=== PATIENT | female | born 1945 | race Caucasian/White ===

== ENCOUNTER 2016-02-23 09:24 | Observation (INO) | payer MEDICARE ==
--- NOTE | 2016-02-23 10:02 | ERPHSYRPT ---
- History of Present Illness Time Seen by Provider: 02/23/16 09:54 Source: patient, family Exam Limitations: no limitations Patient Subjective Stated Complaint: dizziness, headache, productive cough Triage Nursing Assessment: states went to the chiropractor for the first time yesterday due to rt side weakness for 2 years and was in the shower this moring and had sudden onset of fullness in head and dizziness. wet moist cough noted and staes has had white productive sputum. skin warm and dry. flat affect with eye contact. c/o frontal head pain. denies n/v. diarrhea last night. 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 States felt dizziness and unable to stand/walk along with uncoordination. Ptl also with "top of head" headache radiating down left side, along with right side weakness but no paresthesias. Denies any blurred vision or mental status changes. States previously with dizziness but not severe as this episode. Pt. with COPD with chronic cough/SOB. Denies any fever, chill, vomiting or diarrhea. Pt. saw chiropractor for some chronic R side weakness and dizziness for 1-2 years, that pt. have had multiple work ups for strokes with head CT/MRI's Timing/Duration: today (at 8AM) Severity: severe Modifying Factors: Improves With: movement (worsen), rest (improves but still with dizziness) Associated Symptoms: shortness of breath, cough (productive white sputum with cough), chest pain (substernal chest discomfort for about an hour, "heaviness", non-radiating), headaches, weakness (R side ), other (pre-syncope) Allergies/Adverse Reactions: Sulfa (Sulfonamide Antibiotics) Allergy (Intermediate, Verified 02/23/16 09:41) Rash Home Medications: Formoterol Fumarate [Perforomist] 20 mcg IH DAILY 09/30/15 [History] Levothyroxine Sodium [Synthroid] 50 mcg PO DAILY 09/30/15 [History] Montelukast Sodium [Singulair] 5 mg PO DAILY 09/30/15 [History] Potassium 99 mg PO DAILY 09/30/15 [History] Hx Tetanus, Diphtheria Vaccination/Date Given: Yes Hx Influenza Vaccination/Date Given: No Hx Pneumococcal Vaccination/Date Given: No Immunizations Up to Date: Yes - Review of Systems Constitutional: No Fever, No Chills Eyes: No Symptoms, No Vision Changes, No Double Vision Ears, Nose, & Throat: Nose Congestion Respiratory: Cough, Dyspnea, No Stridor, No Wheezing Cardiac: Chest Pain, No Edema, No Palpitations Abdominal/Gastrointestinal: No Abdominal Pain, No Nausea, No Vomiting, No Diarrhea Genitourinary Symptoms: No Dysuria Musculoskeletal: No Back Pain, No Neck Pain Skin: No Rash Neurological: Dizziness, Focal Weakness, No Lethargy, No Parasthesia, No Sensory Changes, No Speech Changes Psychological: No Symptoms Endocrine: No Symptoms All Other Systems: Reviewed and Negative - Past Medical History Neurological History: No Pertinent History ENT History: No Pertinent History Respiratory History: COPD Endocrine Medical History: Hypothyroidism GI Medical History: Diverticulitis - Past Surgical History Past Surgical History: Yes Gastrointestinal: Appendectomy Musculoskeletal: Other (R Hand surgery for trigger finger) Female Surgical History: Hysterectomy - Social History Smoking Status: Current every day smoker Exposure to second hand smoke: No Drug Use: none Patient Lives Alone: No - Nursing Vital Signs Nursing Vital Signs: Initial Vital Signs Temperature 97.6 F Temperature Source Oral Pulse Rate 84 Respiratory Rate 16 Blood Pressure 149/85 Pain Intensity 8 - Physical Exam General Appearance: no apparent distress, alert Eye Exam: PERRL/EOMI, eyes nml inspection Ears, Nose, Throat Exam: normal ENT inspection, TMs normal, pharynx normal, moist mucous membranes Neck Exam: normal inspection, non-tender, supple, full range of motion Respiratory Exam: rhonchi (intermittent rhonchis), No respiratory distress Cardiovascular Exam: regular rate/rhythm, normal heart sounds, normal peripheral pulses Gastrointestinal/Abdomen Exam: soft, normal bowel sounds, No tenderness, No mass Back Exam: normal inspection, normal range of motion, No CVA tenderness, No vertebral tenderness Extremity Exam: normal inspection, normal range of motion, pelvis stable Neurologic Exam: alert, oriented x 3, cooperative, waste removalist II-XII nml as tested, normal mood/affect, sensation nml, motor deficits (R UE/LE weakness 3/5 compared to Left side), abnormal gait (unable to ambulate), other (Increase subjective dizziness with positional and head changes, no nystagmus), No disoriented, No confusion, No facial droop, No slurred speech Skin Exam: normal color, warm, dry, No rash Lymphatic Exam: No adenopathy SpO2 Interpretation: normal SpO2: 98 Oxygen Delivery: Room Air - Course Nursing assessment & vital signs reviewed: Yes EKG Interpreted by Me: RATE, Sinus Rhythm (81), NORMAL AXIS, NORMAL INTERVALS, NORMAL QRS - Radiology Exams Chest X-ray Interpretation: Interpreted by me, No Pneumonia, No Infiltrates, Other ( COPD changes with hyperinflation) - CT Exams Head CT Interpretation: Negative, Tele-radiologist Report Ordered Tests: Active Orders 24 hr Category Date Time Status Wardrobe Stylist STAT Care 02/23/16 10:14 Active EKG-ER Only STAT Care 02/23/16 10:14 Active IV Insertion STAT Care 02/23/16 10:14 Active NPO (ED) STAT Care 02/23/16 10:14 Active Orthostatic Vital Signs STAT Care 02/23/16 10:28 Active Pulse Oximetry (ED) STAT Care 02/23/16 10:14 Active CHEST 1 VIEW (PORTABLE) Stat Exams 02/23/16 10:15 Taken HEAD WITHOUT CONTRAST [CT] Stat Exams 02/23/16 10:15 Taken BMP Stat Lab 02/23/16 10:15 Completed CBC W DIFF Stat Lab 02/23/16 10:15 Completed TROPONIN Stat Lab 02/23/16 10:15 Completed UA W/ MICROSCOPIC Stat Lab 02/23/16 10:15 Completed Medication Summary Discontinued Medications Generic Name Dose Route Start Last Admin Trade Name Freq PRN Reason Stop Dose Admin Aspirin 325 mg 02/23/16 11:30 Baby Aspirin 81 Mg Chew PO 02/23/16 11:31 STAT ONE Lab/Rad Data: Laboratory Result Diagrams 02/23/16 10:15 02/23/16 10:15 Laboratory Results 02/23/16 02/23/16 02/23/16 Range/Units 10:15 10:15 10:15 WBC (4.0-10.5) K/mm3 RBC (4.1-5.4) M/mm3 Hgb (12.0-16.0) gm/dl Hct (35-47) % MCV (78-100) fl MCH (26-32) pg MCHC (32-36) g/dl RDW (11.5-14.0) % Plt Count (150-450) K/mm3 MPV (6-9.5) fl Gran % (36.0-66.0) % Lymphocytes % (24.0-44.0) % Monocytes % (0.0-12.0) % Eosinophils % (0.00-5.0) % Basophils % (0.0-0.4) % Basophils # (0-0.4) Sodium 141 (136-145) mEq/L Potassium 3.1 L (3.5-5.1) mEq/L Chloride 101 (98-107) mEq/L Carbon Dioxide 29.5 (21-32) mEq/L Anion Gap 14.0 (5-15) MEQ/L BUN 17 (9-20) mg/dL Creatinine 0.57 (0.55-1.30) mg/dl Estimated GFR > 60 ML/MIN Glucose 95 (70-110) MG/DL Calcium 9.4 (8.5-10.1) mg/dL Troponin I < 0.017 (0.000-0.056) ng/ml Ur Collection Type VOID Urine Color YELLOW (YELLOW) Urine Appearance HAZY (CLEAR) Urine pH 7.5 (5-6) Ur Specific Volcano 1.015 (1.005-1.025) Urine Protein NEGATIVE (Negative) Urine Glucose (UA) NEGATIVE (NEGATIVE) mg/dL Urine Ketones NEGATIVE (NEGATIVE) Urine Nitrite NEGATIVE (NEGATIVE) Urine Bilirubin NEGATIVE (NEGATIVE) Urine Urobilinogen 0.2 (0-1) mg/dL Urine WBC (Auto) NEGATIVE (NEGATIVE) Urine RBC (Auto) SMALL (0-5) Dimitri/ul Urine Microscopic RBC 2-5 (0-2) /HPF Urine Microscopic WBC 0-2 (0-5) /HPF Ur Epithelial Cells FEW (FEW) /HPF Amorphous Crystals MODERATE (NEGATIVE) /HPF Urine Bacteria FEW (NEGATIVE) /HPF Specimen Received 02/23/16 1000 02/23/16 Range/Units 10:15 WBC 7.8 (4.0-10.5) K/mm3 RBC 4.91 (4.1-5.4) M/mm3 Hgb 14.7 (12.0-16.0) gm/dl Hct 44.9 (35-47) % MCV 91.4 (78-100) fl MCH 29.9 (26-32) pg MCHC 32.7 (32-36) g/dl RDW 12.4 (11.5-14.0) % Plt Count 306 (150-450) K/mm3 MPV 10.9 H (6-9.5) fl Gran % 65.2 (36.0-66.0) % Lymphocytes % 25.2 (24.0-44.0) % Monocytes % 7.7 (0.0-12.0) % Eosinophils % 1.3 (0.00-5.0) % Basophils % 0.6 (0.0-0.4) % Basophils # 0.05 (0-0.4) Sodium (136-145) mEq/L Potassium (3.5-5.1) mEq/L Chloride (98-107) mEq/L Carbon Dioxide (21-32) mEq/L Anion Gap (5-15) MEQ/L BUN (9-20) mg/dL Creatinine (0.55-1.30) mg/dl Estimated GFR ML/MIN Glucose (70-110) MG/DL Calcium (8.5-10.1) mg/dL Troponin I (0.000-0.056) ng/ml Ur Collection Type Urine Color (YELLOW) Urine Appearance (CLEAR) Urine pH (5-6) Ur Specific Volcano (1.005-1.025) Urine Protein (Negative) Urine Glucose (UA) (NEGATIVE) mg/dL Urine Ketones (NEGATIVE) Urine Nitrite (NEGATIVE) Urine Bilirubin (NEGATIVE) Urine Urobilinogen (0-1) mg/dL Urine WBC (Auto) (NEGATIVE) Urine RBC (Auto) (0-5) Dimitri/ul Urine Microscopic RBC (0-2) /HPF Urine Microscopic WBC (0-5) /HPF Ur Epithelial Cells (FEW) /HPF Amorphous Crystals (NEGATIVE) /HPF Urine Bacteria (NEGATIVE) /HPF Specimen Received - Progress Progress: improved Progress Note: 02/23/16 11:21 patient without any new changes in symptoms during her stay in the emergency department. Patient remained hemodynamically stable throughout. 02/23/16 11:27 patient was given aspirin 325 mg while in the emergency department Discussed with Dr.: Persaud (Dr. Schaeffer was notified and agrees to admission) Will see patient in: hospital (observation) Counseled pt/family regarding: lab results, diagnosis, rad results - Departure Time of Disposition: 11:23 Departure Disposition: Observation Clinical Impression: Right sided weakness, Dizziness Condition: Stable Critical Care Time: No Referrals: CYDNEY VELA [Primary Care Provider] -
[2016-02-23 10:23] LABS: BASOPHIL % 0.6 % (0.0-0.4); Eosinophil % 1.3 % (0.00-5.0); Granulocytes % 65.2 % (36.0-66.0); Lymphocytes % 25.2 % (24.0-44.0); Mean Cell Volume 91.4 fl (78-100); Mean Corpuscular Hemoglobin 29.9 pg (26-32); Mean Platelet Volume 10.9 fl (6-9.5); Monocytes % 7.7 % (0.0-12.0); Platelet Count 306 K/mm3 (150-450); Red Blood Count 4.91 M/mm3 (4.1-5.4); Red Cell Distribution Width 12.4 % (11.5-14.0); White Blood Count 7.8 K/mm3 (4.0-10.5)
[2016-02-23 10:24] LABS: COMPLETE URINE MICROSCOPIC? YES; Collection Type VOID; Ph 7.5 (5-6)
[2016-02-23 10:39] LABS: Bacteria FEW /HPF (NEGATIVE); Epithelial Cells FEW /HPF (FEW); WBC 0-2 /HPF (0-5)
[2016-02-23 10:54] LABS: BLOOD UREA NITROGEN 17 mg/dL (9-20); CHLORIDE 101 mEq/L (98-107); Carbon Dioxide 29.5 mEq/L (21-32); Glucose 95 MG/DL (70-110); Potassium 3.1 mEq/L (3.5-5.1); SODIUM 141 mEq/L (136-145)
[2016-02-23] MEDS ORDERED: BABY ASPIRIN 81 MG CHEW PO ONE (11:30)
[2016-02-23] MEDS ORDERED: BABY ASPIRIN 81 MG CHEW ONE (11:39)
[2016-02-23] MEDS ORDERED: Zofran 4 MG/2 ML VIAL IV ONE (11:47)
[2016-02-23] MEDS ORDERED: Zofran 4 MG/2 ML VIAL ONE (11:48)
[2016-02-23] MEDS ORDERED: Klor Con 10 MEQ PO ONE (13:24)
--- NOTE | 2016-02-23 14:09 | PCM.HP ---
History of Present Illness - Chief Complaint Chief Complaint: weakness. dizziness Date: 02/23/16 History of Present Illness: is a 70 year old female. with chronic right sided weakness for 2 years developed sudden onset dizziness today while in the restroom she felt as if she was "whirling" and the was going to fall down. Position changes make it worse. Laying still makes it better. She had a brief less severe spell in the past. She is nauseated with this with no vomiting. She did not take her potassium today. Her right side feels as though it is progressively weakening for several years she has seen Dr. Cloud neurology for this last fall and had MRI with no stroke and reportedly EEG that she was told was normal. The etiology was not discovered. She has not had any emg or LP for this. This is chronic however and feels a little worse today but she feels all over weaker today with the vertigo. She has developed a generalized headache after getting the zofran in the ED. She has no new focal symptoms with this. Medications & Allergies Home Medications: Home Medication List Formoterol Fumarate [Perforomist] 20 mcg IH BID 09/30/15 [History Confirmed ] Levothyroxine Sodium [Synthroid] 50 mcg PO DAILY 09/30/15 [History Confirmed ] Montelukast Sodium [Singulair] 5 mg PO DAILY 09/30/15 [History Confirmed ] Guaifenesin/Codeine Phosphate [Robitussin AC Syrup] 5 ml PO HS 02/23/16 [ History Confirmed 02/23/16] Potassium Chloride [K-Dur] 10 meq PO BID 02/23/16 [History Confirmed 02/23/16] Allergies/Adverse Reactions: Allergies Allergy/AdvReac Type Severity Reaction Status Date / Time Sulfa (Sulfonamide Allergy Intermediate Rash Verified 02/23/16 09:41 Antibiotics) - Past Medical History Past Medical History: No Neurological History: No Pertinent History ENT History: No Pertinent History Cardiac History: No Pertinent History Respiratory History: COPD Endocrine Medical History: Hypothyroidism Musculoskelatal History: No Pertinent History GI Medical History: Diverticulitis History: No Pertinent History Pyscho-Social History: No Pertinent History Reproductive Disorders: No Pertinent History - Female History Are you now?: No - Past Surgical History Past Surgical History: Yes Neuro Surgical History: No Pertinent History Cardiac History: No Pertinent History Respiratory Surgery: No Pertinent History GI Surgical History: Appendectomy Genitourinary Surgical Hx: No Pertinent History Musculskeletal Surgical Hx: No Pertinent History Female Surgical History: Hysterectomy - Social History Smoking Status: Never smoker Exposure to second hand smoke: No Alcohol: None Drug Use: none - Physical Exam Vital Signs: Vital Signs - 24 hr Temp Pulse Resp BP BP Pulse Ox 02/23/16 12:32 98.1 F 83 175/76 02/23/16 12:16 98.4 F 83 18 175/76 95 02/23/16 11:52 88 16 164/92 99 02/23/16 11:36 98 02/23/16 11:08 84 16 149/85 98 02/23/16 10:39 67 18 144/81 02/23/16 10:27 96 02/23/16 09:36 97.6 F 80 18 169/93 98 General Appearance: no apparent distress, alert, thin Neurologic Exam: oriented x 3, cooperative, other (depressed affect. PERRL, EOMI , no nystagmus, tongue midline, uvula midline, sensation intact to light touch bilateral, facial symmetry, roxana halpike appears positive, finger to nose intact bilateral. heal to holman intact, no dysarthria, reflexes 2+ biceps, brachioradialis, patellar bilateral no clonus, Toes downgoing bilateral. no ridgidity, strength 4/5 right upper extremity throughout although finger abduction appears about 5/5 left upper extremity 5/5 strength throughout right lower extremity 4/5 throughout left lower extremity 5/5 strength.) Eye Exam: No scleral icterus, No pale conjunctivae Ears, Nose, Throat Exam: dry mucous membranes, No pharyngeal erythema Neck Exam: non-tender, supple, No meningismus, No mass, No lymphadenopathy Respiratory Exam: normal breath sounds, lungs clear Cardiovascular Exam: regular rate/rhythm, normal heart sounds, normal peripheral pulses, No edema Gastrointestinal/Abdomen Exam: soft, normal bowel sounds, No tenderness Extremity Exam: normal inspection, No calf tenderness, No pedal edema Skin Exam: warm, dry Assessment/Plan (1) Right sided weakness Current Visit: Yes Status: Acute Assessment & Plan: this appears consistent with previous documentation in neurology consult note and visits with Dr. Adair for which MRI brain negative in 05/2015. She has had neurology evaluation outpatient and will likely need further follow up for this. It appears it is likely exacerbated by an episode of BPV. She has no other cerebellar symptoms currently with the vertigo to suggest stroke. The Vicente maneuver was preformed today with the assistance of her daughter and we will give a soft neck brace to wear for 48 hours as tolerated to try to avoid sudden movements. Given her age and her right sided weakness she was given aspirin will keep in obs on telemetry consider MRI if not improving or if any new focal weakness rule out stroke IV D5 /2 NS c 20 KCl at 100 mL/h give additional dose of KCl for the low potassium Antivert as needed phenergan as needed tylenol as needed for headache she developed this after the zofran monitor the bp she has had normal readings in office setting Code(s): M62.81 - MUSCLE WEAKNESS (GENERALIZED) (2) Vertigo Current Visit: Yes Status: Acute Code(s): R42 - DIZZINESS AND GIDDINESS (3) Hypokalemia Current Visit: Yes Status: Acute Code(s): E87.6 - HYPOKALEMIA (4) Hypothyroidism Current Visit: Yes Status: Chronic Code(s): E03.9 - HYPOTHYROIDISM, UNSPECIFIED
[2016-02-23] MEDS: D5W/0.45NS W/ 20mEq KCl 1000 ML 1,000 ML IV SCH ×2 (14:36→21:30)
[2016-02-23] MEDS: TYLENOL 325 MG PO PRN (14:41)
[2016-02-23] MEDS: ANTIVERT 25 MG PO PRN (14:41)
[2016-02-23] MEDS: Phenergan 25 MG INJ IV PRN (14:53)
[2016-02-23] MEDS: Singulair 10 MG PO SCH (16:05)
[2016-02-23] MEDS: ENOXAPARIN SODIUM SQ SCH (16:06)
--- NOTE | 2016-02-23 18:14 | XRAY ---
Indication: Cough. Comparison: September 30, 2015 AP chest again hyperinflated and clear today. Heart and mediastinal structures are stable and within normal limits. Bony thorax intact. Impression: Nonacute hyperinflated chest.
--- NOTE | 2016-02-23 18:16 | XRAY ---
Indication: Headache and dizziness. Multiple contiguous axial images obtained through the head without contrast. Comparison: None Normal appearing brain parenchyma, ventricles, and bony calvarium. There is opacification of the visualized left maxillary sinus with lesser mucosal thickening of the remaining visualized paranasal sinuses. Impression: No acute intracranial abnormalities. Incidental paranasal sinus disease. Comment: Preliminary interpretation was made by [facility]. No discrepancy. CTDI is 68.32
[2016-02-23] MEDS: PROVENTIL 2.5 MG/3 ML NEB IH SCH (20:00)
[2016-02-23] MEDS: Klor Con 10 MEQ PO SCH (21:21)
[2016-02-23] MEDS ORDERED: NON-FORMULARY ITEM (Potassium Chloride [K-Dur] 10 MEQ) PO SCH (22:00)
[2016-02-23] MEDS ORDERED: FORMOTEROL FUMARATE 20 MCG IH SCH (22:00)
[2016-02-24] MEDS: Phenergan 25 MG INJ IV PRN (01:42)
[2016-02-24] MEDS: ANTIVERT 25 MG PO PRN (01:44)
[2016-02-24] MEDS: TYLENOL 325 MG PO PRN (01:47)
[2016-02-24 05:48] LABS: ANION GAP 12.3 MEQ/L (5-15); BLOOD UREA NITROGEN 10 mg/dL (9-20); CHLORIDE 107 mEq/L (98-107); Carbon Dioxide 28.1 mEq/L (21-32); Glucose 117 MG/DL (70-110); MAGNESIUM 2.1 mg/dL (1.8-2.4); SODIUM 142 mEq/L (136-145)
[2016-02-24 06:59] VITALS: BP 130/65; O2SAT 98
[2016-02-24] MEDS: PROVENTIL 2.5 MG/3 ML NEB IH SCH (07:10)
[2016-02-24 07:13] VITALS: PULSE 87
--- NOTE | 2016-02-24 09:35 | PCM.DCORD ---
- Discharge Discharge Date: 02/24/16 Disposition: Home, Self-Care Condition: Stable Prescriptions: Meclizine HCl 25 mg [Antivert 25 mg] 25 mg PO Q4HPRN PRN #30 tablet PRN Reason: Dizziness Promethazine HCl 12.5 mg PO Q4H PRN PRN #30 tablet PRN Reason: Nausea Medications: Home Medications Formoterol Fumarate [Perforomist] 20 mcg IH BID 09/30/15 [Confirmed 02/23/16] Levothyroxine Sodium [Synthroid] 50 mcg PO DAILY 09/30/15 [Confirmed 02/23/16] Montelukast Sodium [Singulair] 5 mg PO DAILY 09/30/15 [Confirmed 02/23/16] Guaifenesin/Codeine Phosphate [Robitussin AC Syrup] 5 ml PO HS 02/23/16 [ Confirmed 02/23/16] Potassium Chloride [K-Dur] 10 meq PO BID 02/23/16 [Confirmed 02/23/16] Active Inpatient Medications Acetaminophen (Tylenol 325 Mg) 650 mg PO Q4H PRN PRN PRN Reason: PAIN AND/OR FEVER Stop: 03/24/16 13:56 Last Admin: 02/24/16 01:47 Dose: 650 mg Albuterol Sulfate (Proventil 2.5 Mg/3 Ml Neb) 2.5 mg IH BIDRT [facility] Stop: 03/24/16 18:59 Last Admin: 02/24/16 07:10 Dose: 2.5 mg Enoxaparin Sodium (Enoxaparin Sodium) 40 mg SQ DAILY [facility] Stop: 03/24/16 14:59 Last Admin: 02/23/16 16:06 Dose: 40 mg Potassium Chloride/Dextrose/Sod Cl (D5w/0.45ns W/ 20meq Kcl 1000 Ml) 1,000 mls @ 100 mls/hr IV .Q10H [facility] Stop: 03/24/16 14:29 Last Admin: 02/23/16 21:30 Dose: 100 mls/hr Levothyroxine Sodium (Synthroid 50 Mcg) 50 mcg PO DAILY [facility] Stop: 03/25/16 09:59 Meclizine HCl (Antivert 25 Mg) 25 mg PO Q6H PRN PRN PRN Reason: DIZZINESS Stop: 03/24/16 13:56 Last Admin: 02/24/16 01:44 Dose: 25 mg Montelukast Sodium (Singulair 10 Mg) 5 mg PO DAILY [facility] Stop: 03/24/16 14:59 Last Admin: 02/23/16 16:05 Dose: 5 mg Potassium Chloride (Klor Con 10 Meq) 10 meq PO BID [facility] Stop: 03/24/16 21:59 Last Admin: 02/23/16 21:21 Dose: 10 meq Promethazine HCl (Phenergan 25 Mg Inj) 12.5 mg IV Q4H PRN PRN PRN Reason: NAUSEA/VOMITING Stop: 03/24/16 13:56 Last Admin: 02/24/16 01:42 Dose: 12.5 mg Follow up with: CYDNEY VELA [Primary Care Provider] -
--- NOTE | 2016-02-24 09:38 | PCM.DS ---
Discharge Summary Date of Admission: 02/23/16 12:00 Date of Discharge: 02/24/16 Admitting Physician: YE MOMIN Primary Care Provider: CYDNEY VELA Allergies Allergies Sulfa (Sulfonamide Antibiotics) Allergy (Intermediate, Verified 02/23/16 09:41) [facility] Summary - Hospital Course Hospital Course: she suffers from chronic right sided weakness with previous evaluation negative by neurology. she developed sudden onset vertigo with exacerbation by position changes and head movement associated with nausea. She felt her right side was more weak. She was placed in observation to rule out stroke. She was placed on telemetry with no events, CT head ok, She had no hypokalemia that was corrected. She had + roxana halpike and no other cerebellar symptoms other then vertigo and mild chronic 4/5 weakness on the right with no other neurological discrepancies on repeated exam. She had Vicente maneuver done and her symptoms were improving with meclizine although still present with sudden position changes. BPV diagnosis and treatment were discussed as well as signs and symptoms of stroke and when to present to ER immediately if developing and she was discharged to home with meclizine and phenergan prn. - Vitals & Intake/Output Vital Signs: Vital Signs Temperature 98.1 F 02/24/16 06:58 Pulse Rate 87 02/24/16 07:12 Respiratory Rate 18 02/24/16 07:12 Blood Pressure 130/65 02/24/16 06:58 O2 Sat by Pulse Oximetry 98 02/24/16 07:12 Intake & Output: Intake & Output 02/21/16 02/22/16 02/23/16 02/24/16 11:59 11:59 11:59 11:59 Intake Total 1852 Output Total 1000 Balance 852 Weight 44.497 kg - Lab Result Diagrams: 02/23/16 10:15 02/24/16 05:15 Lab Results-Last 24 Hrs: Lab Results-Last 24 Hours 02/24/16 Range/Units 05:15 Sodium 142 (136-145) mEq/L Potassium 5.0 (3.5-5.1) mEq/L Chloride 107 (98-107) mEq/L Carbon Dioxide 28.1 (21-32) mEq/L Anion Gap 12.3 (5-15) MEQ/L BUN 10 (9-20) mg/dL Creatinine 0.67 (0.55-1.30) mg/dl Estimated GFR > 60 ML/MIN Glucose 117 H (70-110) MG/DL Calcium 8.5 (8.5-10.1) mg/dL Magnesium 2.1 (1.8-2.4) mg/dL - Procedures and Test Procedures and Tests throughout Hospitalization: Therapy Orders & Screens 02/23/16 15:06 Respiratory Nebulizer BID Comment: Diagnosis: weakness. dizziness Discharge Exam General Appearance: no apparent distress, alert, thin Neurologic Exam: oriented x 3, cooperative, technician automated equipment II-XII nml as tested, other ( depressed affect. PERRL, EOMI, no nystagmus, tongue midline, uvula midline, sensation intact to light touch bilateral, facial symmetry, finger to nose intact bilateral. heal to holman intact, no dysarthria, reflexes 2+ biceps, brachioradialis, patellar bilateral no clonus, Toes downgoing bilateral. no ridgidity, strength 4/5 right upper extremity throughout although finger abduction appears about 5/5 left upper extremity 5/5 strength throughout right lower extremity 4/5 throughout left lower extremity 5/5 strength) Skin Exam: warm, dry Eye Exam: PERRL, No scleral icterus Ears, Nose, Throat Exam: moist mucous membranes Neck Exam: normal inspection, non-tender, supple Respiratory Exam: normal breath sounds, lungs clear Cardiovascular Exam: regular rate/rhythm, normal heart sounds, normal peripheral pulses, No murmur Gastrointestinal/Abdomen Exam: soft, normal bowel sounds, No tenderness, No distention Extremity Exam: normal inspection Back Exam: normal inspection Final Diagnosis/Problem List - Final Discharge Diagnosis/Problem (1) Right sided weakness Status: Acute (2) Vertigo Status: Acute (3) Hypokalemia Status: Resolved (4) Hypothyroidism Status: Chronic - Discharge Discharge Date: 02/24/16 Disposition: Home, Self-Care Condition: Stable Prescriptions: Meclizine HCl 25 mg [Antivert 25 mg] 25 mg PO Q4HPRN PRN #30 tablet PRN Reason: Dizziness Promethazine HCl 12.5 mg PO Q4H PRN PRN #30 tablet PRN Reason: Nausea Medications: Home Medications Formoterol Fumarate [Perforomist] 20 mcg IH BID 09/30/15 [Confirmed 02/23/16] Levothyroxine Sodium [Synthroid] 50 mcg PO DAILY 09/30/15 [Confirmed 02/23/16] Montelukast Sodium [Singulair] 5 mg PO DAILY 09/30/15 [Confirmed 02/23/16] Guaifenesin/Codeine Phosphate [Robitussin AC Syrup] 5 ml PO HS 02/23/16 [ Confirmed 02/23/16] Potassium Chloride [K-Dur] 10 meq PO BID 02/23/16 [Confirmed 02/23/16] Meclizine HCl 25 mg [Antivert 25 mg] 25 mg PO Q4HPRN PRN #30 tablet Promethazine HCl 12.5 mg PO Q4H PRN PRN #30 tablet 02/24/16 Active Inpatient Medications Acetaminophen (Tylenol 325 Mg) 650 mg PO Q4H PRN PRN PRN Reason: PAIN AND/OR FEVER Stop: 03/24/16 13:56 Last Admin: 02/24/16 01:47 Dose: 650 mg Albuterol Sulfate (Proventil 2.5 Mg/3 Ml Neb) 2.5 mg IH BIDRT [facility] Stop: 03/24/16 18:59 Last Admin: 02/24/16 07:10 Dose: 2.5 mg Enoxaparin Sodium (Enoxaparin Sodium) 40 mg SQ DAILY [facility] Stop: 03/24/16 14:59 Last Admin: 02/23/16 16:06 Dose: 40 mg Potassium Chloride/Dextrose/Sod Cl (D5w/0.45ns W/ 20meq Kcl 1000 Ml) 1,000 mls @ 100 mls/hr IV .Q10H [facility] Stop: 03/24/16 14:29 Last Admin: 02/23/16 21:30 Dose: 100 mls/hr Levothyroxine Sodium (Synthroid 50 Mcg) 50 mcg PO DAILY [facility] Stop: 03/25/16 09:59 Meclizine HCl (Antivert 25 Mg) 25 mg PO Q6H PRN PRN PRN Reason: DIZZINESS Stop: 03/24/16 13:56 Last Admin: 02/24/16 01:44 Dose: 25 mg Montelukast Sodium (Singulair 10 Mg) 5 mg PO DAILY [facility] Stop: 03/24/16 14:59 Last Admin: 02/23/16 16:05 Dose: 5 mg Potassium Chloride (Klor Con 10 Meq) 10 meq PO BID [facility] Stop: 03/24/16 21:59 Last Admin: 02/23/16 21:21 Dose: 10 meq Promethazine HCl (Phenergan 25 Mg Inj) 12.5 mg IV Q4H PRN PRN PRN Reason: NAUSEA/VOMITING Stop: 03/24/16 13:56 Last Admin: 02/24/16 01:42 Dose: 12.5 mg Instructions: Benign Paroxysmal Positional Vertigo Follow up with: CYDNEY VELA [Primary Care Provider] - Call for Appointment Forms: Discharge Instructions, Patient Portal Information
[2016-02-24] MEDS: Klor Con 10 MEQ PO SCH (09:58)
[2016-02-24] MEDS: Singulair 10 MG PO SCH (09:59)
[2016-02-24] MEDS: ENOXAPARIN SODIUM SQ SCH (09:59)
[2016-02-24] MEDS ORDERED: MONTELUKAST SODIUM 5 MG PO SCH (10:00)
[2016-02-24] MEDS ORDERED: SYNTHROID 25 MCG PO SCH (10:00)
[2016-02-24] MEDS ORDERED: SYNTHROID 50 MCG PO SCH (10:00)
== END 2016-02-24 10:45 | disposition home or self-care (01) ==
LOC: ED 09:24 → MED SURG 12:00
PROVIDERS: ADMIT Family Medicine; ATTEND Family Medicine
DX: M62.81 Muscle weakness (generalized) (principal); R42 Dizziness and giddiness; E87.6 Hypokalemia; E03.9 Hypothyroidism, unspecified; Z79.899 Other long term (current) drug therapy; J44.9 Chronic obstructive pulmonary disease, unspecified
CPT/HCPCS: 36415; 70450; 71010; 80048; 81000; 83735; 84484; 85025; 93005; 93041; 93268; 94640; 94760; 96374; 99284; G0378; J1650; J2405; J2550

== ENCOUNTER 2017-01-30 15:57 | Inpatient (IN) | payer MEDICARE ==
[2017-01-30] MEDS ORDERED: DUONEB 0.5-3 MG/3 ml Neb IH ONE ×3 (16:38→20:08)
[2017-01-30] MEDS ORDERED: solu-MEDROL 125 MG IV ONE (16:38)
--- NOTE | 2017-01-30 16:44 | ERPHSYRPT ---
- History of Present Illness Time Seen by Provider: 01/30/17 16:30 Source: patient Exam Limitations: no limitations Patient Subjective Stated Complaint: c/o shortness of breath, productive cough with thick yellow sputum Triage Nursing Assessment: pt ambulated to triage area without diff, gait steady. short of breath with productive cough, thick yellow sputum, states has had a low grade fever. skin pale, warm and dry, decreased appetite. Physician History: 71 y/o female with history of COPD sent from Dr Adair's office for evaluation of shortness of breath and cough. For the past 3 days, patient has been having shortness of breath, productive cough, wheezing, subjective chills, weakness and muscle aches. Pt has been receiving rocephin IM injections daily for 3 days. Pt was giving 1 dose of steroids and has been using breathing treatments. Pt has not been able to drink enough fluids. Pt also reports having some mild chest tightness. Timing/Duration: day(s) Activities at Onset: none Severity of Dyspnea-Max: moderate Severity of Dyspnea-Current: moderate Modifying Factors: Improves With: nothing Associated Symptoms: chest pain/discomfort Allergies/Adverse Reactions: Sulfa (Sulfonamide Antibiotics) Allergy (Intermediate, Verified 01/30/17 18:43) Rash Home Medications: Potassium Chloride [K-Dur] 10 meq PO BID 02/23/16 [History] Albuterol 2.5 mg/3 ml Neb [Proventil 2.5 mg/3 ml Neb] 2.5 mg IH QID PRN [History] Ceftriaxone Sodium [Ceftriaxone] 1 gm IM DAILY 01/30/17 [History] Hydrocod Psx/Chlor-Jj [Tussionex Pennkinetic Susp] 5 ml PO HS 01/30/17 [ History] Levothyroxine Sodium 50 Mcg [Synthroid 50 Mcg] 50 mcg PO DAILY 01/30/17 [ History] Hx Tetanus, Diphtheria Vaccination/Date Given: No Hx Influenza Vaccination/Date Given: No Hx Pneumococcal Vaccination/Date Given: No Immunizations Up to Date: No - Review of Systems Constitutional: Weakness, No Fever, No Chills Eyes: No Symptoms Ears, Nose, & Throat: No Symptoms Respiratory: Cough, Dyspnea, Dyspnea on Exertion (CHAO), Wheezing Cardiac: Chest Pain, No Edema, No Syncope Abdominal/Gastrointestinal: No Abdominal Pain, No Nausea, No Vomiting, No Diarrhea Genitourinary Symptoms: No Dysuria Musculoskeletal: No Back Pain, No Neck Pain Skin: No Rash Neurological: No Dizziness, No Focal Weakness, No Sensory Changes Psychological: No Symptoms Endocrine: No Symptoms All Other Systems: Reviewed and Negative - Past Medical History Pertinent Past Medical History: No Neurological History: No Pertinent History ENT History: No Pertinent History Cardiac History: No Pertinent History Respiratory History: COPD Endocrine Medical History: Hypothyroidism Musculoskeletal History: No Pertinent History GI Medical History: Diverticulitis History: No Pertinent History Psycho-Social History: No Pertinent History Female Reproductive Disorders: No Pertinent History - Past Surgical History Past Surgical History: Yes Neuro Surgical History: No Pertinent History Cardiac: No Pertinent History Respiratory: No Pertinent History Gastrointestinal: Appendectomy Genitourinary: No Pertinent History Musculoskeletal: No Pertinent History Female Surgical History: Hysterectomy - Social History Smoking Status: Never smoker Exposure to second hand smoke: Yes Drug Use: none Patient Lives Alone: No - Female History Hx Now: No - Nursing Vital Signs Nursing Vital Signs: Initial Vital Signs Temperature 98.8 F 01/30/17 15:57 Pulse Rate 98 H 01/30/17 15:57 Respiratory Rate 20 01/30/17 15:57 Blood Pressure 156/86 01/30/17 15:57 O2 Sat by Pulse Oximetry 98 01/30/17 15:57 Pain Scale Pain Intensity 5 - Physical Exam General Appearance: mild distress, alert Eye Exam: PERRL/EOMI Neck Exam: normal inspection, supple Respiratory Exam: crackles/rales, rhonchi Cardiovascular/Chest Exam: normal heart sounds, regular rate/rhythm Abdominal/Gastrointestinal Exam: soft, No tenderness, No distention, No mass Extremity Exam: non-tender, normal range of motion, normal inspection, no calf tenderness, no pedal edema Neurologic Exam: alert, oriented x 3, cooperative, die filer II-XII nml as tested, sensation nml, No motor deficits Skin Exam: normal color, warm, No dry SpO2 Interpretation: normal SpO2: 98 Oxygen Delivery: Room Air - Course Nursing assessment & vital signs reviewed: Yes Ordered Tests: Active Orders 24 hr Category Date Time Status Bedrest ROUTINE Activity 01/30/17 18:20 Active Admission/Status Order ROUTINE Care 01/30/17 18:20 Active Heater Helper STAT Care 01/30/17 16:39 Completed Code Status Order ROUTINE Care 01/30/17 18:20 Active EKG-ER Only STAT Care 01/30/17 16:38 Completed IV Care Q6H Care 01/30/17 18:20 Active IV Insertion STAT Care 01/30/17 16:38 Active Candelario GiftytrippHiwot ROUTINE Care 01/30/17 18:20 Active Weight,Daily 0600 Care 01/30/17 18:20 Active Cardiac Diet Diet 01/30/17 Dinner Active CHEST 2 VIEWS (PA AND LAT) Stat Exams 01/30/17 16:39 Taken BLOOD CULTURE Stat Lab 01/30/17 17:00 Received BMP AM.LAB Lab 01/31/17 04:00 Ordered CBC AM.LAB Lab 01/31/17 04:00 Ordered CBC W DIFF Stat Lab 01/30/17 16:55 Completed CMP Stat Lab 01/30/17 16:55 Completed NT PRO BNP Stat Lab 01/30/17 16:55 Completed TROPONIN Q3H Lab 01/30/17 17:06 Completed TROPONIN Q3H Lab 01/31/17 01:45 Ordered TROPONIN Q3H Lab 01/31/17 04:45 Ordered Respiratory Nebulizer STAT RT 01/30/17 16:40 Completed Transfer Order Routine Transfer 01/30/17 Completed Medication Summary Generic Name Dose Route Start Last Admin Trade Name Freq PRN Reason Stop Dose Admin Albuterol/Ipratropium 3 ml 01/30/17 19:00 Duoneb 0.5-3 Mg/3 Ml Neb IH 03/01/17 18:59 Q4HRT GINGER Sodium Chloride 1,000 mls @ 100 mls/hr 01/30/17 16:45 01/30/17 17:03 Sodium Chloride 0.9% 1000 Ml IV 03/01/17 16:44 100 mls/hr .Q10H GINGER Administration Azithromycin / Sodium Chloride 250 mls @ 250 mls/hr 01/30/17 17:48 IV 01/30/17 18:47 STAT ONE Azithromycin 500 mg in 250 mls @ 250 mls/hr 01/31/17 10:00 Zithromax 500 Mg/ 250 Ml Nacl Premix IV 03/02/17 09:59 Q24H10 GINGER Ceftriaxone Sodium/Dextrose 1 g in 50 mls @ 100 mls/hr 01/31/17 10:00 Rocephin 1 Gm-D5w 50 Ml Bag IV 03/02/17 09:59 Q24H10 GINGER Methylprednisolone Sodium Succinate 80 mg 01/31/17 00:00 Solu-Medrol 125 Mg IV 03/02/17 00:00 Q6HT GINGER Discontinued Medications Generic Name Dose Route Start Last Admin Trade Name Freq PRN Reason Stop Dose Admin Albuterol/Ipratropium 3 ml 01/30/17 16:38 01/30/17 17:08 Duoneb 0.5-3 Mg/3 Ml Neb IH 01/30/17 16:39 3 ml STAT ONE Administration Albuterol/Ipratropium Confirm 01/30/17 17:03 Duoneb 0.5-3 Mg/3 Ml Neb Administered 01/30/17 17:04 Dose 3 ml IH .STK-MED ONE Ceftriaxone Sodium/Dextrose 1 g in 50 mls @ 100 mls/hr 01/30/17 17:47 18:17 Rocephin 1 Gm-D5w 50 Ml Bag IV 01/30/17 18:16 100 mls/hr STAT STA Administration Ceftriaxone Sodium/Dextrose Confirm 01/30/17 18:15 Rocephin 1 Gm-D5w 50 Ml Bag Administered 01/30/17 18:16 Dose 1 g in 50 mls @ ud IV .STK-MED ONE Sodium Chloride 1,000 mls @ 50 mls/hr 01/30/17 18:30 Sodium Chloride 0.9% 1000 Ml IV 03/01/17 18:29 .Q20H [facility] Methylprednisolone Sodium Succinate 125 mg 01/30/17 16:38 01/30/17 17:03 Solu-Medrol 125 Mg IV 01/30/17 16:39 125 mg STAT ONE Administration Methylprednisolone Sodium Succinate Confirm 01/30/17 16:59 Solu-Medrol 125 Mg Administered 01/30/17 17:00 Dose 125 mg .ROUTE .STK-MED ONE Potassium Chloride 40 meq 01/30/17 17:39 01/30/17 17:46 Klor Con 10 Meq PO 01/30/17 17:40 40 meq STAT ONE Administration Potassium Chloride Confirm 01/30/17 17:43 Klor Con 10 Meq Administered 01/30/17 17:44 Dose 40 meq PO .STK-MED ONE Lab/Rad Data: Laboratory Result Diagrams 01/30/17 16:55 01/30/17 16:55 Laboratory Results 01/30/17 01/30/17 01/30/17 Range/Units 17:06 17:00 16:55 WBC (4.0-10.5) K/mm3 RBC (4.1-5.4) M/mm3 Hgb (12.0-16.0) gm/dl Hct (35-47) % MCV (78-100) fl MCH (26-32) pg MCHC (32-36) g/dl RDW (11.5-14.0) % Plt Count (150-450) K/mm3 MPV (6-9.5) fl Gran % (36.0-66.0) % Lymphocytes % (24.0-44.0) % Monocytes % (0.0-12.0) % Eosinophils % (0.00-5.0) % Basophils % (0.0-0.4) % Basophils # (0-0.4) Sodium 140 (136-145) mEq/L Potassium 3.2 L (3.5-5.1) mEq/L Chloride 104 (98-107) mEq/L Carbon Dioxide 27.5 (21-32) mEq/L Anion Gap 11.5 (5-15) MEQ/L BUN 10 (9-20) mg/dL Creatinine 0.58 (0.55-1.30) mg/dl Estimated GFR > 60 ML/MIN Glucose 88 (70-110) MG/DL Calcium 9.5 (8.5-10.1) mg/dL Total Bilirubin 0.30 (0.2-1.0) mg/dL AST 25 (15-37) U/L ALT 27 (12-78) U/L Alkaline Phosphatase 70 (46-116) U/L Troponin I < 0.017 (0.000-0.056) ng/ml NT-Pro-B Natriuret Pep 276 H (0-125) pg/ml Serum Total Protein 7.6 (6.4-8.2) gm/dL Albumin 3.9 (3.4-5.0) g/dL Influenza Type A Ag NEGATIVE (NEGATIVE) Influenza Type B Ag NEGATIVE (NEGATIVE) RSV (PCR) NEGATIVE (Negative) 01/30/17 Range/Units 16:55 WBC 7.4 (4.0-10.5) K/mm3 RBC 4.32 (4.1-5.4) M/mm3 Hgb 13.0 (12.0-16.0) gm/dl Hct 40.0 (35-47) % MCV 92.6 (78-100) fl MCH 30.1 (26-32) pg MCHC 32.5 (32-36) g/dl RDW 12.6 (11.5-14.0) % Plt Count 276 (150-450) K/mm3 MPV 11.1 H (6-9.5) fl Gran % 65.5 (36.0-66.0) % Lymphocytes % 23.9 L (24.0-44.0) % Monocytes % 9.1 (0.0-12.0) % Eosinophils % 0.7 (0.00-5.0) % Basophils % 0.8 (0.0-0.4) % Basophils # 0.06 (0-0.4) Sodium (136-145) mEq/L Potassium (3.5-5.1) mEq/L Chloride (98-107) mEq/L Carbon Dioxide (21-32) mEq/L Anion Gap (5-15) MEQ/L BUN (9-20) mg/dL Creatinine (0.55-1.30) mg/dl Estimated GFR ML/MIN Glucose (70-110) MG/DL Calcium (8.5-10.1) mg/dL Total Bilirubin (0.2-1.0) mg/dL AST (15-37) U/L ALT (12-78) U/L Alkaline Phosphatase (46-116) U/L Troponin I (0.000-0.056) ng/ml NT-Pro-B Natriuret Pep (0-125) pg/ml Serum Total Protein (6.4-8.2) gm/dL Albumin (3.4-5.0) g/dL Influenza Type A Ag (NEGATIVE) Influenza Type B Ag (NEGATIVE) RSV (PCR) (Negative) - Progress Progress: improved Progress Note: 01/30/17 17:45 Pt feels better after receiving duoneb, solumedrol and NS fluids. Pt has no fever, white count and a negative chest x ray. Influenza is negative. The CXR does not show any acute process. Pt will be re-started on rocephin and azithromycin. Pt has been admitted to Dr Adair - Departure Time of Disposition: 17:47 Departure Disposition: In-patient Admission Clinical Impression: COPD (chronic obstructive pulmonary disease) Qualifiers: COPD type: unspecified COPD Qualified Code(s): J44.9 - Chronic obstructive pulmonary disease, unspecified Condition: Fair Critical Care Time: Yes Critical Care Time(excluding separately billable procedures): 30-74 minutes
[2017-01-30] MEDS ORDERED: solu-MEDROL 125 MG ONE (16:59)
[2017-01-30 17:03] LABS: BASOPHIL % 0.8 % (0.0-0.4); Basophil (Absolute #) 0.06 (0-0.4); Eosinophil % 0.7 % (0.00-5.0); Eosinophil (Absolute #) 0.05 (0-0.5); Granulocyte Absolute (ANC) 4.81 (1.4-6.9); Granulocytes % 65.5 % (36.0-66.0); Lymphocyte (Absolute #) 1.76 (1.0-4.6); Lymphocytes % 23.9 % (24.0-44.0); Mean Cell Volume 92.6 fl (78-100); Mean Corpuscular Hemoglobin 30.1 pg (26-32); Mean Corpuscular Hgb Concent. 32.5 g/dl (32-36); Mean Platelet Volume 11.1 fl (6-9.5); Monocyte (Absolute #) 0.67 (0.0-1.3); Monocytes % 9.1 % (0.0-12.0); Platelet Count 276 K/mm3 (150-450); Red Blood Count 4.32 M/mm3 (4.1-5.4); Red Cell Distribution Width 12.6 % (11.5-14.0); White Blood Count 7.4 K/mm3 (4.0-10.5)
[2017-01-30] MEDS: Sodium Chloride 0.9% 1000 ML 1,000 ML IV SCH (17:03)
[2017-01-30 17:31] LABS: ALBUMIN 3.9 g/dL (3.4-5.0); ALKALINE PHOSPHATASE 70 U/L (46-116); ANION GAP 11.5 MEQ/L (5-15); BLOOD UREA NITROGEN 10 mg/dL (9-20); CHLORIDE 104 mEq/L (98-107); Calcium 9.5 mg/dL (8.5-10.1); Carbon Dioxide 27.5 mEq/L (21-32); Creatinine 1 0.58 mg/dl (0.55-1.30); EST GLOMERULAR FILTRATION RATE > 60 ML/MIN; Glucose 88 MG/DL (70-110); NT PRO BNP 276 pg/ml (0-125); Potassium 3.2 mEq/L (3.5-5.1); SGOT/AST 25 U/L (15-37); SGPT/ALT 27 U/L (12-78); SODIUM 140 mEq/L (136-145); Total Protein 7.6 gm/dL (6.4-8.2)
[2017-01-30] MEDS ORDERED: Klor Con 10 MEQ PO ONE ×2 (17:39→17:43)
[2017-01-30] MEDS ORDERED: ROCEPHIN 1 Gm-D5w 50 ml Bag** 1 G/50 ML IVPB IV STA (17:47)
[2017-01-30] MEDS ORDERED: ZITHROMAX IV 500 MG*** 500 MG in Sodium Chloride 0.9% 250 ML 250 ML IV ONE (17:48)
[2017-01-30 18:07] LABS: INFLUENZA A NEGATIVE (NEGATIVE); INFLUENZA B NEGATIVE (NEGATIVE); RESPIRATORY SYNCTIAL VIRUS NEGATIVE (Negative)
[2017-01-30] MEDS ORDERED: ROCEPHIN 1 Gm-D5w 50 ml Bag** 1 G/50 ML IVPB IV ONE (18:15)
[2017-01-30] MEDS ORDERED: Sodium Chloride 0.9% 1000 ML 1,000 ML IV SCH (18:30)
[2017-01-30] MEDS ORDERED: DUONEB 0.5-3 MG/3 ml Neb IH SCH (19:00)
[2017-01-30] MEDS ORDERED: Tussionex Pennkinetic Susp PO ONE (21:02)
--- NOTE | 2017-01-30 21:04 | XRAY ---
Indication: Cough and short of breath. Comparison: January 27, 2017. PA/lateral chest unchanged again hyperinflated with minimal right middle lobe atelectasis/scarring. Remaining heart and lungs unremarkable. No new/acute findings.
[2017-01-30] MEDS ORDERED: ANTIVERT 25 MG PO PRN (21:08)
--- NOTE | 2017-01-30 21:37 | PCM.HP ---
History of Present Illness - Chief Complaint Chief Complaint: COPD History of Present Illness: is a 71 year old female pt of mine from [facility] with COPD, never smoker, who was admitted through [facility] for COPD exacerbation. She saw me in the office this week and was given IM rocephin and kenalog; CXR negative for pneumonia at that time. She has sensitivities to antibiotics, so she was given IM rocephin daily at home for the past 3-4 days. She says the first evening after the kenalog injection she had improvement in her breathing, but since then has felt worse every day. Subj low grade fevers, she believes all temps under 100. Tolerating po (although she has lost 6 lb in the past few months, weighing 92 lb at her office visit). Today she was having shortness of air; felt chest pressure and unable to produce any sputum with her cough, which is unusual for her. Her daughter contacted me and she was sent to ER then admitted for further treatment. Currently she is c/o ROJAS. She c/o heart pounding and tachycardia w her breathing treatments. She has seen Dr. Don, pulmonology, in [place]. She is supposed to have a bronchoscopy at some point but has been reluctant so far. She has declined in the past 1 year with weight loss and frequent COPD exacerbations. She has even gone to [facility] for some workup. 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 - Review of Systems Constitutional: Fever (subj, she believes temps under 100), Fatigue, Weakness Respiratory: Cough, Short Of Breath Cardiac: Palpitations, Other (chest tightness) Abdominal/Gastrointestinal: Appetite Changes Neurological: Headache All Other Systems: Reviewed and Negative Medications & Allergies Home Medications: Home Medication List Potassium Chloride [K-Dur] 10 meq PO BID 02/23/16 [History Confirmed 01/30/17] Meclizine HCl 25 mg [Antivert 25 mg] 25 mg PO Q4HPRN PRN #30 tablet [Rx Confirmed 01/30/17] Albuterol 2.5 mg/3 ml Neb [Proventil 2.5 mg/3 ml Neb] 2.5 mg IH QID PRN [History Confirmed 01/30/17] Ceftriaxone Sodium [Ceftriaxone] 1 gm IM DAILY 01/30/17 [History Confirmed 01/30] Hydrocod Psx/Chlor-Jj [Tussionex Pennkinetic Susp] 5 ml PO HS 01/30/17 [ History Confirmed 01/30/17] Levothyroxine Sodium 50 Mcg [Synthroid 50 Mcg] 50 mcg PO DAILY 01/30/17 [ History Confirmed 01/30/17] Allergies/Adverse Reactions: Allergies Allergy/AdvReac Type Severity Reaction Status Date / Time Sulfa (Sulfonamide Allergy Intermediate Rash Verified 01/30/17 18:43 Antibiotics) - Past Medical History Past Medical History: No Neurological History: No Pertinent History ENT History: No Pertinent History Cardiac History: No Pertinent History Respiratory History: COPD Endocrine Medical History: Hypothyroidism Musculoskelatal History: No Pertinent History GI Medical History: Diverticulitis History: No Pertinent History Pyscho-Social History: No Pertinent History Reproductive Disorders: No Pertinent History - Female History Are you now?: No - Past Surgical History Past Surgical History: Yes Neuro Surgical History: No Pertinent History Cardiac History: No Pertinent History Respiratory Surgery: No Pertinent History GI Surgical History: Appendectomy Genitourinary Surgical Hx: No Pertinent History Musculskeletal Surgical Hx: No Pertinent History Female Surgical History: Hysterectomy - Social History Smoking Status: Never smoker Exposure to second hand smoke: No Alcohol: None Drug Use: none - Physical Exam Vital Signs: Vital Signs - 24 hr Temp Pulse Resp BP Pulse Ox 01/30/17 20:14 98.1 F 99 H 17 140/63 96 01/30/17 20:11 100 H 24 94 L 01/30/17 19:21 98 01/30/17 17:08 95 H 24 98 01/30/17 16:50 98.2 F 91 H 20 140/76 98 01/30/17 16:47 98.2 F 91 H 20 140/76 98 01/30/17 15:57 98.8 F 98 H 20 156/86 98 General Appearance: no apparent distress, anxiety, thin Neurologic Exam: oriented x 3, cooperative Eye Exam: eyes nml inspection Ears, Nose, Throat Exam: moist mucous membranes Respiratory Exam: diminished breath sounds, prolonged expirations, rhonchi (RLL> RUL), wheezing (R sided), No crackles/rales Cardiovascular Exam: normal heart sounds, tachycardia, irregular, No murmur Gastrointestinal/Abdomen Exam: soft, normal bowel sounds, No tenderness, No distention, No mass, No guarding, No rebound Extremity Exam: swelling (trace pretibial edema bilat) Skin Exam: normal color, warm, dry, No rash Results - Other Procedures and Tests Respiratory Therapy 01/30/17 20:10 neb [Respiratory Nebulizer] Q4H 01/30/17 20:47 RT Screen per Nursing Assess ONCE 01/30/17 21:29 EKG ROUTINE Assessment/Plan (1) COPD exacerbation Current Visit: Yes Status: Acute Assessment & Plan: On IV rocephin and zithromax. Dosed zithromax at 250mg IV daily - her weight is low and she is sensitive to many antibiotics. She does usually tolerate the full 1g of rocephin. Add mucinex. OK tussionex. On steroids 80mg IV QID. unsure etiology of the COPD. Code(s): J44.1 - CHRONIC OBSTRUCTIVE PULMONARY DISEASE W (ACUTE) EXACERBATION (2) Arrhythmia Current Visit: Yes Status: Acute Qualifiers: Arrhythmia type: unspecified cardiac arrhythmia Qualified Code(s): I49.9 - Cardiac arrhythmia, unspecified Assessment & Plan: NSR on EKG done in the ER. EKG again now and telemetry. no hx afib. Code(s): I49.9 - CARDIAC ARRHYTHMIA, UNSPECIFIED (3) Head ache Current Visit: Yes Status: Acute Qualifiers: Headache type: unspecified Headache chronicity pattern: acute headache Intractability: not intractable Qualified Code(s): R51 - Headache Assessment & Plan: she just wants to try tylenol at this point. Offered something for sleep but she declined. Code(s): R51 - HEADACHE (4) Chest pressure Current Visit: Yes Status: Acute Assessment & Plan: troponin x 1. I think likely related to the COPD exacerbation. Code(s): R07.89 - OTHER CHEST PAIN
[2017-01-30] MEDS: Mucinex 600MG ER Tabs PO SCH (23:07)
[2017-01-30] MEDS: solu-MEDROL 125 MG IV SCH (23:07)
[2017-01-30] MEDS: Klor Con 10 MEQ PO SCH (23:07)
[2017-01-30] MEDS ORDERED: Sodium Chloride 3 ML UD NEBULES IH ONE (23:27)
[2017-01-31] MEDS: Xopenex 1.25 MG/0.5 ML UD NEBULE IH PRN ×7 (00:14→23:38)
[2017-01-31] MEDS: Sodium Chloride 0.9% 1000 ML 1,000 ML IV SCH (02:11)
[2017-01-31] MEDS ORDERED: Sodium Chloride 3 ML UD NEBULES IH ONE ×3 (03:17→23:11)
[2017-01-31 06:04] LABS: Granulocyte Absolute (ANC) 7.05 (1.4-6.9); Hematocrit 38.1 % (35-47); Hemoglobin 12.2 gm/dl (12.0-16.0); Mean Cell Volume 93.8 fl (78-100); Mean Platelet Volume 11.7 fl (6-9.5); Platelet Count 238 K/mm3 (150-450); Red Blood Count 4.06 M/mm3 (4.1-5.4); Red Cell Distribution Width 12.7 % (11.5-14.0); White Blood Count 7.5 K/mm3 (4.0-10.5)
[2017-01-31] MEDS: solu-MEDROL 125 MG IV SCH ×4 (06:15→23:01)
[2017-01-31 06:25] LABS: ANION GAP 13.9 MEQ/L (5-15); BLOOD UREA NITROGEN 10 mg/dL (9-20); CHLORIDE 107 mEq/L (98-107); Calcium 8.8 mg/dL (8.5-10.1); Carbon Dioxide 22.5 mEq/L (21-32); Creatinine 1 0.76 mg/dl (0.55-1.30); EST GLOMERULAR FILTRATION RATE > 60 ML/MIN; Glucose 207 MG/DL (70-110); Potassium 3.4 mEq/L (3.5-5.1); SODIUM 140 mEq/L (136-145)
[2017-01-31] MEDS ORDERED: DUONEB 0.5-3 MG/3 ml Neb IH ONE (07:00)
[2017-01-31 07:07] LABS: BAND 1 % (0.0-2.0); Lymphocytes 3 % (24-44); Neutrophils 96 % (36.0-66.0); Platelet Estimate NORMAL (NORMAL); Total Cells Counted 100
[2017-01-31] MEDS ORDERED: Xopenex 1.25 MG/0.5 ML UD NEBULE IH ONE (07:58)
[2017-01-31] MEDS ORDERED: Tussionex Pennkinetic Susp PO PRN ×2 (08:00→09:46)
[2017-01-31] MEDS ORDERED: ANTIVERT 25 MG PO PRN (08:03)
[2017-01-31] MEDS ORDERED: PROVENTIL 2.5 MG/3 ML NEB IH PRN (08:30)
[2017-01-31] MEDS: Klor Con 10 MEQ PO SCH ×2 (09:49→21:47)
[2017-01-31] MEDS: SYNTHROID 50 MCG PO SCH (09:49)
[2017-01-31] MEDS: Mucinex 600MG ER Tabs PO SCH ×2 (09:49→21:47)
[2017-01-31] MEDS ORDERED: Zithromax 500 MG/ 250 ML NaCl Premix 500 MG/250 ML IVPB IV SCH ×2 (10:00→22:00)
[2017-01-31] MEDS ORDERED: Klor Con 10 MEQ PO SCH (10:00)
[2017-01-31] MEDS ORDERED: NON-FORMULARY ITEM (Potassium Chloride [K-Dur] 10 MEQ) PO SCH (10:00)
--- NOTE | 2017-01-31 12:15 | PCM.NOTE ---
Date and Time: 01/31/17 1206 Subjective Assessment: She is feeling much better today! Her HR has continued to be at least somewhat tachycardic. Nurse noted an arrhythmia but EKG has shown NSR (mild tachycardia) . currently however her HR is 130s. - Review of Systems Constitutional: No Fever Respiratory: Cough Objective Exam General Appearance: no apparent distress, alert Neurologic Exam: oriented x 3, cooperative Skin Exam: normal color, warm, dry, No rash Respiratory Exam: lungs clear, diminished breath sounds, prolonged expirations, rhonchi (RLL> RUL, decreased from yesterday), wheezing (R sided, decreased from yesterday) Cardiovascular Exam: normal heart sounds, tachycardia, No murmur Extremity Exam: No pedal edema, No swelling Back Exam: other (square area over majority of the back with some dark variegated coloration) OBJECTIVE DATA Vital Signs: Vital Signs - 24 hr Temp Pulse Resp BP Pulse Ox 01/31/17 11:17 98 F 91 H 20 126/62 94 L 01/31/17 11:00 106 H 18 94 L 01/31/17 08:00 20 01/31/17 07:59 110 H 20 97 01/31/17 07:24 98.1 F 99 H 18 110/55 99 01/31/17 04:08 103 H 18 96 01/31/17 04:00 98.2 F 106 H 18 107/52 98 01/31/17 00:10 108 H 17 96 01/31/17 00:00 97.6 F 117 H 17 118/68 94 L 01/30/17 20:14 98.1 F 99 H 17 140/63 96 01/30/17 20:11 100 H 24 94 L 01/30/17 20:00 98.1 F 99 H 17 140/63 96 01/30/17 19:21 98 01/30/17 17:08 95 H 24 98 01/30/17 16:50 98.2 F 91 H 20 140/76 98 01/30/17 16:47 98.2 F 91 H 20 140/76 98 01/30/17 15:57 98.8 F 98 H 20 156/86 98 Oxygen-Last 24 hours O2 Percentage 2 Liters = 28% O2 Percentage 2 Liters = 28% O2 Percentage 2 Liters = 28% Pain Assessment - Last Documented Pain Intensity 7 Pain Scale Used 0-10 Pain Scale Intake and Output: Intake & Output 01/29/17 01/30/17 01/31/17 02/01/17 11:59 11:59 11:59 11:59 Intake Total 2074 Output Total 2250 Balance -176 Weight 41.73 kg Lab Results: Lab Results-Last 24 Hours 01/30/17 01/31/17 01/31/17 Range/Units 21:38 04:00 04:00 WBC 7.5 (4.0-10.5) K/mm3 RBC 4.06 L (4.1-5.4) M/mm3 Hgb 12.2 (12.0-16.0) gm/dl Hct 38.1 (35-47) % MCV 93.8 (78-100) fl MCH 30.0 (26-32) pg MCHC 32.0 (32-36) g/dl RDW 12.7 (11.5-14.0) % Plt Count 238 (150-450) K/mm3 MPV 11.7 H (6-9.5) fl Segmented Neutrophils 96 H (36.0-66.0) % Band Neutrophils 1 (0.0-2.0) % Lymphocytes (Manual) 3 L (24-44) % Differential Comment NORMAL Platelet Estimate NORMAL (NORMAL) Sodium 140 (136-145) mEq/L Potassium 3.4 L (3.5-5.1) mEq/L Chloride 107 (98-107) mEq/L Carbon Dioxide 22.5 (21-32) mEq/L Anion Gap 13.9 (5-15) MEQ/L BUN 10 (9-20) mg/dL Creatinine 0.76 (0.55-1.30) mg/dl Estimated GFR > 60 ML/MIN Glucose 207 H (70-110) MG/DL Calcium 8.8 (8.5-10.1) mg/dL Troponin I < 0.017 (0.000-0.056) ng/ml Assessment/Plan (1) COPD exacerbation Current Visit: Yes Status: Acute Assessment & Plan: She is much better today. Would anticipate she needs at least another day but possibly 2 or 3 before going home. Pt is resistant to staying beyond tomorrow due to [place]. Code(s): J44.1 - CHRONIC OBSTRUCTIVE PULMONARY DISEASE W (ACUTE) EXACERBATION (2) Arrhythmia Current Visit: Yes Status: Acute Qualifiers: Arrhythmia type: unspecified cardiac arrhythmia Qualified Code(s): I49.9 - Cardiac arrhythmia, unspecified Assessment & Plan: No arrhythmia on EKG. Code(s): I49.9 - CARDIAC ARRHYTHMIA, UNSPECIFIED (3) Head ache Current Visit: Yes Status: Acute Qualifiers: Headache type: unspecified Headache chronicity pattern: acute headache Intractability: not intractable Qualified Code(s): R51 - Headache Assessment & Plan: improved. likley due to meds. Code(s): R51 - HEADACHE (4) Chest pressure Current Visit: Yes Status: Resolved Code(s): R07.89 - OTHER CHEST PAIN (5) Tachycardia Current Visit: Yes Status: Acute Assessment & Plan: Will check EKG again, likely due to frequent nebs +/- steroid. Will start metoprolol if needed. 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 Code(s): R23.1 - PALLOR
[2017-01-31] MEDS: Sodium Chloride 0.9% W/ 20 mEq KCl/LITER 1,000 ML IV SCH ×2 (12:18→22:20)
[2017-01-31] MEDS: Toprol-Xl 25MG Tablets PO SCH (14:12)
[2017-01-31] MEDS ORDERED: ENOXAPARIN SODIUM SQ SCH (18:00)
[2017-01-31] MEDS: TYLENOL 325 MG PO PRN (20:04)
[2017-01-31] MEDS ORDERED: ROCEPHIN 1 Gm-D5w 50 ml Bag** 1 G/50 ML IVPB IV SCH (22:00)
[2017-01-31] MEDS ORDERED: Phenergan 25 MG INJ IV PRN (23:36)
[2017-02-01] MEDS: TYLENOL 325 MG PO PRN (03:06)
[2017-02-01] MEDS ORDERED: Sodium Chloride 3 ML UD NEBULES IH ONE (03:22)
[2017-02-01] MEDS: solu-MEDROL 125 MG IV SCH ×2 (05:01→12:55)
[2017-02-01] MEDS: Xopenex 1.25 MG/0.5 ML UD NEBULE IH PRN (07:49)
[2017-02-01] MEDS ORDERED: Sodium Chloride 3 ML UD NEBULES IH PRN (08:12)
[2017-02-01] MEDS: Toprol-Xl 25MG Tablets PO SCH (10:43)
[2017-02-01] MEDS: SYNTHROID 50 MCG PO SCH (10:43)
[2017-02-01] MEDS: Mucinex 600MG ER Tabs PO SCH (10:43)
[2017-02-01] MEDS: Klor Con 10 MEQ PO SCH (10:43)
[2017-02-01 12:46] VITALS: PULSE 98; O2SAT 97
--- NOTE | 2017-02-01 14:11 | PCM.DS ---
Discharge Summary Date of Admission: 01/30/17 18:27 Admitting Physician: CYDNEY VELA Primary Care Provider: CYDNEY VELA Allergies Allergies Sulfa (Sulfonamide Antibiotics) Allergy (Intermediate, Verified 01/30/17 18:43) Rash Hospital Summary - Hospital Course Hospital Course: She is feeling better, continues to have cough. Requiring o2 at night. John Paul po. ready to d/c home. - Vitals & Intake/Output Vital Signs: Vital Signs Temperature 97.8 F 02/01/17 12:45 Pulse Rate 98 H 02/01/17 12:45 Respiratory Rate 18 02/01/17 12:45 Blood Pressure 111/57 02/01/17 12:45 O2 Sat by Pulse Oximetry 97 02/01/17 12:45 Oxygen-Last Documented O2 Percentage 2 Liters = 28% Intake & Output: Intake & Output 01/30/17 01/31/17 02/01/17 02/02/17 11:59 11:59 11:59 11:59 Intake Total 2074 3565 240 Output Total 2250 2150 300 Balance -176 1415 -60 Weight 41.73 kg 42.093 kg - Lab Result Diagrams: 01/31/17 04:00 01/31/17 04:00 - Procedures and Test Procedures and Tests throughout Hospitalization: Therapy Orders & Screens 01/30/17 20:10 neb [Respiratory Nebulizer] Q4H Comment: Diagnosis: COPD 01/30/17 20:47 RT Screen per Nursing Assess ONCE Comment: Protocol Order Physician Instructions: Greater than 3 points order RT Admission Screen Reason For Exam: Triggered on Admission Diagnosis: COPD Diagnosis: COPD Pneumonia: No Home O2: Yes Asthma: Yes CHF: No Home CPAP/BIPAP: No Home Nebs/MDI: Yes Total Points: 14 01/30/17 21:29 EKG ROUTINE Comment: Diagnosis: COPD 01/31/17 08:31 EKG ONCE Comment: times one. Diagnosis: COPD 01/31/17 11:57 EKG ONCE Comment: Diagnosis: COPD 01/31/17 15:00 Respiratory Nebulizer Q4H Comment: Diagnosis: COPD Discharge Exam General Appearance: no apparent distress, thin Neurologic Exam: alert, oriented x 3, cooperative Skin Exam: normal color, warm, dry, No rash Respiratory Exam: normal breath sounds, lungs clear, crackles/rales (RUL, mild) , No rhonchi, No wheezing Cardiovascular Exam: regular rate/rhythm, normal heart sounds, No murmur Gastrointestinal/Abdomen Exam: soft, No tenderness Extremity Exam: normal inspection, No pedal edema, No swelling Back Exam: normal inspection, No rash Final Diagnosis/Problem List - Final Discharge Diagnosis/Problem (1) COPD exacerbation Current Visit: Yes Status: Acute Assessment & Plan: Doing much better, get 3rd dose of zithromax today then home on IM rocephin as usual. Needs O2 at night. (2) Arrhythmia Current Visit: Yes Status: Acute Assessment & Plan: home on toprol. (3) Head ache Current Visit: Yes Status: Acute Assessment & Plan: I expect will improve when home on po meds. 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 - Discharge Disposition: Home, Self-Care Condition: Stable Prescriptions: New Prednisone 20 mg [Deltasone 20 mg] 20 mg PO DAILY #17 tablet Guaifenesin 600 mg ER [Mucinex 600MG ER Tabs] 600 mg PO BID #30 tablet Metoprolol Succinate 25 mg Xl* [Toprol-Xl 25MG Tablets] 25 mg PO DAILY # 30 tab Continue Potassium Chloride [K-Dur] 10 meq PO BID Meclizine HCl 25 mg [Antivert 25 mg] 25 mg PO Q4HPRN PRN #30 tablet PRN Reason: Dizziness Ceftriaxone Sodium [Ceftriaxone] 1 gm IM DAILY Levothyroxine Sodium 50 Mcg [Synthroid 50 Mcg] 50 mcg PO DAILY Hydrocod Psx/Chlor-Jj [Tussionex Pennkinetic Susp] 5 ml PO HS Albuterol 2.5 mg/3 ml Neb [Proventil 2.5 mg/3 ml Neb] 2.5 mg IH QID PRN Instructions: Chronic Obstructive Pulmonary Disease Follow up with: CYDNEY VELA [Primary Care Provider] -
[2017-02-01 16:02] VITALS: BP 139/67
== END 2017-02-01 16:12 | disposition home or self-care (01) | DRG 192 ==
LOC: ED 15:57 → MED SURG 18:27 → OBSVTOIN 18:27 → INTOOBSV 18:27
PROVIDERS: ADMIT Family Medicine; ATTEND Family Medicine
DX: J44.1 Chronic obstructive pulmonary disease with (acute) exacerbation (principal); I49.9 Cardiac arrhythmia, unspecified; R51 Headache; J44.9 Chronic obstructive pulmonary disease, unspecified; R00.0 Tachycardia, unspecified; R23.1 Pallor; R53.1 Weakness; E03.9 Hypothyroidism, unspecified; R07.89 Other chest pain; Z79.899 Other long term (current) drug therapy
CPT/HCPCS: 36000; 36415; 71020; 80048; 80053; 83880; 84484; 85025; 87040; 87631; 93005; 93041; 94640; 94760; 99285; J0456; J0696; J1650; J2550; J2930; A9270-GY

== ENCOUNTER 2017-07-27 12:16 | Inpatient (IN) | payer MEDICARE ==
[2017-07-27 13:07] LABS: BASOPHIL % 0.4 % (0.0-0.4); Basophil (Absolute #) 0.04 (0-0.4); Eosinophil % 0.5 % (0.00-5.0); Eosinophil (Absolute #) 0.05 (0-0.5); Granulocyte Absolute (ANC) 7.14 (1.4-6.9); Granulocytes % 74.5 % (36.0-66.0); Hemoglobin 13.8 gm/dl (12.0-16.0); Lymphocyte (Absolute #) 1.56 (1.0-4.6); Lymphocytes % 16.3 % (24.0-44.0); Mean Cell Volume 91.3 fl (78-100); Mean Corpuscular Hemoglobin 30.7 pg (26-32); Mean Corpuscular Hgb Concent. 33.7 g/dl (32-36); Mean Platelet Volume 11.2 fl (6-9.5); Monocytes % 8.3 % (0.0-12.0); Platelet Count 261 K/mm3 (150-450); Red Blood Count 4.49 M/mm3 (4.1-5.4); Red Cell Distribution Width 12.5 % (11.5-14.0); White Blood Count 9.6 K/mm3 (4.0-10.5)
[2017-07-27] MEDS ORDERED: PROVENTIL 2.5 MG/3 ML NEB IH ×2 (13:10→16:46)
[2017-07-27 13:12] LABS: ADD MANUAL DIFF? NO (NO)
[2017-07-27 13:16] LABS: D-DIMER QUANTITATION < 215 ng/mL (215-500)
[2017-07-27] MEDS ORDERED: Sodium Chloride 0.9% 1000 ML 1,000 ML (13:17)
[2017-07-27 13:19] LABS: Lactic Acid 1.1 (0.4-2.0)
[2017-07-27 13:21] LABS: ALBUMIN 4.3 g/dL (3.5-5.0); ALKALINE PHOSPHATASE 83 U/L (38-126); ANION GAP 14.5 MEQ/L (5-15); BLOOD UREA NITROGEN 17 mg/dL (7-17); CHLORIDE 104 mmol/L (98-107); Calcium 9.5 mg/dL (8.4-10.2); Carbon Dioxide 28 mmol/L (22-30); Creatinine 1 0.46 mg/dL (0.52-1.04); EST GLOMERULAR FILTRATION RATE > 60.0 ML/MIN; Glucose 90 mg/dL (74-106); Potassium 3.9 mmol/L (3.5-5.1); SGOT/AST 42 U/L (14-36); SGPT/ALT 58 U/L (0-35); SODIUM 142 mmol/L (137-145)
[2017-07-27] MEDS: PROVENTIL 2.5 MG/3 ML NEB IH (13:23)
[2017-07-27 13:30] LABS: NT PRO BNP 115 pg/mL (0-900)
[2017-07-27 17:06] LABS: TROPONIN < 0.012 ng/mL (0.000-0.034)
[2017-07-27] MEDS: Sodium Chloride 0.9% 1000 ML 1,000 ML IV (17:58)
[2017-07-27 18:19] LABS: Appearance CLEAR (CLEAR); Collection Type VOID
[2017-07-27 18:20] LABS: Bilirubin NEGATIVE (NEGATIVE); Blood TRACE NON-HEM Ery/ul (0-5); COMPLETE URINE MICROSCOPIC? YES; Glucose NEGATIVE (NEGATIVE); Ketones MODERATE (NEGATIVE); Leukocyte Esterase NEGATIVE (NEGATIVE); Nitrite NEGATIVE (NEGATIVE); Protein,Urine Dip NEGATIVE (Negative); Urobilinogen NORMAL mg/dL (0-1)
[2017-07-27 18:24] LABS: Epithelial Cells RARE /HPF (FEW); RBC 0-2 /HPF (0-2)
[2017-07-27 18:49] LABS: ADD URINE CULTURE? NO (NO)
[2017-07-27] MEDS: DUONEB 0.5-3 MG/3 ml Neb IH (19:08)
[2017-07-27] MEDS ORDERED: Tussionex Pennkinetic Susp PO (20:19)
[2017-07-27] MEDS ORDERED: ANTIVERT 25 MG PO (20:20)
[2017-07-27 20:23] LABS: TROPONIN < 0.012 ng/mL (0.000-0.034)
[2017-07-27] MEDS: Klor Con 10 MEQ PO (22:28)
[2017-07-27] MEDS: Mucinex 600MG ER Tabs PO (22:28)
[2017-07-27] MEDS: ROCEPHIN 1 Gm-D5w 50 ml Bag** 1 G/50 ML IVPB IV (22:30)
[2017-07-27] MEDS: solu-MEDROL 125 MG IV (22:32)
[2017-07-27] MEDS: ENOXAPARIN SODIUM SQ (22:34)
[2017-07-27 23:19] LABS: TROPONIN < 0.012 ng/mL (0.000-0.034)
[2017-07-27] MEDS: Zithromax 500 MG/ 250 ML NaCl Premix 500 MG/250 ML IVPB IV (23:20)
[2017-07-27] MEDS: Zofran 4 MG/2 ML VIAL IV (23:58)
[2017-07-28] MEDS: Mucomyst 200 MG/ML IH ×6 (00:18→18:41)
[2017-07-28] MEDS: Xopenex 1.25 MG/0.5 ML UD NEBULE IH ×5 (00:20→18:40)
[2017-07-28 01:56] LABS: TROPONIN < 0.012 ng/mL (0.000-0.034)
[2017-07-28] MEDS: solu-MEDROL 125 MG IV ×3 (04:05→18:59)
[2017-07-28 04:23] LABS: BASOPHIL % 0.1 % (0.0-0.4); Basophil (Absolute #) 0.01 (0-0.4); Eosinophil (Absolute #) 0 (0-0.5); Granulocyte Absolute (ANC) 6.41 (1.4-6.9); Granulocytes % 89.7 % (36.0-66.0); Hematocrit 40.6 % (35-47); Hemoglobin 13.5 gm/dl (12.0-16.0); Lymphocyte (Absolute #) 0.67 (1.0-4.6); Lymphocytes % 9.4 % (24.0-44.0); Mean Cell Volume 91.9 fl (78-100); Mean Corpuscular Hemoglobin 30.5 pg (26-32); Mean Corpuscular Hgb Concent. 33.3 g/dl (32-36); Mean Platelet Volume 11.1 fl (6-9.5); Monocyte (Absolute #) 0.06 (0.0-1.3); Monocytes % 0.8 % (0.0-12.0); Platelet Count 239 K/mm3 (150-450); Red Blood Count 4.42 M/mm3 (4.1-5.4); Red Cell Distribution Width 12.3 % (11.5-14.0); White Blood Count 7.2 K/mm3 (4.0-10.5)
[2017-07-28 04:42] LABS: ADD MANUAL DIFF? NO (NO)
[2017-07-28 05:02] LABS: ANION GAP 14.3 MEQ/L (5-15); BLOOD UREA NITROGEN 13 mg/dL (7-17); CHLORIDE 106 mmol/L (98-107); Calcium 9.2 mg/dL (8.4-10.2); Carbon Dioxide 25 mmol/L (22-30); Creatinine 1 0.42 mg/dL (0.52-1.04); EST GLOMERULAR FILTRATION RATE > 60.0 ML/MIN; Glucose 165 mg/dL (74-106); Potassium 3.9 mmol/L (3.5-5.1); SODIUM 141 mmol/L (137-145)
[2017-07-28 05:20] LABS: TROPONIN < 0.012 ng/mL (0.000-0.034)
[2017-07-28] MEDS: Sodium Chloride 0.9% 1000 ML 1,000 ML IV ×2 (05:53→16:15)
[2017-07-28] MEDS ORDERED: Xopenex 1.25 MG/0.5 ML UD NEBULE IH (06:26)
[2017-07-28] MEDS ORDERED: Sodium Chloride 3 ML UD NEBULES IH (06:26)
[2017-07-28] MEDS: Sodium Chloride 3 ML UD NEBULES IH ×4 (06:35→18:40)
[2017-07-28] MEDS: Klor Con 10 MEQ PO ×2 (10:15→22:14)
[2017-07-28] MEDS: SYNTHROID 50 MCG PO (10:15)
[2017-07-28] MEDS: CLARITIN 10 MG PO (10:15)
[2017-07-28] MEDS: Mucinex 600MG ER Tabs PO ×2 (10:15→22:15)
[2017-07-28] MEDS: TYLENOL 325 MG PO (10:16)
[2017-07-28] MEDS: Lopressor 25MG Tab PO (11:45)
[2017-07-28] MEDS ORDERED: ENOXAPARIN SODIUM SQ ×2 (22:00)
[2017-07-28] MEDS: Ativan 0.5 MG PO (22:14)
[2017-07-28] MEDS: ENOXAPARIN SODIUM SQ (22:15)
[2017-07-28] MEDS: ROCEPHIN 1 Gm-D5w 50 ml Bag** 1 G/50 ML IVPB IV (22:15)
[2017-07-28] MEDS: Zithromax 500 MG/ 250 ML NaCl Premix 500 MG/250 ML IVPB IV (23:03)
[2017-07-28] MEDS: Zofran 4 MG/2 ML VIAL IV (23:33)
[2017-07-29] MEDS: solu-MEDROL 125 MG IV ×2 (01:00→05:43)
[2017-07-29] MEDS: Sodium Chloride 0.9% 1000 ML 1,000 ML IV ×2 (04:08→14:24)
[2017-07-29] MEDS: Xopenex 1.25 MG/0.5 ML UD NEBULE IH ×3 (06:29→19:46)
[2017-07-29] MEDS: Sodium Chloride 3 ML UD NEBULES IH ×3 (06:29→21:37)
[2017-07-29] MEDS: Mucomyst 200 MG/ML IH ×3 (06:29→19:45)
[2017-07-29] MEDS ORDERED: Cardizem IV 50 MG/10 ML IV (08:06)
[2017-07-29] MEDS: DILTIAZEM HCL 25 MG/5 ML VIAL IV (08:12)
[2017-07-29] MEDS ORDERED: solu-MEDROL 125 MG IV (09:09)
[2017-07-29 09:13] LABS: Basophil (Absolute #) 0 (0-0.4); Eosinophil % 0.3 % (0.00-5.0); Eosinophil (Absolute #) 0.06 (0-0.5); Granulocyte Absolute (ANC) 17.79 (1.4-6.9); Granulocytes % 94.6 % (36.0-66.0); Hematocrit 40.7 % (35-47); Hemoglobin 13.2 gm/dl (12.0-16.0); Lymphocyte (Absolute #) 0.65 (1.0-4.6); Lymphocytes % 3.5 % (24.0-44.0); Mean Cell Volume 94.4 fl (78-100); Mean Corpuscular Hemoglobin 30.6 pg (26-32); Mean Corpuscular Hgb Concent. 32.4 g/dl (32-36); Mean Platelet Volume 12.8 fl (6-9.5); Monocyte (Absolute #) 0.31 (0.0-1.3); Monocytes % 1.6 % (0.0-12.0); Platelet Count 102 K/mm3 (150-450); Red Blood Count 4.31 M/mm3 (4.1-5.4); White Blood Count 18.8 K/mm3 (4.0-10.5)
[2017-07-29 09:14] LABS: ADD MANUAL DIFF? NO (NO)
[2017-07-29] MEDS ORDERED: ENOXAPARIN SODIUM SQ (09:15)
[2017-07-29] MEDS: Cardizem 30 MG PO (09:28)
[2017-07-29] MEDS: CLARITIN 10 MG PO (09:28)
[2017-07-29] MEDS: Klor Con 10 MEQ PO ×2 (09:29→21:23)
[2017-07-29] MEDS: Mucinex 600MG ER Tabs PO ×2 (09:29→21:23)
[2017-07-29] MEDS: ENOXAPARIN SODIUM SQ ×2 (09:29→21:22)
[2017-07-29] MEDS: SYNTHROID 50 MCG PO (09:29)
[2017-07-29 09:34] LABS: ALBUMIN 3.8 g/dL (3.5-5.0); ALKALINE PHOSPHATASE 58 U/L (38-126); ANION GAP 16.6 MEQ/L (5-15); BLOOD UREA NITROGEN 14 mg/dL (7-17); CHLORIDE 108 mmol/L (98-107); Calcium 9.2 mg/dL (8.4-10.2); Carbon Dioxide 22 mmol/L (22-30); Creatinine 1 0.39 mg/dL (0.52-1.04); EST GLOMERULAR FILTRATION RATE > 60.0 ML/MIN; Glucose 212 mg/dL (74-106); MAGNESIUM 1.8 mg/dL (1.6-2.3); SGOT/AST 52 U/L (14-36); SODIUM 144 mmol/L (137-145); Total Protein 6.2 g/dL (6.3-8.2)
[2017-07-29 09:42] LABS: SGPT/ALT 60 U/L (0-35)
[2017-07-29 09:43] LABS: Potassium 3.5 mmol/L (3.5-5.1)
[2017-07-29 09:45] LABS: Slide Review 1 YES
[2017-07-29] MEDS: solu-MEDROL 40 MG IV ×2 (12:00→17:54)
[2017-07-29] MEDS: Cardizem CD 120 MG PO (17:54)
[2017-07-29] MEDS: Ativan 0.5 MG PO (21:22)
[2017-07-29] MEDS: ROCEPHIN 1 Gm-D5w 50 ml Bag** 1 G/50 ML IVPB IV (21:23)
[2017-07-29] MEDS: Zithromax 500 MG/ 250 ML NaCl Premix 500 MG/250 ML IVPB IV (21:23)
[2017-07-30] MEDS: solu-MEDROL 40 MG IV ×4 (00:53→21:08)
[2017-07-30] MEDS: Sodium Chloride 0.9% 1000 ML 1,000 ML IV ×2 (02:13→12:30)
[2017-07-30] MEDS: Sodium Chloride 3 ML UD NEBULES IH ×3 (06:59→20:03)
[2017-07-30] MEDS: Mucomyst 200 MG/ML IH ×3 (06:59→18:13)
[2017-07-30] MEDS: Xopenex 1.25 MG/0.5 ML UD NEBULE IH ×2 (06:59→13:28)
[2017-07-30] MEDS: Zofran 4 MG/2 ML VIAL IV (07:19)
[2017-07-30 09:09] LABS: Basophil (Absolute #) 0 (0-0.4); Eosinophil (Absolute #) 0 (0-0.5); Granulocyte Absolute (ANC) 14.63 (1.4-6.9); Granulocytes % 93.6 % (36.0-66.0); Hematocrit 40.4 % (35-47); Hemoglobin 13.3 gm/dl (12.0-16.0); Lymphocyte (Absolute #) 0.63 (1.0-4.6); Mean Cell Volume 92.7 fl (78-100); Mean Corpuscular Hemoglobin 30.5 pg (26-32); Mean Corpuscular Hgb Concent. 32.9 g/dl (32-36); Monocyte (Absolute #) 0.37 (0.0-1.3); Monocytes % 2.4 % (0.0-12.0); Platelet Count 225 K/mm3 (150-450); Red Blood Count 4.36 M/mm3 (4.1-5.4); Red Cell Distribution Width 13.2 % (11.5-14.0); White Blood Count 15.6 K/mm3 (4.0-10.5)
[2017-07-30 09:10] LABS: ADD MANUAL DIFF? NO (NO)
[2017-07-30] MEDS: Cardizem CD 120 MG PO (10:16)
[2017-07-30] MEDS: SYNTHROID 50 MCG PO (10:17)
[2017-07-30] MEDS: Klor Con 10 MEQ PO ×2 (10:18→21:08)
[2017-07-30] MEDS: Mucinex 600MG ER Tabs PO ×2 (10:19→21:08)
[2017-07-30] MEDS: ELIQUIS 2.5 MG TABLET PO ×2 (10:22→21:08)
[2017-07-30] MEDS: Cardizem 30 MG PO (10:23)
[2017-07-30] MEDS: CLARITIN 10 MG PO (10:26)
[2017-07-30 11:26] LABS: ANION GAP 13.4 MEQ/L (5-15); BLOOD UREA NITROGEN 19 mg/dL (7-17); CHLORIDE 107 mmol/L (98-107); Calcium 9.4 mg/dL (8.4-10.2); Carbon Dioxide 27 mmol/L (22-30); Creatinine 1 0.41 mg/dL (0.52-1.04); EST GLOMERULAR FILTRATION RATE > 60.0 ML/MIN; Glucose 147 mg/dL (74-106); Potassium 3.1 mmol/L (3.5-5.1); SODIUM 145 mmol/L (137-145)
[2017-07-30] MEDS ORDERED: NovoLOG Insulin SQ (13:58)
[2017-07-30] MEDS: Cardizem IV 50 MG/10 ML IV ×2 (14:44→15:00)
[2017-07-30] MEDS: TYLENOL 325 MG PO (15:12)
[2017-07-30] MEDS: Sodium Chloride 0.9% W/ 20 mEq KCl/LITER 1,000 ML IV ×2 (15:17→23:40)
[2017-07-30] MEDS: TRANDATE 20 MG/5 ML SYRINGE IV (15:59)
[2017-07-30] MEDS ORDERED: TRANDATE 100 MG/20 ML MDV FOR DRIP IV (16:30)
[2017-07-30] MEDS: ROCEPHIN 1 Gm-D5w 50 ml Bag** 1 G/50 ML IVPB IV ×3 (19:48→20:04)
[2017-07-30] MEDS ORDERED: Zithromax 500 MG/ 250 ML NaCl Premix 500 MG/250 ML IVPB IV (20:00)
[2017-07-30] MEDS: Zithromax 500 MG/ 250 ML NaCl Premix 500 MG/250 ML IVPB IV (20:56)
[2017-07-30] MEDS: Ativan 0.5 MG PO (21:08)
[2017-07-30] MEDS: Multaq 400 MG PO (21:08)
[2017-07-31 05:52] LABS: BASOPHIL % 0.1 % (0.0-0.4); Basophil (Absolute #) 0.01 (0-0.4); Eosinophil (Absolute #) 0 (0-0.5); Granulocyte Absolute (ANC) 6.84 (1.4-6.9); Granulocytes % 88.6 % (36.0-66.0); Hematocrit 36.5 % (35-47); Hemoglobin 12.1 gm/dl (12.0-16.0); Lymphocytes % 7.8 % (24.0-44.0); Mean Cell Volume 92.9 fl (78-100); Mean Corpuscular Hgb Concent. 33.2 g/dl (32-36); Mean Platelet Volume 11.7 fl (6-9.5); Monocyte (Absolute #) 0.27 (0.0-1.3); Monocytes % 3.5 % (0.0-12.0); Platelet Count 203 K/mm3 (150-450); Red Blood Count 3.93 M/mm3 (4.1-5.4); Red Cell Distribution Width 13.4 % (11.5-14.0); White Blood Count 7.7 K/mm3 (4.0-10.5)
[2017-07-31 05:58] LABS: ADD MANUAL DIFF? NO (NO); Mean Corpuscular Hemoglobin 30.7 pg (26-32)
[2017-07-31 06:10] LABS: BLOOD UREA NITROGEN 19 mg/dL (7-17); CHLORIDE 110 mmol/L (98-107); Carbon Dioxide 27 mmol/L (22-30); Creatinine 1 0.49 mg/dL (0.52-1.04); EST GLOMERULAR FILTRATION RATE > 60.0 ML/MIN; Glucose 139 mg/dL (74-106); Potassium 3.4 mmol/L (3.5-5.1); SODIUM 144 mmol/L (137-145)
[2017-07-31] MEDS: IMODIUM 2 MG PO ×3 (07:38→14:25)
[2017-07-31] MEDS: PREPARATION H Ointment RC (09:00)
[2017-07-31] MEDS: ELIQUIS 2.5 MG TABLET PO (10:10)
[2017-07-31] MEDS: DELTASONE 20 MG PO (10:10)
[2017-07-31] MEDS: SYNTHROID 50 MCG PO (10:11)
[2017-07-31] MEDS: Klor Con 10 MEQ PO (10:11)
[2017-07-31] MEDS: CLARITIN 10 MG PO (10:11)
[2017-07-31] MEDS: Mucinex 600MG ER Tabs PO (10:15)
[2017-07-31] MEDS: Multaq 400 MG PO (10:46)
[2017-07-31] MEDS: Cardizem CD 120 MG PO (12:58)
[2017-07-31] MEDS: TYLENOL 325 MG PO (15:17)
== END 2017-07-31 18:15 | disposition home or self-care (01) ==
LOC: ICU 07-30 15:38 → MED SURG 07-31 11:30 → ED 12:16 → MED SURG 16:33
CPT/HCPCS: 36000; 36415; 71046; 80048; 80053; 81000; 83605; 83735; 83880; 84443; 84466; 84484; 85025; 85379; 93005; 93268; 93306; 94150; 94640; 94760; 97161-GP; 99285; J0456; J0696; J1650; J2405; J2920; J2930; J7609; Q3014

== ENCOUNTER 2017-09-28 16:37 | Observation (INO) | payer MEDICARE ==
[2017-09-28] MEDS ORDERED: PROVENTIL 2.5 MG/3 ML NEB IH ONE (17:15)
[2017-09-28] MEDS ORDERED: solu-MEDROL 125 MG IV ONE (17:15)
[2017-09-28] MEDS ORDERED: Zithromax 500 MG/ 250 ML NaCl Premix 500 MG/250 ML IVPB IV STA (17:15)
[2017-09-28] MEDS ORDERED: Rocephin 1000 MG INJ** 1,000 MG in Sodium Chloride 0.9% 100 ML IVPB 100 ML IV ONE (17:15)
[2017-09-28] MEDS ORDERED: PROVENTIL Solution 2.5 MG/0.5 ML IH ONE (17:25)
[2017-09-28] MEDS ORDERED: Sodium Chloride 3 ML UD NEBULES IH ONE ×3 (17:26→23:15)
[2017-09-28] MEDS ORDERED: Zithromax 500 MG/ 250 ML NaCl Premix 500 MG/250 ML IVPB IV ONE (17:33)
[2017-09-28] MEDS ORDERED: solu-MEDROL 125 MG ONE (17:33)
--- NOTE | 2017-09-28 17:51 | ERPHSYRPT ---
- History of Present Illness Time Seen by Provider: 09/28/17 16:50 Source: patient Exam Limitations: clinical condition Patient Subjective Stated Complaint: Pt states "I have been having a hard time breathing for the past two to three days." Triage Nursing Assessment: Pt alert and oriented X 3, skin pwd. Pt ambulates with an upright slow gait, able to speak in full complete sentences. PT has wet intermittant cough, no sputum production. pt lung sounds coarse rhales heard throughout. Physician History: PATIENT WITH A HISTORY OF COPD, ATRIAL FIBRILLATION COMPLAINS OF DIFFICULTY BREATHING X 3-4 DAYS ASSOCIATED WITH PRODUCTIVE COUGH WHITE SPUTUM AND EXERTIONAL DYSPNEA AND GENERALIZED WEAKNESS. DENIES CHEST PAIN, FEVER, CHILLS. Timing/Duration: day(s) Activities at Onset: activity Severity of Dyspnea-Max: severe Severity of Dyspnea-Current: severe Possible Cause: occasional episodes Modifying Factors: Improves With: activity Associated Symptoms: cough, productive cough (GENERALIZED WEAKNESS) Allergies/Adverse Reactions: Sulfa (Sulfonamide Antibiotics) Allergy (Intermediate, Verified 07/27/17 12:32) Rash Home Medications: Potassium Chloride [K-Dur] 10 meq PO BID 02/23/16 [History] Albuterol 2.5 mg/3 ml Neb [Proventil 2.5 mg/3 ml Neb] 2.5 mg IH QID PRN [History] Hydrocod Psx/Chlor-Jj [Tussionex Pennkinetic Susp] 5 ml PO HSPRN PRN [History] Levothyroxine Sodium 50 Mcg [Synthroid 50 Mcg] 50 mcg PO DAILY 01/30/17 [ History] Cholecalciferol (Vitamin D3) [Vitamin D3] 1,000 unit PO HS 07/27/17 [History] Loratadine 10 mg [Claritin 10 mg] 10 mg PO DAILY 07/27/17 [History] Hx Tetanus, Diphtheria Vaccination/Date Given: Yes Hx Influenza Vaccination/Date Given: No Hx Pneumococcal Vaccination/Date Given: Yes Immunizations Up to Date: Yes - Review of Systems Constitutional: Weakness, No Fever, No Chills Eyes: No Symptoms Ears, Nose, & Throat: No Symptoms Respiratory: Cough, Dyspnea, Dyspnea on Exertion (CHAO) Cardiac: No Chest Pain, No Edema, No Syncope Abdominal/Gastrointestinal: No Symptoms, No Abdominal Pain, No Nausea, No Vomiting, No Diarrhea Genitourinary Symptoms: No Symptoms, No Dysuria Musculoskeletal: No Symptoms, No Back Pain, No Neck Pain Skin: No Rash Neurological: No Dizziness, No Focal Weakness, No Sensory Changes Psychological: No Symptoms Endocrine: No Symptoms All Other Systems: Reviewed and Negative - Past Medical History Pertinent Past Medical History: Yes Neurological History: No Pertinent History ENT History: Cataracts Cardiac History: Arrhythmia Respiratory History: COPD Endocrine Medical History: Hypothyroidism Musculoskeletal History: No Pertinent History GI Medical History: Diverticulitis History: No Pertinent History Psycho-Social History: No Pertinent History Female Reproductive Disorders: No Pertinent History - Past Surgical History Past Surgical History: Yes Neuro Surgical History: No Pertinent History Cardiac: No Pertinent History Respiratory: No Pertinent History Gastrointestinal: Appendectomy Genitourinary: No Pertinent History Musculoskeletal: No Pertinent History Female Surgical History: Hysterectomy - Social History Smoking Status: Never smoker Exposure to second hand smoke: No Drug Use: none Patient Lives Alone: No - Female History Hx Now: No - Nursing Vital Signs Nursing Vital Signs: Initial Vital Signs Temperature 98.8 F 09/28/17 16:38 Pulse Rate 96 H 09/28/17 16:38 Respiratory Rate 22 09/28/17 16:38 Blood Pressure 147/81 09/28/17 16:38 O2 Sat by Pulse Oximetry 98 09/28/17 16:38 Pain Scale Pain Intensity 4 - Physical Exam General Appearance: mild distress Eye Exam: PERRL/EOMI Ears, Nose, Throat Exam: hearing grossly normal Neck Exam: normal inspection Respiratory Exam: diminished breath sounds, wheezing (TERMINAL WHEEZES AND CRACKLES) Cardiovascular/Chest Exam: normal heart sounds, regular rate/rhythm, other (NO JVD) Abdominal/Gastrointestinal Exam: soft, normal bowel sounds Extremity Exam: non-tender, pedal edema (+1 PRETIBAL EDEMA) Neurologic Exam: alert, oriented x 3 SpO2 Interpretation: normal SpO2: 97 Oxygen Delivery: Room Air - Course EKG Interpreted by Me: RATE, NORMAL AXIS (TACHYCARDIA RATE 92, INFERIOR ST SEGMENT DEPRESSION) - Radiology Exams Chest X-ray Interpretation: Interpreted by me, No Infiltrates (HYPERINFLATION, NO EVIDECNCE OF IN) Ordered Tests: Active Orders 24 hr Category Date Time Status Up With Assistance ROUTINE Activity 09/28/17 21:38 Ordered Hand Riveter STAT Care 09/28/17 17:16 Active Clean Catch Urine Specimen STAT Care 09/28/17 17:15 Active Code Status Order ROUTINE Care 09/28/17 21:38 Ordered EKG-ER Only STAT Care 09/28/17 17:15 Active IV Care Q6H Care 09/28/17 21:38 Ordered IV Insertion STAT Care 09/28/17 17:15 Active Oxygen-ED Only NASAL CANNULA 2 lpm Care 09/28/17 17:[address] in Observation ROUTINE Care 09/28/17 21:38 Ordered Candelario Hose, Apply ROUTINE Care 09/28/17 21:38 Ordered Telemetry ROUTINE Care 09/28/17 21:38 Ordered Vital Signs Q4H Care 09/28/17 21:38 Ordered Weight,Daily 0600 Care 09/28/17 21:38 Ordered Regular Diet Diet 09/28/17 Breakfast Ordered CHEST 1 VIEW (PORTABLE) Stat Exams 09/28/17 17:16 Taken BLOOD CULTURE Stat Lab 09/28/17 17:15 Ordered BMP AM.LAB Lab 09/29/17 04:00 Ordered CBC AM.LAB Lab 09/29/17 04:00 Ordered CBC W DIFF Stat Lab 09/28/17 17:53 Completed CMP Stat Lab 09/28/17 17:53 Completed D-DIMER QUANTITATION Stat Lab 09/28/17 17:53 Completed HCG,QUALITATIVE URINE Stat Lab 09/28/17 Uncollected NT PRO BNP Stat Lab 09/28/17 17:53 Completed PROTIME WITH INR Stat Lab 09/28/17 17:53 Completed TROPONIN Q3H Lab 09/28/17 17:53 Completed TROPONIN Q3H Lab 09/28/17 20:54 Received TROPONIN Q3H Lab 09/28/17 23:30 Ordered TROPONIN Q3H Lab 09/29/17 02:30 Ordered TROPONIN Q3H Lab 09/29/17 05:30 Ordered UA W/RFX UR CULTURE Stat Lab 09/28/17 17:15 Completed Oxygen NASAL CANNULA 2 lpm RT 09/28/17 21:38 Ordered Peak Expiratory Flow Rate ONCE RT 09/28/17 17:35 Completed Respiratory Nebulizer STAT RT 09/28/17 17:16 Completed Respiratory Therapy Assessment DAILY RT 09/28/17 17:35 Completed Respiratory Therapy Assessment DAILY RT 09/28/17 20:34 Completed Transfer Order Routine Transfer 09/28/17 Ordered Medication Summary Generic Name Dose Route Start Last Admin Trade Name Fanta PRN Reason Stop Dose Admin Sodium Chloride 1,000 mls @ 250 mls/hr 09/28/17 18:00 09/28/17 20:33 Sodium Chloride 0.9% 1000 Ml IV 10/28/17 17:59 500 mls/hr .Q4H GINGER Infusion Discontinued Medications Generic Name Dose Route Start Last Admin Trade Name Fanta PRN Reason Stop Dose Admin Albuterol Sulfate 10 mg 09/28/17 17:15 09/28/17 17:36 Proventil 2.5 Mg/3 Ml Neb IH 09/28/17 17:16 10 mg STAT ONE Administration Albuterol Sulfate Confirm 09/28/17 17:25 Proventil Solution 2.5 Mg/0.5 Ml Administered 09/28/17 17:26 Dose 10 mg IH .STK-MED ONE Ceftriaxone Sodium 1,000 mg/ 100 mls @ 100 mls/hr 09/28/17 17:15 09/28/17 18: 57 Sodium Chloride IV 09/28/17 18:14 100 mls/hr STAT ONE Administration Azithromycin 500 mg in 250 mls @ 250 mls/hr 09/28/17 17:15 09/28/17 17:39 Zithromax 500 Mg/ 250 Ml Nacl Premix IV 09/28/17 18:14 250 mls/hr STAT STA Administration Azithromycin Confirm 09/28/17 17:33 Zithromax 500 Mg/ 250 Ml Nacl Premix Administered 09/28/17 17:34 Dose 500 mg in 250 mls @ ud IV .STK-MED ONE Ceftriaxone Sodium/Dextrose Confirm 09/28/17 18:19 Rocephin 1 Gm-D5w 50 Ml Bag Administered 09/28/17 18:20 Dose 1 g in 50 mls @ ud IV .STK-MED ONE Levalbuterol HCl 1.25 mg 09/28/17 20:26 09/28/17 20:29 Xopenex 1.25 Mg/0.5 Ml Ud Nebule IH 09/28/17 20:27 1.25 mg STAT ONE Administration Levalbuterol HCl Confirm 09/28/17 20:27 Xopenex 1.25 Mg/0.5 Ml Ud Nebule Administered 09/28/17 20:28 Dose 1.25 mg IH .STK-MED ONE Methylprednisolone Sodium Succinate 125 mg 09/28/17 17:15 09/28/17 17:39 Solu-Medrol 125 Mg IV 09/28/17 17:16 125 mg STAT ONE Administration Methylprednisolone Sodium Succinate Confirm 09/28/17 17:33 Solu-Medrol 125 Mg Administered 09/28/17 17:34 Dose 125 mg .ROUTE .STK-MED ONE Sodium Chloride Confirm 09/28/17 17:26 Sodium Chloride 3 Ml Ud Nebules Administered 09/28/17 17:27 Dose 3 ml IH .STK-MED ONE Sodium Chloride Confirm 09/28/17 20:27 Sodium Chloride 3 Ml Ud Nebules Administered 09/28/17 20:28 Dose 3 ml IH .STK-MED ONE Lab/Rad Data: Laboratory Result Diagrams 09/28/17 17:53 09/28/17 17:53 Laboratory Results 09/28/17 09/28/17 09/28/17 Range/Units 17:53 17:53 17:53 WBC (4.0-10.5) K/mm3 RBC (4.1-5.4) M/mm3 Hgb (12.0-16.0) gm/dl Hct (35-47) % MCV (78-100) fl MCH (26-32) pg MCHC (32-36) g/dl RDW (11.5-14.0) % Plt Count (150-450) K/mm3 MPV (6-9.5) fl Gran % (36.0-66.0) % Eos # (Auto) (0-0.5) Absolute Lymphs (auto) (1.0-4.6) Absolute Monos (auto) (0.0-1.3) Lymphocytes % (24.0-44.0) % Monocytes % (0.0-12.0) % Eosinophils % (0.00-5.0) % Basophils % (0.0-0.4) % Absolute Granulocytes (1.4-6.9) Basophils # (0-0.4) PT 14.6 H (9.95-12.35) SECONDS INR 1.25 (0.8-3.0) D-Dimer < 215 L (215-500) ng/mL Sodium (137-145) mmol/L Potassium (3.5-5.1) mmol/L Chloride (98-107) mmol/L Carbon Dioxide (22-30) mmol/L Anion Gap (5-15) MEQ/L BUN (7-17) mg/dL Creatinine (0.52-1.04) mg/dL Estimated GFR ML/MIN Glucose (74-106) mg/dL Calcium (8.4-10.2) mg/dL Total Bilirubin (0.2-1.3) mg/dL AST (14-36) U/L ALT (0-35) U/L Alkaline Phosphatase (38-126) U/L Troponin I < 0.012 (0.000-0.034) ng/mL NT-Pro-B Natriuret Pep 156 (0-900) pg/mL Serum Total Protein (6.3-8.2) g/dL Albumin (3.5-5.0) g/dL Ur Collection Type Urine Color (YELLOW) Urine Appearance (CLEAR) Urine pH (5-6) Ur Specific [place] (1.005-1.025) Urine Protein (Negative) Urine Ketones (NEGATIVE) Urine Blood (0-5) Dimitri/ul Urine Nitrite (NEGATIVE) Urine Bilirubin (NEGATIVE) Urine Urobilinogen (0-1) mg/dL Ur Leukocyte Esterase (NEGATIVE) Urine Culture Reflexed (NO) Urine Glucose (NEGATIVE) mg/dL Specimen Received 09/28/17 09/28/17 09/28/17 Range/Units 17:53 17:53 17:15 WBC 7.9 (4.0-10.5) K/mm3 RBC 4.45 (4.1-5.4) M/mm3 Hgb 13.8 (12.0-16.0) gm/dl Hct 41.2 (35-47) % MCV 92.6 (78-100) fl MCH 31.0 (26-32) pg MCHC 33.5 (32-36) g/dl RDW 14.2 H (11.5-14.0) % Plt Count 275 (150-450) K/mm3 MPV 11.4 H (6-9.5) fl Gran % 57.1 (36.0-66.0) % Eos # (Auto) 0.19 (0-0.5) Absolute Lymphs (auto) 2.28 (1.0-4.6) Absolute Monos (auto) 0.88 (0.0-1.3) Lymphocytes % 28.9 (24.0-44.0) % Monocytes % 11.2 (0.0-12.0) % Eosinophils % 2.4 (0.00-5.0) % Basophils % 0.4 (0.0-0.4) % Absolute Granulocytes 4.51 (1.4-6.9) Basophils # 0.03 (0-0.4) PT (9.95-12.35) SECONDS INR (0.8-3.0) D-Dimer (215-500) ng/mL Sodium 143 (137-145) mmol/L Potassium 3.6 (3.5-5.1) mmol/L Chloride 102 (98-107) mmol/L Carbon Dioxide 29 (22-30) mmol/L Anion Gap 15.4 H (5-15) MEQ/L BUN 13 (7-17) mg/dL Creatinine 0.55 (0.52-1.04) mg/dL Estimated GFR > 60.0 ML/MIN Glucose 95 (74-106) mg/dL Calcium 9.9 (8.4-10.2) mg/dL Total Bilirubin 0.30 (0.2-1.3) mg/dL AST 42 H (14-36) U/L ALT 51 H (0-35) U/L Alkaline Phosphatase 95 (38-126) U/L Troponin I (0.000-0.034) ng/mL NT-Pro-B Natriuret Pep (0-900) pg/mL Serum Total Protein 7.3 (6.3-8.2) g/dL Albumin 4.7 (3.5-5.0) g/dL Ur Collection Type CLEAN CATCH Urine Color YELLOW (YELLOW) Urine Appearance CLEAR (CLEAR) Urine pH 6.5 (5-6) Ur Specific [place] 1.015 (1.005-1.025) Urine Protein NEGATIVE (Negative) Urine Ketones SMALL (NEGATIVE) Urine Blood NEGATIVE (0-5) Dimitri/ul Urine Nitrite NEGATIVE (NEGATIVE) Urine Bilirubin NEGATIVE (NEGATIVE) Urine Urobilinogen NORMAL (0-1) mg/dL Ur Leukocyte Esterase NEGATIVE (NEGATIVE) Urine Culture Reflexed NO (NO) Urine Glucose NEGATIVE (NEGATIVE) mg/dL Specimen Received 09/28/172009 - Progress Progress Note: 09/28/17 17:49 SALINE LOCK ESTABLISHED, CONTINUOUS NEBULIZER ALBUTEROL 10MG EVERY 1 HOUR, SOLUMEDROL 125MG, AFTER 2 SETS OF BLOOD CULTURES OBTAINED, ROCEPHIN 1GM, ZITHROMAX 500MG IVPB ADMINISTERED NORMAL SALINE 500ML/HR 09/28/17 19:36 Blood Culture(s) Obtained: Yes Antibiotics given: Yes (DISCUSSED WITH DR VELA AT 2100 FOR OBSERVATION) - Departure Time of Disposition: 21:45 Departure Disposition: Observation Clinical Impression: EXACERBATION COPD, DEHYDRATION Condition: Stable Critical Care Time: No Referrals: CYDNEY VELA [Primary Care Provider] -
[2017-09-28 17:54] LABS: BASOPHIL % 0.4 % (0.0-0.4); Basophil (Absolute #) 0.03 (0-0.4); Eosinophil % 2.4 % (0.00-5.0); Eosinophil (Absolute #) 0.19 (0-0.5); Granulocyte Absolute (ANC) 4.51 (1.4-6.9); Granulocytes % 57.1 % (36.0-66.0); Hematocrit 41.2 % (35-47); Hemoglobin 13.8 gm/dl (12.0-16.0); Lymphocyte (Absolute #) 2.28 (1.0-4.6); Lymphocytes % 28.9 % (24.0-44.0); Mean Cell Volume 92.6 fl (78-100); Mean Corpuscular Hgb Concent. 33.5 g/dl (32-36); Mean Platelet Volume 11.4 fl (6-9.5); Monocyte (Absolute #) 0.88 (0.0-1.3); Monocytes % 11.2 % (0.0-12.0); Platelet Count 275 K/mm3 (150-450); Red Blood Count 4.45 M/mm3 (4.1-5.4); Red Cell Distribution Width 14.2 % (11.5-14.0); White Blood Count 7.9 K/mm3 (4.0-10.5)
[2017-09-28] MEDS ORDERED: Sodium Chloride 0.9% 1000 ML 1,000 ML IV SCH (18:00)
[2017-09-28 18:15] LABS: INR 1.25 (0.8-3.0)
[2017-09-28 18:18] LABS: ALBUMIN 4.7 g/dL (3.5-5.0); ALKALINE PHOSPHATASE 95 U/L (38-126); ANION GAP 15.4 MEQ/L (5-15); BLOOD UREA NITROGEN 13 mg/dL (7-17); CHLORIDE 102 mmol/L (98-107); Calcium 9.9 mg/dL (8.4-10.2); Carbon Dioxide 29 mmol/L (22-30); Creatinine 1 0.55 mg/dL (0.52-1.04); Glucose 95 mg/dL (74-106); Potassium 3.6 mmol/L (3.5-5.1); SGOT/AST 42 U/L (14-36); SGPT/ALT 51 U/L (0-35); SODIUM 143 mmol/L (137-145); Total Protein 7.3 g/dL (6.3-8.2)
[2017-09-28] MEDS ORDERED: ROCEPHIN 1 Gm-D5w 50 ml Bag** 1 G/50 ML IVPB IV ONE (18:19)
[2017-09-28 18:35] LABS: D-DIMER QUANTITATION < 215 ng/mL (215-500)
[2017-09-28] MEDS ORDERED: Sodium Chloride 0.9% 1000 ML 1,000 ML ONE (18:41)
[2017-09-28 20:11] LABS: Appearance CLEAR (CLEAR); Bilirubin NEGATIVE (NEGATIVE); Blood NEGATIVE Ery/ul (0-5); Glucose NEGATIVE (NEGATIVE); Ketones SMALL (NEGATIVE); Leukocyte Esterase NEGATIVE (NEGATIVE); Nitrite NEGATIVE (NEGATIVE); Ph 6.5 (5-6); Protein,Urine Dip NEGATIVE (Negative); Specific Gravity 1.015 (1.005-1.025); Urobilinogen NORMAL mg/dL (0-1)
[2017-09-28] MEDS ORDERED: Xopenex 1.25 MG/0.5 ML UD NEBULE IH ONE ×2 (20:26→20:27)
[2017-09-28] MEDS: Xopenex 1.25 MG/0.5 ML UD NEBULE IH PRN (23:29)
[2017-09-28] MEDS: ELIQUIS 2.5 MG TABLET PO SCH (23:29)
[2017-09-28] MEDS: Multaq 400 MG PO SCH (23:30)
[2017-09-28] MEDS: Klor Con 10 MEQ PO SCH (23:30)
[2017-09-28] MEDS: Sodium Chloride 0.9% 1000 ML 1,000 ML IV SCH (23:33)
[2017-09-28] MEDS: DUONEB 0.5-3 MG/3 ml Neb IH SCH (23:38)
[2017-09-29] MEDS: solu-MEDROL 125 MG IV SCH ×2 (01:25→05:56)
[2017-09-29] MEDS ORDERED: Sodium Chloride 3 ML UD NEBULES IH ONE ×2 (02:55→06:52)
[2017-09-29] MEDS: Xopenex 1.25 MG/0.5 ML UD NEBULE IH PRN ×2 (03:09→06:53)
[2017-09-29] MEDS: DUONEB 0.5-3 MG/3 ml Neb IH SCH (03:27)
[2017-09-29 06:11] LABS: Hematocrit 36.4 % (35-47); Mean Cell Volume 94.3 fl (78-100); Mean Platelet Volume 11.3 fl (6-9.5); Platelet Count 233 K/mm3 (150-450); Red Blood Count 3.86 M/mm3 (4.1-5.4); Red Cell Distribution Width 14.3 % (11.5-14.0); White Blood Count 9.7 K/mm3 (4.0-10.5)
[2017-09-29 06:23] LABS: ANION GAP 17.6 MEQ/L (5-15); BLOOD UREA NITROGEN 9 mg/dL (7-17); CHLORIDE 108 mmol/L (98-107); Calcium 8.8 mg/dL (8.4-10.2); Carbon Dioxide 19 mmol/L (22-30); Creatinine 1 0.42 mg/dL (0.52-1.04); Glucose 213 mg/dL (74-106); Potassium 3.4 mmol/L (3.5-5.1); SODIUM 141 mmol/L (137-145)
[2017-09-29] MEDS: Sodium Chloride 3 ML UD NEBULES IH PRN ×2 (06:53→11:02)
--- NOTE | 2017-09-29 08:26 | PCM.HP ---
History of Present Illness - Chief Complaint Chief Complaint: dehydration/COPD Exacerbation History of Present Illness: is a 72 year old female pt of mine from [facility] with COPD of unknown etiology who came to ER complaining of difficulty breathing and weakness. She was given rocephin and zithromax and IV solumedrol. CXR non acute. She has been losing weight for some time due to decreased appetite. Last hospital stay she had afib with RVR and is on multaq. Last night she did not sleep due to shakiness from steroids and nebulizer treatments. Feels more congested this morning. Was unable to walk in the ER, she states from the shakiness. - Review of Systems Constitutional: Weakness, Weight Loss Respiratory: Cough, Short Of Breath, Wheezing Cardiac: Edema (LE bilat) Abdominal/Gastrointestinal: Appetite Changes Neurological: Dizziness Psychological: Anxiety All Other Systems: Reviewed and Negative Medications & Allergies Home Medications: Home Medication List Potassium Chloride [K-Dur] 10 meq PO BID 02/23/16 [History Confirmed 09/28/17] Meclizine HCl 25 mg [Antivert 25 mg] 25 mg PO Q4HPRN PRN #30 tablet [Rx Confirmed 09/28/17] Albuterol 2.5 mg/3 ml Neb [Proventil 2.5 mg/3 ml Neb] 2.5 mg IH QID PRN [History Confirmed 09/28/17] Hydrocod Psx/Chlor-Jj [Tussionex Pennkinetic Susp] 5 ml PO HSPRN PRN [History Confirmed 09/28/17] Levothyroxine Sodium 50 Mcg [Synthroid 50 Mcg] 50 mcg PO DAILY 01/30/17 [ History Confirmed 09/28/17] Cholecalciferol (Vitamin D3) [Vitamin D3] 1,000 unit PO HS 07/27/17 [History Confirmed 09/28/17] Loratadine 10 mg [Claritin 10 mg] 10 mg PO DAILY 07/27/17 [History Confirmed 09/28/17] Apixaban [Eliquis 2.5 mg Tablet] 2.5 mg PO BID #60 tablet 07/31/17 [Rx Confirmed 09/28/17] Dronedarone Hydrochloride 400* [Multaq 400 MG] 400 mg PO BID #60 tablet 07/31 [Rx Confirmed 09/28/17] Allergies/Adverse Reactions: Allergies Allergy/AdvReac Type Severity Reaction Status Date / Time Sulfa (Sulfonamide Allergy Intermediate Rash Verified 07/27/17 12:32 Antibiotics) - Past Medical History Past Medical History: Yes Neurological History: No Pertinent History ENT History: Cataracts Cardiac History: Arrhythmia Respiratory History: COPD Endocrine Medical History: Hypothyroidism Musculoskelatal History: No Pertinent History GI Medical History: Diverticulitis History: No Pertinent History Pyscho-Social History: No Pertinent History Reproductive Disorders: No Pertinent History - Female History Are you now?: No - Past Surgical History Past Surgical History: Yes Neuro Surgical History: No Pertinent History Cardiac History: No Pertinent History Respiratory Surgery: No Pertinent History GI Surgical History: Appendectomy Genitourinary Surgical Hx: No Pertinent History Musculskeletal Surgical Hx: No Pertinent History Female Surgical History: Hysterectomy - Social History Smoking Status: Never smoker Exposure to second hand smoke: No Alcohol: None Drug Use: none - Physical Exam Vital Signs: Vital Signs - 24 hr Temp Pulse Resp BP Pulse Ox 09/29/17 07:21 98.2 F 99 H 18 108/59 98 09/29/17 06:58 100 H 18 94 L 09/29/17 06:00 22 09/29/17 04:00 97.9 F 101 H 22 103/54 96 09/29/17 03:12 97 H 20 98 09/29/17 02:00 16 09/28/17 23:35 106 H 18 96 09/28/17 23:27 94 L 09/28/17 23:00 98.1 F 113 H 16 118/58 95 09/28/17 22:23 98.1 F 113 H 16 118/58 95 09/28/17 21:52 112 H 20 104/64 94 L 09/28/17 21:50 97 09/28/17 20:34 110 H 20 96 09/28/17 19:34 111 H 21 112/52 93 L 09/28/17 17:37 93 H 18 97 09/28/17 16:38 98.8 F 96 H 22 147/81 98 Oxygen-Last 24 hours O2 Percentage 2 Liters = 28% General Appearance: no apparent distress, alert, cachetic Neurologic Exam: oriented x 3, cooperative Eye Exam: eyes nml inspection Ears, Nose, Throat Exam: moist mucous membranes Neck Exam: normal inspection Respiratory Exam: lungs clear, diminished breath sounds, No crackles/rales, No rhonchi, No wheezing Cardiovascular Exam: regular rate/rhythm, normal heart sounds, No murmur Gastrointestinal/Abdomen Exam: soft, normal bowel sounds, No tenderness, No distention, No mass, No guarding, No rebound Extremity Exam: No pedal edema, No swelling Skin Exam: normal color, warm, dry, No rash Results - Labs Lab/Micro Results: Lab Results-Last 24 Hours 09/28/17 09/28/17 09/28/17 Range/Units 17:15 17:53 17:53 WBC 7.9 (4.0-10.5) K/mm3 RBC 4.45 (4.1-5.4) M/mm3 Hgb 13.8 (12.0-16.0) gm/dl Hct 41.2 (35-47) % MCV 92.6 (78-100) fl MCH 31.0 (26-32) pg MCHC 33.5 (32-36) g/dl RDW 14.2 H (11.5-14.0) % Plt Count 275 (150-450) K/mm3 MPV 11.4 H (6-9.5) fl Gran % 57.1 (36.0-66.0) % Eos # (Auto) 0.19 (0-0.5) Absolute Lymphs (auto) 2.28 (1.0-4.6) Absolute Monos (auto) 0.88 (0.0-1.3) Lymphocytes % 28.9 (24.0-44.0) % Monocytes % 11.2 (0.0-12.0) % Eosinophils % 2.4 (0.00-5.0) % Basophils % 0.4 (0.0-0.4) % Absolute Granulocytes 4.51 (1.4-6.9) Basophils # 0.03 (0-0.4) PT (9.95-12.35) SECONDS INR (0.8-3.0) D-Dimer (215-500) ng/mL Sodium 143 (137-145) mmol/L Potassium 3.6 (3.5-5.1) mmol/L Chloride 102 (98-107) mmol/L Carbon Dioxide 29 (22-30) mmol/L Anion Gap 15.4 H (5-15) MEQ/L BUN 13 (7-17) mg/dL Creatinine 0.55 (0.52-1.04) mg/dL Estimated GFR > 60.0 ML/MIN Glucose 95 (74-106) mg/dL Calcium 9.9 (8.4-10.2) mg/dL Total Bilirubin 0.30 (0.2-1.3) mg/dL AST 42 H (14-36) U/L ALT 51 H (0-35) U/L Alkaline Phosphatase 95 (38-126) U/L Troponin I (0.000-0.034) ng/mL NT-Pro-B Natriuret Pep (0-900) pg/mL Serum Total Protein 7.3 (6.3-8.2) g/dL Albumin 4.7 (3.5-5.0) g/dL Ur Collection Type CLEAN CATCH Urine Color YELLOW (YELLOW) Urine Appearance CLEAR (CLEAR) Urine pH 6.5 (5-6) Ur Specific [place] 1.015 (1.005-1.025) Urine Protein NEGATIVE (Negative) Urine Ketones SMALL (NEGATIVE) Urine Blood NEGATIVE (0-5) Dimitri/ul Urine Nitrite NEGATIVE (NEGATIVE) Urine Bilirubin NEGATIVE (NEGATIVE) Urine Urobilinogen NORMAL (0-1) mg/dL Ur Leukocyte Esterase NEGATIVE (NEGATIVE) Urine Culture Reflexed NO (NO) Urine Glucose NEGATIVE (NEGATIVE) mg/dL Specimen Received 09/28/17200909/28/17 09/28/17 09/28/17 Range/Units 17:53 17:53 17:53 WBC (4.0-10.5) K/mm3 RBC (4.1-5.4) M/mm3 Hgb (12.0-16.0) gm/dl Hct (35-47) % MCV (78-100) fl MCH (26-32) pg MCHC (32-36) g/dl RDW (11.5-14.0) % Plt Count (150-450) K/mm3 MPV (6-9.5) fl Gran % (36.0-66.0) % Eos # (Auto) (0-0.5) Absolute Lymphs (auto) (1.0-4.6) Absolute Monos (auto) (0.0-1.3) Lymphocytes % (24.0-44.0) % Monocytes % (0.0-12.0) % Eosinophils % (0.00-5.0) % Basophils % (0.0-0.4) % Absolute Granulocytes (1.4-6.9) Basophils # (0-0.4) PT 14.6 H (9.95-12.35) SECONDS INR 1.25 (0.8-3.0) D-Dimer < 215 L (215-500) ng/mL Sodium (137-145) mmol/L Potassium (3.5-5.1) mmol/L Chloride (98-107) mmol/L Carbon Dioxide (22-30) mmol/L Anion Gap (5-15) MEQ/L BUN (7-17) mg/dL Creatinine (0.52-1.04) mg/dL Estimated GFR ML/MIN Glucose (74-106) mg/dL Calcium (8.4-10.2) mg/dL Total Bilirubin (0.2-1.3) mg/dL AST (14-36) U/L ALT (0-35) U/L Alkaline Phosphatase (38-126) U/L Troponin I < 0.012 (0.000-0.034) ng/mL NT-Pro-B Natriuret Pep 156 (0-900) pg/mL Serum Total Protein (6.3-8.2) g/dL Albumin (3.5-5.0) g/dL Ur Collection Type Urine Color (YELLOW) Urine Appearance (CLEAR) Urine pH (5-6) Ur Specific [place] (1.005-1.025) Urine Protein (Negative) Urine Ketones (NEGATIVE) Urine Blood (0-5) Dimitri/ul Urine Nitrite (NEGATIVE) Urine Bilirubin (NEGATIVE) Urine Urobilinogen (0-1) mg/dL Ur Leukocyte Esterase (NEGATIVE) Urine Culture Reflexed (NO) Urine Glucose (NEGATIVE) mg/dL Specimen Received 09/28/17 09/28/17 09/29/17 Range/Units 20:54 23:50 03:10 WBC (4.0-10.5) K/mm3 RBC (4.1-5.4) M/mm3 Hgb (12.0-16.0) gm/dl Hct (35-47) % MCV (78-100) fl MCH (26-32) pg MCHC (32-36) g/dl RDW (11.5-14.0) % Plt Count (150-450) K/mm3 MPV (6-9.5) fl Gran % (36.0-66.0) % Eos # (Auto) (0-0.5) Absolute Lymphs (auto) (1.0-4.6) Absolute Monos (auto) (0.0-1.3) Lymphocytes % (24.0-44.0) % Monocytes % (0.0-12.0) % Eosinophils % (0.00-5.0) % Basophils % (0.0-0.4) % Absolute Granulocytes (1.4-6.9) Basophils # (0-0.4) PT (9.95-12.35) SECONDS INR (0.8-3.0) D-Dimer (215-500) ng/mL Sodium (137-145) mmol/L Potassium (3.5-5.1) mmol/L Chloride (98-107) mmol/L Carbon Dioxide (22-30) mmol/L Anion Gap (5-15) MEQ/L BUN (7-17) mg/dL Creatinine (0.52-1.04) mg/dL Estimated GFR ML/MIN Glucose (74-106) mg/dL Calcium (8.4-10.2) mg/dL Total Bilirubin (0.2-1.3) mg/dL AST (14-36) U/L ALT (0-35) U/L Alkaline Phosphatase (38-126) U/L Troponin I < 0.012 < 0.012 < 0.012 (0.000-0.034) ng/mL NT-Pro-B Natriuret Pep (0-900) pg/mL Serum Total Protein (6.3-8.2) g/dL Albumin (3.5-5.0) g/dL Ur Collection Type Urine Color (YELLOW) Urine Appearance (CLEAR) Urine pH (5-6) Ur Specific [place] (1.005-1.025) Urine Protein (Negative) Urine Ketones (NEGATIVE) Urine Blood (0-5) Dimitri/ul Urine Nitrite (NEGATIVE) Urine Bilirubin (NEGATIVE) Urine Urobilinogen (0-1) mg/dL Ur Leukocyte Esterase (NEGATIVE) Urine Culture Reflexed (NO) Urine Glucose (NEGATIVE) mg/dL Specimen Received 09/29/17 09/29/17 09/29/17 Range/Units 06:04 06:04 06:04 WBC 9.7 (4.0-10.5) K/mm3 RBC 3.86 L (4.1-5.4) M/mm3 Hgb 12.0 (12.0-16.0) gm/dl Hct 36.4 (35-47) % MCV 94.3 (78-100) fl MCH 31.0 (26-32) pg MCHC 33.0 (32-36) g/dl RDW 14.3 H (11.5-14.0) % Plt Count 233 (150-450) K/mm3 MPV 11.3 H (6-9.5) fl Gran % (36.0-66.0) % Eos # (Auto) (0-0.5) Absolute Lymphs (auto) (1.0-4.6) Absolute Monos (auto) (0.0-1.3) Lymphocytes % (24.0-44.0) % Monocytes % (0.0-12.0) % Eosinophils % (0.00-5.0) % Basophils % (0.0-0.4) % Absolute Granulocytes (1.4-6.9) Basophils # (0-0.4) PT (9.95-12.35) SECONDS INR (0.8-3.0) D-Dimer (215-500) ng/mL Sodium 141 (137-145) mmol/L Potassium 3.4 L (3.5-5.1) mmol/L Chloride 108 H (98-107) mmol/L Carbon Dioxide 19 L (22-30) mmol/L Anion Gap 17.6 H (5-15) MEQ/L BUN 9 (7-17) mg/dL Creatinine 0.42 L (0.52-1.04) mg/dL Estimated GFR > 60.0 ML/MIN Glucose 213 H (74-106) mg/dL Calcium 8.8 (8.4-10.2) mg/dL Total Bilirubin (0.2-1.3) mg/dL AST (14-36) U/L ALT (0-35) U/L Alkaline Phosphatase (38-126) U/L Troponin I < 0.012 (0.000-0.034) ng/mL NT-Pro-B Natriuret Pep (0-900) pg/mL Serum Total Protein (6.3-8.2) g/dL Albumin (3.5-5.0) g/dL Ur Collection Type Urine Color (YELLOW) Urine Appearance (CLEAR) Urine pH (5-6) Ur Specific [place] (1.005-1.025) Urine Protein (Negative) Urine Ketones (NEGATIVE) Urine Blood (0-5) Dimitri/ul Urine Nitrite (NEGATIVE) Urine Bilirubin (NEGATIVE) Urine Urobilinogen (0-1) mg/dL Ur Leukocyte Esterase (NEGATIVE) Urine Culture Reflexed (NO) Urine Glucose (NEGATIVE) mg/dL Specimen Received - Radiology Impressions Radiology Exams & Impressions: Radiology Procedures Category Date Time Status CHEST 1 VIEW (PORTABLE) Stat Exams 09/28/17 17:16 Taken - Other Procedures and Tests Respiratory Therapy 09/28/17 21:38 Oxygen NASAL CANNULA 2 lpm 09/28/17 23:35 Respiratory Therapy Assessment DAILY 09/29/17 07:01 Peak Expiratory Flow Rate ONCE Assessment/Plan (1) COPD exacerbation Current Visit: No Status: Acute Assessment & Plan: On IV rocephin and zithromax. Will decrease IV solumedrol from 80mg IV q6h to 40mg IV q8h. Code(s): J44.1 - CHRONIC OBSTRUCTIVE PULMONARY DISEASE W (ACUTE) EXACERBATION (2) Dehydration Current Visit: Yes Status: Acute Assessment & Plan: Has received IV fluids; bicarb still low. WIll continue IV hydration. she recurrently gets dehydrated; discussed possibility of weekly IV infusions of fluid. Code(s): E86.0 - DEHYDRATION (3) Atrial fibrillation Current Visit: No Status: Chronic Qualifiers: Atrial fibrillation type: paroxysmal Qualified Code(s): I48.0 - Paroxysmal atrial fibrillation Assessment & Plan: appears nSR this morning. Code(s): I48.91 - UNSPECIFIED ATRIAL FIBRILLATION (4) Weakness Current Visit: No Status: Chronic Onset Date: ~07/27/17 Assessment & Plan: will consult PT. I think due to poor PO intake. Code(s): R53.1 - WEAKNESS (5) Chronic hypoxemic respiratory failure Current Visit: No Status: Chronic Assessment & Plan: wears O2 intermittently at home. (6) Hypothyroidism Current Visit: No Status: Chronic Qualifiers: Hypothyroidism type: unspecified Qualified Code(s): E03.9 - Hypothyroidism , unspecified Code(s): E03.9 - HYPOTHYROIDISM, UNSPECIFIED
[2017-09-29] MEDS: Sodium Chloride 0.9% 1000 ML 1,000 ML IV SCH ×2 (09:01→20:38)
[2017-09-29] MEDS: xanAX 0.25 MG PO SCH ×2 (09:18→22:04)
[2017-09-29] MEDS: ELIQUIS 2.5 MG TABLET PO SCH ×2 (09:18→22:03)
[2017-09-29] MEDS: Klor Con 10 MEQ PO SCH ×2 (09:19→22:03)
[2017-09-29] MEDS: Multaq 400 MG PO SCH ×2 (09:21→22:04)
[2017-09-29] MEDS: SYNTHROID 50 MCG PO SCH (09:21)
[2017-09-29] MEDS: ROCEPHIN 1 Gm-D5w 50 ml Bag** 1 G/50 ML IVPB IV SCH (09:21)
[2017-09-29] MEDS: Zithromax 500 MG/ 250 ML NaCl Premix 500 MG/250 ML IVPB IV SCH (09:22)
[2017-09-29] MEDS ORDERED: ANTIVERT 25 MG PO PRN (09:31)
[2017-09-29] MEDS ORDERED: Tussionex Pennkinetic Susp PO PRN (09:31)
[2017-09-29] MEDS: CLARITIN 10 MG PO SCH (10:11)
--- NOTE | 2017-09-29 10:41 | XRAY ---
Exam: AP upright portable chest film from 09/28/2017. Comparison: Two-view chest from 07/27/2017. Indication: Shortness of breath. Findings: Tubing and respiratory mask overlies the left upper lobe and base of the neck. The lungs are hyperinflated. Correlate clinically regarding COPD. The transverse heart size is normal. No central vascular congestion, Mandie B-lines, or pleural fluid is seen. Minimal chronic right perihilar linear scarring is again seen. A few scattered tiny bilateral calcified granulomas are seen. No air space infiltrates or pneumothorax is seen. A metallic necklace encircles the base of the patient's neck. EKG leads are seen in place. No acute osseous process is seen. Impression: 1. There is some hyperinflation of the lungs. Correlate clinically regarding COPD. 2. No infiltrates to suggest pneumonia, heart failure, or other acute cardiopulmonary disease is seen. 3. Other chronic features, as discussed above.
[2017-09-29] MEDS: Xopenex 1.25 MG/0.5 ML UD NEBULE IH SCH ×3 (11:02→19:00)
[2017-09-29] MEDS: solu-MEDROL 40 MG IV SCH ×2 (14:08→22:03)
[2017-09-29] MEDS: Sodium Chloride 3 ML UD NEBULES IH SCH ×2 (14:39→19:00)
[2017-09-29] MEDS ORDERED: VITAMIN D PO SCH (22:00)
[2017-09-29] MEDS ORDERED: NON-FORMULARY ITEM (Cholecalciferol (Vitamin D3) [Vitamin D3] 1,000 UNIT) PO SCH (22:00)
[2017-09-30] MEDS: Xopenex 1.25 MG/0.5 ML UD NEBULE IH SCH ×4 (02:10→10:39)
[2017-09-30] MEDS: Sodium Chloride 3 ML UD NEBULES IH SCH ×4 (02:11→10:39)
[2017-09-30] MEDS: solu-MEDROL 40 MG IV SCH (06:08)
[2017-09-30] MEDS: Sodium Chloride 0.9% 1000 ML 1,000 ML IV SCH (06:57)
--- NOTE | 2017-09-30 09:10 | PCM.DS ---
Discharge Summary Date of Admission: 09/28/17 22:21 Admitting Physician: CYDNEY VELA Primary Care Provider: CYDNEY VELA Allergies Allergies Sulfa (Sulfonamide Antibiotics) Allergy (Intermediate, Verified 07/27/17 12:32) [facility] Hospital Summary - Hospital Course Hospital Course: Pt admitted through ER with COPD exacerbation, weakness, and dehydration. She has been given IV fluids and IV rocephin and zithromax - will get dose #3 today and be discharged to home. Home on nystatin (hx oral/esophageal candidiasis) and will set up weekly infusion of IV fluids. Started xanax here for anxiety and shakiness with nebulizer treatments - will continue xanax at home prn. Will try to get pt marinol from [facility]. - Vitals & Intake/Output Vital Signs: Vital Signs Temperature 97.7 F 09/30/17 07:16 Pulse Rate 88 09/30/17 07:16 Respiratory Rate 16 09/30/17 07:16 Blood Pressure 114/56 09/30/17 07:16 O2 Sat by Pulse Oximetry 93 L 09/30/17 07:16 Oxygen-Last Documented O2 Percentage 2 Liters = 28% Intake & Output: Intake & Output 09/27/17 09/28/17 09/29/17 09/30/17 11:59 11:59 11:59 11:59 Intake Total 520 3875 Output Total 1275 1050 Balance -755 2825 Weight 42.8 kg 42.8 kg - Lab Result Diagrams: 09/29/17 06:04 09/29/17 06:04 - Radiology Exams Ordered Rad Exams-Entire Visit: Radiology Procedures Category Date Time Status CHEST 1 VIEW (PORTABLE) Stat Exams 09/28/17 17:16 Completed - Procedures and Test Procedures and Tests throughout Hospitalization: Therapy Orders & Screens 09/28/17 17:16 Respiratory Nebulizer STAT Comment: Diagnosis: Shortness of Breath 09/28/17 17:35 Peak Expiratory Flow Rate ONCE Comment: Reason For Exam: Diagnosis: Shortness of Breath Respiratory Therapy Assessment DAILY Comment: Diagnosis: Shortness of Breath 09/28/17 20:34 Respiratory Therapy Assessment DAILY Comment: Diagnosis: Shortness of Breath 09/28/17 21:38 Oxygen NASAL CANNULA 2 lpm Comment: Diagnosis: Shortness of Breath 09/28/17 23:27 RT Screen per Nursing Assess DAILY Comment: Protocol Order Physician Instructions: Greater than 3 points order RT Admission Screen Reason For Exam: Triggered on Admission Diagnosis: dehydration/COPD Exacerbation Diagnosis: dehydration/COPD Exacerbation Pneumonia: No Home O2: Yes: PRN @night Asthma: No CHF: No Home CPAP/BIPAP: No Home Nebs/MDI: Yes Total Points: 10 09/28/17 23:35 Respiratory Therapy Assessment DAILY Comment: Diagnosis: dehydration/COPD Exacerbation 09/29/17 07:01 Peak Expiratory Flow Rate ONCE Comment: Reason For Exam: Diagnosis: dehydration/COPD Exacerbation 09/29/17 08:34 PT Eval & Treat (MD Order) ROUTINE Reason for Eval:: weakness Diagnosis: dehydration/COPD Exacerbation Discharge Exam General Appearance: no apparent distress, alert Neurologic Exam: oriented x 3, cooperative Skin Exam: normal color, warm, dry, No rash Ears, Nose, Throat Exam: moist mucous membranes Respiratory Exam: diminished breath sounds (good air exchange), rhonchi (faint RLL), No crackles/rales, No wheezing Cardiovascular Exam: normal heart sounds, irregular, No murmur Extremity Exam: swelling (trace pretibial edema) Final Diagnosis/Problem List - Final Discharge Diagnosis/Problem (1) COPD exacerbation Current Visit: No Status: Acute Assessment & Plan: Finishing day #3 of rocephin and zithromax today; will not d/c on antibiotics ( she does not tolerate oral abx well). (2) Dehydration Current Visit: Yes Status: Resolved Assessment & Plan: recheck labs today. Will set up outpatient infusion IV therapy once weekly. Poor po intake at home. (3) Atrial fibrillation Current Visit: No Status: Chronic (4) Weakness Current Visit: No Status: Chronic Onset Date: ~07/27/17 (5) Chronic hypoxemic respiratory failure Current Visit: No Status: Chronic (6) Hypothyroidism Current Visit: No Status: Chronic (7) Malnutrition Current Visit: Yes Status: Acute Assessment & Plan: would like pt to try marinol. (8) Shakiness Current Visit: Yes Status: Acute (9) Insomnia Current Visit: Yes Status: Acute Assessment & Plan: and shakiness - xanax prn. - Discharge Disposition: Home, Self-Care Condition: Stable Prescriptions: New Nystatin 5 ml PO QID #100 ml Alprazolam 0.25 mg [xanAX 0.25 MG] 0.25 mg PO BID PRN #60 tablet PRN Reason: Insomnia Continue Potassium Chloride [K-Dur] 10 meq PO BID Meclizine HCl 25 mg [Antivert 25 mg] 25 mg PO Q4HPRN PRN #30 tablet PRN Reason: Dizziness Levothyroxine Sodium 50 Mcg [Synthroid 50 Mcg] 50 mcg PO DAILY Hydrocod Psx/Chlor-Jj [Tussionex Pennkinetic Susp] 5 ml PO HSPRN PRN PRN Reason: Cough Albuterol 2.5 mg/3 ml Neb [Proventil 2.5 mg/3 ml Neb] 2.5 mg IH QID PRN Loratadine 10 mg [Claritin 10 mg] 10 mg PO DAILY Cholecalciferol (Vitamin D3) [Vitamin D3] 1,000 unit PO HS Apixaban [Eliquis 2.5 mg Tablet] 2.5 mg PO BID #60 tablet Dronedarone Hydrochloride 400* [Multaq 400 MG] 400 mg PO BID #60 tablet Follow up with: CYDNEY VELA [Primary Care Provider] - 1 Week
[2017-09-30] MEDS: ROCEPHIN 1 Gm-D5w 50 ml Bag** 1 G/50 ML IVPB IV SCH (09:37)
[2017-09-30] MEDS: Klor Con 10 MEQ PO SCH (09:37)
[2017-09-30] MEDS: xanAX 0.25 MG PO SCH (09:37)
[2017-09-30] MEDS: Zithromax 500 MG/ 250 ML NaCl Premix 500 MG/250 ML IVPB IV SCH (09:37)
[2017-09-30] MEDS: Multaq 400 MG PO SCH (09:37)
[2017-09-30] MEDS: ELIQUIS 2.5 MG TABLET PO SCH (09:37)
[2017-09-30] MEDS: CLARITIN 10 MG PO SCH ×2 (09:38→09:41)
[2017-09-30] MEDS: SYNTHROID 50 MCG PO SCH (09:38)
[2017-09-30 10:05] LABS: Granulocyte Absolute (ANC) 22.79 (1.4-6.9); Hematocrit 36.1 % (35-47); Hemoglobin 11.6 gm/dl (12.0-16.0); Mean Corpuscular Hgb Concent. 32.1 g/dl (32-36); Mean Platelet Volume 11.1 fl (6-9.5); Platelet Count 219 K/mm3 (150-450); Red Blood Count 3.76 M/mm3 (4.1-5.4); White Blood Count 23.8 K/mm3 (4.0-10.5)
[2017-09-30 10:38] LABS: Mean Corpuscular Hemoglobin 30.8 pg (26-32)
[2017-09-30 10:45] VITALS: O2SAT 95
[2017-09-30 11:02] LABS: ANION GAP 18.5 MEQ/L (5-15); BLOOD UREA NITROGEN 13 mg/dL (7-17); CHLORIDE 108 mmol/L (98-107); Calcium 8.6 mg/dL (8.4-10.2); Carbon Dioxide 20 mmol/L (22-30); Creatinine 1 0.44 mg/dL (0.52-1.04); Glucose 182 mg/dL (74-106); Potassium 3.5 mmol/L (3.5-5.1); SODIUM 143 mmol/L (137-145)
[2017-09-30 11:21] VITALS: BP 108/56; PULSE 98
[2017-09-30 17:03] LABS: BAND 4 % (0.0-2.0); Lymphocytes 5 % (24-44); Monocyte 3 % (0.0-12.0); Neutrophils 88 % (36.0-66.0); Platelet Estimate NORMAL (NORMAL); Total Cells Counted 100; Toxic Granulation 1+
== END 2017-09-30 13:15 | disposition home or self-care (01) ==
LOC: ED 16:37 → MED SURG 22:21
PROVIDERS: ADMIT Family Medicine; ATTEND Family Medicine
DX: J44.1 Chronic obstructive pulmonary disease with (acute) exacerbation (principal); E86.0 Dehydration; I48.91 Unspecified atrial fibrillation; R53.1 Weakness; J96.11 Chronic respiratory failure with hypoxia; E03.9 Hypothyroidism, unspecified
CPT/HCPCS: 36415; 71045; 80048; 80053; 81002; 83880; 84484; 85025; 85027; 85379; 85610; 87040; 93268; 94150; 94640; 94760; 96360; 96361; 96365; 96374; 96375; 99285; J0456; J0696; J2920; J2930; A9270-GY; G0378

== ENCOUNTER 2017-12-10 14:59 | Inpatient (IN) | payer MEDICARE ==
[2017-12-10 15:37] LABS: BASOPHIL % 0.6 % (0.0-0.4); Basophil (Absolute #) 0.05 (0-0.4); Eosinophil % 1.2 % (0.00-5.0); Granulocyte Absolute (ANC) 4.78 (1.4-6.9); Hemoglobin 12.7 gm/dl (12.0-16.0); Lymphocyte (Absolute #) 2.82 (1.0-4.6); Lymphocytes % 33.1 % (24.0-44.0); Mean Cell Volume 94.7 fl (78-100); Mean Corpuscular Hemoglobin 30.8 pg (26-32); Mean Corpuscular Hgb Concent. 32.6 g/dl (32-36); Mean Platelet Volume 10.7 fl (6-9.5); Monocyte (Absolute #) 0.78 (0.0-1.3); Monocytes % 9.1 % (0.0-12.0); Platelet Count 241 K/mm3 (150-450); Red Blood Count 4.12 M/mm3 (4.1-5.4); Red Cell Distribution Width 12.7 % (11.5-14.0); White Blood Count 8.5 K/mm3 (4.0-10.5)
[2017-12-10] MEDS: Lactated Ringers 1,000 ML IV (15:49)
[2017-12-10] MEDS: FLAGYL 500 MG IVPB 500 MG/100 ML BAG IV (15:49)
[2017-12-10 15:53] LABS: ADD MANUAL DIFF? NO (NO)
[2017-12-10 16:00] LABS: ALBUMIN 4.4 g/dL (3.5-5.0); ALKALINE PHOSPHATASE 72 U/L (38-126); AMYLASE 112 U/L (30-110); ANION GAP 12.9 MEQ/L (5-15); BLOOD UREA NITROGEN 15 mg/dL (7-17); CHLORIDE 103 mmol/L (98-107); Calcium 9.2 mg/dL (8.4-10.2); Carbon Dioxide 28 mmol/L (22-30); Creatinine 1 0.47 mg/dL (0.52-1.04); EST GLOMERULAR FILTRATION RATE > 60.0 ML/MIN; Glucose 88 mg/dL (74-106); LIPASE 122 U/L (23-300); Potassium 3.7 mmol/L (3.5-5.1); SGOT/AST 38 U/L (14-36); SGPT/ALT 39 U/L (0-35); SODIUM 140 mmol/L (137-145); Total Protein 6.8 g/dL (6.3-8.2)
[2017-12-10 16:29] LABS: Appearance CLEAR (CLEAR); Bilirubin NEGATIVE (NEGATIVE); Blood NEGATIVE Ery/ul (0-5); Glucose NEGATIVE (NEGATIVE); Ketones NEGATIVE (NEGATIVE); Leukocyte Esterase NEGATIVE (NEGATIVE); Nitrite NEGATIVE (NEGATIVE); Protein,Urine Dip NEGATIVE (Negative); Specific Gravity 1.004 (1.005-1.025); Urobilinogen NEGATIVE mg/dL (0-1)
[2017-12-10 16:37] LABS: ADD URINE CULTURE? NO (NO); Bacteria NONE SEEN /HPF (NEGATIVE); RBC NONE SEEN /HPF (0-2)
[2017-12-10] MEDS ORDERED: ANTIVERT 25 MG PO (16:55)
[2017-12-10] MEDS ORDERED: Tussionex Pennkinetic Susp PO (16:55)
[2017-12-10] MEDS ORDERED: PROVENTIL 2.5 MG/3 ML NEB IH (17:00)
[2017-12-10] MEDS: Nystatin SUSPENSION 60 ML PO ×2 (17:13→22:09)
[2017-12-10] MEDS: Multaq 400 MG PO (17:24)
[2017-12-10] MEDS: Lidoderm Patch 5% TOP (17:29)
[2017-12-10] MEDS ORDERED: NON-FORMULARY ITEM (Potassium Chloride [K-Dur] 10 MEQ) PO (22:00)
[2017-12-10] MEDS: ELIQUIS 2.5 MG TABLET PO (22:01)
[2017-12-10] MEDS: Klor Con 10 MEQ PO (22:01)
[2017-12-10] MEDS: xanAX 0.25 MG PO (22:26)
[2017-12-11] MEDS: FLAGYL 500 MG IVPB 500 MG/100 ML BAG IV ×5 (00:14→23:31)
[2017-12-11 05:52] LABS: Hematocrit 37.6 % (35-47); Hemoglobin 12.3 gm/dl (12.0-16.0); Mean Cell Volume 94.7 fl (78-100); Mean Corpuscular Hgb Concent. 32.7 g/dl (32-36); Mean Platelet Volume 11.1 fl (6-9.5); Platelet Count 240 K/mm3 (150-450); Red Blood Count 3.97 M/mm3 (4.1-5.4); Red Cell Distribution Width 12.8 % (11.5-14.0); White Blood Count 6.1 K/mm3 (4.0-10.5)
[2017-12-11 05:53] LABS: Mean Corpuscular Hemoglobin 30.9 pg (26-32)
[2017-12-11 05:57] LABS: ANION GAP 12.3 MEQ/L (5-15); BLOOD UREA NITROGEN 9 mg/dL (7-17); CHLORIDE 103 mmol/L (98-107); Calcium 9.3 mg/dL (8.4-10.2); Carbon Dioxide 27 mmol/L (22-30); Creatinine 1 0.46 mg/dL (0.52-1.04); EST GLOMERULAR FILTRATION RATE > 60.0 ML/MIN; Glucose 89 mg/dL (74-106); Potassium 3.7 mmol/L (3.5-5.1); SODIUM 139 mmol/L (137-145)
[2017-12-11] MEDS: Lactated Ringers 1,000 ML IV ×2 (06:46→20:12)
[2017-12-11] MEDS: PROVENTIL 2.5 MG/3 ML NEB IH ×2 (06:55→19:31)
[2017-12-11] MEDS: Multaq 400 MG PO ×2 (08:10→17:33)
[2017-12-11] MEDS: CLARITIN 10 MG PO (09:31)
[2017-12-11] MEDS: ELIQUIS 2.5 MG TABLET PO ×2 (09:31→22:07)
[2017-12-11] MEDS: SYNTHROID 50 MCG PO (09:31)
[2017-12-11] MEDS: Klor Con 10 MEQ PO ×2 (09:31→22:07)
[2017-12-11] MEDS: Cyclobenzaprine 10 MG PO (09:31)
[2017-12-11] MEDS: Nystatin SUSPENSION 60 ML PO ×3 (10:00→22:12)
[2017-12-11] MEDS: TYLENOL 325 MG PO ×3 (11:43→23:31)
[2017-12-11] MEDS: Lidoderm Patch 5% TOP (18:34)
[2017-12-11] MEDS: xanAX 0.25 MG PO (22:15)
[2017-12-12 05:41] LABS: BASOPHIL % 0.6 % (0.0-0.4); Basophil (Absolute #) 0.05 (0-0.4); Eosinophil % 1.8 % (0.00-5.0); Eosinophil (Absolute #) 0.14 (0-0.5); Granulocyte Absolute (ANC) 5.21 (1.4-6.9); Granulocytes % 65.5 % (36.0-66.0); Hematocrit 35.5 % (35-47); Hemoglobin 11.5 gm/dl (12.0-16.0); Lymphocyte (Absolute #) 1.89 (1.0-4.6); Lymphocytes % 23.7 % (24.0-44.0); Mean Cell Volume 94.7 fl (78-100); Mean Corpuscular Hgb Concent. 32.4 g/dl (32-36); Mean Platelet Volume 10.8 fl (6-9.5); Monocyte (Absolute #) 0.67 (0.0-1.3); Monocytes % 8.4 % (0.0-12.0); Platelet Count 211 K/mm3 (150-450); Red Blood Count 3.75 M/mm3 (4.1-5.4); Red Cell Distribution Width 12.9 % (11.5-14.0)
[2017-12-12 05:56] LABS: ADD MANUAL DIFF? NO (NO); Mean Corpuscular Hemoglobin 30.6 pg (26-32)
[2017-12-12] MEDS: FLAGYL 500 MG IVPB 500 MG/100 ML BAG IV ×3 (05:58→17:04)
[2017-12-12 06:04] LABS: ALBUMIN 3.4 g/dL (3.5-5.0); ALKALINE PHOSPHATASE 45 U/L (38-126); ANION GAP 10.1 MEQ/L (5-15); BLOOD UREA NITROGEN 11 mg/dL (7-17); CHLORIDE 104 mmol/L (98-107); Carbon Dioxide 28 mmol/L (22-30); EST GLOMERULAR FILTRATION RATE > 60.0 ML/MIN; Glucose 85 mg/dL (74-106); Potassium 3.6 mmol/L (3.5-5.1); SGOT/AST 24 U/L (14-36); SGPT/ALT 25 U/L (0-35); SODIUM 139 mmol/L (137-145); Total Protein 5.6 g/dL (6.3-8.2)
[2017-12-12] MEDS: ELIQUIS 2.5 MG TABLET PO ×2 (09:23→21:27)
[2017-12-12] MEDS: Multaq 400 MG PO ×2 (09:23→17:03)
[2017-12-12] MEDS: Klor Con 10 MEQ PO ×2 (09:23→21:27)
[2017-12-12] MEDS: CLARITIN 10 MG PO (09:23)
[2017-12-12] MEDS: SYNTHROID 50 MCG PO (09:23)
[2017-12-12] MEDS: TYLENOL 325 MG PO ×2 (09:25→17:16)
[2017-12-12] MEDS: PROVENTIL 2.5 MG/3 ML NEB IH ×2 (09:26→18:46)
[2017-12-12] MEDS: Lactated Ringers 1,000 ML IV ×2 (10:10→21:37)
[2017-12-12] MEDS: Nystatin SUSPENSION 60 ML PO ×3 (13:46→17:21)
[2017-12-12] MEDS: Lidoderm Patch 5% TOP (21:39)
[2017-12-12] MEDS: xanAX 0.25 MG PO (21:44)
[2017-12-13] MEDS: FLAGYL 500 MG IVPB 500 MG/100 ML BAG IV ×4 (00:15→18:24)
[2017-12-13] MEDS: PROVENTIL 2.5 MG/3 ML NEB IH (07:35)
[2017-12-13] MEDS: Multaq 400 MG PO ×2 (07:39→16:49)
[2017-12-13] MEDS: CLARITIN 10 MG PO (09:32)
[2017-12-13] MEDS: ELIQUIS 2.5 MG TABLET PO ×2 (09:32→20:42)
[2017-12-13] MEDS: SYNTHROID 50 MCG PO (09:32)
[2017-12-13] MEDS: Klor Con 10 MEQ PO ×2 (09:32→20:42)
[2017-12-13] MEDS: TYLENOL 325 MG PO (09:41)
[2017-12-13] MEDS: Acidophilus TABLET PO ×2 (10:22→20:42)
[2017-12-13] MEDS: Lactated Ringers 1,000 ML IV (11:22)
[2017-12-13] MEDS ORDERED: Ativan 1 MG PO (15:42)
[2017-12-13] MEDS: Xopenex 1.25 MG/0.5 ML UD NEBULE IH (19:00)
[2017-12-13] MEDS: Mucomyst 200 MG/ML IH (19:01)
[2017-12-13] MEDS: Cyclobenzaprine 10 MG PO (20:42)
[2017-12-13] MEDS: Lidoderm Patch 5% TOP (20:42)
[2017-12-13] MEDS: Nystatin SUSPENSION 60 ML PO (21:46)
[2017-12-14] MEDS: Lactated Ringers 1,000 ML IV ×4 (00:15→18:54)
[2017-12-14] MEDS: FLAGYL 500 MG IVPB 500 MG/100 ML BAG IV ×4 (00:15→17:18)
[2017-12-14] MEDS: TYLENOL 325 MG PO ×3 (00:30→18:54)
[2017-12-14 05:55] LABS: Hematocrit 39.5 % (35-47); Hemoglobin 12.7 gm/dl (12.0-16.0); Mean Corpuscular Hemoglobin 30.2 pg (26-32); Mean Corpuscular Hgb Concent. 32.2 g/dl (32-36); Mean Platelet Volume 11.2 fl (6-9.5); Platelet Count 227 K/mm3 (150-450); Red Cell Distribution Width 13.2 % (11.5-14.0); White Blood Count 11.7 K/mm3 (4.0-10.5)
[2017-12-14 06:07] LABS: ANION GAP 13.5 MEQ/L (5-15); BLOOD UREA NITROGEN 9 mg/dL (7-17); CHLORIDE 100 mmol/L (98-107); Calcium 9.2 mg/dL (8.4-10.2); Carbon Dioxide 27 mmol/L (22-30); Creatinine 1 0.42 mg/dL (0.52-1.04); EST GLOMERULAR FILTRATION RATE > 60.0 ML/MIN; Glucose 100 mg/dL (74-106); Potassium 3.9 mmol/L (3.5-5.1); SODIUM 136 mmol/L (137-145)
[2017-12-14] MEDS ORDERED: Sodium Chloride 3 ML UD NEBULES IH (06:57)
[2017-12-14] MEDS: Mucomyst 200 MG/ML IH ×2 (07:22→19:17)
[2017-12-14] MEDS: Xopenex 1.25 MG/0.5 ML UD NEBULE IH ×2 (07:22→19:16)
[2017-12-14] MEDS: Multaq 400 MG PO ×2 (08:49→16:43)
[2017-12-14] MEDS: Klor Con 10 MEQ PO ×2 (10:37→22:16)
[2017-12-14] MEDS: SYNTHROID 50 MCG PO (10:38)
[2017-12-14] MEDS: Acidophilus TABLET PO ×2 (10:38→22:16)
[2017-12-14] MEDS: CLARITIN 10 MG PO (10:38)
[2017-12-14] MEDS: ELIQUIS 2.5 MG TABLET PO ×2 (10:40→22:16)
[2017-12-14] MEDS: Nystatin SUSPENSION 60 ML PO ×7 (12:55→22:23)
[2017-12-14] MEDS: Lidoderm Patch 5% TOP (22:22)
[2017-12-14] MEDS: xanAX 0.25 MG PO (22:22)
[2017-12-15] MEDS: FLAGYL 500 MG IVPB 500 MG/100 ML BAG IV ×2 (00:05→05:34)
[2017-12-15] MEDS: TYLENOL 325 MG PO (04:51)
[2017-12-15] MEDS: Xopenex 1.25 MG/0.5 ML UD NEBULE IH (06:49)
[2017-12-15] MEDS: Mucomyst 200 MG/ML IH (06:50)
[2017-12-15] MEDS: Multaq 400 MG PO (08:07)
[2017-12-15] MEDS ORDERED: Sodium Chloride 0.9% 10 ML FLUSH Syringe IV ×2 (09:00→14:00)
[2017-12-15] MEDS: Klor Con 10 MEQ PO (09:37)
[2017-12-15] MEDS: SYNTHROID 50 MCG PO (09:37)
[2017-12-15] MEDS: CLARITIN 10 MG PO (09:37)
[2017-12-15] MEDS: Acidophilus TABLET PO (09:37)
[2017-12-15] MEDS: ELIQUIS 2.5 MG TABLET PO (09:37)
== END 2017-12-15 11:28 | disposition swing bed (61) ==
LOC: MED SURG 12-14 10:06
CPT/HCPCS: 36415; 74022; 80048; 80053; 81001; 82150; 83690; 85025; 85027; 87493; 93268; 94150; 94640; 94760; 97110-GP; 97161-GP; J7609

== ENCOUNTER 2017-12-15 09:53 | Inpatient (IN) | payer MEDICARE ==
[2017-12-15] MEDS ORDERED: Cyclobenzaprine 10 MG PO PRN (11:17)
[2017-12-15] MEDS ORDERED: ANTIVERT 25 MG PO PRN (11:17)
[2017-12-15] MEDS ORDERED: Ativan 1 MG PO PRN (11:17)
[2017-12-15] MEDS ORDERED: PROVENTIL 2.5 MG/3 ML NEB IH PRN (11:17)
[2017-12-15] MEDS ORDERED: Sodium Chloride 0.9% 10 ML FLUSH Syringe IV PRN (11:17)
[2017-12-15] MEDS ORDERED: Tussionex Pennkinetic Susp PO PRN (11:17)
[2017-12-15] MEDS: FLAGYL 500 MG IVPB 500 MG/100 ML BAG IV SCH ×3 (11:54→23:31)
[2017-12-15] MEDS: Sodium Chloride 0.9% 10 ML FLUSH Syringe IV SCH ×2 (16:39→21:22)
[2017-12-15] MEDS: Multaq 400 MG PO SCH (17:10)
[2017-12-15] MEDS: Xopenex 1.25 MG/0.5 ML UD NEBULE IH SCH (19:26)
[2017-12-15] MEDS: Mucomyst 200 MG/ML IH SCH (19:27)
[2017-12-15] MEDS: ELIQUIS 2.5 MG TABLET PO SCH (21:21)
[2017-12-15] MEDS: Klor Con 10 MEQ PO SCH (21:21)
[2017-12-15] MEDS: Acidophilus TABLET PO SCH (21:22)
[2017-12-15] MEDS: Nystatin SUSPENSION 60 ML PO SCH (21:22)
[2017-12-16] MEDS: TYLENOL 325 MG PO PRN ×2 (00:02→20:42)
[2017-12-16] MEDS: xanAX 0.25 MG PO PRN ×2 (02:18→22:16)
[2017-12-16] MEDS: FLAGYL 500 MG IVPB 500 MG/100 ML BAG IV SCH ×4 (05:41→23:50)
[2017-12-16] MEDS: Sodium Chloride 0.9% 10 ML FLUSH Syringe IV SCH ×3 (05:45→22:17)
[2017-12-16] MEDS: Xopenex 1.25 MG/0.5 ML UD NEBULE IH SCH ×2 (06:50→18:47)
[2017-12-16] MEDS: Mucomyst 200 MG/ML IH SCH (06:51)
[2017-12-16] MEDS: Multaq 400 MG PO SCH ×2 (08:12→16:35)
[2017-12-16] MEDS: Nystatin SUSPENSION 60 ML PO SCH ×7 (08:12→22:53)
[2017-12-16] MEDS: SYNTHROID 50 MCG PO SCH (08:13)
[2017-12-16] MEDS: Acidophilus TABLET PO SCH ×2 (08:13→22:16)
[2017-12-16] MEDS: CLARITIN 10 MG PO SCH (08:13)
[2017-12-16] MEDS: ELIQUIS 2.5 MG TABLET PO SCH ×2 (08:13→22:16)
[2017-12-16] MEDS: Klor Con 10 MEQ PO SCH ×2 (08:13→22:16)
[2017-12-16] MEDS ORDERED: Lidoderm Patch 5% TOP PRN (10:00)
[2017-12-16] MEDS ORDERED: Aplisol ID ONE (10:16)
[2017-12-17] MEDS: FLAGYL 500 MG IVPB 500 MG/100 ML BAG IV SCH ×4 (06:29→23:13)
[2017-12-17] MEDS: Sodium Chloride 0.9% 10 ML FLUSH Syringe IV SCH ×3 (06:45→21:52)
[2017-12-17] MEDS: Xopenex 1.25 MG/0.5 ML UD NEBULE IH SCH ×2 (06:53→19:34)
[2017-12-17] MEDS: Mucomyst 200 MG/ML IH SCH ×3 (06:53→21:58)
[2017-12-17] MEDS: Multaq 400 MG PO SCH ×2 (07:56→17:03)
[2017-12-17] MEDS: Acidophilus TABLET PO SCH ×2 (10:55→21:51)
[2017-12-17] MEDS: CLARITIN 10 MG PO SCH (10:55)
[2017-12-17] MEDS: SYNTHROID 50 MCG PO SCH (10:55)
[2017-12-17] MEDS: Klor Con 10 MEQ PO SCH ×2 (10:55→21:51)
[2017-12-17] MEDS: ELIQUIS 2.5 MG TABLET PO SCH ×2 (10:55→21:51)
[2017-12-17] MEDS: Nystatin SUSPENSION 60 ML PO SCH ×4 (10:56→21:51)
[2017-12-17] MEDS ORDERED: Sodium Chloride 3 ML UD NEBULES IH ONE (19:09)
[2017-12-17] MEDS: TYLENOL 325 MG PO PRN (21:17)
[2017-12-17] MEDS: xanAX 0.25 MG PO PRN (21:55)
[2017-12-18] MEDS: TYLENOL 325 MG PO PRN (01:46)
[2017-12-18] MEDS: Sodium Chloride 0.9% 10 ML FLUSH Syringe IV SCH (05:15)
[2017-12-18] MEDS: FLAGYL 500 MG IVPB 500 MG/100 ML BAG IV SCH ×2 (05:16→11:09)
[2017-12-18] MEDS ORDERED: Sodium Chloride 3 ML UD NEBULES IH SCH (07:00)
[2017-12-18] MEDS: Xopenex 1.25 MG/0.5 ML UD NEBULE IH SCH (07:02)
[2017-12-18] MEDS: Mucomyst 200 MG/ML IH SCH (07:03)
[2017-12-18 07:12] VITALS: PULSE 88
[2017-12-18] MEDS: Multaq 400 MG PO SCH (08:04)
[2017-12-18 08:07] VITALS: BP 121/60; O2SAT 99
--- NOTE | 2017-12-18 08:59 | PCM.DS ---
Discharge Summary Date of Admission: 12/15/17 11:29 Admitting Physician: CYDNEY VELA Primary Care Provider: CYDNEY VELA Allergies Allergies Sulfa (Sulfonamide Antibiotics) Allergy (Intermediate, Verified 12/10/17 10:32) [facility] Summary - Hospital Course Hospital Course: Pt is 72 yo female pt of mine from [facility] with PMHx COPD (unknown etiology) and malnutrition who was found to have + C. diff. She was admitted for IV flagyl and has not had diarrhea since admission. Started a probiotic. She was quite weak so after her acute stay she stayed on as a swing bed patient for therapy. Has been doing very well with PT. This morning she is tired, she thinks from all the exercise. She has hx of afib but was stable throughout her stay. She has to use xopenex instead of albuterol due to her afib with hx RVR. Pt complained of neck and back pain prior to admission; insurance had not approved lidoderm patches yet, but she has been getting them in the hospital with some improvement. Her COPD was stable throughout her stay; she did start on mucomyst nebulizer treatments with some improvement. - Vitals & Intake/Output Vital Signs: Vital Signs Temperature 98.3 F 12/18/17 08:00 Pulse Rate 88 12/18/17 08:00 Respiratory Rate 16 12/18/17 08:00 Blood Pressure 121/60 12/18/17 08:00 O2 Sat by Pulse Oximetry 99 12/18/17 08:00 Oxygen-Last Documented O2 Percentage 2 Liters = 28% Intake & Output: Intake & Output 12/15/17 12/16/17 12/17/17 12/18/17 11:59 11:59 11:59 11:59 Intake Total 1060 440 540 Balance 1060 440 540 Weight 41.4 kg 40.8 kg 41.1 kg - Procedures and Test Procedures and Tests throughout Hospitalization: Therapy Orders & Screens 12/15/17 11:17 Oxygen NASAL CANNULA 2 lpm Comment: Diagnosis: COPD. mal-nutrition. C-diff. Peak Expiratory Flow Rate ONCE Comment: Reason For Exam: Diagnosis: COPD. mal-nutrition. C-diff. Respiratory Therapy Assessment DAILY Comment: Diagnosis: COPD. mal-nutrition. C-diff. 12/15/17 16:08 PT Eval & Treat ( Order) ROUTINE Reason for Eval:: DECONDITIONING R/TO COPD, MALNUTRITION AND RECENT C-DIFF Diagnosis: COPD. mal-nutrition. C-diff. 12/16/17 10:35 OT Eval and Treat ( Order) ROUTINE Comment: Consulting Provider: Physician Instructions: Reason For Exam: Diagnosis: COPD. mal-nutrition. C-diff. PT Eval & Treat ( Order) ROUTINE Reason for Eval:: deconditionin g r/t cdiff, copd Diagnosis: COPD. mal-nutrition. C-diff. Discharge Exam General Appearance: no apparent distress, alert, cachetic Neurologic Exam: oriented x 3, cooperative Skin Exam: normal color, warm, dry, No rash Ears, Nose, Throat Exam: moist mucous membranes Neck Exam: normal inspection, non-tender, No lymphadenopathy Respiratory Exam: lungs clear, diminished breath sounds, prolonged expirations, No crackles/rales, No rhonchi, No wheezing Cardiovascular Exam: regular rate/rhythm, normal heart sounds, No murmur Gastrointestinal/Abdomen Exam: soft, normal bowel sounds, No tenderness, No distention, No mass, No guarding, No rebound Extremity Exam: swelling (trace pretibial edema bilat) Final Diagnosis/Problem List - Final Discharge Diagnosis/Problem (1) C. difficile colitis Current Visit: No Status: Resolved Onset Date: ~12/10/17 Assessment & Plan: She has not had diarrhea since being on flagyl. Day #9 today. Will give 1 more day po antibiotic after discharge to home. Home today. She will do therapy at her daughter's house (who is a PT). (2) Neck pain Current Visit: No Status: Acute Onset Date: ~12/11/17 Assessment & Plan: will try to get lidoderm patches approved. therapy has been working on this as well. (3) Atrial fibrillation Current Visit: No Status: Chronic (4) COPD (chronic obstructive pulmonary disease) Current Visit: No Status: Chronic (5) Chronic hypoxemic respiratory failure Current Visit: No Status: Chronic (6) Low back pain Current Visit: No Status: Chronic Onset Date: ~12/10/17 (7) Malnutrition Current Visit: No Status: Chronic Assessment & Plan: eating better currently. (8) Weakness Current Visit: No Status: Chronic Onset Date: ~07/27/17 Assessment & Plan: improved. - Discharge Disposition: Home, Self-Care Condition: Stable Prescriptions: New Lactobacillus Acidophilus [Acidophilus TABLET] 1 tab PO BID #60 tablet Cyclobenzaprine HCl 10 mg [Cyclobenzaprine 10 MG] 10 mg PO TID PRN PRN #15 tablet PRN Reason: Muscle Spasms Metronidazole [Flagyl] 500 mg PO TID #4 tablet Lidocaine HCl 5% Patch [Lidoderm Patch 5%] 2 patch TOP DAILY PRN PRN patch PRN Reason: Pain Acetylcysteine 200 mg/ml [Mucomyst 200 MG/ML] 600 mg IH BIDRT vial Levalbuterol HCl 1.25 MG/0.5M* [Xopenex 1.25 MG/0.5 ML UD NEBULE] 1.25 mg IH BIDRT neb Continue Potassium Chloride [K-Dur] 10 meq PO BID Meclizine HCl 25 mg [Antivert 25 mg] 25 mg PO Q4HPRN PRN #30 tablet PRN Reason: Dizziness Levothyroxine Sodium 50 Mcg [Synthroid 50 Mcg] 50 mcg PO DAILY Hydrocod Psx/Chlor-Jj [Tussionex Pennkinetic Susp] 5 ml PO HSPRN PRN PRN Reason: Cough Loratadine 10 mg [Claritin 10 mg] 10 mg PO DAILY Cholecalciferol (Vitamin D3) [Vitamin D3] 1,000 unit PO HS Apixaban [Eliquis 2.5 mg Tablet] 2.5 mg PO BID #60 tablet Dronedarone Hydrochloride 400* [Multaq 400 MG] 400 mg PO BID #60 tablet Nystatin 5 ml PO QID #100 ml Alprazolam 0.25 mg [xanAX 0.25 MG] 0.25 mg PO BID PRN PRN Reason: Anxiety Discontinued Albuterol 2.5 mg/3 ml Neb [Proventil 2.5 mg/3 ml Neb] 2.5 mg IH QID PRN Follow up with: CYDNEY VELA [Primary Care Provider] - 01/08/18 9:45 am
[2017-12-18] MEDS: Acidophilus TABLET PO SCH (10:12)
[2017-12-18] MEDS: SYNTHROID 50 MCG PO SCH (10:12)
[2017-12-18] MEDS: Klor Con 10 MEQ PO SCH (10:12)
[2017-12-18] MEDS: CLARITIN 10 MG PO SCH (10:12)
[2017-12-18] MEDS: ELIQUIS 2.5 MG TABLET PO SCH (10:12)
[2017-12-18] MEDS: Nystatin SUSPENSION 60 ML PO SCH (10:13)
== END 2017-12-18 13:20 | disposition home or self-care (01) | DRG 552 ==
LOC: MED SURG 11:29 → UNDOADMIN 11:29 → UNDODISIN 12-18 13:20
PROVIDERS: ADMIT Family Medicine; ATTEND Family Medicine
DX: M54.2 Cervicalgia (principal); J96.11 Chronic respiratory failure with hypoxia; E46 Unspecified protein-calorie malnutrition; I48.91 Unspecified atrial fibrillation; J44.9 Chronic obstructive pulmonary disease, unspecified; M54.5 Low back pain; R53.1 Weakness; F41.9 Anxiety disorder, unspecified; E03.9 Hypothyroidism, unspecified; Z79.01 Long term (current) use of anticoagulants; Z79.899 Other long term (current) drug therapy
CPT/HCPCS: 94150; 94640; 94760; 97110-GP; A9270-GY

== ENCOUNTER 2018-01-21 09:46 | Emergency (ER) | payer MEDICARE ==
[2018-01-21] MEDS ORDERED: Sodium Chloride 0.9% 1000 ML 1,000 ML IV SCH (10:00)
--- NOTE | 2018-01-21 10:04 | ERPHSYRPT ---
- History of Present Illness Time Seen by Provider: 01/21/18 09:56 Source: patient Exam Limitations: no limitations Physician History: 72-year-old white female who is sent by Dr. Adair with complaint of shortness of breath and chest pain for 3 days she states she has left-sided chest pain described as squeezing intermittent she states she's been short of breath she has a loose cough which feels like it is mostly in the upper area of the throat Past medical history includes arrhythmia (atrial fibrillation), COPD, cataracts , hypothyroidism, diverticulitis, cortical basilar degeneration. Past surgical history includes appendectomy and hysterectomy Social history includes former tobacco use denies tobacco alcohol or illicit drugs. Timing/Duration: day(s) (2-3 days) Activities at Onset: none Severity of Dyspnea-Max: moderate Severity of Dyspnea-Current: moderate Possible Cause: occasional episodes Modifying Factors: Improves With: nothing Associated Symptoms: intermittent, cough, chest pain/discomfort (squeezing left- sided chest pain, intermittent), No constant, No anxiety, No edema, No fever, No insomnia, No loss of appetite, No lightheadedness, No wheezing, No weakness, No ankle swelling, No chills, No hemoptysis, No calf pain, No dizziness, No heaviness, No heart racing, No lightheadedness, No leg swelling, No muscle spasms feet, No muscle spasms hands, No painful breathing, No productive cough, No sweating, No tightness, No tingling face International travel in last 2 weeks: No Allergies/Adverse Reactions: Sulfa (Sulfonamide Antibiotics) Allergy (Intermediate, Verified 01/21/18 10:17) Rash Home Medications: Potassium Chloride [K-Dur] 10 meq PO BID 02/23/16 [History] Levothyroxine Sodium 50 Mcg [Synthroid 50 Mcg] 50 mcg PO DAILY 01/30/17 [ History] Cholecalciferol (Vitamin D3) [Vitamin D3] 1,000 unit PO HS 07/27/17 [History] Loratadine 10 mg [Claritin 10 mg] 10 mg PO DAILY 07/27/17 [History] Alprazolam 0.25 mg [xanAX 0.25 MG] 0.25 mg PO BID PRN 12/10/17 [History] Albuterol 2.5 mg/3 ml Neb [Proventil 2.5 mg/3 ml Neb] 2.5 mg IH BID [History] Hx Tetanus, Diphtheria Vaccination/Date Given: Yes Hx Influenza Vaccination/Date Given: No Hx Pneumococcal Vaccination/Date Given: Yes - Review of Systems Constitutional: No Fever, No Chills Eyes: No Symptoms Ears, Nose, & Throat: No Symptoms Respiratory: Cough, Dyspnea Cardiac: Chest Pain (Squeezing chest pain left anterior chest), No Edema, No Palpitations, No Syncope, No Orthopnea, No PND Abdominal/Gastrointestinal: No Abdominal Pain, No Nausea, No Vomiting, No Diarrhea Genitourinary Symptoms: No Dysuria Musculoskeletal: No Back Pain, No Neck Pain Skin: No Symptoms Neurological: No Dizziness, No Focal Weakness, No Sensory Changes Psychological: No Symptoms Endocrine: No Symptoms All Other Systems: Reviewed and Negative - Past Medical History Pertinent Past Medical History: Yes Neurological History: No Pertinent History ENT History: Cataracts Cardiac History: Arrhythmia Respiratory History: COPD Endocrine Medical History: Hypothyroidism Musculoskeletal History: Other GI Medical History: Diverticulitis History: No Pertinent History Psycho-Social History: No Pertinent History Female Reproductive Disorders: No Pertinent History Other Medical History: corticobasal degeneration--affects right side - Past Surgical History Past Surgical History: Yes Neuro Surgical History: No Pertinent History Cardiac: No Pertinent History Respiratory: No Pertinent History Gastrointestinal: Appendectomy Genitourinary: No Pertinent History Musculoskeletal: No Pertinent History Female Surgical History: Hysterectomy - Social History Smoking Status: Never smoker Exposure to second hand smoke: No Drug Use: none Patient Lives Alone: No - Nursing Vital Signs Nursing Vital Signs: Initial Vital Signs Temperature 97.8 F 01/21/18 09:49 Pulse Rate 96 H 01/21/18 09:49 Respiratory Rate 16 01/21/18 09:49 Blood Pressure 139/73 01/21/18 09:49 O2 Sat by Pulse Oximetry 97 01/21/18 09:49 Pain Scale Pain Intensity 3 - Physical Exam General Appearance: mild distress, alert, thin Eye Exam: PERRL/EOMI Ears, Nose, Throat Exam: hearing grossly normal Neck Exam: normal inspection, supple Respiratory Exam: other (upper airway sounds noted) Cardiovascular/Chest Exam: normal heart sounds, regular rate/rhythm, normal peripheral pulses, No murmur Abdominal/Gastrointestinal Exam: soft, No tenderness, No distention, No mass Extremity Exam: non-tender, normal range of motion, normal inspection, no calf tenderness, no pedal edema Peripheral Pulses Exam: dorsalis-pedis (R): 2+, dorsalis-pedis (L): 2+ Neurologic Exam: alert, oriented x 3, cooperative, director of community services II-XII nml as tested, sensation nml, No motor deficits Skin Exam: normal color, warm, No dry SpO2 Interpretation: normal ( ) - Course Nursing assessment & vital signs reviewed: Yes EKG Interpreted by Me: RATE (86 bpm), Sinus Rhythm, NORMAL AXIS, Other (EKG: Sinus rhythm with large amount of artifact and baseline wanderwith PVC 86 bpm normal axis no acute ST or T wav) - Radiology Exams Chest X-ray Interpretation: Discussed w/ radiologist (chest x-ray: Impression nonacute hyperinflated chest with chronic features) Ordered Tests: Active Orders 24 hr Category Date Time Status Group Therapy Counselor STAT Care 01/21/18 09:57 Active EKG-ER Only STAT Care 01/21/18 09:56 Active IV Insertion STAT Care 01/21/18 09:56 Active Pulse Oximetry (ED) STAT Care 01/21/18 09:56 Active Regular Diet Diet 01/21/18 Dinner Active CHEST 1 VIEW (PORTABLE) Stat Exams 01/21/18 09:57 Completed BLOOD CULTURE Stat Lab 01/21/18 10:20 Received CBC W DIFF Stat Lab 01/21/18 10:20 Completed CMP Stat Lab 01/21/18 09:56 Completed CULTURE,SPUTUM Stat Lab 01/21/18 09:57 Uncollected D-DIMER QUANTITATION Stat Lab 01/21/18 10:20 Completed Lactic Acid Stat Lab 01/21/18 10:10 Completed NT PRO BNP Stat Lab 01/21/18 09:56 Completed PROTIME WITH INR Stat Lab 01/21/18 10:20 Completed PTT Stat Lab 01/21/18 10:20 Completed TROPONIN Q3H Lab 01/21/18 10:20 Completed TROPONIN Q3H Lab 01/21/18 13:30 Completed TROPONIN Q3H Lab 01/21/18 16:00 Ordered TROPONIN Q3H Lab 01/21/18 19:00 Ordered TROPONIN Q3H Lab 01/21/18 22:00 Ordered UA W/RFX UR CULTURE Stat Lab 01/21/18 10:47 Completed VENOUS BLOOD GAS Stat Lab 01/21/18 10:10 Completed Peak Expiratory Flow Rate ONCE RT 01/21/18 10:45 Active Respiratory Nebulizer STAT RT 01/21/18 10:27 Completed Respiratory Therapy Assessment DAILY RT 01/21/18 10:45 Active Medication Summary Generic Name Dose Route Start Last Admin Trade Name Freq PRN Reason Stop Dose Admin Sodium Chloride 1,000 mls @ 100 mls/hr 01/21/18 10:00 01/21/18 10:12 Sodium Chloride 0.9% 1000 Ml IV 02/20/18 09:59 100 mls/hr .Q10H GINGER Administration Discontinued Medications Generic Name Dose Route Start Last Admin Trade Name Freq PRN Reason Stop Dose Admin Albuterol/Ipratropium 3 ml 01/21/18 10:26 01/21/18 10:39 Duoneb 0.5-3 Mg/3 Ml Neb IH 01/21/18 10:27 3 ml STAT ONE Administration Albuterol/Ipratropium Confirm 01/21/18 10:33 Duoneb 0.5-3 Mg/3 Ml Neb Administered 01/21/18 10:34 Dose 3 ml IH .STK-MED ONE Lab/Rad Data: Laboratory Result Diagrams 01/21/18 10:20 01/21/18 09:56 Laboratory Results 01/21/18 01/21/18 01/21/18 Range/Units 13:30 10:47 10:20 WBC (4.0-10.5) K/mm3 RBC (4.1-5.4) M/mm3 Hgb (12.0-16.0) gm/dl Hct (35-47) % MCV (78-100) fl MCH (26-32) pg MCHC (32-36) g/dl RDW (11.5-14.0) % Plt Count (150-450) K/mm3 MPV (6-9.5) fl Gran % (36.0-66.0) % Eos # (Auto) (0-0.5) Absolute Lymphs (auto) (1.0-4.6) Absolute Monos (auto) (0.0-1.3) Lymphocytes % (24.0-44.0) % Monocytes % (0.0-12.0) % Eosinophils % (0.00-5.0) % Basophils % (0.0-0.4) % Absolute Granulocytes (1.4-6.9) Basophils # (0-0.4) PT (9.95-12.35) SECONDS INR (0.8-3.0) APTT (25.3-37.0) SECONDS D-Dimer (215-500) ng/mL pO2/FiO2 Ratio % VBG pH (7.32-7.42) VBG pCO2 at Pat Temp (42-55) mm/Hg VBG pO2 at Pat Temp (25-40) mm/Hg VBG HCO3 (22-28) meq/L VBG O2 Sat (Madelyn) (95-100) VBG Base Excess (-2.0-2.0) VBG Hemoglobin VBG Carboxyhemoglobin (0.0-6.9) % T HGB POC Potassium (3.5-5.1) Sodium (137-145) mmol/L Potassium (3.5-5.1) mmol/L Chloride (98-107) mmol/L Carbon Dioxide (22-30) mmol/L Anion Gap (5-15) MEQ/L BUN (7-17) mg/dL Creatinine (0.52-1.04) mg/dL Estimated GFR ML/MIN Glucose (74-106) mg/dL Lactic Acid (0.4-2.0) Calcium (8.4-10.2) mg/dL Total Bilirubin (0.2-1.3) mg/dL AST (14-36) U/L ALT (0-35) U/L Alkaline Phosphatase (38-126) U/L Troponin I < 0.012 < 0.012 (0.000-0.034) ng/mL NT-Pro-B Natriuret Pep (0-900) pg/mL Serum Total Protein (6.3-8.2) g/dL Albumin (3.5-5.0) g/dL Urine Color YELLOW (YELLOW) Urine Appearance CLEAR (CLEAR) Urine pH 7.0 (5-6) Ur Specific [place] 1.015 (1.005-1.025) Urine Protein NEGATIVE (Negative) Urine Ketones NEGATIVE (NEGATIVE) Urine Blood NEGATIVE (0-5) Dimitri/ul Urine Nitrite NEGATIVE (NEGATIVE) Urine Bilirubin NEGATIVE (NEGATIVE) Urine Urobilinogen NEGATIVE (0-1) mg/dL Ur Leukocyte Esterase NEGATIVE (NEGATIVE) Urine WBC (Auto) NONE (0-5) /HPF Urine RBC (Auto) 0-2 (0-2) /HPF Urine Mucus (Auto) SLIGHT (NEGATIVE) /HPF Urine Culture Reflexed NO (NO) Urine Glucose NEGATIVE (NEGATIVE) mg/dL 01/21/18 01/21/18 01/21/18 Range/Units 10:20 10:20 10:10 WBC 10.0 (4.0-10.5) K/mm3 RBC 4.30 (4.1-5.4) M/mm3 Hgb 13.2 (12.0-16.0) gm/dl Hct 41.2 (35-47) % MCV 95.8 (78-100) fl MCH 30.7 (26-32) pg MCHC 32.0 (32-36) g/dl RDW 12.9 (11.5-14.0) % Plt Count 315 (150-450) K/mm3 MPV 11.1 H (6-9.5) fl Gran % 74.3 H (36.0-66.0) % Eos # (Auto) 0.04 (0-0.5) Absolute Lymphs (auto) 1.74 (1.0-4.6) Absolute Monos (auto) 0.75 (0.0-1.3) Lymphocytes % 17.4 L (24.0-44.0) % Monocytes % 7.5 (0.0-12.0) % Eosinophils % 0.4 (0.00-5.0) % Basophils % 0.4 (0.0-0.4) % Absolute Granulocytes 7.44 H (1.4-6.9) Basophils # 0.04 (0-0.4) PT 16.3 H (9.95-12.35) SECONDS INR 1.40 (0.8-3.0) APTT 35.4 (25.3-37.0) SECONDS D-Dimer < 215 L (215-500) ng/mL pO2/FiO2 Ratio 21.0 % VBG pH 7.39 (7.32-7.42) VBG pCO2 at Pat Temp 57 H (42-55) mm/Hg VBG pO2 at Pat Temp 19 L (25-40) mm/Hg VBG HCO3 34.5 H* (22-28) meq/L VBG O2 Sat (Madelyn) 28.4 L (95-100) VBG Base Excess 7.6 H (-2.0-2.0) VBG Hemoglobin 13.9 VBG Carboxyhemoglobin 1.1 (0.0-6.9) % T HGB POC Potassium 3.9 (3.5-5.1) Sodium (137-145) mmol/L Potassium (3.5-5.1) mmol/L Chloride (98-107) mmol/L Carbon Dioxide (22-30) mmol/L Anion Gap (5-15) MEQ/L BUN (7-17) mg/dL Creatinine (0.52-1.04) mg/dL Estimated GFR ML/MIN Glucose (74-106) mg/dL Lactic Acid 1.6 (0.4-2.0) Calcium (8.4-10.2) mg/dL Total Bilirubin (0.2-1.3) mg/dL AST (14-36) U/L ALT (0-35) U/L Alkaline Phosphatase (38-126) U/L Troponin I (0.000-0.034) ng/mL NT-Pro-B Natriuret Pep (0-900) pg/mL Serum Total Protein (6.3-8.2) g/dL Albumin (3.5-5.0) g/dL Urine Color (YELLOW) Urine Appearance (CLEAR) Urine pH (5-6) Ur Specific [place] (1.005-1.025) Urine Protein (Negative) Urine Ketones (NEGATIVE) Urine Blood (0-5) Dimitri/ul Urine Nitrite (NEGATIVE) Urine Bilirubin (NEGATIVE) Urine Urobilinogen (0-1) mg/dL Ur Leukocyte Esterase (NEGATIVE) Urine WBC (Auto) (0-5) /HPF Urine RBC (Auto) (0-2) /HPF Urine Mucus (Auto) (NEGATIVE) /HPF Urine Culture Reflexed (NO) Urine Glucose (NEGATIVE) mg/dL 01/21/18 Range/Units 09:56 WBC (4.0-10.5) K/mm3 RBC (4.1-5.4) M/mm3 Hgb (12.0-16.0) gm/dl Hct (35-47) % MCV (78-100) fl MCH (26-32) pg MCHC (32-36) g/dl RDW (11.5-14.0) % Plt Count (150-450) K/mm3 MPV (6-9.5) fl Gran % (36.0-66.0) % Eos # (Auto) (0-0.5) Absolute Lymphs (auto) (1.0-4.6) Absolute Monos (auto) (0.0-1.3) Lymphocytes % (24.0-44.0) % Monocytes % (0.0-12.0) % Eosinophils % (0.00-5.0) % Basophils % (0.0-0.4) % Absolute Granulocytes (1.4-6.9) Basophils # (0-0.4) PT (9.95-12.35) SECONDS INR (0.8-3.0) APTT (25.3-37.0) SECONDS D-Dimer (215-500) ng/mL pO2/FiO2 Ratio % VBG pH (7.32-7.42) VBG pCO2 at Pat Temp (42-55) mm/Hg VBG pO2 at Pat Temp (25-40) mm/Hg VBG HCO3 (22-28) meq/L VBG O2 Sat (Madelyn) (95-100) VBG Base Excess (-2.0-2.0) VBG Hemoglobin VBG Carboxyhemoglobin (0.0-6.9) % T HGB POC Potassium (3.5-5.1) Sodium 139 (137-145) mmol/L Potassium 3.9 (3.5-5.1) mmol/L Chloride 99 (98-107) mmol/L Carbon Dioxide 31 H (22-30) mmol/L Anion Gap 12.3 (5-15) MEQ/L BUN 22 H (7-17) mg/dL Creatinine 0.52 (0.52-1.04) mg/dL Estimated GFR > 60.0 ML/MIN Glucose 90 (74-106) mg/dL Lactic Acid (0.4-2.0) Calcium 9.6 (8.4-10.2) mg/dL Total Bilirubin 0.40 (0.2-1.3) mg/dL AST 30 (14-36) U/L ALT 29 (0-35) U/L Alkaline Phosphatase 64 (38-126) U/L Troponin I (0.000-0.034) ng/mL NT-Pro-B Natriuret Pep 135 (0-900) pg/mL Serum Total Protein 7.3 (6.3-8.2) g/dL Albumin 4.6 (3.5-5.0) g/dL Urine Color (YELLOW) Urine Appearance (CLEAR) Urine pH (5-6) Ur Specific [place] (1.005-1.025) Urine Protein (Negative) Urine Ketones (NEGATIVE) Urine Blood (0-5) Dimitri/ul Urine Nitrite (NEGATIVE) Urine Bilirubin (NEGATIVE) Urine Urobilinogen (0-1) mg/dL Ur Leukocyte Esterase (NEGATIVE) Urine WBC (Auto) (0-5) /HPF Urine RBC (Auto) (0-2) /HPF Urine Mucus (Auto) (NEGATIVE) /HPF Urine Culture Reflexed (NO) Urine Glucose (NEGATIVE) mg/dL - Progress Progress: improved Air Movement: fair Progress Note: 01/21/18 11:24 Patient feeling better after DuoNeb treatment. Patient's chest x-ray EKG labs are all normal. Patient states she wants to go home. I've talked with Dr. Adair. She would like the patient to receive a full liter of normal saline. She would also like to have a repeat troponin. If the repeat troponin is normal patient may be discharged. She is to keep her infusion appointment tomorrow for IV fluids. Patient is agreeable to this. Patient has not been given aspirin secondary the patient is on Elequis she is not having chest pain at this time and she states her shortness of breath is improved. 01/21/18 15:18 Patient's repeat troponin is normal. Patient without complaints at this time. Will discharge patient. - Departure Time of Disposition: 15:18 Departure Disposition: Home Clinical Impression: Shortness of breath, Non-cardiac chest pain COPD (chronic obstructive pulmonary disease) Qualifiers: COPD type: unspecified COPD Qualified Code(s): J44.9 - Chronic obstructive pulmonary disease, unspecified Condition: Fair Critical Care Time: No Referrals: CYDNEY ADAIR [Primary Care Provider] - Instructions: Chronic Obstructive Pulmonary Disease Additional Instructions: Return home. Continue current medications and treatment especially nebulizer treatments. Patient sure to keep your infusion appointment for tomorrow. Follow-up with your family doctor. Return for acute distress or for severe symptoms.
[2018-01-21] MEDS ORDERED: Sodium Chloride 0.9% 1000 ML 1,000 ML ONE (10:08)
[2018-01-21 10:15] LABS: Lactic Acid 1.6 (0.4-2.0); VBG BASE EXCESS 7.6 (-2.0-2.0); VBG CARBOXYHEMOGLOBIN 1.1 % T HGB (0.0-6.9); VBG HCO3- 34.5 meq/L (22-28); VBG HEMOGLOBIN 13.9; VBG O2 SATURATION 28.4 (95-100); VBG POTASSIUM 3.9 (3.5-5.1); VBG pH 7.39 (7.32-7.42)
[2018-01-21] MEDS ORDERED: DUONEB 0.5-3 MG/3 ml Neb IH ONE ×2 (10:26→10:33)
[2018-01-21 10:32] LABS: BASOPHIL % 0.4 % (0.0-0.4); Basophil (Absolute #) 0.04 (0-0.4); Eosinophil % 0.4 % (0.00-5.0); Eosinophil (Absolute #) 0.04 (0-0.5); Granulocyte Absolute (ANC) 7.44 (1.4-6.9); Granulocytes % 74.3 % (36.0-66.0); Hematocrit 41.2 % (35-47); Hemoglobin 13.2 gm/dl (12.0-16.0); Lymphocyte (Absolute #) 1.74 (1.0-4.6); Lymphocytes % 17.4 % (24.0-44.0); Mean Cell Volume 95.8 fl (78-100); Mean Corpuscular Hemoglobin 30.7 pg (26-32); Mean Platelet Volume 11.1 fl (6-9.5); Monocyte (Absolute #) 0.75 (0.0-1.3); Monocytes % 7.5 % (0.0-12.0); Platelet Count 315 K/mm3 (150-450); Red Cell Distribution Width 12.9 % (11.5-14.0)
--- NOTE | 2018-01-21 10:43 | XRAY ---
Indication: Short of breath and left-sided chest pain. Comparison: December 10 Portable chest hyperinflated with minimal left base fibrosis/scarring. No focal infiltrate, consolidation, or large effusion. Heart is not enlarged. Vascularity normal. Bony thorax intact again with mild degenerative changes. Impression: Nonacute hyperinflated chest with chronic features as detailed.
[2018-01-21 10:56] LABS: PTT 35.4 SECONDS (25.3-37.0)
[2018-01-21 10:57] LABS: Appearance CLEAR (CLEAR); Bilirubin NEGATIVE (NEGATIVE); Blood NEGATIVE Ery/ul (0-5); Glucose NEGATIVE (NEGATIVE); Ketones NEGATIVE (NEGATIVE); Leukocyte Esterase NEGATIVE (NEGATIVE); Nitrite NEGATIVE (NEGATIVE); Protein,Urine Dip NEGATIVE (Negative); Specific Gravity 1.015 (1.005-1.025); Urobilinogen NEGATIVE mg/dL (0-1)
[2018-01-21 11:03] LABS: D-DIMER QUANTITATION < 215 ng/mL (215-500)
[2018-01-21 11:04] LABS: ALBUMIN 4.6 g/dL (3.5-5.0); ALKALINE PHOSPHATASE 64 U/L (38-126); ANION GAP 12.3 MEQ/L (5-15); BLOOD UREA NITROGEN 22 mg/dL (7-17); CHLORIDE 99 mmol/L (98-107); Calcium 9.6 mg/dL (8.4-10.2); Carbon Dioxide 31 mmol/L (22-30); Creatinine 1 0.52 mg/dL (0.52-1.04); Glucose 90 mg/dL (74-106); NT PRO BNP 135 pg/mL (0-900); Potassium 3.9 mmol/L (3.5-5.1); SGOT/AST 30 U/L (14-36); SGPT/ALT 29 U/L (0-35); SODIUM 139 mmol/L (137-145); Total Protein 7.3 g/dL (6.3-8.2)
[2018-01-21 15:57] VITALS: BP 135/69; PULSE 91; O2SAT 98
== END 2018-01-21 15:58 | disposition home or self-care (01) ==
LOC: ED 09:46
DX: J44.9 Chronic obstructive pulmonary disease, unspecified (principal); R07.89 Other chest pain; R06.02 Shortness of breath; Z79.899 Other long term (current) drug therapy; Z79.01 Long term (current) use of anticoagulants
CPT/HCPCS: 36000; 36415; 71045; 80053; 81001; 82805; 83605; 83880; 84484; 85025; 85379; 85610; 85730; 87040; 93005; 93041; 94150; 94640; 96360; 96361; 99284; A9270-GY

== ENCOUNTER 2018-02-16 15:27 | Inpatient (IN) | payer MEDICARE ==
[2018-02-16] MEDS ORDERED: Lactated Ringers 500 ML IV ONE (17:00)
[2018-02-16] MEDS ORDERED: PEROXIDE 3% MC ONE (17:14)
[2018-02-16 18:23] LABS: BASOPHIL % 0.5 % (0.0-0.4); Basophil (Absolute #) 0.05 (0-0.4); Eosinophil % 0.9 % (0.00-5.0); Granulocytes % 65.6 % (36.0-66.0); Hematocrit 41.2 % (35-47); Hemoglobin 13.3 gm/dl (12.0-16.0); Lymphocyte (Absolute #) 2.73 (1.0-4.6); Lymphocytes % 25.7 % (24.0-44.0); Mean Cell Volume 94.9 fl (78-100); Mean Corpuscular Hemoglobin 30.6 pg (26-32); Mean Corpuscular Hgb Concent. 32.3 g/dl (32-36); Mean Platelet Volume 10.9 fl (6-9.5); Monocyte (Absolute #) 0.78 (0.0-1.3); Monocytes % 7.3 % (0.0-12.0); Platelet Count 307 K/mm3 (150-450); Red Blood Count 4.34 M/mm3 (4.1-5.4); Red Cell Distribution Width 13.2 % (11.5-14.0); White Blood Count 10.6 K/mm3 (4.0-10.5)
[2018-02-16] MEDS: VANCOMYCIN HCL CAPSULE PO SCH ×2 (18:25→23:50)
[2018-02-16] MEDS: FLAGYL 500 MG IVPB 500 MG/100 ML BAG IV SCH ×2 (18:25→23:50)
[2018-02-16] MEDS ORDERED: Xopenex 1.25 MG/0.5 ML UD NEBULE IH ONE (18:33)
[2018-02-16] MEDS ORDERED: Sodium Chloride 3 ML UD NEBULES IH ONE (18:33)
[2018-02-16] MEDS: Sodium Chloride 3 ML UD NEBULES IH SCH (18:37)
[2018-02-16] MEDS: Xopenex 1.25 MG/0.5 ML UD NEBULE IH SCH (18:37)
[2018-02-16 19:04] LABS: ALBUMIN 4.7 g/dL (3.5-5.0); ALKALINE PHOSPHATASE 69 U/L (38-126); BLOOD UREA NITROGEN 23 mg/dL (7-17); CHLORIDE 104 mmol/L (98-107); Calcium 9.7 mg/dL (8.4-10.2); Carbon Dioxide 25 mmol/L (22-30); Creatinine 1 0.54 mg/dL (0.52-1.04); Glucose 75 mg/dL (74-106); SGOT/AST 33 U/L (14-36); SGPT/ALT 41 U/L (0-35); SODIUM 140 mmol/L (137-145); Total Protein 7.6 g/dL (6.3-8.2)
[2018-02-16] MEDS: Lactated Ringers 1,000 ML IV SCH (19:40)
[2018-02-16] MEDS ORDERED: ANTIVERT 25 MG PO PRN (20:07)
[2018-02-16] MEDS ORDERED: Nystatin SUSPENSION 60 ML PO PRN (20:07)
[2018-02-16] MEDS: TYLENOL 325 MG PO PRN (20:36)
[2018-02-16 20:37] LABS: Appearance CLEAR (CLEAR); Bilirubin NEGATIVE (NEGATIVE); Blood MODERATE Ery/ul (0-5); Glucose NEGATIVE (NEGATIVE); Ketones SMALL (NEGATIVE); Leukocyte Esterase NEGATIVE (NEGATIVE); Mucus SLIGHT /HPF (NEGATIVE); Nitrite NEGATIVE (NEGATIVE); Protein,Urine Dip NEGATIVE (Negative); Specific Gravity 1.019 (1.005-1.025); Urobilinogen NEGATIVE mg/dL (0-1)
[2018-02-16] MEDS: Klor Con 10 MEQ PO SCH (21:02)
[2018-02-16] MEDS: ELIQUIS 2.5 MG TABLET PO SCH (21:02)
[2018-02-16] MEDS: Multaq 400 MG PO SCH (21:02)
[2018-02-16] MEDS: Acidophilus TABLET PO SCH (21:02)
[2018-02-16] MEDS: xanAX 0.25 MG PO SCH (21:03)
[2018-02-16] MEDS: VITAMIN D PO SCH (21:03)
[2018-02-17] MEDS: FLAGYL 500 MG IVPB 500 MG/100 ML BAG IV SCH ×3 (06:07→18:42)
[2018-02-17] MEDS: VANCOMYCIN HCL CAPSULE PO SCH ×3 (06:07→18:42)
[2018-02-17] MEDS: Xopenex 1.25 MG/0.5 ML UD NEBULE IH SCH ×3 (07:07→19:07)
[2018-02-17] MEDS: Sodium Chloride 3 ML UD NEBULES IH SCH ×3 (07:07→19:08)
--- NOTE | 2018-02-17 08:40 | XRAY ---
Indication: Diarrhea. C. difficile. Comparison: December 10, 2017. KUB again nonacute and nonobstructed. No free air or obvious bowel wall thickening. Solid organs and osseous structures unremarkable. Impression: Stable negative KUB.
--- NOTE | 2018-02-17 08:45 | PCM.HP ---
History of Present Illness - Chief Complaint Chief Complaint: cdiff/diarrhea History of Present Illness: is a 72 year old female pt of mine from [facility] with hx idiopathic COPD, corticobasal degeneration and weakness/failure to thrive with weight loss and recent C. difficile infection who called the office yesterday c/o 1 week of increased diarrhea and abd pain. Subjective fevers. She submitted stool for C. diff testing which was positive. She was admitted yesterday and started IV flagyl and po vancomycin. She is tolerating those well so far. Pt comes once a week for IV fluids. She has been gradually losing weight over the past 1-2 years. - Review of Systems Constitutional: Fever, Weakness, Weight Loss Ears, Nose, & Throat: Other (ears feel full bilat. chronic difficulty clearing phlegm from her throat.) Respiratory: Cough, Short Of Breath Abdominal/Gastrointestinal: Abdominal Pain, Diarrhea All Other Systems: Reviewed and Negative Medications & Allergies Home Medications: Home Medication List Potassium Chloride [K-Dur] 10 meq PO BID 02/23/16 [History Confirmed 02/16/18] Meclizine HCl 25 mg [Antivert 25 mg] 25 mg PO Q4HPRN PRN #30 tablet [Rx Confirmed 02/16/18] Levothyroxine Sodium 50 Mcg [Synthroid 50 Mcg] 50 mcg PO DAILY 01/30/17 [ History Confirmed 02/16/18] Cholecalciferol (Vitamin D3) [Vitamin D3] 1,000 unit PO HS 07/27/17 [History Confirmed 02/16/18] Loratadine 10 mg [Claritin 10 mg] 10 mg PO DAILY 07/27/17 [History Confirmed 02/16/18] Apixaban [Eliquis 2.5 mg Tablet] 2.5 mg PO BID #60 tablet 07/31/17 [Rx Confirmed 02/16/18] Dronedarone Hydrochloride 400* [Multaq 400 MG] 400 mg PO BID #60 tablet 07/31 [Rx Confirmed 02/16/18] Alprazolam 0.25 mg [xanAX 0.25 MG] 0.25 mg PO HS 12/10/17 [History Confirmed 02/16/18] Lactobacillus Acidophilus [Acidophilus TABLET] 1 tab PO BID #60 tablet 10/27 [Rx Confirmed 02/16/18] Levalbuterol HCl 1.25 MG/0.5M* [Xopenex 1.25 MG/0.5 ML UD NEBULE] 1 neb IH BID 02/16/18 [History Confirmed 02/16/18] Megestrol Acetate 40 mg/ml [Megace 40 MG/ML] 2 tsp PO DAILY 02/16/18 [ History Confirmed 02/16/18] Nystatin 5 ml PO QIDPRN PRN 02/16/18 [History Confirmed 02/16/18] Allergies/Adverse Reactions: Allergies Allergy/AdvReac Type Severity Reaction Status Date / Time Sulfa (Sulfonamide Allergy Intermediate Rash Verified 02/16/18 18:06 Antibiotics) - Past Medical History Past Medical History: Yes Neurological History: No Pertinent History ENT History: Cataracts Cardiac History: Arrhythmia Respiratory History: COPD Endocrine Medical History: Hypothyroidism Musculoskelatal History: Other GI Medical History: Diverticulitis History: No Pertinent History Pyscho-Social History: No Pertinent History Reproductive Disorders: No Pertinent History Comment: corticobasal degeneration--affects right side - Female History Are you now?: No - Past Surgical History Past Surgical History: Yes Neuro Surgical History: No Pertinent History Cardiac History: No Pertinent History Respiratory Surgery: No Pertinent History GI Surgical History: Appendectomy Genitourinary Surgical Hx: No Pertinent History Musculskeletal Surgical Hx: No Pertinent History Female Surgical History: Hysterectomy - Social History Smoking Status: Never smoker Exposure to second hand smoke: No Alcohol: None Drug Use: none - Physical Exam Vital Signs: Vital Signs - 24 hr Temp Pulse Resp BP Pulse Ox 02/17/18 07:25 98.2 F 91 H 18 123/60 99 02/17/18 07:18 92 H 16 98 02/17/18 03:49 98.5 F 88 16 120/58 97 02/17/18 00:00 98.3 F 86 16 110/56 97 02/16/18 19:31 97.8 F 95 H 18 130/63 97 02/16/18 18:37 104 H 17 96 02/16/18 17:24 97.8 F 95 H 18 130/63 97 General Appearance: no apparent distress, alert, cachetic, other (lays back in bed by herself but gradually; weak) Neurologic Exam: oriented x 3, cooperative Eye Exam: eyes nml inspection Ears, Nose, Throat Exam: moist mucous membranes Neck Exam: normal inspection Respiratory Exam: diminished breath sounds, prolonged expirations, No crackles/ rales, No rhonchi, No wheezing Cardiovascular Exam: regular rate/rhythm, normal heart sounds, No murmur Gastrointestinal/Abdomen Exam: soft, normal bowel sounds, No tenderness, No distention, No mass, No guarding, No rebound Back Exam: normal inspection, No rash Extremity Exam: normal inspection, No pedal edema, No swelling Skin Exam: normal color, warm, dry, No rash Results - Labs Lab/Micro Results: Lab Results-Last 24 Hours 02/16/18 02/16/18 02/16/18 Range/Units 17:50 17:50 18:10 WBC 10.6 H (4.0-10.5) K/mm3 RBC 4.34 (4.1-5.4) M/mm3 Hgb 13.3 (12.0-16.0) gm/dl Hct 41.2 (35-47) % MCV 94.9 (78-100) fl MCH 30.6 (26-32) pg MCHC 32.3 (32-36) g/dl RDW 13.2 (11.5-14.0) % Plt Count 307 (150-450) K/mm3 MPV 10.9 H (6-9.5) fl Gran % 65.6 (36.0-66.0) % Eos # (Auto) 0.10 (0-0.5) Absolute Lymphs (auto) 2.73 (1.0-4.6) Absolute Monos (auto) 0.78 (0.0-1.3) Lymphocytes % 25.7 (24.0-44.0) % Monocytes % 7.3 (0.0-12.0) % Eosinophils % 0.9 (0.00-5.0) % Basophils % 0.5 (0.0-0.4) % Absolute Granulocytes 6.96 H (1.4-6.9) Basophils # 0.05 (0-0.4) Sodium 140 (137-145) mmol/L Potassium 4.0 (3.5-5.1) mmol/L Chloride 104 (98-107) mmol/L Carbon Dioxide 25 (22-30) mmol/L Anion Gap 15.0 (5-15) MEQ/L BUN 23 H (7-17) mg/dL Creatinine 0.54 (0.52-1.04) mg/dL Estimated GFR > 60.0 ML/MIN Glucose 75 (74-106) mg/dL Lactic Acid 1.2 (0.4-2.0) Calcium 9.7 (8.4-10.2) mg/dL Total Bilirubin 0.50 (0.2-1.3) mg/dL AST 33 (14-36) U/L ALT 41 H (0-35) U/L Alkaline Phosphatase 69 (38-126) U/L Serum Total Protein 7.6 (6.3-8.2) g/dL Albumin 4.7 (3.5-5.0) g/dL Urine Color (YELLOW) Urine Appearance (CLEAR) Urine pH (5-6) Ur Specific [place] (1.005-1.025) Urine Protein (Negative) Urine Ketones (NEGATIVE) Urine Blood (0-5) Dimitri/ul Urine Nitrite (NEGATIVE) Urine Bilirubin (NEGATIVE) Urine Urobilinogen (0-1) mg/dL Ur Leukocyte Esterase (NEGATIVE) Urine WBC (Auto) (0-5) /HPF Urine RBC (Auto) (0-2) /HPF U Epithel Cells (Auto) (FEW) /HPF Urine Bacteria (Auto) (NEGATIVE) /HPF Urine Mucus (Auto) (NEGATIVE) /HPF Urine Culture Reflexed (NO) Urine Glucose (NEGATIVE) mg/dL 02/16/18 Range/Units 18:35 WBC (4.0-10.5) K/mm3 RBC (4.1-5.4) M/mm3 Hgb (12.0-16.0) gm/dl Hct (35-47) % MCV (78-100) fl MCH (26-32) pg MCHC (32-36) g/dl RDW (11.5-14.0) % Plt Count (150-450) K/mm3 MPV (6-9.5) fl Gran % (36.0-66.0) % Eos # (Auto) (0-0.5) Absolute Lymphs (auto) (1.0-4.6) Absolute Monos (auto) (0.0-1.3) Lymphocytes % (24.0-44.0) % Monocytes % (0.0-12.0) % Eosinophils % (0.00-5.0) % Basophils % (0.0-0.4) % Absolute Granulocytes (1.4-6.9) Basophils # (0-0.4) Sodium (137-145) mmol/L Potassium (3.5-5.1) mmol/L Chloride (98-107) mmol/L Carbon Dioxide (22-30) mmol/L Anion Gap (5-15) MEQ/L BUN (7-17) mg/dL Creatinine (0.52-1.04) mg/dL Estimated GFR ML/MIN Glucose (74-106) mg/dL Lactic Acid (0.4-2.0) Calcium (8.4-10.2) mg/dL Total Bilirubin (0.2-1.3) mg/dL AST (14-36) U/L ALT (0-35) U/L Alkaline Phosphatase (38-126) U/L Serum Total Protein (6.3-8.2) g/dL Albumin (3.5-5.0) g/dL Urine Color YELLOW (YELLOW) Urine Appearance CLEAR (CLEAR) Urine pH 6.0 (5-6) Ur Specific [place] 1.019 (1.005-1.025) Urine Protein NEGATIVE (Negative) Urine Ketones SMALL (NEGATIVE) Urine Blood MODERATE (0-5) Dimitri/ul Urine Nitrite NEGATIVE (NEGATIVE) Urine Bilirubin NEGATIVE (NEGATIVE) Urine Urobilinogen NEGATIVE (0-1) mg/dL Ur Leukocyte Esterase NEGATIVE (NEGATIVE) Urine WBC (Auto) 3-5 (0-5) /HPF Urine RBC (Auto) 3-5 (0-2) /HPF U Epithel Cells (Auto) NONE (FEW) /HPF Urine Bacteria (Auto) NONE (NEGATIVE) /HPF Urine Mucus (Auto) SLIGHT (NEGATIVE) /HPF Urine Culture Reflexed NO (NO) Urine Glucose NEGATIVE (NEGATIVE) mg/dL - Radiology Impressions Radiology Exams & Impressions: Radiology Procedures Category Date Time Status KUB Routine Exams 02/16/18 18:15 Taken - Other Procedures and Tests Respiratory Therapy 02/16/18 19:25 Oxygen NASAL CANNULA 2 lpm Peak Expiratory Flow Rate DAILY 02/16/18 19:26 Respiratory Therapy Assessment DAILY 02/17/18 08:36 Respiratory Nebulizer Q6H Assessment/Plan (1) C. difficile colitis Current Visit: No Status: Resolved Onset Date: ~12/10/17 Assessment & Plan: On IV flagyl and po vancomycin. Plan is to continue vancomycin on a taper. (2) Atrial fibrillation Current Visit: No Status: Chronic Qualifiers: Atrial fibrillation type: paroxysmal Qualified Code(s): I48.0 - Paroxysmal atrial fibrillation Code(s): I48.91 - UNSPECIFIED ATRIAL FIBRILLATION (3) COPD (chronic obstructive pulmonary disease) Current Visit: No Status: Chronic Qualifiers: COPD type: unspecified COPD Qualified Code(s): J44.9 - Chronic obstructive pulmonary disease, unspecified Assessment & Plan: Idiopathic; pt sees Dr. Don. Has been seen at [facility]. There were plans for a bronchoscopy at one time which pt did not have. (4) Chronic hypoxemic respiratory failure Current Visit: No Status: Chronic Assessment & Plan: wears O2 at home, generally at night. (5) Malnutrition Current Visit: No Status: Chronic Qualifiers: Malnutrition type: protein-calorie malnutrition Protein-calorie malnutrition severity: moderate Qualified Code(s): E44.0 - Moderate protein- calorie malnutrition Assessment & Plan: She recently started megace. Poor appetite. Code(s): E46 - UNSPECIFIED PROTEIN-CALORIE MALNUTRITION (6) Weakness Current Visit: No Status: Chronic Onset Date: ~07/27/17 Assessment & Plan: PT to see pt. Code(s): R53.1 - WEAKNESS (7) Corticobasal degeneration Current Visit: Yes Status: Chronic Assessment & Plan: Sees Dr. Coleman. Code(s): G31.85 - CORTICOBASAL DEGENERATION (8) Impacted ear wax Current Visit: Yes Status: Acute Qualifiers: Laterality: bilateral Qualified Code(s): H61.23 - Impacted cerumen, bilateral Assessment & Plan: nursing to flush, thank you. Code(s): H61.20 - IMPACTED CERUMEN, UNSPECIFIED EAR (9) Difficult intravenous access Current Visit: Yes Status: Acute Assessment & Plan: I talked with her about a port; she will discuss and consider. Code(s): Z78.9 - OTHER SPECIFIED HEALTH STATUS (10) Neck pain Current Visit: No Status: Chronic Onset Date: ~12/11/17 Code(s): M54.2 - CERVICALGIA
[2018-02-17] MEDS: Klor Con 10 MEQ PO SCH ×2 (09:24→21:49)
[2018-02-17] MEDS: Multaq 400 MG PO SCH ×2 (09:27→22:04)
[2018-02-17] MEDS: Lactated Ringers 1,000 ML IV SCH ×2 (09:29→21:48)
[2018-02-17] MEDS: Acidophilus TABLET PO SCH ×2 (09:29→21:49)
[2018-02-17] MEDS: ELIQUIS 2.5 MG TABLET PO SCH ×2 (09:30→21:49)
[2018-02-17] MEDS ORDERED: Mucomyst 200 MG/ML IH SCH (10:00)
[2018-02-17] MEDS: CLARITIN 10 MG PO SCH (11:33)
[2018-02-17] MEDS: Megace 40 MG/ML PO SCH (11:33)
[2018-02-17] MEDS: SYNTHROID 50 MCG PO SCH (11:33)
[2018-02-17] MEDS ORDERED: Sodium Chloride 3 ML UD NEBULES IH ONE (13:06)
[2018-02-17] MEDS: Mucomyst 200 MG/ML IH SCH ×2 (13:21→19:08)
[2018-02-17] MEDS: TYLENOL 325 MG PO PRN (20:02)
[2018-02-17] MEDS: VITAMIN D PO SCH (21:49)
[2018-02-17] MEDS: xanAX 0.25 MG PO SCH (21:49)
[2018-02-18] MEDS: FLAGYL 500 MG IVPB 500 MG/100 ML BAG IV SCH ×5 (00:01→23:35)
[2018-02-18] MEDS: VANCOMYCIN HCL CAPSULE PO SCH ×5 (00:01→23:35)
[2018-02-18] MEDS: TYLENOL 325 MG PO PRN ×3 (00:04→23:42)
[2018-02-18] MEDS: Xopenex 1.25 MG/0.5 ML UD NEBULE IH SCH ×4 (03:24→20:00)
[2018-02-18] MEDS: Mucomyst 200 MG/ML IH SCH ×2 (03:24→06:45)
[2018-02-18] MEDS: Sodium Chloride 3 ML UD NEBULES IH SCH ×4 (03:24→20:00)
--- NOTE | 2018-02-18 08:33 | PCM.NOTE ---
Date and Time: 02/18/18827 Subjective Assessment: She had quite a bit of diarrhea yesterday, with some abd pain. Is having generalized pain this morning including neck pain. Tylenol without relief. C/o "shakiness" - started a med about [address] Coleman that she " acted like a zombie" on per her daughter - but pt is interested in maybe trying it again or something similar. L ear was flushed yesterday without results - now she c/o not being able to hear from L ear. - Review of Systems Constitutional: No Fever Respiratory: Cough Abdominal/Gastrointestinal: Abdominal Pain, Diarrhea Objective Exam General Appearance: mild distress, alert, cachetic Neurologic Exam: oriented x 3, cooperative Skin Exam: normal color, warm, dry, No rash Respiratory Exam: lungs clear, diminished breath sounds (good air exchange), No crackles/rales, No rhonchi, No wheezing Cardiovascular Exam: regular rate/rhythm, normal heart sounds Gastrointestinal/Abdomen Exam: soft, normal bowel sounds, No tenderness, No distention, No mass, No guarding, No rebound Extremity Exam: swelling (traced pretibial edema bilat) OBJECTIVE DATA Vital Signs: Vital Signs - 24 hr Temp Pulse Resp BP Pulse Ox 02/18/18 07:01 97.8 F 90 18 130/60 97 02/18/18 07:00 98 H 16 99 02/18/18 03:49 98.3 F 89 17 121/56 99 02/17/18 23:35 98.5 F 91 H 18 119/57 95 02/17/18 19:54 93 H 16 97 02/17/18 19:29 98.4 F 93 H 16 116/57 97 02/17/18 16:00 99.1 F 106 H 18 117/70 96 02/17/18 13:22 103 H 18 99 02/17/18 12:00 98.3 F 103 H 18 97/62 97 Oxygen-Last 24 hours O2 Percentage 2 Liters = 28% Pain Assessment - Last Documented Pain Intensity 7 Pain Scale Used 0-10 Pain Scale Intake and Output: Intake & Output 02/15/18 02/16/18 02/17/18 02/18/18 11:59 11:59 11:59 11:59 Intake Total 2010 1884 Output Total 1049 7330 Balance 961 -365 Weight 38.9 kg 40 kg Radiology Exams: Radiology Procedures Category Date Time Status KUB Routine Exams 02/16/18 18:15 Completed Multi-Disciplinary Progress Notes: Multi-Disciplinary Progress Notes 02/17/18 23:18 Respiratory Note by Jill Coelho AROUND 2129 AMANDA CALLED TO TELL ME THAT THE PT WAS HAVING TROUBLE BREATHING AND SOB AFTER THE BREATHING TREATMENT WITH MUCOMYST. TOLD AMANDA SHE COULD PUT HER OXYGEN ON HER. AROUND 2144 JASPAL CALLED TO TELL ME THAT THE PT WISHED NOT TO HAVE ANY MORE BREATHING TREATMENTS TONIGHT. I TALKED WITH THE PT AND SHE SAID SHE WAS SOB AFTER THE FIRST MUCOMYST TREATMENT THIS AFTERNOON BUT IT DIDN'T LAST VERY LONG. I ASKED IF SHE JUST WANTED THE XOPENEX TREATMENT SHE SAID SHE DIDN'T WANT ANY UNTIL SHE TALKS TO DR. VELA IN THE MORNING. Initialized on 02/17/18 23:18 - END OF NOTE Assessment/Plan (1) C. difficile colitis Current Visit: No Status: Acute Onset Date: ~02/16/18 Assessment & Plan: On IV flagyl and po vancymycin. 1st recurrence. (2) Atrial fibrillation Current Visit: No Status: Chronic Qualifiers: Atrial fibrillation type: paroxysmal Qualified Code(s): I48.0 - Paroxysmal atrial fibrillation Code(s): I48.91 - UNSPECIFIED ATRIAL FIBRILLATION (3) COPD (chronic obstructive pulmonary disease) Current Visit: No Status: Chronic Qualifiers: COPD type: unspecified COPD Qualified Code(s): J44.9 - Chronic obstructive pulmonary disease, unspecified Assessment & Plan: Will stop the xopenex as she does not tolerate xopenex and mucinex together well (4) Chronic hypoxemic respiratory failure Current Visit: No Status: Chronic (5) Malnutrition Current Visit: No Status: Chronic Qualifiers: Malnutrition type: protein-calorie malnutrition Protein-calorie malnutrition severity: moderate Qualified Code(s): E44.0 - Moderate protein- calorie malnutrition Code(s): E46 - UNSPECIFIED PROTEIN-CALORIE MALNUTRITION (6) Weakness Current Visit: No Status: Chronic Onset Date: ~07/27/17 Assessment & Plan: consulting PT today Code(s): R53.1 - WEAKNESS (7) Corticobasal degeneration Current Visit: Yes Status: Chronic Code(s): G31.85 - CORTICOBASAL DEGENERATION (8) Impacted ear wax Current Visit: Yes Status: Acute Onset Date: ~02/16/18 Qualifiers: Laterality: left Qualified Code(s): H61.22 - Impacted cerumen, left ear Assessment & Plan: I will try to manually disimpact later today. Code(s): H61.20 - IMPACTED CERUMEN, UNSPECIFIED EAR (9) Difficult intravenous access Current Visit: Yes Status: Chronic Code(s): Z78.9 - OTHER SPECIFIED HEALTH STATUS (10) Neck pain Current Visit: No Status: Chronic Onset Date: ~12/11/17 Assessment & Plan: add norco prn Code(s): M54.2 - CERVICALGIA (11) Tremor Current Visit: Yes Status: Acute Assessment & Plan: Will investigate which med she was on previously Code(s): R25.1 - TREMOR, UNSPECIFIED
[2018-02-18] MEDS: ELIQUIS 2.5 MG TABLET PO SCH ×2 (09:34→22:50)
[2018-02-18] MEDS: Klor Con 10 MEQ PO SCH ×2 (09:34→22:50)
[2018-02-18] MEDS: CLARITIN 10 MG PO SCH (09:34)
[2018-02-18] MEDS: Acidophilus TABLET PO SCH ×2 (09:35→22:50)
[2018-02-18] MEDS: Multaq 400 MG PO SCH ×2 (09:35→22:51)
[2018-02-18] MEDS: Megace 40 MG/ML PO SCH (09:35)
[2018-02-18] MEDS: NORCO 5/325 MG PO PRN (09:35)
[2018-02-18] MEDS: SYNTHROID 50 MCG PO SCH (09:35)
[2018-02-18] MEDS ORDERED: Sodium Chloride 3 ML UD NEBULES IH ONE (10:32)
[2018-02-18] MEDS ORDERED: Xopenex 1.25 MG/0.5 ML UD NEBULE IH ONE (10:32)
[2018-02-18] MEDS: Lactated Ringers 1,000 ML IV SCH (11:56)
[2018-02-18] MEDS: xanAX 0.25 MG PO SCH (22:51)
[2018-02-18] MEDS: VITAMIN D PO SCH (22:51)
[2018-02-19] MEDS: Lactated Ringers 1,000 ML IV SCH ×2 (02:35→17:45)
[2018-02-19] MEDS: FLAGYL 500 MG IVPB 500 MG/100 ML BAG IV SCH ×3 (05:31→17:39)
[2018-02-19] MEDS: VANCOMYCIN HCL CAPSULE PO SCH ×3 (05:31→17:39)
[2018-02-19 05:47] LABS: BASOPHIL % 0.5 % (0.0-0.4); Basophil (Absolute #) 0.04 (0-0.4); Eosinophil % 2.2 % (0.00-5.0); Eosinophil (Absolute #) 0.18 (0-0.5); Granulocytes % 62.7 % (36.0-66.0); Hemoglobin 12.7 gm/dl (12.0-16.0); Lymphocyte (Absolute #) 2.25 (1.0-4.6); Lymphocytes % 27.5 % (24.0-44.0); Mean Cell Volume 95.2 fl (78-100); Mean Corpuscular Hemoglobin 30.2 pg (26-32); Mean Corpuscular Hgb Concent. 31.8 g/dl (32-36); Mean Platelet Volume 10.6 fl (6-9.5); Monocyte (Absolute #) 0.58 (0.0-1.3); Monocytes % 7.1 % (0.0-12.0); Platelet Count 309 K/mm3 (150-450); Red Cell Distribution Width 13.3 % (11.5-14.0); White Blood Count 8.2 K/mm3 (4.0-10.5)
[2018-02-19 06:37] LABS: ANION GAP 14.1 MEQ/L (5-15); BLOOD UREA NITROGEN 8 mg/dL (7-17); CHLORIDE 104 mmol/L (98-107); Calcium 9.6 mg/dL (8.4-10.2); Carbon Dioxide 24 mmol/L (22-30); Creatinine 1 0.47 mg/dL (0.52-1.04); Glucose 88 mg/dL (74-106); Potassium 3.6 mmol/L (3.5-5.1); SODIUM 139 mmol/L (137-145)
[2018-02-19] MEDS: Xopenex 1.25 MG/0.5 ML UD NEBULE IH SCH ×2 (07:30→20:11)
[2018-02-19] MEDS: Sodium Chloride 3 ML UD NEBULES IH SCH (07:30)
--- NOTE | 2018-02-19 09:06 | PCM.NOTE ---
Date and Time: 02/19/18901 Subjective Assessment: She is still c/o neck pain - norco helped yesterday. Has had neck pain over 2 yrs, last MRI cervical spine 04/2016 with some bone spurring and tiny hemangiomas , no foraminal stenosis, spinal cord wnl. No paresthesias. Pain is proximal neck. Three stools overnight with some firming up. She awoke hungry at 1 am - thinks the [email or web address] is working! Still not hearing well out of the L ear. - Review of Systems Constitutional: No Fever Abdominal/Gastrointestinal: Diarrhea Objective Exam General Appearance: no apparent distress, alert, other (weak - needs assistance to get into bed) Neurologic Exam: oriented x 3, cooperative Skin Exam: normal color, warm, dry, No rash Respiratory Exam: lungs clear, diminished breath sounds, No crackles/rales, No rhonchi, No wheezing Cardiovascular Exam: regular rate/rhythm, normal heart sounds, No murmur Extremity Exam: normal inspection Back Exam: normal inspection, No rash OBJECTIVE DATA Vital Signs: Vital Signs - 24 hr Temp Pulse Resp BP Pulse Ox 02/19/18 08:00 98.1 F 102 H 18 104/59 98 02/19/18 07:43 102 H 16 98 02/19/18 04:20 97.9 F 89 15 125/58 98 02/18/18 23:52 98.7 F 89 16 123/58 96 02/18/18 20:01 96 H 18 96 02/18/18 19:29 98.6 F 96 H 18 139/65 97 02/18/18 15:36 98.4 F 97 H 18 111/59 96 02/18/18 12:56 98.8 F 90 20 130/61 98 02/18/18 10:41 95 H 18 98 Pain Assessment - Last Documented Pain Intensity 0 Pain Scale Used 0-10 Pain Scale Intake and Output: Intake & Output 02/16/18 02/17/18 02/18/18 02/19/18 11:59 11:59 11:59 11:59 Intake Total 20103 Output Total 6 4310 950 Balance 961 -325 3537 Weight 38.9 kg 40 kg 39.7 kg Lab Results: Lab Results-Last 24 Hours 02/19/18 02/19/18 Range/Units 05:30 05:30 WBC 8.2 (4.0-10.5) K/mm3 RBC 4.20 (4.1-5.4) M/mm3 Hgb 12.7 (12.0-16.0) gm/dl Hct 40.0 (35-47) % MCV 95.2 (78-100) fl MCH 30.2 (26-32) pg MCHC 31.8 L (32-36) g/dl RDW 13.3 (11.5-14.0) % Plt Count 309 (150-450) K/mm3 MPV 10.6 H (6-9.5) fl Gran % 62.7 (36.0-66.0) % Eos # (Auto) 0.18 (0-0.5) Absolute Lymphs (auto) 2.25 (1.0-4.6) Absolute Monos (auto) 0.58 (0.0-1.3) Lymphocytes % 27.5 (24.0-44.0) % Monocytes % 7.1 (0.0-12.0) % Eosinophils % 2.2 (0.00-5.0) % Basophils % 0.5 (0.0-0.4) % Absolute Granulocytes 5.13 (1.4-6.9) Basophils # 0.04 (0-0.4) Sodium 139 (137-145) mmol/L Potassium 3.6 (3.5-5.1) mmol/L Chloride 104 (98-107) mmol/L Carbon Dioxide 24 (22-30) mmol/L Anion Gap 14.1 (5-15) MEQ/L BUN 8 (7-17) mg/dL Creatinine 0.47 L (0.52-1.04) mg/dL Estimated GFR > 60.0 ML/MIN Glucose 88 (74-106) mg/dL Calcium 9.6 (8.4-10.2) mg/dL Multi-Disciplinary Progress Notes: Multi-Disciplinary Progress Notes 02/18/18 10:22 Respiratory Note by Toshia Herndon PT NOTIFIED THAT THE XOPENEX HAS BEEN DISCONTINUED PER DR. VELA. PT REQUESTING THAT THE MUCOMYST BE DISCONTINUED AND SHE CONTINUE TAKING XOPENEX PER HOME ORDERS. I SPOKE WITH DR. VELA'S NURSE (HARI) REGARDING THIS. HARI CALLED BACK AFTER SPEAKING WITH DR. VELA AND THE ORDERS MAY BE CHANGED BACK TO PT'S HOME ORDERS. XOPENEX BID ORDERED AND MUCOMYST DISCONTINUED. NURSE AWARE. Initialized on 02/18/18 10:22 - END OF NOTE Assessment/Plan (1) C. difficile colitis Current Visit: No Status: Acute Onset Date: ~02/16/18 Assessment & Plan: Stools are firming up. On day #3 IV flagyl and po vancomycin. (2) Atrial fibrillation Current Visit: No Status: Chronic Qualifiers: Atrial fibrillation type: paroxysmal Qualified Code(s): I48.0 - Paroxysmal atrial fibrillation Code(s): I48.91 - UNSPECIFIED ATRIAL FIBRILLATION (3) COPD (chronic obstructive pulmonary disease) Current Visit: No Status: Chronic Qualifiers: COPD type: unspecified COPD Qualified Code(s): J44.9 - Chronic obstructive pulmonary disease, unspecified (4) Chronic hypoxemic respiratory failure Current Visit: No Status: Chronic (5) Malnutrition Current Visit: No Status: Chronic Qualifiers: Malnutrition type: protein-calorie malnutrition Protein-calorie malnutrition severity: moderate Qualified Code(s): E44.0 - Moderate protein- calorie malnutrition Code(s): E46 - UNSPECIFIED PROTEIN-CALORIE MALNUTRITION (6) Weakness Current Visit: No Status: Chronic Onset Date: ~07/27/17 Code(s): R53.1 - WEAKNESS (7) Corticobasal degeneration Current Visit: Yes Status: Chronic Assessment & Plan: start amantadine - [facility] Code(s): G31.85 - CORTICOBASAL DEGENERATION (8) Impacted ear wax Current Visit: Yes Status: Acute Onset Date: ~02/16/18 Qualifiers: Laterality: left Qualified Code(s): H61.22 - Impacted cerumen, left ear Code(s): H61.20 - IMPACTED CERUMEN, UNSPECIFIED EAR (9) Difficult intravenous access Current Visit: Yes Status: Chronic Code(s): Z78.9 - OTHER SPECIFIED HEALTH STATUS (10) Neck pain Current Visit: No Status: Chronic Onset Date: ~12/11/17 Assessment & Plan: will re-order MRI Code(s): M54.2 - CERVICALGIA (11) Tremor Current Visit: Yes Status: Acute Code(s): R25.1 - TREMOR, UNSPECIFIED
[2018-02-19] MEDS: Acidophilus TABLET PO SCH ×2 (10:26→21:51)
[2018-02-19] MEDS: ELIQUIS 2.5 MG TABLET PO SCH ×2 (10:26→21:51)
[2018-02-19] MEDS: SYNTHROID 50 MCG PO SCH (10:26)
[2018-02-19] MEDS: Klor Con 10 MEQ PO SCH ×2 (10:26→21:51)
[2018-02-19] MEDS: CLARITIN 10 MG PO SCH (10:26)
[2018-02-19] MEDS: Ear Wax Drops OT SCH ×2 (10:27→21:52)
[2018-02-19] MEDS: Multaq 400 MG PO SCH ×2 (10:27→21:51)
[2018-02-19] MEDS: Megace 40 MG/ML PO SCH (10:29)
--- NOTE | 2018-02-19 10:49 | XRAY ---
Indication: Persistent neck pain. Sagittal and axial MRI cervical spine performed without contrast using T1 and T2-weighted sequences. Comparison: April 24, 2016. Sagittal images again demonstrates normal alignment. Stable multilevel degenerative disc desiccation signal with little to no disc space narrowing. Stable C5/C7 vertebral hemangiomas. No acute fracture, subluxation, or abnormal bone marrow signal. Spinal cord is normal in course and caliber without signal abnormality. Normal-appearing craniocervical junction. Axial images at the C2-C3 level again negative for disc herniation, spinal canal, or foraminal stenosis. At the C3-C4 level, there is stable right foraminal narrowing due to uncovertebral spurring. No disc herniation or canal stenosis. At the C4-C5-C6 levels, there is stable tiny focal central disc bulge without spinal canal or foraminal compromise. Remaining C6-C7-T1 levels unremarkable. Impression: 1. Stable right C3-C4 foraminal narrowing due to degenerative uncovertebral spurring and stable tiny C4-C6 central disc bulge. 2. Stable C5/C7 vertebral hemangiomas. 3. Again negative for disc herniation or spinal canal stenosis.
[2018-02-19] MEDS: NORCO 5/325 MG PO PRN (18:19)
[2018-02-19] MEDS: xanAX 0.25 MG PO SCH (21:51)
[2018-02-19] MEDS: VITAMIN D PO SCH (21:51)
[2018-02-20] MEDS: FLAGYL 500 MG IVPB 500 MG/100 ML BAG IV SCH ×4 (00:21→17:10)
[2018-02-20] MEDS: VANCOMYCIN HCL CAPSULE PO SCH ×4 (00:21→17:10)
[2018-02-20] MEDS: Sodium Chloride 3 ML UD NEBULES IH SCH ×2 (07:17→19:59)
[2018-02-20] MEDS: Xopenex 1.25 MG/0.5 ML UD NEBULE IH SCH ×2 (07:17→19:59)
[2018-02-20] MEDS: NORCO 5/325 MG PO PRN ×2 (08:30→20:24)
[2018-02-20] MEDS: ELIQUIS 2.5 MG TABLET PO SCH ×2 (08:30→22:07)
[2018-02-20] MEDS: Lactated Ringers 1,000 ML IV SCH ×2 (08:30→09:07)
[2018-02-20] MEDS: Acidophilus TABLET PO SCH ×2 (08:30→22:07)
[2018-02-20] MEDS: Klor Con 10 MEQ PO SCH ×2 (08:30→22:07)
[2018-02-20] MEDS: Ear Wax Drops OT SCH ×2 (08:31→22:07)
[2018-02-20] MEDS: CLARITIN 10 MG PO SCH (08:31)
[2018-02-20] MEDS: Multaq 400 MG PO SCH ×2 (08:31→22:07)
[2018-02-20] MEDS: SYNTHROID 50 MCG PO SCH (08:31)
[2018-02-20] MEDS: Megace 40 MG/ML PO SCH (08:34)
--- NOTE | 2018-02-20 12:57 | PCM.NOTE ---
Date and Time: 02/20/18 1250 Subjective Assessment: She had one loose stool this a.m. and one more formed stool after that. Her ear wax feels like it is "loosening up" although she is still having trouble hearing (on the L). She does not want to have a port at this time for IV access. Her was not aware he should black pickler amantadine so he will get it this morning. She is eating very well - ate a hamburger! - Review of Systems Constitutional: No Fever Abdominal/Gastrointestinal: Diarrhea Objective Exam General Appearance: no apparent distress, alert, cachetic Neurologic Exam: oriented x 3, cooperative Skin Exam: normal color, warm, dry Respiratory Exam: normal breath sounds, lungs clear, No crackles/rales, No rhonchi, No wheezing Cardiovascular Exam: regular rate/rhythm, normal heart sounds, No murmur Gastrointestinal/Abdomen Exam: soft, normal bowel sounds, No tenderness, No distention, No mass, No guarding, No rebound Extremity Exam: swelling (trace pretibial edema bilat) Back Exam: normal inspection, No rash OBJECTIVE DATA Vital Signs: Vital Signs - 24 hr Temp Pulse Resp BP Pulse Ox 02/20/18 07:41 98.3 F 86 18 126/60 98 02/20/18 07:00 82 20 97 02/20/18 03:56 98.4 F 93 H 17 125/57 98 02/19/18 23:45 98.1 F 94 H 18 128/64 98 02/19/18 20:11 94 H 20 95 02/19/18 20:00 98.2 F 100 H 17 119/58 96 02/19/18 16:00 98.5 F 100 H 20 137/63 98 Pain Assessment - Last Documented Pain Intensity 0 Pain Scale Used 0-10 Pain Scale Intake and Output: Intake & Output 02/18/18 02/19/18 02/20/18 02/21/18 11:59 11:59 11:59 11:59 Intake Total 1161 8057 3536 Output Total 4140 497 Balance -325 7697 3536 Weight 40 kg 39.7 kg 40.5 kg Radiology Exams: Radiology Procedures Category Date Time Status MRI C-SPINE W/O CONTRAST [MRI] Routine Exams 02/19/18 09:06 Completed Assessment/Plan (1) C. difficile colitis Current Visit: No Status: Acute Onset Date: ~02/16/18 Assessment & Plan: Still having some soft stools, and frequent stools. First recurrence. on IV flagly and po vancomycin. (2) Atrial fibrillation Current Visit: No Status: Chronic Qualifiers: Atrial fibrillation type: paroxysmal Qualified Code(s): I48.0 - Paroxysmal atrial fibrillation Code(s): I48.91 - UNSPECIFIED ATRIAL FIBRILLATION (3) COPD (chronic obstructive pulmonary disease) Current Visit: No Status: Chronic Qualifiers: COPD type: unspecified COPD Qualified Code(s): J44.9 - Chronic obstructive pulmonary disease, unspecified (4) Chronic hypoxemic respiratory failure Current Visit: No Status: Chronic (5) Malnutrition Current Visit: No Status: Chronic Qualifiers: Malnutrition type: protein-calorie malnutrition Protein-calorie malnutrition severity: moderate Qualified Code(s): E44.0 - Moderate protein- calorie malnutrition Assessment & Plan: she is eating much better on megace. 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 Code(s): H61.20 - IMPACTED CERUMEN, UNSPECIFIED EAR (9) Difficult intravenous access Current Visit: Yes Status: Chronic Assessment & Plan: Has decided against a port for now. Code(s): Z78.9 - OTHER SPECIFIED HEALTH STATUS (10) Neck pain Current Visit: No Status: Chronic Onset Date: ~12/11/17 Assessment & Plan: she agreed to try norco BID as it is helping. Code(s): M54.2 - CERVICALGIA (11) Tremor Current Visit: Yes Status: Acute Assessment & Plan: to start amantadine today. Code(s): R25.1 - TREMOR, UNSPECIFIED
[2018-02-20] MEDS ORDERED: Sodium Chloride 0.9% 10 ML FLUSH Syringe IV PRN (15:15)
[2018-02-20] MEDS: VITAMIN D PO SCH (22:08)
[2018-02-20] MEDS: Sodium Chloride 0.9% 10 ML FLUSH Syringe IV SCH (22:08)
[2018-02-20] MEDS: xanAX 0.25 MG PO SCH (22:08)
[2018-02-21] MEDS: VANCOMYCIN HCL CAPSULE PO SCH ×4 (00:31→17:39)
[2018-02-21] MEDS: FLAGYL 500 MG IVPB 500 MG/100 ML BAG IV SCH ×4 (00:31→17:39)
[2018-02-21] MEDS: TYLENOL 325 MG PO PRN (03:18)
[2018-02-21] MEDS: Sodium Chloride 0.9% 10 ML FLUSH Syringe IV SCH ×2 (05:59→14:06)
[2018-02-21 06:03] LABS: BASOPHIL % 0.5 % (0.0-0.4); Basophil (Absolute #) 0.03 (0-0.4); Eosinophil % 0.8 % (0.00-5.0); Eosinophil (Absolute #) 0.05 (0-0.5); Granulocytes % 52.4 % (36.0-66.0); Hematocrit 34.8 % (35-47); Hemoglobin 11.1 gm/dl (12.0-16.0); Lymphocyte (Absolute #) 2.25 (1.0-4.6); Lymphocytes % 35.8 % (24.0-44.0); Mean Cell Volume 94.6 fl (78-100); Mean Corpuscular Hemoglobin 30.1 pg (26-32); Mean Corpuscular Hgb Concent. 31.9 g/dl (32-36); Mean Platelet Volume 10.8 fl (6-9.5); Monocyte (Absolute #) 0.66 (0.0-1.3); Monocytes % 10.5 % (0.0-12.0); Platelet Count 286 K/mm3 (150-450); Red Blood Count 3.68 M/mm3 (4.1-5.4); Red Cell Distribution Width 13.4 % (11.5-14.0); White Blood Count 6.3 K/mm3 (4.0-10.5)
[2018-02-21 06:25] LABS: ANION GAP 12.1 MEQ/L (5-15); BLOOD UREA NITROGEN 11 mg/dL (7-17); CHLORIDE 108 mmol/L (98-107); Calcium 8.8 mg/dL (8.4-10.2); Carbon Dioxide 22 mmol/L (22-30); Creatinine 1 0.48 mg/dL (0.52-1.04); Glucose 92 mg/dL (74-106); Potassium 3.7 mmol/L (3.5-5.1); SODIUM 139 mmol/L (137-145)
[2018-02-21] MEDS: Xopenex 1.25 MG/0.5 ML UD NEBULE IH SCH ×2 (07:30→20:19)
[2018-02-21] MEDS: Multaq 400 MG PO SCH (09:12)
[2018-02-21] MEDS: Acidophilus TABLET PO SCH (09:13)
[2018-02-21] MEDS: Lactated Ringers 1,000 ML IV SCH (09:13)
[2018-02-21] MEDS: Klor Con 10 MEQ PO SCH (09:13)
[2018-02-21] MEDS: SYNTHROID 50 MCG PO SCH (09:13)
[2018-02-21] MEDS: ELIQUIS 2.5 MG TABLET PO SCH (09:13)
[2018-02-21] MEDS: CLARITIN 10 MG PO SCH (09:13)
[2018-02-21] MEDS: Megace 40 MG/ML PO SCH (09:13)
[2018-02-21] MEDS: Ear Wax Drops OT SCH (09:15)
[2018-02-21] MEDS: NORCO 5/325 MG PO PRN ×2 (10:09→20:57)
--- NOTE | 2018-02-21 13:37 | PCM.NOTE ---
Date and Time: 02/21/18 1332 Subjective Assessment: Having frequent stools that are soft but not liquid. Eating better. Was not able to get amantadine because pharmacy closed early yesterday (Sat). Still c/o hard to cough up phlegm at the base of her throat. Mucomyst with some help in the past. - Review of Systems Constitutional: No Fever Respiratory: Cough Abdominal/Gastrointestinal: Diarrhea Objective Exam General Appearance: no apparent distress, alert, cachetic Neurologic Exam: oriented x 3, cooperative Skin Exam: normal color, warm, dry, No rash Respiratory Exam: lungs clear, diminished breath sounds (good air exchange), No crackles/rales, No rhonchi, No wheezing Cardiovascular Exam: normal heart sounds, irregular (reg rate), No murmur, No tachycardia Gastrointestinal/Abdomen Exam: soft, normal bowel sounds, No tenderness, No distention, No mass, No guarding, No rebound Extremity Exam: normal inspection, swelling Back Exam: normal inspection, No rash OBJECTIVE DATA Vital Signs: Vital Signs - 24 hr Temp Pulse Resp BP Pulse Ox 02/21/18 08:00 98.5 F 84 17 126/59 96 02/21/18 07:00 97 H 16 98 02/21/18 03:57 98.1 F 97 H 16 110/59 98 02/20/18 23:40 98.3 F 93 H 16 127/62 96 02/20/18 19:59 97 H 17 96 02/20/18 19:25 98.4 F 100 H 18 103/58 96 02/20/18 16:00 98.4 F 93 H 18 118/59 97 Pain Assessment - Last Documented Pain Intensity 1 Pain Scale Used 0-10 Pain Scale Intake and Output: Intake & Output 02/19/18 02/20/18 02/21/18 02/22/18 11:59 11:59 11:59 11:59 Intake Total 3297 3536 2181 Output Total 950 Balance 2347 3536 2181 Weight 39.7 kg 40.5 kg 40.4 kg Lab Results: Lab Results-Last 24 Hours 02/21/18 02/21/18 Range/Units 05:30 05:30 WBC 6.3 (4.0-10.5) K/mm3 RBC 3.68 L (4.1-5.4) M/mm3 Hgb 11.1 L (12.0-16.0) gm/dl Hct 34.8 L (35-47) % MCV 94.6 (78-100) fl MCH 30.1 (26-32) pg MCHC 31.9 L (32-36) g/dl RDW 13.4 (11.5-14.0) % Plt Count 286 (150-450) K/mm3 MPV 10.8 H (6-9.5) fl Gran % 52.4 (36.0-66.0) % Eos # (Auto) 0.05 (0-0.5) Absolute Lymphs (auto) 2.25 (1.0-4.6) Absolute Monos (auto) 0.66 (0.0-1.3) Lymphocytes % 35.8 (24.0-44.0) % Monocytes % 10.5 (0.0-12.0) % Eosinophils % 0.8 (0.00-5.0) % Basophils % 0.5 (0.0-0.4) % Absolute Granulocytes 3.29 (1.4-6.9) Basophils # 0.03 (0-0.4) Sodium 139 (137-145) mmol/L Potassium 3.7 (3.5-5.1) mmol/L Chloride 108 H (98-107) mmol/L Carbon Dioxide 22 (22-30) mmol/L Anion Gap 12.1 (5-15) MEQ/L BUN 11 (7-17) mg/dL Creatinine 0.48 L (0.52-1.04) mg/dL Estimated GFR > 60.0 ML/MIN Glucose 92 (74-106) mg/dL Calcium 8.8 (8.4-10.2) mg/dL Assessment/Plan (1) C. difficile colitis Current Visit: No Status: Acute Onset Date: ~02/16/18 Assessment & Plan: Having some improvement but still having a large number of stools. I anticipate she may be here until Thursday. (2) Atrial fibrillation Current Visit: No Status: Chronic Qualifiers: Atrial fibrillation type: paroxysmal Qualified Code(s): I48.0 - Paroxysmal atrial fibrillation Assessment & Plan: Stable Code(s): I48.91 - UNSPECIFIED ATRIAL FIBRILLATION (3) COPD (chronic obstructive pulmonary disease) Current Visit: No Status: Chronic Qualifiers: COPD type: unspecified COPD Qualified Code(s): J44.9 - Chronic obstructive pulmonary disease, unspecified Assessment & Plan: Will add mucinex and mucomyst for the phlegm. (4) Chronic hypoxemic respiratory failure Current Visit: No Status: Chronic (5) Malnutrition Current Visit: No Status: Chronic Qualifiers: Malnutrition type: protein-calorie malnutrition Protein-calorie malnutrition severity: moderate Qualified Code(s): E44.0 - Moderate protein- calorie malnutrition Assessment & Plan: Eating remains fair to good, much better than previously noted. OK to lock IV during meals, otherwise she can only eat with one hand and she is weak at baseline. Code(s): E46 - UNSPECIFIED PROTEIN-CALORIE MALNUTRITION (6) Weakness Current Visit: No Status: Chronic Onset Date: ~07/27/17 Assessment & Plan: I think she might be able to work with PT tomorrow. 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
[2018-02-21] MEDS: Sodium Chloride 3 ML UD NEBULES IH SCH (20:20)
[2018-02-21] MEDS ORDERED: Mucomyst 200 MG/ML IH SCH ×2 (22:00)
[2018-02-22] MEDS: Acidophilus TABLET PO SCH ×2 (00:08→09:46)
[2018-02-22] MEDS: VITAMIN D PO SCH (00:08)
[2018-02-22] MEDS: Klor Con 10 MEQ PO SCH ×2 (00:08→09:47)
[2018-02-22] MEDS: xanAX 0.25 MG PO SCH (00:09)
[2018-02-22] MEDS: ELIQUIS 2.5 MG TABLET PO SCH ×2 (00:09→09:46)
[2018-02-22] MEDS: Mucinex 600MG ER Tabs PO SCH ×2 (00:10→09:48)
[2018-02-22] MEDS: Multaq 400 MG PO SCH ×2 (00:11→09:49)
[2018-02-22] MEDS: FLAGYL 500 MG IVPB 500 MG/100 ML BAG IV SCH ×3 (00:18→11:44)
[2018-02-22] MEDS: Ear Wax Drops OT SCH ×2 (00:37→09:50)
[2018-02-22] MEDS: VANCOMYCIN HCL CAPSULE PO SCH ×2 (01:19→06:34)
[2018-02-22] MEDS: Sodium Chloride 0.9% 10 ML FLUSH Syringe IV SCH ×2 (01:27→06:34)
[2018-02-22] MEDS: NORCO 5/325 MG PO PRN (06:44)
[2018-02-22] MEDS: Xopenex 1.25 MG/0.5 ML UD NEBULE IH SCH (06:55)
[2018-02-22] MEDS: Sodium Chloride 3 ML UD NEBULES IH SCH (06:55)
[2018-02-22] MEDS: Lactated Ringers 1,000 ML IV SCH (07:30)
--- NOTE | 2018-02-22 08:49 | PCM.NOTE ---
Date and Time: 02/22/18 0847 Subjective Assessment: She is still eating well. No stools last night! Walked a little yesterday. - Review of Systems Constitutional: No Fever Abdominal/Gastrointestinal: No Diarrhea Objective Exam General Appearance: no apparent distress, alert, cachetic Neurologic Exam: oriented x 3, cooperative Skin Exam: normal color, warm, dry, No rash Respiratory Exam: normal breath sounds, lungs clear, No crackles/rales, No rhonchi, No wheezing Cardiovascular Exam: regular rate/rhythm, normal heart sounds, No murmur Gastrointestinal/Abdomen Exam: soft, normal bowel sounds, No tenderness, No distention, No mass, No guarding, No rebound Extremity Exam: normal inspection, No pedal edema, No swelling OBJECTIVE DATA Vital Signs: Vital Signs - 24 hr Temp Pulse Resp BP Pulse Ox 02/22/18 07:59 98 F 102 H 16 99/60 97 02/22/18 07:07 102 H 16 97 02/22/18 04:00 97.9 F 89 17 124/62 96 02/22/18 00:00 97.6 F 97 H 17 119/58 96 02/21/18 20:20 104 H 17 95 02/21/18 19:48 98.5 F 99 H 18 107/55 96 02/21/18 16:00 98.2 F 98 H 17 127/57 98 02/21/18 12:00 97.5 F 102 H 17 113/60 97 Pain Assessment - Last Documented Pain Intensity 0 Pain Scale Used [facility] Intake and Output: Intake & Output 02/19/18 02/20/18 02/21/18 02/22/18 11:59 11:59 11:59 11:59 Intake Total 3297 3536 2181 2899 Output Total 950 Balance 2347 3536 2181 2899 Weight 39.7 kg 40.5 kg 40.4 kg 41.2 kg Assessment/Plan (1) C. difficile colitis Current Visit: No Status: Acute Onset Date: ~02/16/18 Assessment & Plan: Doing better. Will continue current treatment. (2) Atrial fibrillation Current Visit: No Status: Chronic Qualifiers: Atrial fibrillation type: paroxysmal Qualified Code(s): I48.0 - Paroxysmal atrial fibrillation Code(s): I48.91 - UNSPECIFIED ATRIAL FIBRILLATION (3) COPD (chronic obstructive pulmonary disease) Current Visit: No Status: Chronic Qualifiers: COPD type: unspecified COPD Qualified Code(s): J44.9 - Chronic obstructive pulmonary disease, unspecified (4) Chronic hypoxemic respiratory failure Current Visit: No Status: Chronic (5) Malnutrition Current Visit: No Status: Chronic Qualifiers: Malnutrition type: protein-calorie malnutrition Protein-calorie malnutrition severity: moderate Qualified Code(s): E44.0 - Moderate protein- calorie malnutrition Assessment & Plan: weight gain - > 90 lb! 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
[2018-02-22] MEDS: CLARITIN 10 MG PO SCH (09:46)
[2018-02-22] MEDS: Megace 40 MG/ML PO SCH (09:47)
[2018-02-22] MEDS: SYNTHROID 50 MCG PO SCH (09:49)
[2018-02-22] MEDS ORDERED: VANCOMYCIN 25MG/ML ORAL SOLUTION COMPOUND KIT PO SCH (12:00)
[2018-02-22 12:43] VITALS: BP 126/60; PULSE 98; O2SAT 96
== END 2018-02-22 13:00 | disposition swing bed (61) | DRG 372 ==
LOC: MED SURG 17:13 → OBSVTOIN 02-17 08:39
PROVIDERS: ADMIT Family Medicine; ATTEND Family Medicine
DX: A04.72 Enterocolitis due to Clostridium difficile, not specified as recurrent (principal); J96.11 Chronic respiratory failure with hypoxia; E46 Unspecified protein-calorie malnutrition; I48.91 Unspecified atrial fibrillation; J44.9 Chronic obstructive pulmonary disease, unspecified; R53.1 Weakness; G31.85 Corticobasal degeneration; H61.20 Impacted cerumen, unspecified ear; Z78.9 Other specified health status; M54.2 Cervicalgia; R25.1 Tremor, unspecified; Z79.899 Other long term (current) drug therapy
CPT/HCPCS: 36415; 72141; 74018; 80048; 80053; 81001; 83605; 85025; 87493; 94150; 94640; 94760; 97110; 97161; G0378; A9270-GY

== ENCOUNTER 2018-02-22 10:20 | Inpatient (IN) | payer MEDICARE ==
[2018-02-22] MEDS ORDERED: ANTIVERT 25 MG PO PRN (13:26)
[2018-02-22] MEDS ORDERED: TYLENOL 325 MG PO PRN (13:26)
[2018-02-22] MEDS ORDERED: Sodium Chloride 0.9% 10 ML FLUSH Syringe IV PRN (13:26)
[2018-02-22] MEDS ORDERED: Nystatin SUSPENSION 60 ML PO PRN (13:26)
[2018-02-22] MEDS ORDERED: Aplisol ID ONE (13:26)
[2018-02-22] MEDS: NORCO 5/325 MG PO PRN ×2 (16:44→21:25)
[2018-02-22] MEDS: FLAGYL 500 MG IVPB 500 MG/100 ML BAG IV SCH ×2 (17:43→23:28)
[2018-02-22] MEDS: Sodium Chloride 0.9% 10 ML FLUSH Syringe IV SCH ×2 (17:44→21:25)
[2018-02-22] MEDS: VANCOMYCIN 25MG/ML ORAL SOLUTION COMPOUND KIT PO SCH ×2 (17:51→23:38)
[2018-02-22] MEDS: Sodium Chloride 3 ML UD NEBULES IH SCH (19:19)
[2018-02-22] MEDS: Xopenex 1.25 MG/0.5 ML UD NEBULE IH SCH (19:19)
[2018-02-22] MEDS: Acidophilus TABLET PO SCH (21:13)
[2018-02-22] MEDS: Ear Wax Drops OT SCH (21:14)
[2018-02-22] MEDS: ELIQUIS 2.5 MG TABLET PO SCH (21:14)
[2018-02-22] MEDS: Klor Con 10 MEQ PO SCH (21:14)
[2018-02-22] MEDS: VITAMIN D PO SCH (21:15)
[2018-02-22] MEDS: Multaq 400 MG PO SCH (21:15)
[2018-02-22] MEDS: Mucinex 600MG ER Tabs PO SCH (21:15)
[2018-02-22] MEDS: xanAX 0.25 MG PO SCH (21:16)
[2018-02-23] MEDS: VANCOMYCIN 25MG/ML ORAL SOLUTION COMPOUND KIT PO SCH ×4 (06:04→23:53)
[2018-02-23] MEDS: FLAGYL 500 MG IVPB 500 MG/100 ML BAG IV SCH ×4 (06:07→23:53)
[2018-02-23] MEDS: Sodium Chloride 0.9% 10 ML FLUSH Syringe IV SCH ×3 (06:07→20:58)
[2018-02-23] MEDS: Xopenex 1.25 MG/0.5 ML UD NEBULE IH SCH ×2 (06:44→19:31)
[2018-02-23] MEDS: Sodium Chloride 3 ML UD NEBULES IH SCH ×2 (06:45→19:31)
[2018-02-23] MEDS: NORCO 5/325 MG PO PRN ×3 (08:30→23:56)
--- NOTE | 2018-02-23 08:42 | PCM.NOTE ---
Date and Time: 02/23/18 0839 Subjective Assessment: She is still eating well, "I can't get enough to eat." She denies any diarrhea. Working with PT. - Review of Systems Constitutional: No Fever Abdominal/Gastrointestinal: No Diarrhea Objective Exam General Appearance: no apparent distress, alert Neurologic Exam: oriented x 3, cooperative Skin Exam: normal color, warm, dry, No rash Respiratory Exam: No respiratory distress Cardiovascular Exam: regular rate/rhythm, normal heart sounds, No murmur Gastrointestinal/Abdomen Exam: soft, normal bowel sounds, No tenderness, No distention, No mass, No guarding, No rebound OBJECTIVE DATA Vital Signs: Vital Signs - 24 hr Temp Pulse Resp BP Pulse Ox 02/23/18 07:06 98 F 58 L 18 100/55 98 02/23/18 06:48 97 H 16 97 02/22/18 19:20 96 H 16 98 02/22/18 19:18 97.1 F 113 H 12 120/72 98 02/22/18 14:37 106 H 16 98 02/22/18 14:06 98.2 F 98 H 16 126/60 96 Pain Assessment - Last Documented Pain Intensity 5 Pain Scale Used 0-10 Pain Scale Intake and Output: Intake & Output 02/20/18 02/21/18 02/22/18 02/23/18 11:59 11:59 11:59 11:59 Intake Total 1888 Balance 1888 Weight 41.1 kg Assessment/Plan (1) C. difficile colitis Current Visit: No Status: Acute Onset Date: ~02/16/18 Assessment & Plan: She is doing much better. on IV flagyl and po vancomycin. (2) Atrial fibrillation Current Visit: No Status: Chronic Qualifiers: Atrial fibrillation type: chronic Qualified Code(s): I48.2 - Chronic atrial fibrillation Code(s): I48.91 - UNSPECIFIED ATRIAL FIBRILLATION (3) Corticobasal degeneration Current Visit: No Status: Chronic Code(s): G31.85 - CORTICOBASAL DEGENERATION (4) Malnutrition Current Visit: No Status: Chronic Qualifiers: Malnutrition type: protein-calorie malnutrition Assessment & Plan: her weight continues to increase gradually. Code(s): E46 - UNSPECIFIED PROTEIN-CALORIE MALNUTRITION (5) Weakness Current Visit: No Status: Chronic Onset Date: ~07/27/17 Assessment & Plan: PT Code(s): R53.1 - WEAKNESS
[2018-02-23] MEDS ORDERED: Aplisol ID SCH (10:00)
[2018-02-23] MEDS: Mucinex 600MG ER Tabs PO SCH ×2 (10:23→20:47)
[2018-02-23] MEDS: CLARITIN 10 MG PO SCH (10:23)
[2018-02-23] MEDS: ELIQUIS 2.5 MG TABLET PO SCH ×2 (10:23→20:48)
[2018-02-23] MEDS: Klor Con 10 MEQ PO SCH ×2 (10:23→20:47)
[2018-02-23] MEDS: Acidophilus TABLET PO SCH ×2 (10:23→20:47)
[2018-02-23] MEDS: SYNTHROID 50 MCG PO SCH (10:23)
[2018-02-23] MEDS: Megace 40 MG/ML PO SCH (10:23)
[2018-02-23] MEDS: Ear Wax Drops OT SCH ×2 (10:24→20:51)
[2018-02-23] MEDS: Multaq 400 MG PO SCH ×2 (10:24→20:47)
[2018-02-23] MEDS: Lactated Ringers 1,000 ML IV SCH (10:25)
[2018-02-23] MEDS ORDERED: PREPARATION H Ointment RC PRN (14:37)
[2018-02-23] MEDS: VITAMIN D PO SCH (20:48)
[2018-02-23] MEDS: xanAX 0.25 MG PO SCH (20:48)
[2018-02-23] MEDS ORDERED: NON-FORMULARY ITEM PO SCH (22:00)
[2018-02-24] MEDS: FLAGYL 500 MG IVPB 500 MG/100 ML BAG IV SCH ×3 (06:23→17:21)
[2018-02-24] MEDS: Sodium Chloride 0.9% 10 ML FLUSH Syringe IV SCH ×3 (06:23→21:27)
[2018-02-24] MEDS: VANCOMYCIN 25MG/ML ORAL SOLUTION COMPOUND KIT PO SCH ×3 (06:24→17:21)
[2018-02-24] MEDS: Sodium Chloride 3 ML UD NEBULES IH SCH ×2 (07:16→19:19)
[2018-02-24] MEDS: Xopenex 1.25 MG/0.5 ML UD NEBULE IH SCH ×2 (07:16→19:18)
[2018-02-24] MEDS: CLARITIN 10 MG PO SCH (09:19)
[2018-02-24] MEDS: Mucinex 600MG ER Tabs PO SCH ×2 (09:19→21:27)
[2018-02-24] MEDS: Acidophilus TABLET PO SCH ×2 (09:19→21:26)
[2018-02-24] MEDS: Klor Con 10 MEQ PO SCH ×2 (09:19→21:27)
[2018-02-24] MEDS: SYNTHROID 50 MCG PO SCH (09:19)
[2018-02-24] MEDS: ELIQUIS 2.5 MG TABLET PO SCH ×2 (09:19→21:27)
[2018-02-24] MEDS: Multaq 400 MG PO SCH ×2 (09:20→21:27)
[2018-02-24] MEDS: Megace 40 MG/ML PO SCH (09:20)
[2018-02-24] MEDS: Lactated Ringers 1,000 ML IV SCH (09:21)
[2018-02-24] MEDS: PATIENT OWN MEDICATION PO SCH ×2 (09:27→21:27)
[2018-02-24] MEDS: NORCO 5/325 MG PO PRN ×2 (09:47→17:21)
[2018-02-24] MEDS: Ear Wax Drops OT SCH ×2 (10:22→21:26)
[2018-02-24] MEDS: VITAMIN D PO SCH (21:27)
[2018-02-24] MEDS: xanAX 0.25 MG PO SCH (21:28)
[2018-02-25] MEDS: VANCOMYCIN 25MG/ML ORAL SOLUTION COMPOUND KIT PO SCH ×2 (01:01→05:56)
[2018-02-25] MEDS: FLAGYL 500 MG IVPB 500 MG/100 ML BAG IV SCH ×2 (01:01→05:56)
[2018-02-25] MEDS: Sodium Chloride 0.9% 10 ML FLUSH Syringe IV SCH (05:56)
[2018-02-25 06:45] VITALS: BP 125/60
[2018-02-25] MEDS: Xopenex 1.25 MG/0.5 ML UD NEBULE IH SCH ×2 (06:49→10:36)
[2018-02-25] MEDS: Sodium Chloride 3 ML UD NEBULES IH SCH ×2 (06:49→10:36)
--- NOTE | 2018-02-25 08:37 | PCM.DS ---
Discharge Summary Date of Admission: 02/22/18 13:00 Admitting Physician: CYDNEY VELA Primary Care Provider: CYDNEY VELA Allergies Allergies Sulfa (Sulfonamide Antibiotics) Allergy (Intermediate, Verified 02/16/18 18:06) [facility] Hospital Summary - Hospital Course Hospital Course: Pt is a 72 yo female pt of mine from [facility] with COPD, corticobasal degeneration, and malnutrition who was admitted with a first recurrence of C. difficile diarrhea. She was treated over a month ago but started having recurrent diarrhea and increasing abd pain over a week and was admitted to the hospital on po vancomycin and IV flagyl. She also started megace prior to her admission. After her acute illness, she was discharged to swing bed. Since then she has been denying liquid stools. Her eating has been very good. She is working with PT and doing well. She has gotten 1L of fluid IV daily. Today she has a slight wheeze and will receive a xopenex treatment prior to discharge. She will be sent home on po norco BID (5/325), po vancomycin on a taper, and to continue her home meds. She will come to outpatient infusion twice weekly for IV fluids. She will have PT twice weekly here at [facility]. - Vitals & Intake/Output Vital Signs: Vital Signs Temperature 97.8 F 02/25/18 06:44 Pulse Rate 80 02/25/18 06:44 Respiratory Rate 18 02/25/18 06:44 Blood Pressure 125/60 02/25/18 06:44 O2 Sat by Pulse Oximetry 94 L 02/25/18 06:58 Oxygen-Last Documented O2 Percentage 2 Liters = 28% Intake & Output: Intake & Output 02/22/18 02/23/18 02/24/18 02/25/18 11:59 11:59 11:59 11:59 Intake Total 8 1320 1740 Balance 8 1320 1740 Weight 41.1 kg - Procedures and Test Procedures and Tests throughout Hospitalization: Therapy Orders & Screens 02/22/18 13:26 PT Eval & Treat ( Order) ROUTINE Reason for Eval:: DECONDITIONING R/T CDIFF COLITIS Diagnosis: DECONDITIONING R/T CDIFF COLITIS Oxygen NASAL CANNULA 2 lpm Comment: Diagnosis: cdiff/diarrhea Peak Expiratory Flow Rate DAILY Comment: Reason For Exam: Diagnosis: cdiff/diarrhea Respiratory Therapy Assessment DAILY Comment: Diagnosis: cdiff/diarrhea Discharge Exam General Appearance: no apparent distress, alert, cachetic Neurologic Exam: oriented x 3, cooperative Skin Exam: normal color, warm, dry, No rash Eye Exam: eyes nml inspection Ears, Nose, Throat Exam: moist mucous membranes Neck Exam: normal inspection Respiratory Exam: diminished breath sounds (good air exchange), wheezing ( expiratory, scattered throughout), No crackles/rales, No rhonchi Cardiovascular Exam: regular rate/rhythm, normal heart sounds Gastrointestinal/Abdomen Exam: soft, normal bowel sounds, No tenderness, No distention, No mass, No guarding, No rebound Extremity Exam: normal inspection, swelling (trace pretibial edema bilat) Back Exam: normal inspection, No rash Final Diagnosis/Problem List - Final Discharge Diagnosis/Problem (1) C. difficile colitis Current Visit: No Status: Acute Onset Date: ~02/16/18 Assessment & Plan: Recovering well. Since this is her first recurrence, will go ahead and give a vancomycin taper over the next several weeks. (2) Atrial fibrillation Current Visit: No Status: Chronic (3) Corticobasal degeneration Current Visit: No Status: Chronic (4) Malnutrition Current Visit: No Status: Chronic (5) Weakness Current Visit: No Status: Chronic Onset Date: ~07/27/17 (6) Neck pain Current Visit: No Status: Chronic Onset Date: ~12/11/17 Assessment & Plan: will send home on norco 1 po BID. Will do pain contract through our office. - Discharge Disposition: Home, Self-Care Condition: Good Prescriptions: New Guaifenesin 600 mg ER [Mucinex 600MG ER Tabs] 600 mg PO BID PRN #60 tablet PRN Reason: Cough Hydrocodone/APAP 5-325 Tab^^^ [Gove 5-325 Tablet^^^] 1 each PO BID #60 tablet MDD 2 Vancomycin HCl [Vancomycin 25Mg/ml Oral Solution Compound Kit] 5 ml PO ROUTINE #1 bottle Continue Potassium Chloride [K-Dur] 10 meq PO BID Meclizine HCl 25 mg [Antivert 25 mg] 25 mg PO Q4HPRN PRN #30 tablet PRN Reason: Dizziness Levothyroxine Sodium 50 Mcg [Synthroid 50 Mcg] 50 mcg PO DAILY Loratadine 10 mg [Claritin 10 mg] 10 mg PO DAILY Cholecalciferol (Vitamin D3) [Vitamin D3] 1,000 unit PO HS Apixaban [Eliquis 2.5 mg Tablet] 2.5 mg PO BID #60 tablet Dronedarone Hydrochloride 400* [Multaq 400 MG] 400 mg PO BID #60 tablet Alprazolam 0.25 mg [xanAX 0.25 MG] 0.25 mg PO HS Lactobacillus Acidophilus [Acidophilus TABLET] 1 tab PO BID #60 tablet Megestrol Acetate 40 mg/ml [Megace 40 MG/ML] 2 tsp PO DAILY Nystatin 5 ml PO QIDPRN PRN PRN Reason: MOUTH SORENESS Levalbuterol HCl 1.25 MG/0.5M* [Xopenex 1.25 MG/0.5 ML UD NEBULE] 1 neb IH BID Amantadine HCl [Amantadine] 5 ml PO BID Instructions: Clostridium difficile (DC) Follow up with: CYDNEY VELA [Primary Care Provider] - 1 Week Forms: Discharge Instructions
[2018-02-25] MEDS: Lactated Ringers 1,000 ML IV SCH (08:50)
[2018-02-25] MEDS: Megace 40 MG/ML PO SCH (08:51)
[2018-02-25] MEDS: Acidophilus TABLET PO SCH (08:51)
[2018-02-25] MEDS: Mucinex 600MG ER Tabs PO SCH (08:51)
[2018-02-25] MEDS: CLARITIN 10 MG PO SCH (08:51)
[2018-02-25] MEDS: SYNTHROID 50 MCG PO SCH (08:52)
[2018-02-25] MEDS: Multaq 400 MG PO SCH (08:52)
[2018-02-25] MEDS: Klor Con 10 MEQ PO SCH (08:52)
[2018-02-25] MEDS: ELIQUIS 2.5 MG TABLET PO SCH (08:52)
[2018-02-25] MEDS: Ear Wax Drops OT SCH (08:53)
[2018-02-25] MEDS: PATIENT OWN MEDICATION PO SCH (08:58)
[2018-02-25] MEDS: NORCO 5/325 MG PO PRN (09:53)
[2018-02-25] MEDS ORDERED: Sodium Chloride 3 ML UD NEBULES IH ONE (10:18)
[2018-02-25] MEDS ORDERED: Xopenex 1.25 MG/0.5 ML UD NEBULE IH ONE (10:18)
[2018-02-25 10:40] VITALS: PULSE 108; O2SAT 97
[2018-03-06] MEDS ORDERED: Aplisol ID SCH (10:00)
== END 2018-02-25 11:29 | disposition home or self-care (01) | DRG 372 ==
LOC: MED SURG 13:00
PROVIDERS: ADMIT Family Medicine; ATTEND Family Medicine
DX: A04.72 Enterocolitis due to Clostridium difficile, not specified as recurrent (principal); E46 Unspecified protein-calorie malnutrition; J96.11 Chronic respiratory failure with hypoxia; I48.91 Unspecified atrial fibrillation; G31.85 Corticobasal degeneration; R53.1 Weakness; M54.2 Cervicalgia; J44.9 Chronic obstructive pulmonary disease, unspecified; H61.23 Impacted cerumen, bilateral
CPT/HCPCS: 94150; 94640; 94760; 97110-GP; A9270-GY

== ENCOUNTER 2018-03-07 14:05 | Inpatient (IN) | payer MEDICARE ==
[2018-03-07] MEDS ORDERED: DUONEB 0.5-3 MG/3 ml Neb IH ONE ×3 (14:56→15:36)
[2018-03-07] MEDS ORDERED: BABY ASPIRIN 81 MG CHEW PO ONE (15:00)
[2018-03-07] MEDS ORDERED: Sodium Chloride 0.9% 1000 ML 1,000 ML IV SCH (15:00)
[2018-03-07] MEDS ORDERED: NITRO-BID 2% UD PACKETS TOP ONE (15:00)
--- NOTE | 2018-03-07 15:01 | ERPHSYRPT ---
- History of Present Illness Time Seen by Provider: 03/07/18 14:45 Historian: patient Exam Limitations: clinical condition Patient Subjective Stated Complaint: TO ER C/O SOB, COUGH FEVER AND HEAVINESS ACROSS CHEST WITH INCREASED WEAKNESS Triage Nursing Assessment: TO ER C/O FEVER COUGH WEAKNESS X 2 DAYS. PT STATES HEAVINESS PRESENT ACROSS JUAN F LOWER CHEST. PT ARRIVES NO DIFFICULTY BREATHING PRESENT, NO N/V NO DIAPHORESIS. PT HAS COUGH PRESENT WITH DIFFICUTLY CLEARING BBS COURSE THOUGH CLEAR WITH COUGH. 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 HAS ASSOCIATED CHEST PAIN WITH INSPIRATION AND POOR APPETITE. Timing/Duration: day(s) Activities at Onset: none Quality: pressure Location: substernal Chest Pain Radiation: no radiation Severity of Pain-Max: moderate Severity of Pain-Current: moderate Modifying Factors: Improves With: coughing, movement Associated Symptoms: shortness of breath, cough, hurts to breathe, fatigue, weakness Prior Chest Pain/Cardiac Workup: angina Nitro Today/Relief: no nitro taken today Aspirin Treatment Today: 81 mg x 4, provided by ED Allergies/Adverse Reactions: Sulfa (Sulfonamide Antibiotics) Allergy (Intermediate, Verified 03/07/18 14:38) Rash Home Medications: Potassium Chloride [K-Dur] 10 meq PO BID 02/23/16 [History] Levothyroxine Sodium 50 Mcg [Synthroid 50 Mcg] 50 mcg PO DAILY 01/30/17 [ History] Cholecalciferol (Vitamin D3) [Vitamin D3] 1,000 unit PO HS 07/27/17 [History] Loratadine 10 mg [Claritin 10 mg] 10 mg PO DAILY 07/27/17 [History] Alprazolam 0.25 mg [xanAX 0.25 MG] 0.25 mg PO HS 12/10/17 [History] Levalbuterol HCl 1.25 MG/0.5M* [Xopenex 1.25 MG/0.5 ML UD NEBULE] 1 neb IH BID 02/16/18 [History] Megestrol Acetate 40 mg/ml [Megace 40 MG/ML] 2 tsp PO DAILY 02/16/18 [ History] Nystatin 5 ml PO QIDPRN PRN 02/16/18 [History] Hydrocodone/APAP 5-325 Tab^^^ [[place] 5-325 Tablet^^^] 1 each PO Q4H PRN MDD 2 [History] Hx Tetanus, Diphtheria Vaccination/Date Given: No Hx Influenza Vaccination/Date Given: No Hx Pneumococcal Vaccination/Date Given: Yes - Review of Systems Constitutional: No Fever, No Chills Eyes: No Symptoms Ears, Nose, & Throat: No Symptoms Respiratory: Cough, Dyspnea Cardiac: Chest Pain, No Edema, No Syncope Abdominal/Gastrointestinal: No Symptoms, No Abdominal Pain, No Nausea, No Vomiting, No Diarrhea Genitourinary Symptoms: No Symptoms, No Dysuria Musculoskeletal: No Back Pain, No Neck Pain Skin: No Rash Neurological: Other (GENERALIZED WEAKNESS), No Dizziness, No Focal Weakness, No Sensory Changes Psychological: No Symptoms Endocrine: No Symptoms All Other Systems: Reviewed and Negative - Past Medical History Pertinent Past Medical History: Yes Neurological History: No Pertinent History ENT History: Cataracts Cardiac History: Arrhythmia Respiratory History: COPD Endocrine Medical History: Hypothyroidism Musculoskeletal History: Other GI Medical History: Diverticulitis History: No Pertinent History Psycho-Social History: No Pertinent History Female Reproductive Disorders: No Pertinent History Other Medical History: corticobasal degeneration--affects right side - Past Surgical History Past Surgical History: Yes Neuro Surgical History: No Pertinent History Cardiac: No Pertinent History Respiratory: No Pertinent History Gastrointestinal: Appendectomy Genitourinary: No Pertinent History Musculoskeletal: No Pertinent History Female Surgical History: Hysterectomy - Social History Smoking Status: Never smoker Exposure to second hand smoke: No Drug Use: none Patient Lives Alone: No - Nursing Vital Signs Nursing Vital Signs: Initial Vital Signs Temperature 99.7 F 03/07/18 14:31 Pulse Rate 102 H 03/07/18 14:31 Respiratory Rate 16 03/07/18 14:31 Blood Pressure 121/76 03/07/18 14:31 O2 Sat by Pulse Oximetry 97 03/07/18 14:31 Pain Scale Pain Intensity 4 - Physical Exam General Appearance: mild distress Eye Exam: PERRL/EOMI Ears, Nose, Throat Exam: normal ENT inspection Neck Exam: normal inspection Respiratory Exam: diminished breath sounds, crackles/rales Cardiovascular Exam: regular rate/rhythm, normal heart sounds Gastrointestinal/Abdomen Exam: soft, normal bowel sounds (NONTENDER) Back Exam: normal inspection, normal range of motion Extremity Exam: normal inspection, calf tenderness Neurologic Exam: alert, oriented x 3 SpO2 Interpretation: normal SpO2: 97 - Course EKG Interpreted by Me: RATE, Sinus Rhythm, NORMAL AXIS - Radiology Exams Chest X-ray Interpretation: Interpreted by me (COPD NO EVIDENCE OF INFILTRATES) Ordered Tests: Active Orders 24 hr Category Date Time Status Up With Assistance ROUTINE Activity 03/07/18 17:42 Ordered Sail Finisher Hand STAT Care 03/07/18 14:57 Active Clean Catch Urine Specimen STAT Care 03/07/18 14:56 Active Code Status Order ROUTINE Care 03/07/18 17:42 Ordered EKG-ER Only STAT Care 03/07/18 14:56 Active IV Care Q6H Care 03/07/18 17:42 Ordered Oxygen-ED Only Nasal Cannula 2 lpm Care 03/07/18 14:[address] in Observation ROUTINE Care 03/07/18 17:42 Ordered Candelario Hose, Apply ROUTINE Care 03/07/18 17:42 Ordered Vital Signs Q4H Care 03/07/18 17:42 Ordered Weight,Daily 0600 Care 03/07/18 17:42 Ordered Regular Diet Diet 03/07/18 Breakfast Ordered CHEST 1 VIEW (PORTABLE) Stat Exams 03/07/18 14:57 Taken BLOOD CULTURE Stat Lab 03/07/18 15:20 Received CBC W DIFF Stat Lab 03/07/18 15:10 Completed CMP Stat Lab 03/07/18 15:10 Completed CULTURE,URINE Stat Lab 03/07/18 15:28 Received D-DIMER QUANTITATION Stat Lab 03/07/18 15:10 Completed Lactic Acid Stat Lab 03/07/18 14:56 Completed PROTIME WITH INR Stat Lab 03/07/18 15:10 Completed TROPONIN Q3H Lab 03/07/18 15:10 Completed TROPONIN Q3H Lab 03/07/18 18:00 Ordered TROPONIN Q3H Lab 03/07/18 21:00 Ordered TROPONIN Q3H Lab 03/08/18 00:00 Ordered TROPONIN Q3H Lab 03/08/18 03:00 Ordered UA W/RFX UR CULTURE Stat Lab 03/07/18 15:28 Completed VENOUS BLOOD GAS Stat Lab 03/07/18 14:56 Completed EKG Q4HX2 RT 03/07/18 17:48 Ordered Oxygen Nasal Cannula 2 lpm RT 03/07/18 17:42 Ordered Respiratory Nebulizer Q4H RT 03/07/18 17:42 Ordered Respiratory Therapy Assessment DAILY RT 03/07/18 15:28 Completed Respiratory Therapy Assessment DAILY RT 03/07/18 16:46 Completed Respiratory Therapy Consult ROUTINE RT 03/07/18 17:42 Ordered Transfer Order Routine Transfer 03/07/18 Ordered Medication Summary Generic Name Dose Route Start Last Admin Trade Name Freq PRN Reason Stop Dose Admin Sodium Chloride 1,000 mls @ 500 mls/hr 03/07/18 15:00 03/07/18 15:10 Sodium Chloride 0.9% 1000 Ml IV 04/06/18 14:59 500 mls/hr .Q2H GINGER Administration Discontinued Medications Generic Name Dose Route Start Last Admin Trade Name Freq PRN Reason Stop Dose Admin Albuterol/Ipratropium 3 ml 03/07/18 14:56 03/07/18 15:32 Duoneb 0.5-3 Mg/3 Ml Neb IH 03/07/18 14:57 3 ml STAT ONE Administration Albuterol/Ipratropium Confirm 03/07/18 15:29 Duoneb 0.5-3 Mg/3 Ml Neb Administered 03/07/18 15:30 Dose 3 ml IH .STK-MED ONE Albuterol/Ipratropium Confirm 03/07/18 15:36 Duoneb 0.5-3 Mg/3 Ml Neb Administered 03/07/18 15:37 Dose 3 ml IH .STK-MED ONE Aspirin 324 mg 03/07/18 15:00 03/07/18 15:10 Baby Aspirin 81 Mg Chew PO 03/07/18 15:01 324 mg STAT ONE Administration Aspirin Confirm 03/07/18 15:05 Baby Aspirin 81 Mg Chew Administered 03/07/18 15:06 Dose 324 mg .ROUTE .STK-MED ONE Ceftriaxone Sodium/Dextrose 1 g in 50 mls @ 100 mls/hr 03/07/18 16:20 16:29 Rocephin 1 Gm-D5w 50 Ml Bag IV 03/07/18 16:49 100 mls/hr STAT STA 100 mls/hr Administration Azithromycin 500 mg in 250 mls @ 250 mls/hr 03/07/18 16:20 03/07/18 17:26 Zithromax 500 Mg/ 250 Ml Nacl Premix IV 03/07/18 17:19 250 mls/hr STAT STA 250 mls/hr Administration Ceftriaxone Sodium/Dextrose Confirm 03/07/18 16:25 Rocephin 1 Gm-D5w 50 Ml Bag Administered 03/07/18 16:26 Dose 1 g in 50 mls @ ud IV .STK-MED ONE Azithromycin Confirm 03/07/18 17:21 Zithromax 500 Mg/ 250 Ml Nacl Premix Administered 03/07/18 17:22 Dose 500 mg in 250 mls @ ud IV .STK-MED ONE Levalbuterol HCl 1.25 mg 03/07/18 16:21 03/07/18 16:53 Xopenex 1.25 Mg/0.5 Ml Ud Nebule IH 03/07/18 16:22 1.25 mg STAT ONE Administration Levalbuterol HCl Confirm 03/07/18 16:51 Xopenex 1.25 Mg/0.5 Ml Ud Nebule Administered 03/07/18 16:52 Dose 1.25 mg IH .STK-MED ONE Nitroglycerin 1 gm 03/07/18 15:00 03/07/18 15:10 Nitro-Bid 2% Ud Packets TOP 03/07/18 15:01 1 gm STAT ONE Administration Nitroglycerin Confirm 03/07/18 15:05 Nitro-Bid 2% Ud Packets Administered 03/07/18 15:06 Dose 1 gm .ROUTE .STK-MED ONE Sodium Chloride Confirm 03/07/18 16:52 Sodium Chloride 3 Ml Ud Nebules Administered 03/07/18 16:53 Dose 3 ml IH .STK-MED ONE Lab/Rad Data: Laboratory Result Diagrams 03/07/18 15:10 03/07/18 15:10 Laboratory Results 03/07/18 03/07/18 03/07/18 Range/Units 15:28 15:10 15:10 WBC (4.0-10.5) K/mm3 RBC (4.1-5.4) M/mm3 Hgb (12.0-16.0) gm/dl Hct (35-47) % MCV (78-100) fl MCH (26-32) pg MCHC (32-36) g/dl RDW (11.5-14.0) % Plt Count (150-450) K/mm3 MPV (6-9.5) fl Gran % (36.0-66.0) % Eos # (Auto) (0-0.5) Absolute Lymphs (auto) (1.0-4.6) Absolute Monos (auto) (0.0-1.3) Lymphocytes % (24.0-44.0) % Monocytes % (0.0-12.0) % Eosinophils % (0.00-5.0) % Basophils % (0.0-0.4) % Absolute Granulocytes (1.4-6.9) Basophils # (0-0.4) PT 21.1 H (9.95-12.35) SECONDS INR 1.80 (0.8-3.0) D-Dimer < 215 L (215-500) ng/mL pO2/FiO2 Ratio % VBG pH (7.32-7.42) VBG pCO2 at Pat Temp (42-55) mm/Hg VBG pO2 at Pat Temp (25-40) mm/Hg VBG HCO3 (22-28) meq/L VBG O2 Sat (Madelyn) (95-100) VBG Base Excess (-2.0-2.0) VBG Hemoglobin VBG Carboxyhemoglobin (0.0-6.9) % T HGB POC Potassium (3.5-5.1) Sodium (137-145) mmol/L Potassium (3.5-5.1) mmol/L Chloride (98-107) mmol/L Carbon Dioxide (22-30) mmol/L Anion Gap (5-15) MEQ/L BUN (7-17) mg/dL Creatinine (0.52-1.04) mg/dL Estimated GFR ML/MIN Glucose (74-106) mg/dL Lactic Acid (0.4-2.0) Calcium (8.4-10.2) mg/dL Total Bilirubin (0.2-1.3) mg/dL AST (14-36) U/L ALT (0-35) U/L Alkaline Phosphatase (38-126) U/L Troponin I < 0.012 (0.000-0.034) ng/mL Serum Total Protein (6.3-8.2) g/dL Albumin (3.5-5.0) g/dL Urine Color YELLOW (YELLOW) Urine Appearance SLIGHTLY CLOUDY (CLEAR) Urine pH 6.0 (5-6) Ur Specific [place] 1.025 (1.005-1.025) Urine Protein NEGATIVE (Negative) Urine Ketones TRACE (NEGATIVE) Urine Blood MODERATE (0-5) Dimitri/ul Urine Nitrite POSITIVE (NEGATIVE) Urine Bilirubin NEGATIVE (NEGATIVE) Urine Urobilinogen NEGATIVE (0-1) mg/dL Ur Leukocyte Esterase TRACE (NEGATIVE) Urine WBC (Auto) 11-15 (0-5) /HPF Urine RBC (Auto) 6-10 (0-2) /HPF U Epithel Cells (Auto) FEW (FEW) /HPF Urine Bacteria (Auto) MANY (NEGATIVE) /HPF Urine Mucus (Auto) SLIGHT (NEGATIVE) /HPF Urine Culture Reflexed YES (NO) Urine Glucose NEGATIVE (NEGATIVE) mg/dL Influenza Type A Ag (NEGATIVE) Influenza Type B Ag (NEGATIVE) RSV (PCR) (Negative) 03/07/18 03/07/18 03/07/18 Range/Units 15:10 15:10 15:10 WBC 12.5 H (4.0-10.5) K/mm3 RBC 4.18 (4.1-5.4) M/mm3 Hgb 12.9 (12.0-16.0) gm/dl Hct 39.8 (35-47) % MCV 95.2 (78-100) fl MCH 30.9 (26-32) pg MCHC 32.4 (32-36) g/dl RDW 13.6 (11.5-14.0) % Plt Count 312 (150-450) K/mm3 MPV 10.4 H (6-9.5) fl Gran % 81.1 H (36.0-66.0) % Eos # (Auto) 0.05 (0-0.5) Absolute Lymphs (auto) 1.33 (1.0-4.6) Absolute Monos (auto) 0.96 (0.0-1.3) Lymphocytes % 10.6 L (24.0-44.0) % Monocytes % 7.7 (0.0-12.0) % Eosinophils % 0.4 (0.00-5.0) % Basophils % 0.2 (0.0-0.4) % Absolute Granulocytes 10.13 H (1.4-6.9) Basophils # 0.02 (0-0.4) PT (9.95-12.35) SECONDS INR (0.8-3.0) D-Dimer (215-500) ng/mL pO2/FiO2 Ratio % VBG pH (7.32-7.42) VBG pCO2 at Pat Temp (42-55) mm/Hg VBG pO2 at Pat Temp (25-40) mm/Hg VBG HCO3 (22-28) meq/L VBG O2 Sat (Madelyn) (95-100) VBG Base Excess (-2.0-2.0) VBG Hemoglobin VBG Carboxyhemoglobin (0.0-6.9) % T HGB POC Potassium (3.5-5.1) Sodium 138 (137-145) mmol/L Potassium 3.5 (3.5-5.1) mmol/L Chloride 102 (98-107) mmol/L Carbon Dioxide 24 (22-30) mmol/L Anion Gap 15.2 H (5-15) MEQ/L BUN 17 (7-17) mg/dL Creatinine 0.54 (0.52-1.04) mg/dL Estimated GFR > 60.0 ML/MIN Glucose 107 H (74-106) mg/dL Lactic Acid (0.4-2.0) Calcium 9.5 (8.4-10.2) mg/dL Total Bilirubin 0.70 (0.2-1.3) mg/dL AST 17 (14-36) U/L ALT 18 (0-35) U/L Alkaline Phosphatase 47 (38-126) U/L Troponin I (0.000-0.034) ng/mL Serum Total Protein 7.6 (6.3-8.2) g/dL Albumin 4.4 (3.5-5.0) g/dL Urine Color (YELLOW) Urine Appearance (CLEAR) Urine pH (5-6) Ur Specific [place] (1.005-1.025) Urine Protein (Negative) Urine Ketones (NEGATIVE) Urine Blood (0-5) Dimitri/ul Urine Nitrite (NEGATIVE) Urine Bilirubin (NEGATIVE) Urine Urobilinogen (0-1) mg/dL Ur Leukocyte Esterase (NEGATIVE) Urine WBC (Auto) (0-5) /HPF Urine RBC (Auto) (0-2) /HPF U Epithel Cells (Auto) (FEW) /HPF Urine Bacteria (Auto) (NEGATIVE) /HPF Urine Mucus (Auto) (NEGATIVE) /HPF Urine Culture Reflexed (NO) Urine Glucose (NEGATIVE) mg/dL Influenza Type A Ag NEGATIVE (NEGATIVE) Influenza Type B Ag NEGATIVE (NEGATIVE) RSV (PCR) NEGATIVE (Negative) 03/07/18 Range/Units 14:56 WBC (4.0-10.5) K/mm3 RBC (4.1-5.4) M/mm3 Hgb (12.0-16.0) gm/dl Hct (35-47) % MCV (78-100) fl MCH (26-32) pg MCHC (32-36) g/dl RDW (11.5-14.0) % Plt Count (150-450) K/mm3 MPV (6-9.5) fl Gran % (36.0-66.0) % Eos # (Auto) (0-0.5) Absolute Lymphs (auto) (1.0-4.6) Absolute Monos (auto) (0.0-1.3) Lymphocytes % (24.0-44.0) % Monocytes % (0.0-12.0) % Eosinophils % (0.00-5.0) % Basophils % (0.0-0.4) % Absolute Granulocytes (1.4-6.9) Basophils # (0-0.4) PT (9.95-12.35) SECONDS INR (0.8-3.0) D-Dimer (215-500) ng/mL pO2/FiO2 Ratio 21.0 % VBG pH 7.41 (7.32-7.42) VBG pCO2 at Pat Temp 41 L (42-55) mm/Hg VBG pO2 at Pat Temp 25 (25-40) mm/Hg VBG HCO3 26.0 (22-28) meq/L VBG O2 Sat (Madelyn) 52.2 L (95-100) VBG Base Excess 1.2 (-2.0-2.0) VBG Hemoglobin 13.2 VBG Carboxyhemoglobin 3.7 (0.0-6.9) % T HGB POC Potassium 4.3 (3.5-5.1) Sodium (137-145) mmol/L Potassium (3.5-5.1) mmol/L Chloride (98-107) mmol/L Carbon Dioxide (22-30) mmol/L Anion Gap (5-15) MEQ/L BUN (7-17) mg/dL Creatinine (0.52-1.04) mg/dL Estimated GFR ML/MIN Glucose (74-106) mg/dL Lactic Acid 1.9 (0.4-2.0) Calcium (8.4-10.2) mg/dL Total Bilirubin (0.2-1.3) mg/dL AST (14-36) U/L ALT (0-35) U/L Alkaline Phosphatase (38-126) U/L Troponin I (0.000-0.034) ng/mL Serum Total Protein (6.3-8.2) g/dL Albumin (3.5-5.0) g/dL Urine Color (YELLOW) Urine Appearance (CLEAR) Urine pH (5-6) Ur Specific [place] (1.005-1.025) Urine Protein (Negative) Urine Ketones (NEGATIVE) Urine Blood (0-5) Dimitri/ul Urine Nitrite (NEGATIVE) Urine Bilirubin (NEGATIVE) Urine Urobilinogen (0-1) mg/dL Ur Leukocyte Esterase (NEGATIVE) Urine WBC (Auto) (0-5) /HPF Urine RBC (Auto) (0-2) /HPF U Epithel Cells (Auto) (FEW) /HPF Urine Bacteria (Auto) (NEGATIVE) /HPF Urine Mucus (Auto) (NEGATIVE) /HPF Urine Culture Reflexed (NO) Urine Glucose (NEGATIVE) mg/dL Influenza Type A Ag (NEGATIVE) Influenza Type B Ag (NEGATIVE) RSV (PCR) (Negative) - Progress Progress: re-examined Air Movement: fair Blood Culture(s) Obtained: Yes Antibiotics given: Yes Discussed with : Jonathan (DISCUSSED WITH DR REYES AT 1740 FOR OBSERVATION) - Departure Time of Disposition: 17:55 Departure Disposition: Observation Clinical Impression: EXACERBATION OF COPD, URINARY TRACT INFECTION, ACUTE CHEST PAIN Condition: Stable Critical Care Time: No Referrals: CYDNEY VELA [Primary Care Provider] -
[2018-03-07] MEDS ORDERED: NITRO-BID 2% UD PACKETS ONE (15:05)
[2018-03-07] MEDS ORDERED: Sodium Chloride 0.9% 1000 ML 1,000 ML ONE (15:05)
[2018-03-07] MEDS ORDERED: BABY ASPIRIN 81 MG CHEW ONE (15:05)
[2018-03-07 15:23] LABS: Lactic Acid 1.9 (0.4-2.0); VBG BASE EXCESS 1.2 (-2.0-2.0); VBG CARBOXYHEMOGLOBIN 3.7 % T HGB (0.0-6.9); VBG HEMOGLOBIN 13.2; VBG O2 SATURATION 52.2 (95-100); VBG PCO2 41 mm/Hg (42-55); VBG PO2 25 mm/Hg (25-40); VBG POTASSIUM 4.3 (3.5-5.1); VBG pH 7.41 (7.32-7.42)
[2018-03-07 15:24] LABS: BASOPHIL % 0.2 % (0.0-0.4); Basophil (Absolute #) 0.02 (0-0.4); Eosinophil % 0.4 % (0.00-5.0); Eosinophil (Absolute #) 0.05 (0-0.5); Granulocyte Absolute (ANC) 10.13 (1.4-6.9); Granulocytes % 81.1 % (36.0-66.0); Hematocrit 39.8 % (35-47); Hemoglobin 12.9 gm/dl (12.0-16.0); Lymphocyte (Absolute #) 1.33 (1.0-4.6); Lymphocytes % 10.6 % (24.0-44.0); Mean Cell Volume 95.2 fl (78-100); Mean Corpuscular Hemoglobin 30.9 pg (26-32); Mean Corpuscular Hgb Concent. 32.4 g/dl (32-36); Mean Platelet Volume 10.4 fl (6-9.5); Monocyte (Absolute #) 0.96 (0.0-1.3); Monocytes % 7.7 % (0.0-12.0); Platelet Count 312 K/mm3 (150-450); Red Blood Count 4.18 M/mm3 (4.1-5.4); Red Cell Distribution Width 13.6 % (11.5-14.0); White Blood Count 12.5 K/mm3 (4.0-10.5)
[2018-03-07 15:36] LABS: ALBUMIN 4.4 g/dL (3.5-5.0); ALKALINE PHOSPHATASE 47 U/L (38-126); ANION GAP 15.2 MEQ/L (5-15); BLOOD UREA NITROGEN 17 mg/dL (7-17); CHLORIDE 102 mmol/L (98-107); Calcium 9.5 mg/dL (8.4-10.2); Carbon Dioxide 24 mmol/L (22-30); Creatinine 1 0.54 mg/dL (0.52-1.04); Glucose 107 mg/dL (74-106); Potassium 3.5 mmol/L (3.5-5.1); SGOT/AST 17 U/L (14-36); SGPT/ALT 18 U/L (0-35); SODIUM 138 mmol/L (137-145); Total Protein 7.6 g/dL (6.3-8.2)
[2018-03-07 15:43] LABS: PROTIME 21.1 SECONDS (9.95-12.35)
[2018-03-07 15:46] LABS: D-DIMER QUANTITATION < 215 ng/mL (215-500)
[2018-03-07 15:56] LABS: INFLUENZA A NEGATIVE (NEGATIVE); INFLUENZA B NEGATIVE (NEGATIVE); RESPIRATORY SYNCTIAL VIRUS NEGATIVE (Negative)
[2018-03-07 16:14] LABS: Appearance SLIGHTLY CLOUDY (CLEAR); Bacteria MANY /HPF (NEGATIVE); Bilirubin NEGATIVE (NEGATIVE); Blood MODERATE Ery/ul (0-5); Epithelial Cells FEW /HPF (FEW); Glucose NEGATIVE (NEGATIVE); Ketones TRACE (NEGATIVE); Leukocyte Esterase TRACE (NEGATIVE); Mucus SLIGHT /HPF (NEGATIVE); Nitrite POSITIVE (NEGATIVE); Protein,Urine Dip NEGATIVE (Negative); Specific Gravity 1.025 (1.005-1.025); Urobilinogen NEGATIVE mg/dL (0-1)
[2018-03-07] MEDS ORDERED: ROCEPHIN 1 Gm-D5w 50 ml Bag** 1 G/50 ML IVPB IV STA (16:20)
[2018-03-07] MEDS ORDERED: Zithromax 500 MG/ 250 ML NaCl Premix 500 MG/250 ML IVPB IV STA (16:20)
[2018-03-07] MEDS ORDERED: Xopenex 1.25 MG/0.5 ML UD NEBULE IH ONE ×2 (16:21→16:51)
[2018-03-07] MEDS ORDERED: ROCEPHIN 1 Gm-D5w 50 ml Bag** 1 G/50 ML IVPB IV ONE (16:25)
[2018-03-07] MEDS ORDERED: Sodium Chloride 3 ML UD NEBULES IH ONE (16:52)
[2018-03-07] MEDS ORDERED: Zithromax 500 MG/ 250 ML NaCl Premix 500 MG/250 ML IVPB IV ONE (17:21)
[2018-03-07] MEDS ORDERED: DUONEB 0.5-3 MG/3 ml Neb IH SCH (19:00)
[2018-03-07] MEDS: NORCO 5/325 MG PO PRN (19:00)
[2018-03-07] MEDS: solu-MEDROL 125 MG IV SCH (19:01)
--- NOTE | 2018-03-07 20:41 | XRAY ---
Indication: Chest pain. Weakness. Comparison: January 21, 2018. Portable chest hyperinflated with minimal bibasilar base fibrosis/scarring. Remaining lungs clear. Heart and mediastinal structures within normal limits. Bony thorax intact again with mild degenerative changes. Impression: Nonacute hyperinflated chest with chronic features.
[2018-03-07] MEDS: Klor Con 10 MEQ PO SCH (22:50)
[2018-03-07] MEDS: Multaq 400 MG PO SCH (22:50)
[2018-03-07] MEDS: xanAX 0.25 MG PO SCH (22:50)
[2018-03-07] MEDS: Mucinex 600MG ER Tabs PO SCH (22:50)
[2018-03-07] MEDS: ELIQUIS 2.5 MG TABLET PO SCH (22:50)
[2018-03-07] MEDS: VITAMIN D PO SCH (22:51)
[2018-03-07] MEDS: Acidophilus TABLET PO SCH (22:51)
[2018-03-07] MEDS: Sodium Chloride 0.9% 1000 ML 1,000 ML IV SCH (22:55)
[2018-03-08] MEDS: solu-MEDROL 125 MG IV SCH ×5 (00:41→23:39)
[2018-03-08] MEDS: NORCO 5/325 MG PO PRN ×2 (05:07→18:10)
[2018-03-08] MEDS ORDERED: DUONEB 0.5-3 MG/3 ml Neb IH SCH (07:00)
--- NOTE | 2018-03-08 08:16 | PCM.HP ---
History of Present Illness - Chief Complaint Chief Complaint: Shortness of Breath History of Present Illness: is a 72 year old female pt of mine from [facility] with hx COPD of unknown etiology, malnutrition, and corticobasal degeneration with 2 recent admissions for C. diff who had 3d of increasing SOB and cough at home. Subjective fever and recorded temps in the 99s. L lower chest pain with coughing. She has been coughing up brown sputum. She was admitted through the ER with CP and COPD exacerbation, on rocephin and zosyn IV. She is still taking po vancomycin daily as part of a taper for the c. diff. CXR non acute. WBC 12.5. - Review of Systems Constitutional: Fever, Fatigue Respiratory: Cough, Short Of Breath Cardiac: Chest Pain Musculoskeletal: Back Pain, Neck Pain All Other Systems: Reviewed and Negative Medications & Allergies Home Medications: Home Medication List Potassium Chloride [K-Dur] 10 meq PO BID 02/23/16 [History Confirmed 03/07/18] Levothyroxine Sodium 50 Mcg [Synthroid 50 Mcg] 50 mcg PO DAILY 01/30/17 [ History Confirmed 03/07/18] Cholecalciferol (Vitamin D3) [Vitamin D3] 1,000 unit PO HS 07/27/17 [History Confirmed 03/07/18] Loratadine 10 mg [Claritin 10 mg] 10 mg PO DAILY 07/27/17 [History Confirmed 03/07/18] Apixaban [Eliquis 2.5 mg Tablet] 2.5 mg PO BID #60 tablet 07/31/17 [Rx Confirmed 03/07/18] Dronedarone Hydrochloride 400* [Multaq 400 MG] 400 mg PO BID #60 tablet 07/31 [Rx Confirmed 03/07/18] Alprazolam 0.25 mg [xanAX 0.25 MG] 0.25 mg PO HS 12/10/17 [History Confirmed 03/07/18] Lactobacillus Acidophilus [Acidophilus TABLET] 1 tab PO BID #60 tablet 10/27 [Rx Confirmed 03/07/18] Levalbuterol HCl 1.25 MG/0.5M* [Xopenex 1.25 MG/0.5 ML UD NEBULE] 1 neb IH BID 02/16/18 [History Confirmed 03/07/18] Megestrol Acetate 40 mg/ml [Megace 40 MG/ML] 2 tsp PO DAILY 02/16/18 [ History Confirmed 03/07/18] Nystatin 5 ml PO QIDPRN PRN 02/16/18 [History Confirmed 03/07/18] Guaifenesin 600 mg ER [Mucinex 600MG ER Tabs] 600 mg PO BID PRN #60 tablet 02/25/18 [Rx Confirmed 03/07/18] Vancomycin HCl [Vancomycin 25Mg/ml Oral Solution Compound Kit] 5 ml PO ROUTINE # 1 bottle 02/25/18 [Rx Confirmed 03/07/18] Hydrocodone/APAP 5-325 Tab^^^ [Brainard 5-325 Tablet^^^] 1 each PO Q4H PRN MDD 2 [History Confirmed 03/07/18] Allergies/Adverse Reactions: Allergies Allergy/AdvReac Type Severity Reaction Status Date / Time Sulfa (Sulfonamide Allergy Intermediate Rash Verified 03/07/18 14:38 Antibiotics) - Past Medical History Past Medical History: Yes Neurological History: No Pertinent History ENT History: Cataracts Cardiac History: Arrhythmia Respiratory History: COPD Endocrine Medical History: Hypothyroidism Musculoskelatal History: Other GI Medical History: Diverticulitis History: No Pertinent History Pyscho-Social History: No Pertinent History Reproductive Disorders: No Pertinent History Comment: corticobasal degeneration--affects right side - Female History Are you now?: No - Past Surgical History Past Surgical History: Yes Neuro Surgical History: No Pertinent History Cardiac History: No Pertinent History Respiratory Surgery: No Pertinent History GI Surgical History: Appendectomy Genitourinary Surgical Hx: No Pertinent History Musculskeletal Surgical Hx: No Pertinent History Female Surgical History: Hysterectomy - Social History Smoking Status: Never smoker Exposure to second hand smoke: No Alcohol: None Drug Use: none - Physical Exam Vital Signs: Vital Signs - 24 hr Temp Pulse Resp BP Pulse Ox 03/08/18 07:41 88 16 92 L 03/08/18 07:37 98.6 F 84 16 103/57 95 03/08/18 04:00 16 03/08/18 03:43 97.6 F 92 H 16 113/57 96 03/08/18 00:00 16 03/07/18 23:43 97.8 F 87 16 91/54 96 03/07/18 20:40 65 18 96 03/07/18 20:00 98.1 F 97 H 16 109/53 95 03/07/18 19:57 98.1 F 97 H 16 109/53 95 03/07/18 17:50 97 03/07/18 16:53 98 H 22 95 03/07/18 16:00 100 H 16 114/89 98 03/07/18 15:33 99 H 20 99 03/07/18 15:32 98 H 16 146/70 98 03/07/18 14:31 99.7 F 102 H 16 121/76 97 Oxygen-Last 24 hours O2 Percentage 2 Liters = 28% General Appearance: no apparent distress, alert, cachetic Neurologic Exam: oriented x 3, cooperative Eye Exam: eyes nml inspection Ears, Nose, Throat Exam: moist mucous membranes Neck Exam: normal inspection Respiratory Exam: diminished breath sounds (fair to good air exchange), No crackles/rales, No rhonchi, No wheezing Cardiovascular Exam: regular rate/rhythm, normal heart sounds, No murmur Gastrointestinal/Abdomen Exam: soft, normal bowel sounds, No tenderness, No distention, No mass, No guarding, No rebound Extremity Exam: normal inspection, No pedal edema, No swelling Skin Exam: normal color, warm, dry, No rash Results - Labs Lab/Micro Results: Lab Results-Last 24 Hours 03/07/18 03/07/18 03/07/18 Range/Units 14:56 15:10 15:10 WBC 12.5 H (4.0-10.5) K/mm3 RBC 4.18 (4.1-5.4) M/mm3 Hgb 12.9 (12.0-16.0) gm/dl Hct 39.8 (35-47) % MCV 95.2 (78-100) fl MCH 30.9 (26-32) pg MCHC 32.4 (32-36) g/dl RDW 13.6 (11.5-14.0) % Plt Count 312 (150-450) K/mm3 MPV 10.4 H (6-9.5) fl Gran % 81.1 H (36.0-66.0) % Eos # (Auto) 0.05 (0-0.5) Absolute Lymphs (auto) 1.33 (1.0-4.6) Absolute Monos (auto) 0.96 (0.0-1.3) Lymphocytes % 10.6 L (24.0-44.0) % Monocytes % 7.7 (0.0-12.0) % Eosinophils % 0.4 (0.00-5.0) % Basophils % 0.2 (0.0-0.4) % Absolute Granulocytes 10.13 H (1.4-6.9) Basophils # 0.02 (0-0.4) PT (9.95-12.35) SECONDS INR (0.8-3.0) D-Dimer (215-500) ng/mL pO2/FiO2 Ratio 21.0 % VBG pH 7.41 (7.32-7.42) VBG pCO2 at Pat Temp 41 L (42-55) mm/Hg VBG pO2 at Pat Temp 25 (25-40) mm/Hg VBG HCO3 26.0 (22-28) meq/L VBG O2 Sat (Madelyn) 52.2 L (95-100) VBG Base Excess 1.2 (-2.0-2.0) VBG Hemoglobin 13.2 VBG Carboxyhemoglobin 3.7 (0.0-6.9) % T HGB POC Potassium 4.3 (3.5-5.1) Sodium 138 (137-145) mmol/L Potassium 3.5 (3.5-5.1) mmol/L Chloride 102 (98-107) mmol/L Carbon Dioxide 24 (22-30) mmol/L Anion Gap 15.2 H (5-15) MEQ/L BUN 17 (7-17) mg/dL Creatinine 0.54 (0.52-1.04) mg/dL Estimated GFR > 60.0 ML/MIN Glucose 107 H (74-106) mg/dL Lactic Acid 1.9 (0.4-2.0) Calcium 9.5 (8.4-10.2) mg/dL Total Bilirubin 0.70 (0.2-1.3) mg/dL AST 17 (14-36) U/L ALT 18 (0-35) U/L Alkaline Phosphatase 47 (38-126) U/L Troponin I (0.000-0.034) ng/mL Serum Total Protein 7.6 (6.3-8.2) g/dL Albumin 4.4 (3.5-5.0) g/dL Urine Color (YELLOW) Urine Appearance (CLEAR) Urine pH (5-6) Ur Specific [place] (1.005-1.025) Urine Protein (Negative) Urine Ketones (NEGATIVE) Urine Blood (0-5) Dimitri/ul Urine Nitrite (NEGATIVE) Urine Bilirubin (NEGATIVE) Urine Urobilinogen (0-1) mg/dL Ur Leukocyte Esterase (NEGATIVE) Urine WBC (Auto) (0-5) /HPF Urine RBC (Auto) (0-2) /HPF U Epithel Cells (Auto) (FEW) /HPF Urine Bacteria (Auto) (NEGATIVE) /HPF Urine Mucus (Auto) (NEGATIVE) /HPF Urine Culture Reflexed (NO) Urine Glucose (NEGATIVE) mg/dL Influenza Type A Ag (NEGATIVE) Influenza Type B Ag (NEGATIVE) RSV (PCR) (Negative) 03/07/18 03/07/18 03/07/18 Range/Units 15:10 15:10 15:10 WBC (4.0-10.5) K/mm3 RBC (4.1-5.4) M/mm3 Hgb (12.0-16.0) gm/dl Hct (35-47) % MCV (78-100) fl MCH (26-32) pg MCHC (32-36) g/dl RDW (11.5-14.0) % Plt Count (150-450) K/mm3 MPV (6-9.5) fl Gran % (36.0-66.0) % Eos # (Auto) (0-0.5) Absolute Lymphs (auto) (1.0-4.6) Absolute Monos (auto) (0.0-1.3) Lymphocytes % (24.0-44.0) % Monocytes % (0.0-12.0) % Eosinophils % (0.00-5.0) % Basophils % (0.0-0.4) % Absolute Granulocytes (1.4-6.9) Basophils # (0-0.4) PT 21.1 H (9.95-12.35) SECONDS INR 1.80 (0.8-3.0) D-Dimer < 215 L (215-500) ng/mL pO2/FiO2 Ratio % VBG pH (7.32-7.42) VBG pCO2 at Pat Temp (42-55) mm/Hg VBG pO2 at Pat Temp (25-40) mm/Hg VBG HCO3 (22-28) meq/L VBG O2 Sat (Madelyn) (95-100) VBG Base Excess (-2.0-2.0) VBG Hemoglobin VBG Carboxyhemoglobin (0.0-6.9) % T HGB POC Potassium (3.5-5.1) Sodium (137-145) mmol/L Potassium (3.5-5.1) mmol/L Chloride (98-107) mmol/L Carbon Dioxide (22-30) mmol/L Anion Gap (5-15) MEQ/L BUN (7-17) mg/dL Creatinine (0.52-1.04) mg/dL Estimated GFR ML/MIN Glucose (74-106) mg/dL Lactic Acid (0.4-2.0) Calcium (8.4-10.2) mg/dL Total Bilirubin (0.2-1.3) mg/dL AST (14-36) U/L ALT (0-35) U/L Alkaline Phosphatase (38-126) U/L Troponin I < 0.012 (0.000-0.034) ng/mL Serum Total Protein (6.3-8.2) g/dL Albumin (3.5-5.0) g/dL Urine Color (YELLOW) Urine Appearance (CLEAR) Urine pH (5-6) Ur Specific [place] (1.005-1.025) Urine Protein (Negative) Urine Ketones (NEGATIVE) Urine Blood (0-5) Dimitri/ul Urine Nitrite (NEGATIVE) Urine Bilirubin (NEGATIVE) Urine Urobilinogen (0-1) mg/dL Ur Leukocyte Esterase (NEGATIVE) Urine WBC (Auto) (0-5) /HPF Urine RBC (Auto) (0-2) /HPF U Epithel Cells (Auto) (FEW) /HPF Urine Bacteria (Auto) (NEGATIVE) /HPF Urine Mucus (Auto) (NEGATIVE) /HPF Urine Culture Reflexed (NO) Urine Glucose (NEGATIVE) mg/dL Influenza Type A Ag NEGATIVE (NEGATIVE) Influenza Type B Ag NEGATIVE (NEGATIVE) RSV (PCR) NEGATIVE (Negative) 03/07/18 03/07/18 03/07/18 Range/Units 15:28 18:26 21:11 WBC (4.0-10.5) K/mm3 RBC (4.1-5.4) M/mm3 Hgb (12.0-16.0) gm/dl Hct (35-47) % MCV (78-100) fl MCH (26-32) pg MCHC (32-36) g/dl RDW (11.5-14.0) % Plt Count (150-450) K/mm3 MPV (6-9.5) fl Gran % (36.0-66.0) % Eos # (Auto) (0-0.5) Absolute Lymphs (auto) (1.0-4.6) Absolute Monos (auto) (0.0-1.3) Lymphocytes % (24.0-44.0) % Monocytes % (0.0-12.0) % Eosinophils % (0.00-5.0) % Basophils % (0.0-0.4) % Absolute Granulocytes (1.4-6.9) Basophils # (0-0.4) PT (9.95-12.35) SECONDS INR (0.8-3.0) D-Dimer (215-500) ng/mL pO2/FiO2 Ratio % VBG pH (7.32-7.42) VBG pCO2 at Pat Temp (42-55) mm/Hg VBG pO2 at Pat Temp (25-40) mm/Hg VBG HCO3 (22-28) meq/L VBG O2 Sat (Madelyn) (95-100) VBG Base Excess (-2.0-2.0) VBG Hemoglobin VBG Carboxyhemoglobin (0.0-6.9) % T HGB POC Potassium (3.5-5.1) Sodium (137-145) mmol/L Potassium (3.5-5.1) mmol/L Chloride (98-107) mmol/L Carbon Dioxide (22-30) mmol/L Anion Gap (5-15) MEQ/L BUN (7-17) mg/dL Creatinine (0.52-1.04) mg/dL Estimated GFR ML/MIN Glucose (74-106) mg/dL Lactic Acid (0.4-2.0) Calcium (8.4-10.2) mg/dL Total Bilirubin (0.2-1.3) mg/dL AST (14-36) U/L ALT (0-35) U/L Alkaline Phosphatase (38-126) U/L Troponin I < 0.012 < 0.012 (0.000-0.034) ng/mL Serum Total Protein (6.3-8.2) g/dL Albumin (3.5-5.0) g/dL Urine Color YELLOW (YELLOW) Urine Appearance SLIGHTLY CLOUDY (CLEAR) Urine pH 6.0 (5-6) Ur Specific [place] 1.025 (1.005-1.025) Urine Protein NEGATIVE (Negative) Urine Ketones TRACE (NEGATIVE) Urine Blood MODERATE (0-5) Dimitri/ul Urine Nitrite POSITIVE (NEGATIVE) Urine Bilirubin NEGATIVE (NEGATIVE) Urine Urobilinogen NEGATIVE (0-1) mg/dL Ur Leukocyte Esterase TRACE (NEGATIVE) Urine WBC (Auto) 11-15 (0-5) /HPF Urine RBC (Auto) 6-10 (0-2) /HPF U Epithel Cells (Auto) FEW (FEW) /HPF Urine Bacteria (Auto) MANY (NEGATIVE) /HPF Urine Mucus (Auto) SLIGHT (NEGATIVE) /HPF Urine Culture Reflexed YES (NO) Urine Glucose NEGATIVE (NEGATIVE) mg/dL Influenza Type A Ag (NEGATIVE) Influenza Type B Ag (NEGATIVE) RSV (PCR) (Negative) 03/08/18 03/08/18 Range/Units 00:38 03:34 WBC (4.0-10.5) K/mm3 RBC (4.1-5.4) M/mm3 Hgb (12.0-16.0) gm/dl Hct (35-47) % MCV (78-100) fl MCH (26-32) pg MCHC (32-36) g/dl RDW (11.5-14.0) % Plt Count (150-450) K/mm3 MPV (6-9.5) fl Gran % (36.0-66.0) % Eos # (Auto) (0-0.5) Absolute Lymphs (auto) (1.0-4.6) Absolute Monos (auto) (0.0-1.3) Lymphocytes % (24.0-44.0) % Monocytes % (0.0-12.0) % Eosinophils % (0.00-5.0) % Basophils % (0.0-0.4) % Absolute Granulocytes (1.4-6.9) Basophils # (0-0.4) PT (9.95-12.35) SECONDS INR (0.8-3.0) D-Dimer (215-500) ng/mL pO2/FiO2 Ratio % VBG pH (7.32-7.42) VBG pCO2 at Pat Temp (42-55) mm/Hg VBG pO2 at Pat Temp (25-40) mm/Hg VBG HCO3 (22-28) meq/L VBG O2 Sat (Madelyn) (95-100) VBG Base Excess (-2.0-2.0) VBG Hemoglobin VBG Carboxyhemoglobin (0.0-6.9) % T HGB POC Potassium (3.5-5.1) Sodium (137-145) mmol/L Potassium (3.5-5.1) mmol/L Chloride (98-107) mmol/L Carbon Dioxide (22-30) mmol/L Anion Gap (5-15) MEQ/L BUN (7-17) mg/dL Creatinine (0.52-1.04) mg/dL Estimated GFR ML/MIN Glucose (74-106) mg/dL Lactic Acid (0.4-2.0) Calcium (8.4-10.2) mg/dL Total Bilirubin (0.2-1.3) mg/dL AST (14-36) U/L ALT (0-35) U/L Alkaline Phosphatase (38-126) U/L Troponin I < 0.012 < 0.012 (0.000-0.034) ng/mL Serum Total Protein (6.3-8.2) g/dL Albumin (3.5-5.0) g/dL Urine Color (YELLOW) Urine Appearance (CLEAR) Urine pH (5-6) Ur Specific [place] (1.005-1.025) Urine Protein (Negative) Urine Ketones (NEGATIVE) Urine Blood (0-5) Dimitri/ul Urine Nitrite (NEGATIVE) Urine Bilirubin (NEGATIVE) Urine Urobilinogen (0-1) mg/dL Ur Leukocyte Esterase (NEGATIVE) Urine WBC (Auto) (0-5) /HPF Urine RBC (Auto) (0-2) /HPF U Epithel Cells (Auto) (FEW) /HPF Urine Bacteria (Auto) (NEGATIVE) /HPF Urine Mucus (Auto) (NEGATIVE) /HPF Urine Culture Reflexed (NO) Urine Glucose (NEGATIVE) mg/dL Influenza Type A Ag (NEGATIVE) Influenza Type B Ag (NEGATIVE) RSV (PCR) (Negative) - Radiology Impressions Radiology Exams & Impressions: Radiology Procedures Category Date Time Status CHEST 1 VIEW (PORTABLE) Stat Exams 03/07/18 14:57 Completed - Other Procedures and Tests Respiratory Therapy 03/07/18 17:42 Oxygen Nasal Cannula 2 lpm 03/08/18 07:00 Respiratory Therapy Assessment DAILY 03/08/18 07:41 Peak Expiratory Flow Rate ONCE 03/09/18 05:00 EKG ROUTINE 03/10/18 05:00 EKG ROUTINE Assessment/Plan (1) COPD (chronic obstructive pulmonary disease) Current Visit: No Status: Chronic Qualifiers: COPD type: COPD with acute lower respiratory infection Qualified Code(s): J44.0 - Chronic obstructive pulmonary disease with acute lower respiratory infection Assessment & Plan: on day #2 IV rocephin and zithromax. Albuterol nebs q4h prn. will get sputum culture. (2) C. difficile colitis Current Visit: No Status: Resolved Onset Date: ~02/16/18 Assessment & Plan: still on po vancomycin taper (3) Physical deconditioning Current Visit: No Status: Chronic Onset Date: ~02/16/18 Code(s): R53.81 - OTHER MALAISE (4) Corticobasal degeneration Current Visit: No Status: Chronic Code(s): G31.85 - CORTICOBASAL DEGENERATION (5) Malnutrition Current Visit: No Status: Chronic Qualifiers: Malnutrition type: protein-calorie malnutrition Assessment & Plan: has been having some weight gain. Code(s): E46 - UNSPECIFIED PROTEIN-CALORIE MALNUTRITION (6) Weakness Current Visit: No Status: Chronic Onset Date: ~07/27/17 Code(s): R53.1 - WEAKNESS
[2018-03-08] MEDS ORDERED: PROVENTIL 2.5 MG/3 ML NEB IH PRN (08:27)
[2018-03-08] MEDS: SYNTHROID 50 MCG PO SCH (09:42)
[2018-03-08] MEDS: VITAMIN D PO SCH (09:42)
[2018-03-08] MEDS: ELIQUIS 2.5 MG TABLET PO SCH ×2 (09:42→23:22)
[2018-03-08] MEDS: ROCEPHIN 1 Gm-D5w 50 ml Bag** 1 G/50 ML IVPB IV SCH (09:42)
[2018-03-08] MEDS: Mucinex 600MG ER Tabs PO SCH (09:42)
[2018-03-08] MEDS: Klor Con 10 MEQ PO SCH ×2 (09:42→23:23)
[2018-03-08] MEDS: Multaq 400 MG PO SCH ×2 (09:42→23:24)
[2018-03-08] MEDS: Acidophilus TABLET PO SCH ×2 (09:42→23:22)
[2018-03-08] MEDS ORDERED: Mucinex 600MG ER Tabs PO PRN (10:30)
[2018-03-08] MEDS ORDERED: Nystatin SUSPENSION 60 ML PO PRN (10:31)
[2018-03-08] MEDS: Zithromax 500 MG/ 250 ML NaCl Premix 500 MG/250 ML IVPB IV SCH (10:38)
[2018-03-08] MEDS ORDERED: VANCOMYCIN 25MG/ML ORAL SOLUTION COMPOUND KIT PO SCH (10:45)
[2018-03-08] MEDS ORDERED: Multaq 400 MG PO SCH (11:00)
[2018-03-08] MEDS: VANCOMYCIN HCL CAPSULE PO SCH (11:02)
[2018-03-08] MEDS: CLARITIN 10 MG PO SCH (11:02)
[2018-03-08] MEDS: Megace 40 MG/ML PO SCH (11:03)
[2018-03-08] MEDS: Sodium Chloride 0.9% 1000 ML 1,000 ML IV SCH (17:30)
[2018-03-08] MEDS: Xopenex 1.25 MG/0.5 ML UD NEBULE IH SCH (19:23)
[2018-03-08] MEDS: xanAX 0.25 MG PO SCH (23:24)
[2018-03-09] MEDS: solu-MEDROL 125 MG IV SCH ×3 (06:48→18:12)
[2018-03-09] MEDS: Xopenex 1.25 MG/0.5 ML UD NEBULE IH SCH ×2 (07:00→21:12)
--- NOTE | 2018-03-09 08:50 | PCM.NOTE ---
Date and Time: 03/09/18 0843 Subjective Assessment: She is eating fairly well. Still coughing; she thinks the steroid is helping. Unsure if th ebreathing tx help. She had an order from Dr. Don for a lung scan of some kind but was not able to get it because she's been sick. Her weight is recorded at 43.6 kg this morning. - Review of Systems Constitutional: No Fever Respiratory: Cough Objective Exam General Appearance: no apparent distress, alert, cachetic Neurologic Exam: oriented x 3, cooperative Skin Exam: normal color, warm, dry, No rash Respiratory Exam: diminished breath sounds (good air exchange), No crackles/ rales, No rhonchi, No wheezing (scant scattered) Cardiovascular Exam: regular rate/rhythm, normal heart sounds, No murmur Gastrointestinal/Abdomen Exam: soft, normal bowel sounds Extremity Exam: swelling (trace LE edema) OBJECTIVE DATA Vital Signs: Vital Signs - 24 hr Temp Pulse Resp BP Pulse Ox 03/09/18 08:19 99 F 87 16 108/56 95 03/09/18 06:08 98.3 F 93 H 22 117/61 96 03/09/18 04:00 18 03/09/18 03:28 98.3 F 93 H 22 117/61 96 03/09/18 00:00 97.7 F 89 20 104/56 95 03/08/18 20:00 98.8 F 98 H 23 123/58 97 03/08/18 19:23 98 H 18 98 03/08/18 16:00 98.5 F 97 H 16 113/58 94 L 03/08/18 12:00 98.7 F 94 H 16 101/53 96 Pain Assessment - Last Documented Pain Intensity 5 Pain Scale Used FLACC Intake and Output: Intake & Output 03/06/18 03/07/18 03/08/18 03/09/18 11:59 11:59 11:59 11:59 Intake Total 881 1209 Output Total 400 Balance 481 1209 Weight 42.8 kg 43.6 kg Radiology Exams: Radiology Procedures Category Date Time Status CHEST 1 VIEW (PORTABLE) Stat Exams 03/07/18 14:57 Completed Multi-Disciplinary Progress Notes: Multi-Disciplinary Progress Notes 03/08/18 10:42 Pharmacy Note by Francisco J Manriquez Please be aware of possible drug interaction with Multaq and Zithromax. May prolong QT interval. Initialized on 03/08/18 10:42 - END OF NOTE Assessment/Plan (1) COPD (chronic obstructive pulmonary disease) Current Visit: No Status: Chronic Qualifiers: COPD type: COPD with acute lower respiratory infection Qualified Code(s): J44.0 - Chronic obstructive pulmonary disease with acute lower respiratory infection (2) C. difficile colitis Current Visit: No Status: Resolved Onset Date: ~02/16/18 Assessment & Plan: still tapering off vancomycin po. no stools. on probiotics. (3) Physical deconditioning Current Visit: No Status: Chronic Onset Date: ~02/16/18 Code(s): R53.81 - OTHER MALAISE (4) Corticobasal degeneration Current Visit: No Status: Chronic Code(s): G31.85 - CORTICOBASAL DEGENERATION (5) Malnutrition Current Visit: No Status: Chronic Qualifiers: Malnutrition type: protein-calorie malnutrition Code(s): E46 - UNSPECIFIED PROTEIN-CALORIE MALNUTRITION (6) Weakness Current Visit: No Status: Chronic Onset Date: ~07/27/17 Code(s): R53.1 - WEAKNESS
[2018-03-09] MEDS: Acidophilus TABLET PO SCH ×2 (10:02→21:31)
[2018-03-09] MEDS: SYNTHROID 50 MCG PO SCH (10:02)
[2018-03-09] MEDS: Klor Con 10 MEQ PO SCH ×2 (10:02→21:31)
[2018-03-09] MEDS: ROCEPHIN 1 Gm-D5w 50 ml Bag** 1 G/50 ML IVPB IV SCH (10:02)
[2018-03-09] MEDS: VANCOMYCIN HCL CAPSULE PO SCH (10:02)
[2018-03-09] MEDS: CLARITIN 10 MG PO SCH (10:03)
[2018-03-09] MEDS: ELIQUIS 2.5 MG TABLET PO SCH ×2 (10:03→21:31)
[2018-03-09] MEDS: Megace 40 MG/ML PO SCH (10:06)
[2018-03-09] MEDS: Zithromax 500 MG/ 250 ML NaCl Premix 500 MG/250 ML IVPB IV SCH (10:07)
[2018-03-09] MEDS: Multaq 400 MG PO SCH ×2 (10:07→21:31)
[2018-03-09 10:10] LABS: Hematocrit 35.8 % (35-47); Hemoglobin 11.3 gm/dl (12.0-16.0); Mean Cell Volume 97.8 fl (78-100); Mean Corpuscular Hgb Concent. 31.6 g/dl (32-36); Mean Platelet Volume 10.4 fl (6-9.5); Platelet Count 321 K/mm3 (150-450); Red Blood Count 3.66 M/mm3 (4.1-5.4); Red Cell Distribution Width 14.1 % (11.5-14.0); White Blood Count 15.2 K/mm3 (4.0-10.5)
[2018-03-09 10:17] LABS: Mean Corpuscular Hemoglobin 30.8 pg (26-32)
[2018-03-09 10:32] LABS: ANION GAP 16.8 MEQ/L (5-15); BLOOD UREA NITROGEN 25 mg/dL (7-17); CHLORIDE 108 mmol/L (98-107); Calcium 9.3 mg/dL (8.4-10.2); Carbon Dioxide 20 mmol/L (22-30); Creatinine 1 0.47 mg/dL (0.52-1.04); Glucose 272 mg/dL (74-106); Potassium 3.8 mmol/L (3.5-5.1); SODIUM 141 mmol/L (137-145)
[2018-03-09] MEDS ORDERED: BENADRYL 50 MG/ML IV ONE (11:30)
[2018-03-09] MEDS ORDERED: BENADRYL 50 MG/ML ONE (11:34)
[2018-03-09] MEDS ORDERED: Sodium Chloride 3 ML UD NEBULES IH ONE (20:32)
[2018-03-09] MEDS: NORCO 5/325 MG PO PRN (20:42)
[2018-03-09] MEDS: VITAMIN D PO SCH (21:31)
[2018-03-09] MEDS: xanAX 0.25 MG PO SCH (21:32)
[2018-03-10] MEDS: solu-MEDROL 125 MG IV SCH ×2 (00:03→05:53)
[2018-03-10] MEDS ORDERED: Sodium Chloride 3 ML UD NEBULES IH ONE (05:50)
[2018-03-10] MEDS: Xopenex 1.25 MG/0.5 ML UD NEBULE IH SCH ×2 (07:12→20:19)
[2018-03-10] MEDS: Lactated Ringers 1,000 ML IV SCH (08:01)
--- NOTE | 2018-03-10 09:10 | XRAY ---
Indication: Acute chest pain. Dyspnea. COPD. 1.3 mm thin axial images obtained through the chest with the patient prone and supine using high-resolution protocol. Than conventional CT chest was performed without contrast. Comparison: September 02, 2016. High-resolution images negative for honeycombing, groundglass opacities, bronchiectasis, or interstitial lung disease. New posterior medial left lower lobe atelectasis. New tiny bibasilar effusions. Stable right middle and posterior right upper lobe atelectasis/scarring. Tiny right apical and left lower lobe calcified granulomas. Heart is not enlarged. Aorta remains minimally calcified without aneurysmal dilatation. Stable tiny mediastinal and right hilar calcified nodes. No pathologic mediastinal lymphadenopathy. Bony thorax intact again with minimal degenerative changes throughout the spine. Limited upper abdomen is unremarkable. Impression: 1. New posterior medial left lower lobe atelectasis and tiny bibasilar effusions. 2. Stable right upper/right middle lobe atelectasis/scarring and evidence for old granulomatous disease. 3. Remaining CT chest high resolution exam is negative. CT DI 7.84
[2018-03-10] MEDS: VANCOMYCIN HCL CAPSULE PO SCH (09:11)
[2018-03-10] MEDS: ROCEPHIN 1 Gm-D5w 50 ml Bag** 1 G/50 ML IVPB IV SCH (09:11)
[2018-03-10] MEDS: Klor Con 10 MEQ PO SCH ×2 (09:11→21:17)
[2018-03-10] MEDS: Megace 40 MG/ML PO SCH (09:12)
[2018-03-10] MEDS: Multaq 400 MG PO SCH ×2 (09:12→21:17)
[2018-03-10] MEDS: CLARITIN 10 MG PO SCH (09:12)
[2018-03-10] MEDS: ELIQUIS 2.5 MG TABLET PO SCH ×2 (09:12→21:17)
[2018-03-10] MEDS: SYNTHROID 50 MCG PO SCH (09:12)
[2018-03-10] MEDS: Acidophilus TABLET PO SCH ×2 (09:12→21:17)
--- NOTE | 2018-03-10 09:20 | PCM.NOTE ---
Date and Time: 03/10/18914 Subjective Assessment: She is feeling better. Breathing is better. Eating fairly well. Weight is unchanged this morning. She had an episode of face and chest flushing yesterday about 11 a.m. - Review of Systems Constitutional: No Fever Respiratory: Cough Objective Exam General Appearance: no apparent distress, alert, cachetic Neurologic Exam: oriented x 3, cooperative Skin Exam: normal color, warm, dry, No rash Respiratory Exam: lungs clear, diminished breath sounds (fair to good air exchange), No crackles/rales, No rhonchi, No wheezing Cardiovascular Exam: regular rate/rhythm, normal heart sounds, No murmur Extremity Exam: normal inspection, other (there is a bandage on R lower leg anteriorly), No pedal edema, No swelling OBJECTIVE DATA Vital Signs: Vital Signs - 24 hr Temp Pulse Resp BP Pulse Ox 03/10/18 08:00 18 03/10/18 07:56 98.7 F 89 18 129/66 99 03/10/18 07:13 81 18 99 03/10/18 04:00 97.9 F 90 16 123/57 97 03/10/18 00:15 97.9 F 90 16 104/56 97 03/10/18 00:00 16 03/09/18 22:00 98.9 F 93 H 17 117/59 95 03/09/18 21:13 85 18 97 03/09/18 20:00 18 03/09/18 17:36 99.2 F 92 H 18 111/54 97 03/09/18 13:06 98.7 F 96 H 18 103/53 96 03/09/18 12:00 18 Oxygen-Last 24 hours O2 Percentage 2 Liters = 28% Pain Assessment - Last Documented Pain Intensity 7 Pain Scale Used 0-10 Pain Scale,FLACC Intake and Output: Intake & Output 03/07/18 03/08/18 03/09/18 03/10/18 11:59 11:59 11:59 11:59 Intake Total 881 1689 1020 Output Total 400 300 Balance 481 1689 720 Weight 42.8 kg 43.6 kg 43.6 kg Lab Results: Lab Results-Last 24 Hours 03/09/18 03/09/18 Range/Units 10:00 10:00 WBC 15.2 H (4.0-10.5) K/mm3 RBC 3.66 L (4.1-5.4) M/mm3 Hgb 11.3 L (12.0-16.0) gm/dl Hct 35.8 (35-47) % MCV 97.8 (78-100) fl MCH 30.8 (26-32) pg MCHC 31.6 L (32-36) g/dl RDW 14.1 H (11.5-14.0) % Plt Count 321 (150-450) K/mm3 MPV 10.4 H (6-9.5) fl Sodium 141 (137-145) mmol/L Potassium 3.8 (3.5-5.1) mmol/L Chloride 108 H (98-107) mmol/L Carbon Dioxide 20 L (22-30) mmol/L Anion Gap 16.8 H (5-15) MEQ/L BUN 25 H (7-17) mg/dL Creatinine 0.47 L (0.52-1.04) mg/dL Estimated GFR > 60.0 ML/MIN Glucose 272 H (74-106) mg/dL Calcium 9.3 (8.4-10.2) mg/dL Radiology Exams: Radiology Procedures Category Date Time Status CHEST WITHOUT CONTRAST [CT] Routine Exams 03/09/18 17:00 Completed Multi-Disciplinary Progress Notes: Multi-Disciplinary Progress Notes 03/09/18 16:49 Case Management Note by Kathleen Rocha S/W PT AND ABOUT POSSIBLE C REFERRAL AT D/C. THEY REPORTED THAT THEY ARE STILL THINKING ABOUT IT. GIVEN THE LIST OF PROVIDERS IN THE AREA THAT ARE AVAILABLE TO CHOOSE FROM. WILL CONT. TO FOLLOW DURING THIS HOSPITAL STAY. Initialized on 03/09/18 16:49 - END OF NOTE Assessment/Plan (1) COPD (chronic obstructive pulmonary disease) Current Visit: No Status: Chronic Qualifiers: COPD type: COPD with acute lower respiratory infection Qualified Code(s): J44.0 - Chronic obstructive pulmonary disease with acute lower respiratory infection Assessment & Plan: Will remain on rocephin; stopped zithromax yesterday after 3d of tx. (2) C. difficile colitis Current Visit: No Status: Resolved Onset Date: ~02/16/18 Assessment & Plan: still on vancomycin taper (3) Physical deconditioning Current Visit: No Status: Chronic Onset Date: ~02/16/18 Assessment & Plan: consult PT today. When she is discharged to home, I would like for her to continue to have PT but she does get very tired while doing it - would recommend a shorter course of PT (20-30 min) twice weekly instead of the hour + that is happening currently. Code(s): R53.81 - OTHER MALAISE (4) Corticobasal degeneration Current Visit: No Status: Chronic Code(s): G31.85 - CORTICOBASAL DEGENERATION (5) Malnutrition Current Visit: No Status: Chronic Qualifiers: Malnutrition type: protein-calorie malnutrition Code(s): E46 - UNSPECIFIED PROTEIN-CALORIE MALNUTRITION (6) Weakness Current Visit: No Status: Chronic Onset Date: ~07/27/17 Code(s): R53.1 - WEAKNESS (7) Flushing Current Visit: Yes Status: Acute Assessment & Plan: Initially thought it may be a med reaction but apparently this happens frequently at home. Code(s): R23.2 - FLUSHING
[2018-03-10] MEDS: solu-MEDROL 40 MG IV SCH ×2 (14:41→21:17)
[2018-03-10] MEDS: Xopenex 1.25 MG/0.5 ML UD NEBULE IH PRN (16:25)
[2018-03-10] MEDS: NORCO 5/325 MG PO PRN (18:14)
[2018-03-10] MEDS: VITAMIN D PO SCH (21:17)
[2018-03-10] MEDS: xanAX 0.25 MG PO SCH (21:18)
[2018-03-11] MEDS: solu-MEDROL 40 MG IV SCH ×3 (05:08→16:59)
[2018-03-11] MEDS: Xopenex 1.25 MG/0.5 ML UD NEBULE IH SCH ×2 (05:26→17:19)
[2018-03-11] MEDS: Sodium Chloride 3 ML UD NEBULES IH SCH ×2 (05:27→17:19)
[2018-03-11 05:56] LABS: Hematocrit 35.1 % (35-47); Mean Cell Volume 97.2 fl (78-100); Mean Corpuscular Hgb Concent. 31.3 g/dl (32-36); Mean Platelet Volume 10.7 fl (6-9.5); Platelet Count 293 K/mm3 (150-450); Red Blood Count 3.61 M/mm3 (4.1-5.4); Red Cell Distribution Width 14.1 % (11.5-14.0); White Blood Count 7.2 K/mm3 (4.0-10.5)
[2018-03-11 06:11] LABS: Mean Corpuscular Hemoglobin 30.4 pg (26-32)
[2018-03-11 06:18] LABS: BLOOD UREA NITROGEN 25 mg/dL (7-17); CHLORIDE 105 mmol/L (98-107); Carbon Dioxide 27 mmol/L (22-30); Glucose 118 mg/dL (74-106); SODIUM 140 mmol/L (137-145)
--- NOTE | 2018-03-11 08:58 | PCM.NOTE ---
Date and Time: 03/11/18 0856 Subjective Assessment: Her breathing was worse yesterday; she asked for more breathing tx. Still eating well. Weight up to 97.9 lb! - Review of Systems Constitutional: No Fever Respiratory: Cough Objective Exam General Appearance: no apparent distress, alert, cachetic Neurologic Exam: oriented x 3, cooperative Skin Exam: normal color, warm, dry, No rash Ears, Nose, Throat Exam: moist mucous membranes Respiratory Exam: diminished breath sounds, No crackles/rales, No rhonchi, No wheezing Cardiovascular Exam: regular rate/rhythm, normal heart sounds, No murmur Extremity Exam: normal inspection, swelling (trace pretibial edema bilat) OBJECTIVE DATA Vital Signs: Vital Signs - 24 hr Temp Pulse Resp BP Pulse Ox 03/11/18 08:00 18 03/11/18 07:16 97.7 F 92 H 18 113/53 97 03/11/18 05:26 82 15 96 03/11/18 04:00 98.6 F 87 16 124/60 99 03/11/18 00:00 98.3 F 89 15 107/58 97 03/10/18 23:16 91 H 14 94 L 03/10/18 20:19 89 19 95 03/10/18 20:00 98.7 F 95 H 19 111/56 97 03/10/18 16:25 91 H 20 97 03/10/18 16:00 98.7 F 91 H 18 108/56 97 03/10/18 12:00 18 03/10/18 11:34 99.1 F 96 H 18 120/58 97 Oxygen-Last 24 hours O2 Percentage 2 Liters = 28% O2 Percentage 2 Liters = 28% O2 Percentage 2 Liters = 28% Pain Assessment - Last Documented Pain Intensity 8 Pain Scale Used [facility] Intake and Output: Intake & Output 03/08/18 03/09/18 03/10/18 03/11/18 11:59 11:59 11:59 11:59 Intake Total 881 1689 1020 1040 Output Total 400 300 Balance 481 5883 963 6400 Weight 42.8 kg 43.6 kg 43.6 kg 44.5 kg Lab Results: Lab Results-Last 24 Hours 03/11/18 03/11/18 Range/Units 05:15 05:15 WBC 7.2 (4.0-10.5) K/mm3 RBC 3.61 L (4.1-5.4) M/mm3 Hgb 11.0 L (12.0-16.0) gm/dl Hct 35.1 (35-47) % MCV 97.2 (78-100) fl MCH 30.4 (26-32) pg MCHC 31.3 L (32-36) g/dl RDW 14.1 H (11.5-14.0) % Plt Count 293 (150-450) K/mm3 MPV 10.7 H (6-9.5) fl Sodium 140 (137-145) mmol/L Potassium 4.0 (3.5-5.1) mmol/L Chloride 105 (98-107) mmol/L Carbon Dioxide 27 (22-30) mmol/L Anion Gap 12.0 (5-15) MEQ/L BUN 25 H (7-17) mg/dL Creatinine 0.50 L (0.52-1.04) mg/dL Estimated GFR > 60.0 ML/MIN Glucose 118 H (74-106) mg/dL Calcium 9.0 (8.4-10.2) mg/dL Radiology Exams: Radiology Procedures Category Date Time Status CHEST WITHOUT CONTRAST [CT] Routine Exams 03/09/18 17:00 Completed Multi-Disciplinary Progress Notes: Multi-Disciplinary Progress Notes 03/10/18 15:01 Physical Therapy Note by Lynda Bae PATIENT REFUSED TX A.M. AND P.M. TODAY STATING IT JUST WAS NOT A GOOD DAY. WILL TRY AGAIN TOMORROW. Initialized on 03/10/18 15:01 - END OF NOTE Assessment/Plan (1) COPD (chronic obstructive pulmonary disease) Current Visit: No Status: Chronic Qualifiers: COPD type: COPD with acute lower respiratory infection Qualified Code(s): J44.0 - Chronic obstructive pulmonary disease with acute lower respiratory infection Assessment & Plan: Will increase steroid today, to 60mg IV q6h. Consider adding theophylline. (2) C. difficile colitis Current Visit: No Status: Resolved Onset Date: ~02/16/18 (3) Physical deconditioning Current Visit: No Status: Chronic Onset Date: ~02/16/18 Code(s): R53.81 - OTHER MALAISE (4) Corticobasal degeneration Current Visit: No Status: Chronic Code(s): G31.85 - CORTICOBASAL DEGENERATION (5) Malnutrition Current Visit: No Status: Chronic Qualifiers: Malnutrition type: protein-calorie malnutrition Assessment & Plan: continues weight gain! Code(s): E46 - UNSPECIFIED PROTEIN-CALORIE MALNUTRITION (6) Weakness Current Visit: No Status: Chronic Onset Date: ~07/27/17 Assessment & Plan: decreasing intensity of PT. Code(s): R53.1 - WEAKNESS (7) Flushing Current Visit: Yes Status: Acute Code(s): R23.2 - FLUSHING
[2018-03-11 09:39] LABS: Lymphocytes 12 % (24-44); Monocyte 5 % (0.0-12.0); Neutrophils 83 % (36.0-66.0); Platelet Estimate NORMAL (NORMAL); Total Cells Counted 100
[2018-03-11] MEDS: ROCEPHIN 1 Gm-D5w 50 ml Bag** 1 G/50 ML IVPB IV SCH (09:45)
[2018-03-11] MEDS: Klor Con 10 MEQ PO SCH ×2 (09:46→22:29)
[2018-03-11] MEDS: ELIQUIS 2.5 MG TABLET PO SCH ×2 (09:46→22:29)
[2018-03-11] MEDS: Acidophilus TABLET PO SCH ×2 (09:46→22:29)
[2018-03-11] MEDS: CLARITIN 10 MG PO SCH (09:46)
[2018-03-11] MEDS: SYNTHROID 50 MCG PO SCH (09:46)
[2018-03-11] MEDS: Multaq 400 MG PO SCH ×2 (09:46→22:29)
[2018-03-11] MEDS: VANCOMYCIN HCL CAPSULE PO SCH (09:46)
[2018-03-11] MEDS: Megace 40 MG/ML PO SCH (09:46)
[2018-03-11] MEDS: Lactated Ringers 1,000 ML IV SCH ×3 (09:47→09:48)
[2018-03-11] MEDS ORDERED: Sodium Chloride 0.9% 10 ML FLUSH Syringe IV PRN (10:00)
[2018-03-11] MEDS ORDERED: Sodium Chloride 3 ML UD NEBULES IH ONE (13:47)
[2018-03-11] MEDS: Xopenex 1.25 MG/0.5 ML UD NEBULE IH PRN (13:47)
[2018-03-11] MEDS: Sodium Chloride 0.9% 10 ML FLUSH Syringe IV SCH ×2 (16:21→22:30)
[2018-03-11] MEDS: NORCO 5/325 MG PO PRN (18:11)
[2018-03-11] MEDS: xanAX 0.25 MG PO SCH (22:29)
[2018-03-11] MEDS: VITAMIN D PO SCH (22:29)
[2018-03-12] MEDS: solu-MEDROL 40 MG IV SCH ×5 (00:02→23:20)
[2018-03-12] MEDS: Sodium Chloride 0.9% 10 ML FLUSH Syringe IV SCH ×3 (05:58→21:49)
[2018-03-12] MEDS: Lactated Ringers 1,000 ML IV SCH ×2 (06:30)
[2018-03-12] MEDS: Xopenex 1.25 MG/0.5 ML UD NEBULE IH SCH ×2 (06:38→20:06)
[2018-03-12] MEDS: Sodium Chloride 3 ML UD NEBULES IH SCH ×2 (06:39→20:07)
--- NOTE | 2018-03-12 08:53 | PCM.NOTE ---
Date and Time: 03/12/18 0848 Subjective Assessment: She is feeling better, stronger, today. continues to eat well. Over 100 lb this morning! Worked with PT yesterday, lightly. Breathing was better yesterday on the higher dose of steroids, but she did have to have an extra breathing tx. - Review of Systems Constitutional: No Fever Respiratory: Cough, Short Of Breath Objective Exam General Appearance: no apparent distress, alert, thin Neurologic Exam: oriented x 3, cooperative Skin Exam: normal color, warm, dry, No rash Respiratory Exam: diminished breath sounds, crackles/rales (R base) Cardiovascular Exam: regular rate/rhythm, normal heart sounds, No murmur Extremity Exam: swelling (1+ pretibial edema bilat) OBJECTIVE DATA Vital Signs: Vital Signs - 24 hr Temp Pulse Resp BP Pulse Ox 03/12/18 08:00 98.8 F 82 18 125/87 94 L 03/12/18 06:39 82 18 94 L 03/12/18 04:00 98.6 F 94 H 18 148/73 97 03/12/18 00:00 16 03/11/18 23:55 98.5 F 90 16 124/65 97 03/11/18 20:00 98.3 F 99 H 16 122/58 96 03/11/18 17:22 94 H 16 93 L 03/11/18 16:32 98.2 F 94 H 18 120/58 95 03/11/18 16:00 16 03/11/18 13:51 68 20 98 03/11/18 12:21 97.8 F 95 H 18 141/67 95 03/11/18 11:55 18 Oxygen-Last 24 hours O2 Percentage 2 Liters = 28% O2 Percentage 2 Liters = 28% O2 Percentage 2 Liters = 28% Pain Assessment - Last Documented Pain Intensity 0 Pain Scale Used 0-10 Pain Scale Intake and Output: Intake & Output 03/09/18 03/10/18 03/11/18 03/12/18 11:59 11:59 11:59 11:59 Intake Total 1689 1020 1040 1720 Output Total 300 Balance 4261 946 7895 1720 Weight 43.6 kg 43.6 kg 44.5 kg 45.8 kg Lab Results: Lab Results-Last 24 Hours 03/11/18 Range/Units 05:15 Segmented Neutrophils 83 H (36.0-66.0) % Lymphocytes (Manual) 12 L (24-44) % Monocytes (Manual) 5 (0.0-12.0) % Platelet Estimate NORMAL (NORMAL) RBC Morphology NORMAL Multi-Disciplinary Progress Notes: Multi-Disciplinary Progress Notes 03/11/18 15:44 Case Management Note by Kathleen Rocha S/W DR. VELA RE: PT'S NEED FOR REHAB FOR STRENGTHENING/ENDURANCE. SHE IS AGREEABLE TO SWING BED STAY OR HHC WHEN PT IS MEDICALLY STABLE. WILL CONT. TO FOLLOW. Initialized on 03/11/18 15:44 - END OF NOTE Assessment/Plan (1) COPD (chronic obstructive pulmonary disease) Current Visit: No Status: Chronic Qualifiers: COPD type: COPD with acute lower respiratory infection Qualified Code(s): J44.0 - Chronic obstructive pulmonary disease with acute lower respiratory infection Assessment & Plan: The increase in steroids from 40mg IV q8h to 60mg IV q6h did help, however will go ahead and add theophylline po. Discussed with pt. Would watch for hypotension. (2) C. difficile colitis Current Visit: No Status: Resolved Onset Date: ~02/16/18 Assessment & Plan: She is on po vancomycin taper, treating her first relapse of c. diff ( asymptomatic now). (3) Physical deconditioning Current Visit: No Status: Chronic Onset Date: ~02/16/18 Code(s): R53.81 - OTHER MALAISE (4) Corticobasal degeneration Current Visit: No Status: Chronic Code(s): G31.85 - CORTICOBASAL DEGENERATION (5) Malnutrition Current Visit: No Status: Chronic Qualifiers: Malnutrition type: protein-calorie malnutrition Code(s): E46 - UNSPECIFIED PROTEIN-CALORIE MALNUTRITION (6) Weakness Current Visit: No Status: Chronic Onset Date: ~07/27/17 Code(s): R53.1 - WEAKNESS (7) Flushing Current Visit: Yes Status: Chronic Code(s): R23.2 - FLUSHING
[2018-03-12] MEDS: ROCEPHIN 1 Gm-D5w 50 ml Bag** 1 G/50 ML IVPB IV SCH (09:10)
[2018-03-12] MEDS: CLARITIN 10 MG PO SCH (09:10)
[2018-03-12] MEDS: ELIQUIS 2.5 MG TABLET PO SCH ×2 (09:10→21:48)
[2018-03-12] MEDS: Klor Con 10 MEQ PO SCH ×2 (09:11→21:48)
[2018-03-12] MEDS: VANCOMYCIN HCL CAPSULE PO SCH (09:11)
[2018-03-12] MEDS: SYNTHROID 50 MCG PO SCH (09:11)
[2018-03-12] MEDS: Acidophilus TABLET PO SCH ×2 (09:11→21:49)
[2018-03-12] MEDS: Multaq 400 MG PO SCH ×2 (09:12→21:48)
[2018-03-12] MEDS: Megace 40 MG/ML PO SCH (09:12)
[2018-03-12] MEDS: THEOPHYLLINE ER 24HR PO SCH (16:30)
[2018-03-12] MEDS: CLOTRIMAZOLE MM SCH ×3 (16:47→23:19)
[2018-03-12] MEDS: NORCO 5/325 MG PO PRN (18:41)
[2018-03-12] MEDS: xanAX 0.25 MG PO SCH (21:48)
[2018-03-12] MEDS: VITAMIN D PO SCH (21:48)
[2018-03-13] MEDS: solu-MEDROL 40 MG IV SCH ×2 (05:48→12:08)
[2018-03-13] MEDS: Sodium Chloride 0.9% 10 ML FLUSH Syringe IV SCH ×3 (05:58→22:18)
[2018-03-13] MEDS: CLOTRIMAZOLE MM SCH ×5 (06:22→23:32)
[2018-03-13] MEDS: Xopenex 1.25 MG/0.5 ML UD NEBULE IH SCH ×2 (07:28→21:47)
[2018-03-13] MEDS: Sodium Chloride 3 ML UD NEBULES IH SCH ×2 (07:29→21:50)
[2018-03-13] MEDS: Multaq 400 MG PO SCH ×2 (10:48→22:18)
[2018-03-13] MEDS: CLARITIN 10 MG PO SCH (10:48)
[2018-03-13] MEDS: ROCEPHIN 1 Gm-D5w 50 ml Bag** 1 G/50 ML IVPB IV SCH (10:48)
[2018-03-13] MEDS: ELIQUIS 2.5 MG TABLET PO SCH ×2 (10:48→22:17)
[2018-03-13] MEDS: Acidophilus TABLET PO SCH ×2 (10:48→22:17)
[2018-03-13] MEDS: Klor Con 10 MEQ PO SCH ×2 (10:48→22:18)
[2018-03-13] MEDS: SYNTHROID 50 MCG PO SCH (10:48)
[2018-03-13] MEDS: THEOPHYLLINE ER 24HR PO SCH (10:49)
[2018-03-13] MEDS: Megace 40 MG/ML PO SCH (10:49)
--- NOTE | 2018-03-13 11:07 | PCM.NOTE ---
Date and Time: 03/13/18 1102 Subjective Assessment: Patient reports 6 loose stools this AM. She has been on an oral vancomycin taper for a positive C.diff on 02/16/18 which was a 2nd reoccurance for her. She reports that her breathing is better. She denies nausea. She states her fever seems to come and go and she feels flushed at times. She only wears oxygen at home at night usually. She reports she does take Eliquis for A. fib. She has a skin tear to her right lower leg. - Review of Systems Constitutional: Weakness Eyes: No Symptoms Ears, Nose, & Throat: No Symptoms Respiratory: No Symptoms Cardiac: No Symptoms Abdominal/Gastrointestinal: Diarrhea, No Nausea, No Constipation Genitourinary Symptoms: No Symptoms Musculoskeletal: Other (skin tear right lower leg that is bandaged) Objective Exam General Appearance: no apparent distress, alert, other (able to sit up in bed) Neurologic Exam: alert, cooperative, normal mood/affect Skin Exam: normal color, warm, dry, other (bandage over right lower leg) Respiratory Exam: normal breath sounds, lungs clear, No crackles/rales, No rhonchi, No wheezing Cardiovascular Exam: regular rate/rhythm, normal heart sounds, No murmur, No friction rub, No gallop Gastrointestinal/Abdomen Exam: soft, normal bowel sounds, No tenderness, No distention, No mass, No guarding Extremity Exam: other (no c/c/e) OBJECTIVE DATA Vital Signs: Vital Signs - 24 hr Temp Pulse Resp BP Pulse Ox 03/13/18 07:32 66 16 94 L 03/13/18 07:21 97.8 F 70 18 118/66 97 03/13/18 04:00 98.3 F 76 16 134/63 93 L 03/13/18 00:00 17 03/12/18 23:21 98.4 F 87 17 114/59 88 L 03/12/18 20:07 90 18 90 L 03/12/18 20:00 98.8 F 93 H 18 123/62 96 03/12/18 16:00 99.1 F 99 H 18 123/61 99 03/12/18 12:00 98.4 F 94 H 18 126/61 94 L Oxygen-Last 24 hours O2 Percentage 2 Liters = 28% O2 Percentage 2 Liters = 28% O2 Percentage 2 Liters = 28% O2 Percentage 2 Liters = 28% Pain Assessment - Last Documented Pain Intensity 1 Pain Scale Used 0-10 Pain Scale Intake and Output: Intake & Output 03/11/18 03/12/18 03/13/18 03/14/18 06:59 06:59 06:59 06:59 Intake Total 1160 1840 1600 120 Output Total 700 300 Balance 1160 1840 900 -180 Weight 43.6 kg 45.8 kg 45.2 kg Multi-Disciplinary Progress Notes: Multi-Disciplinary Progress Notes 03/12/18 15:00 (created 03/12/18 18:50) Case Management Note by Kathleen Rocha S/W PT AND RE: HHC AT D/C VS. SWING BED. THEY STATED THAT THEY WILL PROBABLY USE HHC AND ARE STILL TRYING TO MAKE A DECISION. WILL CONT. TO FOLLOW. Initialized on 03/12/18 18:50 - END OF NOTE Assessment/Plan (1) COPD with acute exacerbation Current Visit: Yes Status: Acute Onset Date: ~03/07/18 Assessment & Plan: Continue IV steroids and theophylline orally that was started yesterday. Stop ceftriaxone (she received 6 days of this). Continue oxygen as needed and breathing treatments as needed. Code(s): J44.1 - CHRONIC OBSTRUCTIVE PULMONARY DISEASE W (ACUTE) EXACERBATION (2) History of Clostridium difficile colitis Current Visit: Yes Status: Acute Assessment & Plan: She is on oral vancomycin taper right now. If C.diff comes back positive with increased number of stools, will increase her oral dose of vancomycin back to 4 x a day. If c.diff is neg, consider checking stool pcr for other causes of diarrhea. Stopping all other antibiotics today. Code(s): Z86.19 - PERSONAL HISTORY OF OTHER INFECTIOUS AND PARASITIC DISEASES (3) UTI (urinary tract infection) Current Visit: Yes Status: Acute Onset Date: ~03/07/18 Assessment & Plan: The culture grew two organisms that were susceptible to ceftriaxone and she has been on ceftriaxone for 6 days so should be adequately treated. Code(s): N39.0 - URINARY TRACT INFECTION, SITE NOT SPECIFIED (4) Atrial fibrillation Current Visit: No Status: Chronic Qualifiers: Atrial fibrillation type: chronic Qualified Code(s): I48.2 - Chronic atrial fibrillation Assessment & Plan: Continue anticoagulation with Eliquis. Code(s): I48.91 - UNSPECIFIED ATRIAL FIBRILLATION (5) Physical deconditioning Current Visit: No Status: Chronic Onset Date: ~02/16/18 Code(s): R53.81 - OTHER MALAISE (6) Diarrhea Current Visit: Yes Status: Acute Assessment & Plan: Check C. diff toxin. Code(s): R19.7 - DIARRHEA, UNSPECIFIED
[2018-03-13 11:58] LABS: Hemoglobin 11.5 gm/dl (12.0-16.0); Mean Cell Volume 95.7 fl (78-100); Mean Corpuscular Hemoglobin 30.5 pg (26-32); Mean Corpuscular Hgb Concent. 31.9 g/dl (32-36); Mean Platelet Volume 10.4 fl (6-9.5); Platelet Count 291 K/mm3 (150-450); Red Blood Count 3.76 M/mm3 (4.1-5.4); Red Cell Distribution Width 13.7 % (11.5-14.0); White Blood Count 11.4 K/mm3 (4.0-10.5)
[2018-03-13 12:21] LABS: Lymphocytes 8 % (24-44); Monocyte 1 % (0.0-12.0); Neutrophils 91 % (36.0-66.0); Total Cells Counted 100
[2018-03-13 12:22] LABS: Platelet Estimate NORMAL (NORMAL)
[2018-03-13 12:27] LABS: ANION GAP 14.5 MEQ/L (5-15); BLOOD UREA NITROGEN 27 mg/dL (7-17); CHLORIDE 101 mmol/L (98-107); Calcium 8.8 mg/dL (8.4-10.2); Carbon Dioxide 27 mmol/L (22-30); Glucose 118 mg/dL (74-106); Potassium 3.3 mmol/L (3.5-5.1); SODIUM 139 mmol/L (137-145)
[2018-03-13] MEDS ORDERED: Klor Con 10 MEQ PO ONE (14:06)
[2018-03-13] MEDS: Xopenex 1.25 MG/0.5 ML UD NEBULE IH PRN (15:03)
[2018-03-13 15:40] LABS: 027 TOX PROD PRESUMPTIVE NEGATIVE (NEGATIVE); TOXIGENIC C. DIFF ORG NEGATIVE (NEGATIVE)
[2018-03-13] MEDS: IMODIUM 2 MG PO PRN ×2 (17:07→22:18)
[2018-03-13] MEDS: solu-MEDROL 125 MG IV SCH ×2 (17:47→23:32)
[2018-03-13] MEDS: NORCO 5/325 MG PO PRN (20:03)
[2018-03-13] MEDS: VITAMIN D PO SCH (22:18)
[2018-03-13] MEDS: xanAX 0.25 MG PO SCH (22:18)
[2018-03-14 01:53] LABS: Adenovirus F 40/41 NEGATIVE (NEGATIVE); Astrovirus NEGATIVE (NEGATIVE); C. difficile toxin A/B NEGATIVE (NEGATIVE); Campylobacter NEGATIVE (NEGATIVE); Cyclospora cayentanensis NEGATIVE (NEGATIVE); Entamoeaba histolytica NEGATIVE (NEGATIVE); Enteroaggregative E.coli NEGATIVE (NEGATIVE); Giardia lamblia NEGATIVE (NEGATIVE); Rotavirus A NEGATIVE (NEGATIVE); Salmonella NEGATIVE (NEGATIVE); Sapovirus NEGATIVE (NEGATIVE); Shiga-like toxin prod.E.coli NEGATIVE (NEGATIVE); Vibrio NEGATIVE (NEGATIVE)
[2018-03-14] MEDS ORDERED: IMODIUM 2 MG ONE (05:48)
[2018-03-14] MEDS: IMODIUM 2 MG PO PRN ×3 (05:51→16:21)
[2018-03-14] MEDS: solu-MEDROL 125 MG IV SCH ×4 (05:51→23:28)
[2018-03-14] MEDS: Sodium Chloride 0.9% 10 ML FLUSH Syringe IV SCH ×3 (05:51→21:17)
[2018-03-14] MEDS: CLOTRIMAZOLE MM SCH ×5 (06:00→23:31)
[2018-03-14] MEDS: Xopenex 1.25 MG/0.5 ML UD NEBULE IH SCH ×2 (07:24→19:35)
[2018-03-14] MEDS: Lactated Ringers 1,000 ML IV SCH (07:58)
[2018-03-14] MEDS ORDERED: Klor Con 10 MEQ PO ONE (09:31)
[2018-03-14] MEDS: VANCOMYCIN HCL CAPSULE PO SCH (09:36)
[2018-03-14] MEDS: Megace 40 MG/ML PO SCH (09:36)
[2018-03-14] MEDS: CLARITIN 10 MG PO SCH (09:36)
[2018-03-14] MEDS: ELIQUIS 2.5 MG TABLET PO SCH ×2 (09:36→21:15)
[2018-03-14] MEDS: Klor Con 10 MEQ PO SCH ×2 (09:36→21:15)
[2018-03-14] MEDS: Acidophilus TABLET PO SCH ×2 (09:36→21:14)
[2018-03-14] MEDS: SYNTHROID 50 MCG PO SCH (09:36)
[2018-03-14] MEDS: THEOPHYLLINE ER 24HR PO SCH (09:37)
[2018-03-14] MEDS: Multaq 400 MG PO SCH ×2 (09:37→21:16)
--- NOTE | 2018-03-14 11:20 | PCM.NOTE ---
Date and Time: 03/14/18 1114 Subjective Assessment: Patient reports that her diarrhea continues. She reports she did walk in the [place] yesterday. She denies any pain. No other concerns at this time. - Review of Systems Constitutional: Weakness Eyes: No Symptoms Ears, Nose, & Throat: No Symptoms Respiratory: No Symptoms Cardiac: No Symptoms Abdominal/Gastrointestinal: Diarrhea, No Nausea, No Vomiting, No Constipation Genitourinary Symptoms: No Symptoms Musculoskeletal: No Symptoms Skin: Other (bruises from where IV's were and/or blood draws) Objective Exam General Appearance: no apparent distress, alert Neurologic Exam: alert, cooperative, normal mood/affect Skin Exam: normal color, warm, dry, other (multiple bruises on her lower arms bilat) Respiratory Exam: wheezing, other (scattered expiratory wheezes throughout), No crackles/rales, No rhonchi Cardiovascular Exam: regular rate/rhythm, normal heart sounds, No murmur, No friction rub, No gallop Gastrointestinal/Abdomen Exam: soft, normal bowel sounds, No tenderness, No distention, No mass Extremity Exam: other (no c/c/e) OBJECTIVE DATA Vital Signs: Vital Signs - 24 hr Temp Pulse Resp BP Pulse Ox 03/14/18 08:00 99.0 F 89 17 135/65 93 L 03/14/18 07:30 94 L 03/14/18 07:27 74 18 94 L 03/14/18 03:51 98.7 F 92 H 16 149/73 94 L 03/14/18 00:22 97.8 F 90 15 127/63 96 03/13/18 21:58 93 H 18 93 L 03/13/18 20:00 98.7 F 93 H 18 122/58 95 03/13/18 16:06 99 F 97 H 20 113/62 94 L 03/13/18 16:00 20 03/13/18 15:06 86 18 93 L 03/13/18 12:00 20 03/13/18 11:19 98.7 F 90 18 113/62 94 L Oxygen-Last 24 hours O2 Percentage 2 Liters = 28% O2 Percentage 2 Liters = 28% O2 Percentage 2 Liters = 28% Pain Assessment - Last Documented Pain Intensity 0 Pain Scale Used 0-10 Pain Scale Intake and Output: Intake & Output 03/12/18 03/13/18 03/14/18 03/15/18 06:59 06:59 06:59 06:59 Intake Total 1840 1600 320 Output Total 700 850 Balance 1840 900 -530 Weight 45.8 kg 45.2 kg 48 kg Lab Results: Lab Results-Last 24 Hours 03/13/18 03/13/18 03/13/18 Range/Units 11:45 11:45 12:40 WBC 11.4 H (4.0-10.5) K/mm3 RBC 3.76 L (4.1-5.4) M/mm3 Hgb 11.5 L (12.0-16.0) gm/dl Hct 36.0 (35-47) % MCV 95.7 (78-100) fl MCH 30.5 (26-32) pg MCHC 31.9 L (32-36) g/dl RDW 13.7 (11.5-14.0) % Plt Count 291 (150-450) K/mm3 MPV 10.4 H (6-9.5) fl Segmented Neutrophils 91 H (36.0-66.0) % Lymphocytes (Manual) 8 L (24-44) % Monocytes (Manual) 1 (0.0-12.0) % Platelet Estimate NORMAL (NORMAL) RBC Morphology NORMAL Sodium 139 (137-145) mmol/L Potassium 3.3 L (3.5-5.1) mmol/L Chloride 101 (98-107) mmol/L Carbon Dioxide 27 (22-30) mmol/L Anion Gap 14.5 (5-15) MEQ/L BUN 27 H (7-17) mg/dL Creatinine 0.50 L (0.52-1.04) mg/dL Estimated GFR > 60.0 ML/MIN Glucose 118 H (74-106) mg/dL Calcium 8.8 (8.4-10.2) mg/dL Stl C. cayetanensis PCR (NEGATIVE) Stl Adenov F 40/41 PCR (NEGATIVE) Stool Astrovirus (PCR) (NEGATIVE) Stl C. diff Tox B Gene NEGATIVE (NEGATIVE) Stool Cryptosporidium PCR (NEGATIVE) Stool EPEC (PCR) (NEGATIVE) Stool EAEC (PCR) (NEGATIVE) Stl E. histolytica PCR (NEGATIVE) Stl P. shigelloides PCR (NEGATIVE) Stool Sapovirus (PCR) (NEGATIVE) St Y.enterocolitica PCR (NEGATIVE) Stool Vibrio (PCR) (NEGATIVE) Stl Vibrio cholerae PCR (NEGATIVE) Stl Norovirus GI/GII PCR (NEGATIVE) Campylobacter (PCR) (NEGATIVE) C.difficile 027-NAP1-B1 PRESUMPTIVE NEGATIVE (NEGATIVE) C. difficile Toxin A&B (NEGATIVE) Enterotoxigenic E. coli (NEGATIVE) E.coli Shiga Toxins (NEGATIVE) Giardia lamblia (NEGATIVE) Rotavirus A (PCR) (NEGATIVE) Salmonella (PCR) (NEGATIVE) Shigella (PCR) (NEGATIVE) 03/14/18 Range/Units 00:30 WBC (4.0-10.5) K/mm3 RBC (4.1-5.4) M/mm3 Hgb (12.0-16.0) gm/dl Hct (35-47) % MCV (78-100) fl MCH (26-32) pg MCHC (32-36) g/dl RDW (11.5-14.0) % Plt Count (150-450) K/mm3 MPV (6-9.5) fl Segmented Neutrophils (36.0-66.0) % Lymphocytes (Manual) (24-44) % Monocytes (Manual) (0.0-12.0) % Platelet Estimate (NORMAL) RBC Morphology Sodium (137-145) mmol/L Potassium (3.5-5.1) mmol/L Chloride (98-107) mmol/L Carbon Dioxide (22-30) mmol/L Anion Gap (5-15) MEQ/L BUN (7-17) mg/dL Creatinine (0.52-1.04) mg/dL Estimated GFR ML/MIN Glucose (74-106) mg/dL Calcium (8.4-10.2) mg/dL Stl C. cayetanensis PCR NEGATIVE (NEGATIVE) Stl Adenov F 40/41 PCR NEGATIVE (NEGATIVE) Stool Astrovirus (PCR) NEGATIVE (NEGATIVE) Stl C. diff Tox B Gene (NEGATIVE) Stool Cryptosporidium PCR NEGATIVE (NEGATIVE) Stool EPEC (PCR) NEGATIVE (NEGATIVE) Stool EAEC (PCR) NEGATIVE (NEGATIVE) Stl E. histolytica PCR NEGATIVE (NEGATIVE) Stl P. shigelloides PCR NEGATIVE (NEGATIVE) Stool Sapovirus (PCR) NEGATIVE (NEGATIVE) St Y.enterocolitica PCR NEGATIVE (NEGATIVE) Stool Vibrio (PCR) NEGATIVE (NEGATIVE) Stl Vibrio cholerae PCR NEGATIVE (NEGATIVE) Stl Norovirus GI/GII PCR NEGATIVE (NEGATIVE) Campylobacter (PCR) NEGATIVE (NEGATIVE) C.difficile 027-NAP1-B1 (NEGATIVE) C. difficile Toxin A&B NEGATIVE (NEGATIVE) Enterotoxigenic E. coli NEGATIVE (NEGATIVE) E.coli Shiga Toxins NEGATIVE (NEGATIVE) Giardia lamblia NEGATIVE (NEGATIVE) Rotavirus A (PCR) NEGATIVE (NEGATIVE) Salmonella (PCR) NEGATIVE (NEGATIVE) Shigella (PCR) NEGATIVE (NEGATIVE) Assessment/Plan (1) COPD with acute exacerbation Current Visit: Yes Status: Acute Onset Date: ~03/07/18 Assessment & Plan: Continue IV steroids and oral theophylline. She is off antibiotics due to severe diarrhea and already treated adequately with antibiotics for both copd exacerbation and UTI. Code(s): J44.1 - CHRONIC OBSTRUCTIVE PULMONARY DISEASE W (ACUTE) EXACERBATION (2) History of Clostridium difficile colitis Current Visit: Yes Status: Acute Assessment & Plan: Repeat C. diff was neg; continue oral vancomycin taper. Code(s): Z86.19 - PERSONAL HISTORY OF OTHER INFECTIOUS AND PARASITIC DISEASES (3) UTI (urinary tract infection) Current Visit: Yes Status: Resolved Onset Date: ~03/07/18 Code(s): N39.0 - URINARY TRACT INFECTION, SITE NOT SPECIFIED (4) Atrial fibrillation Current Visit: No Status: Chronic Qualifiers: Atrial fibrillation type: chronic Qualified Code(s): I48.2 - Chronic atrial fibrillation Assessment & Plan: Continue anticoagulation. Code(s): I48.91 - UNSPECIFIED ATRIAL FIBRILLATION (5) Physical deconditioning Current Visit: No Status: Chronic Onset Date: ~02/16/18 Assessment & Plan: Continue with physical therapy. Code(s): R53.81 - OTHER MALAISE (6) Diarrhea Current Visit: Yes Status: Acute Assessment & Plan: GI PCR panel was neg; C. diff neg; most likely side effect of antibiotics which have all been stopped now except oral vancomycin for hx of recurrent c.diff. Code(s): R19.7 - DIARRHEA, UNSPECIFIED
[2018-03-14] MEDS ORDERED: TYLENOL 325 MG PO PRN (12:12)
[2018-03-14] MEDS: Xopenex 1.25 MG/0.5 ML UD NEBULE IH PRN (15:28)
[2018-03-14] MEDS: NORCO 5/325 MG PO PRN (18:42)
[2018-03-14] MEDS: Sodium Chloride 3 ML UD NEBULES IH SCH (19:35)
[2018-03-14] MEDS: xanAX 0.25 MG PO SCH (21:18)
[2018-03-14] MEDS: VITAMIN D PO SCH (21:18)
[2018-03-15] MEDS: solu-MEDROL 125 MG IV SCH ×2 (05:15→11:35)
[2018-03-15] MEDS: Sodium Chloride 0.9% 10 ML FLUSH Syringe IV SCH ×3 (05:15→19:53)
[2018-03-15] MEDS: Lactated Ringers 1,000 ML IV SCH (05:51)
[2018-03-15] MEDS: CLOTRIMAZOLE MM SCH ×5 (06:00→23:27)
[2018-03-15] MEDS: IMODIUM 2 MG PO PRN ×2 (07:33→09:40)
[2018-03-15] MEDS ORDERED: PREPARATION H Ointment RC PRN (09:08)
[2018-03-15] MEDS: Xopenex 1.25 MG/0.5 ML UD NEBULE IH SCH ×2 (09:24→20:28)
[2018-03-15] MEDS: Sodium Chloride 3 ML UD NEBULES IH SCH ×3 (09:24→20:28)
[2018-03-15] MEDS: Acidophilus TABLET PO SCH ×2 (09:40→21:26)
[2018-03-15] MEDS: Klor Con 10 MEQ PO SCH ×2 (09:41→21:25)
[2018-03-15] MEDS: ELIQUIS 2.5 MG TABLET PO SCH ×2 (09:41→21:24)
[2018-03-15] MEDS: CLARITIN 10 MG PO SCH (09:41)
[2018-03-15] MEDS: Megace 40 MG/ML PO SCH (09:41)
[2018-03-15] MEDS: THEOPHYLLINE ER 24HR PO SCH (09:42)
[2018-03-15] MEDS: Multaq 400 MG PO SCH ×2 (09:42→21:23)
[2018-03-15] MEDS: SYNTHROID 50 MCG PO SCH (09:42)
[2018-03-15] MEDS ORDERED: Sodium Chloride 3 ML UD NEBULES IH ONE (14:37)
[2018-03-15] MEDS: Xopenex 1.25 MG/0.5 ML UD NEBULE IH PRN (14:38)
[2018-03-15] MEDS ORDERED: Lomotil PO ONE (15:41)
[2018-03-15] MEDS ORDERED: solu-MEDROL 125 MG IV SCH (15:45)
--- NOTE | 2018-03-15 15:47 | PCM.NOTE ---
Date and Time: 03/15/18 1543 Subjective Assessment: She has continued to have diarrhea; has had 6-7 episodes today already. every time she moves or eats she gets diarrhea. is [place] po. - Review of Systems Constitutional: No Fever Abdominal/Gastrointestinal: Diarrhea Objective Exam General Appearance: no apparent distress, alert, thin, other (walks slowly to bed with assistance of PT) Neurologic Exam: oriented x 3, cooperative Skin Exam: normal color, warm, dry, No rash Respiratory Exam: diminished breath sounds, wheezing (scattered), No crackles/ rales, No rhonchi Cardiovascular Exam: normal heart sounds, tachycardia (reg rhythm; hr 107), No murmur Gastrointestinal/Abdomen Exam: soft, normal bowel sounds, No tenderness, No distention, No mass, No guarding, No rebound Extremity Exam: swelling (trace LE edema bilat) OBJECTIVE DATA Vital Signs: Vital Signs - 24 hr Temp Pulse Resp BP Pulse Ox 03/15/18 14:40 94 H 20 93 L 03/15/18 12:00 98.3 F 96 H 16 145/67 94 L 03/15/18 09:25 85 18 92 L 03/15/18 07:42 98.8 F 85 17 141/67 92 L 03/15/18 07:35 93 L 03/15/18 04:17 98.0 F 85 20 133/66 96 03/15/18 00:12 98.4 F 90 18 140/62 94 L 03/14/18 19:35 96 H 18 94 L 03/14/18 19:33 98.7 F 99 H 16 126/61 96 03/14/18 16:00 98.9 F 95 H 16 125/58 94 L Oxygen-Last 24 hours O2 Percentage 2 Liters = 28% O2 Percentage 2 Liters = 28% O2 Percentage 2 Liters = 28% Pain Assessment - Last Documented Pain Intensity 0 Pain Scale Used 0-10 Pain Scale Intake and Output: Intake & Output 03/13/18 03/14/18 03/15/18 03/16/18 11:59 11:59 11:59 11:59 Intake Total 1360 200 680 Output Total 1000 550 Balance 360 -350 680 Weight 45.2 kg 48 kg 45.4 kg Multi-Disciplinary Progress Notes: Multi-Disciplinary Progress Notes 03/15/18 14:42 Nutrition Note by Ray,Nikki F/u note: Regular diet with boost con't with 50-75% po intake. Weight on adm 43.6 kg; current weight 45.4 kg. Labs 2/2= K+ 3.3, BUN 27, Cr .50, glu 118. Note pt con 't with diarrhea. goals met most of the time. Recommend to con't with diet and goals. Will monitor and f/u prn. HEVER Ralph Initialized on 03/15/18 14:42 - END OF NOTE Assessment/Plan (1) COPD (chronic obstructive pulmonary disease) Current Visit: No Status: Chronic Qualifiers: COPD type: COPD with acute lower respiratory infection Qualified Code(s): J44.0 - Chronic obstructive pulmonary disease with acute lower respiratory infection Assessment & Plan: Finished course of treatment for exacerbation. Started theophylline. Still on methylprednisolone 60mg IV q6h; will decrease slightly to 40mg IV q6h. (2) Diarrhea Current Visit: Yes Status: Acute Qualifiers: Diarrhea type: unspecified type Qualified Code(s): R19.7 - Diarrhea, unspecified Assessment & Plan: likely due to antibiotic use. on probiotic. stop immodium; start lomotil. may need to add questran. Code(s): R19.7 - DIARRHEA, UNSPECIFIED (3) C. difficile colitis Current Visit: No Status: Resolved Onset Date: ~02/16/18 Assessment & Plan: continueing vancomycin taper - retest was negative over the weekend. (4) Physical deconditioning Current Visit: No Status: Chronic Onset Date: ~02/16/18 Code(s): R53.81 - OTHER MALAISE (5) Corticobasal degeneration Current Visit: No Status: Chronic Code(s): G31.85 - CORTICOBASAL DEGENERATION (6) Malnutrition Current Visit: No Status: Chronic Qualifiers: Malnutrition type: protein-calorie malnutrition Code(s): E46 - UNSPECIFIED PROTEIN-CALORIE MALNUTRITION (7) Weakness Current Visit: No Status: Chronic Onset Date: ~07/27/17 Code(s): R53.1 - WEAKNESS (8) Flushing Current Visit: Yes Status: Chronic Code(s): R23.2 - FLUSHING
[2018-03-15] MEDS: solu-MEDROL 40 MG IV SCH ×2 (17:22→23:26)
[2018-03-15] MEDS: Lomotil PO PRN (19:49)
[2018-03-15] MEDS: xanAX 0.25 MG PO SCH (21:22)
[2018-03-15] MEDS: VITAMIN D PO SCH (21:24)
[2018-03-16] MEDS: Lomotil PO PRN ×3 (02:10→15:06)
[2018-03-16 06:02] LABS: Hematocrit 36.5 % (35-47); Hemoglobin 11.6 gm/dl (12.0-16.0); Mean Cell Volume 95.8 fl (78-100); Mean Corpuscular Hemoglobin 30.4 pg (26-32); Mean Corpuscular Hgb Concent. 31.8 g/dl (32-36); Mean Platelet Volume 10.3 fl (6-9.5); Platelet Count 254 K/mm3 (150-450); Red Blood Count 3.81 M/mm3 (4.1-5.4); Red Cell Distribution Width 13.8 % (11.5-14.0); White Blood Count 14.3 K/mm3 (4.0-10.5)
[2018-03-16] MEDS: CLOTRIMAZOLE MM SCH ×3 (06:02→15:17)
[2018-03-16] MEDS: Sodium Chloride 0.9% 10 ML FLUSH Syringe IV SCH (06:02)
[2018-03-16] MEDS: solu-MEDROL 40 MG IV SCH ×2 (06:02→11:20)
[2018-03-16] MEDS: Lactated Ringers 1,000 ML IV SCH (06:16)
[2018-03-16 06:21] LABS: ALBUMIN 3.4 g/dL (3.5-5.0); ALKALINE PHOSPHATASE 55 U/L (38-126); ANION GAP 12.6 MEQ/L (5-15); BLOOD UREA NITROGEN 20 mg/dL (7-17); CHLORIDE 97 mmol/L (98-107); Calcium 8.5 mg/dL (8.4-10.2); Carbon Dioxide 29 mmol/L (22-30); Creatinine 1 0.44 mg/dL (0.52-1.04); Glucose 113 mg/dL (74-106); Potassium 3.5 mmol/L (3.5-5.1); SGOT/AST 31 U/L (14-36); SGPT/ALT 41 U/L (0-35); SODIUM 135 mmol/L (137-145); Total Protein 5.6 g/dL (6.3-8.2)
[2018-03-16 07:15] VITALS: O2SAT 92
[2018-03-16 08:21] LABS: Lymphocytes 7 % (24-44); Monocyte 4 % (0.0-12.0); Neutrophils 89 % (36.0-66.0); Platelet Estimate NORMAL (NORMAL); Total Cells Counted 100
[2018-03-16] MEDS: Multaq 400 MG PO SCH (09:08)
[2018-03-16] MEDS: VANCOMYCIN HCL CAPSULE PO SCH (09:09)
[2018-03-16] MEDS: CLARITIN 10 MG PO SCH (09:09)
[2018-03-16] MEDS: Acidophilus TABLET PO SCH (09:09)
[2018-03-16] MEDS: SYNTHROID 50 MCG PO SCH (09:09)
[2018-03-16] MEDS: ELIQUIS 2.5 MG TABLET PO SCH (09:09)
[2018-03-16] MEDS: Megace 40 MG/ML PO SCH (09:09)
[2018-03-16] MEDS: Klor Con 10 MEQ PO SCH (09:09)
[2018-03-16] MEDS ORDERED: THEOPHYLLINE ER 24HR PO SCH (10:00)
[2018-03-16] MEDS ORDERED: QUESTRAN Light 4 GM Packet PO SCH (10:00)
[2018-03-16 11:45] VITALS: BP 134/74; PULSE 95
--- NOTE | 2018-03-16 14:22 | PCM.DS ---
Discharge Summary Date of Admission: 03/08/18 08:11 Admitting Physician: PRO REYES Primary Care Provider: CYDNEY VELA Allergies Allergies Sulfa (Sulfonamide Antibiotics) Allergy (Intermediate, Verified 03/07/18 14:38) Rash Hospital Summary - Hospital Course Hospital Course: Pt is 72 yo female pt of mine from [facility] with COPD (unknown etiology), afib, corticobasal degeneration, and malnutrition who was admitted from home with weakness and dehydration. She was found to have a COPD exacerbation and was treated with 3d of IV zithromax and 6d of IV rocephin. In the week prior to this admission she was treated for a first recurrence of C. diff diarrhea - has been on a vancomycin taper. Two days ago she started having frequent diarrhea; stool panel was negative. Rocephin was stopped. She tried lomotil and loperamide without relief; questran started today as well. Pt's breathing has been much better since admission, she thinks due to the steroids; she has been on 60mg IV [id number]. I did try to decrease her steroids last week and her breathing got much worse; 4d ago I added po theophylline (at just 100mg po daily, ER). Yesterday I decreased the steroids slightly and her breathing was a little worse. Today I have increased the theophylline to 200mg po daily; would plan to decrease steroids a bit tomorrow. So far pt has not had any hypotension. Her afib has been stable throughout this stay. - Vitals & Intake/Output Vital Signs: Vital Signs Temperature 98.1 F 03/16/18 11:42 Pulse Rate 95 H 03/16/18 11:42 Respiratory Rate 18 03/16/18 11:42 Blood Pressure 134/74 03/16/18 11:42 O2 Sat by Pulse Oximetry 92 L 03/16/18 11:42 Oxygen-Last Documented O2 Percentage 2 Liters = 28% Intake & Output: Intake & Output 03/14/18 03/15/18 03/16/18 03/17/18 11:59 11:59 11:59 11:59 Intake Total 200 680 480 Output Total 550 300 Balance -350 680 180 Weight 48 kg 45.4 kg 44.1 kg - Lab Result Diagrams: 03/16/18 05:28 03/16/18 05:28 Lab Results-Last 24 Hrs: Lab Results-Last 24 Hours 03/16/18 03/16/18 Range/Units 05:28 05:28 WBC 14.3 H (4.0-10.5) K/mm3 RBC 3.81 L (4.1-5.4) M/mm3 Hgb 11.6 L (12.0-16.0) gm/dl Hct 36.5 (35-47) % MCV 95.8 (78-100) fl MCH 30.4 (26-32) pg MCHC 31.8 L (32-36) g/dl RDW 13.8 (11.5-14.0) % Plt Count 254 (150-450) K/mm3 MPV 10.3 H (6-9.5) fl Segmented Neutrophils 89 H (36.0-66.0) % Lymphocytes (Manual) 7 L (24-44) % Monocytes (Manual) 4 (0.0-12.0) % Platelet Estimate NORMAL (NORMAL) RBC Morphology NORMAL Sodium 135 L (137-145) mmol/L Potassium 3.5 (3.5-5.1) mmol/L Chloride 97 L (98-107) mmol/L Carbon Dioxide 29 (22-30) mmol/L Anion Gap 12.6 (5-15) MEQ/L BUN 20 H (7-17) mg/dL Creatinine 0.44 L (0.52-1.04) mg/dL Estimated GFR > 60.0 ML/MIN Glucose 113 H (74-106) mg/dL Calcium 8.5 (8.4-10.2) mg/dL Total Bilirubin 0.60 (0.2-1.3) mg/dL AST 31 (14-36) U/L ALT 41 H (0-35) U/L Alkaline Phosphatase 55 (38-126) U/L Serum Total Protein 5.6 L (6.3-8.2) g/dL Albumin 3.4 L (3.5-5.0) g/dL Micro Results-Entire Visit: Microbiology 03/07/18 15:20 Blood Culture Gram Stain - Final Blood Not Reportable Blood Culture - Final NO GROWTH 03/07/18 15:10 Blood Culture Gram Stain - Final Blood Not Reportable Blood Culture - Final NO GROWTH 03/07/18 15:28 Urine Culture - Final Clean Catch Midstream Morganella Morganii Ssp James Klebsiella Pneumoniae - Radiology Exams Ordered Rad Exams-Entire Visit: Radiology Procedures Category Date Time Status ECHO W/2D AND DOPPLER [US] Routine Exams 03/16/18 11:40 Taken - Procedures and Test Procedures and Tests throughout Hospitalization: Therapy Orders & Screens 03/07/18 15:28 Respiratory Therapy Assessment DAILY Comment: Diagnosis: Shortness of Breath 03/07/18 16:46 Respiratory Therapy Assessment DAILY Comment: Diagnosis: Shortness of Breath 03/07/18 17:42 Oxygen Nasal Cannula 2 lpm Comment: Diagnosis: Shortness of Breath Respiratory Therapy Consult ROUTINE Comment: Reason For Exam: Diagnosis: Shortness of Breath 03/08/18 05:00 EKG ROUTINE Comment: Diagnosis: Shortness of Breath 03/08/18 07:00 Respiratory Therapy Assessment DAILY Comment: Diagnosis: Shortness of Breath 03/08/18 07:41 Peak Expiratory Flow Rate ONCE Comment: Reason For Exam: Diagnosis: Shortness of Breath 03/09/18 05:00 EKG ROUTINE Comment: Diagnosis: Shortness of Breath 03/10/18 05:00 EKG ROUTINE Comment: Diagnosis: Shortness of Breath 03/10/18 07:32 PT Eval & Treat (MD Order) ROUTINE Reason for Eval:: weakness Diagnosis: UTI, C-DIF, FAILED OUTPATIENT, EXACERBATION COPD Discharge Exam General Appearance: no apparent distress, alert Neurologic Exam: oriented x 3, cooperative, other (sitting up on side of bed.) Skin Exam: normal color, warm, dry, No rash Respiratory Exam: wheezing (scattered, faint), No normal breath sounds (good but diminished), No crackles/rales, No rhonchi Cardiovascular Exam: regular rate/rhythm, normal heart sounds, No murmur Gastrointestinal/Abdomen Exam: soft, normal bowel sounds, No tenderness, No distention, No mass, No guarding, No rebound Extremity Exam: pedal edema, swelling (1+ LE edema bilat) Final Diagnosis/Problem List - Final Discharge Diagnosis/Problem (1) COPD (chronic obstructive pulmonary disease) Current Visit: No Status: Chronic Assessment & Plan: Will continue slowly trying to taper off the steroids. Theophylline increased to 200mg ER daily today. (2) Diarrhea Current Visit: Yes Status: Acute Assessment & Plan: Currently starting questran; tried loperamide and lomotil prn. (3) C. difficile colitis Current Visit: No Status: Resolved Onset Date: ~02/16/18 Assessment & Plan: on vancomycin taper po. 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 (7) Weakness Current Visit: No Status: Chronic Onset Date: ~07/27/17 (8) Flushing Current Visit: Yes Status: Chronic - Discharge Disposition: Swing Bed @ [facility] Condition: Stable Prescriptions: No Action Potassium Chloride [K-Dur] 10 meq PO BID Levothyroxine Sodium 50 Mcg [Synthroid 50 Mcg] 50 mcg PO DAILY Loratadine 10 mg [Claritin 10 mg] 10 mg PO DAILY Cholecalciferol (Vitamin D3) [Vitamin D3] 1,000 unit PO HS Apixaban [Eliquis 2.5 mg Tablet] 2.5 mg PO BID #60 tablet Dronedarone Hydrochloride 400* [Multaq 400 MG] 400 mg PO BID #60 tablet Alprazolam 0.25 mg [xanAX 0.25 MG] 0.25 mg PO HS Lactobacillus Acidophilus [Acidophilus TABLET] 1 tab PO BID #60 tablet Megestrol Acetate 40 mg/ml [Megace 40 MG/ML] 2 tsp PO DAILY Nystatin 5 ml PO QIDPRN PRN PRN Reason: MOUTH SORENESS Levalbuterol HCl 1.25 MG/0.5M* [Xopenex 1.25 MG/0.5 ML UD NEBULE] 1 neb IH BID Guaifenesin 600 mg ER [Mucinex 600MG ER Tabs] 600 mg PO BID PRN #60 tablet PRN Reason: Cough Vancomycin HCl [Vancomycin 25Mg/ml Oral Solution Compound Kit] 5 ml PO ROUTINE #1 bottle Hydrocodone/APAP 5-325 Tab^^^ [Maidens 5-325 Tablet^^^] 1 each PO Q4H PRN MDD 2 PRN Reason: Pain Follow up with: ROSE CHAIREZ MD [NON-STAFF PHY W/O PRIVILEGES] - 1 Week
--- NOTE | 2018-03-17 08:41 | ECHO ---
DATE OF PROCEDURE: 03/16/2018 CLINICAL INFORMATION: Lower extremity edema. The M-mode 2D, and Doppler echocardiogram including color flow Doppler shows the left ventricle is normal in size at 4.7 cm. There is no apical thrombus present. The septal wall thickness is normal at 1.0 cm. The left ventricular posterior wall thickness is normal at 1.0 cm. There is normal contractility of the left ventricle. The ejection fraction is calculated to be 75%. The right ventricle is grossly normal. The left atrium is normal at 3.2 cm. The interatrial septum is intact. The right atrium is normal. The aortic valve opens well and is trileaflet. There is mild mitral regurgitation. Prolapse of the anterior mitral valve leaflet could not be excluded. There is mild tricuspid regurgitation. The right ventricular systolic pressure is calculated to be 30 mm of Mercury. There is mild pulmonic regurgitation. The pulmonic valve is not well visualized. The aortic root is normal at 2.4 cm. There is no pericardial effusion present. IMPRESSION: 1) NORMAL CONTRACTILITY OF THE LEFT VENTRICLE. 2) MILD MITRAL REGURGITATION. 3) MILD TRICUSPID REGURGITATION. 4) MILD PULMONIC REGURGITATION. 5) NORMAL RIGHT VENTRICULAR SYSTOLIC PRESSURE.
== END 2018-03-16 15:00 | disposition swing bed (61) | DRG 191 ==
LOC: ED 14:05 → MED SURG 18:00 → OBSVTOIN 03-08 08:11
PROVIDERS: ADMIT Family Medicine; ATTEND Family Medicine
DX: J44.1 Chronic obstructive pulmonary disease with (acute) exacerbation (principal); A04.72 Enterocolitis due to Clostridium difficile, not specified as recurrent; E46 Unspecified protein-calorie malnutrition; N39.0 Urinary tract infection, site not specified; B96.4 Proteus (mirabilis) (morganii) as the cause of diseases classified elsewhere; G31.85 Corticobasal degeneration; R53.1 Weakness; R23.2 Flushing; I48.91 Unspecified atrial fibrillation; R07.9 Chest pain, unspecified; Z79.01 Long term (current) use of anticoagulants; Z79.899 Other long term (current) drug therapy; M54.9 Dorsalgia, unspecified; M54.2 Cervicalgia; R53.81 Other malaise
CPT/HCPCS: 36415; 71045; 71250; 80048; 80053; 81001; 82805; 83605; 83735; 84484; 85025; 85027; 85379; 85610; 87040; 87077; 87086; 87186; 87493; 87507; 87631; 93005; 93041; 93268; 93306; 94150; 94640; 94760; 96360; 96361; 96365; 96367; 96374; 96375; 97110; 97161; 97530; 99285; G0378; 94667; J0456; J0696; J1200; J2920; J2930; A9270-GY

== ENCOUNTER 2018-03-16 14:37 | Inpatient (IN) | payer MEDICARE ==
[2018-03-16] MEDS ORDERED: Lomotil PO PRN (16:01)
[2018-03-16] MEDS ORDERED: Sodium Chloride 0.9% 10 ML FLUSH Syringe IV PRN (16:01)
[2018-03-16] MEDS ORDERED: NORCO 5/325 MG PO PRN (16:01)
[2018-03-16] MEDS ORDERED: Aplisol ID ONE (16:01)
[2018-03-16] MEDS ORDERED: Nystatin SUSPENSION 60 ML PO PRN (16:01)
[2018-03-16] MEDS ORDERED: Mucinex 600MG ER Tabs PO PRN (16:01)
[2018-03-16] MEDS ORDERED: PREPARATION H Ointment RC PRN (16:01)
[2018-03-16] MEDS: solu-MEDROL 40 MG IV SCH ×2 (18:26→23:29)
[2018-03-16] MEDS: CLOTRIMAZOLE MM SCH ×2 (18:26→23:29)
[2018-03-16] MEDS: Xopenex 1.25 MG/0.5 ML UD NEBULE IH SCH (19:11)
[2018-03-16] MEDS: Sodium Chloride 3 ML UD NEBULES IH SCH (19:12)
[2018-03-16] MEDS: Multaq 400 MG PO SCH (20:30)
[2018-03-16] MEDS: Klor Con 10 MEQ PO SCH (20:30)
[2018-03-16] MEDS: VITAMIN D PO SCH (20:30)
[2018-03-16] MEDS: ELIQUIS 2.5 MG TABLET PO SCH (20:30)
[2018-03-16] MEDS: QUESTRAN Light 4 GM Packet PO SCH (20:30)
[2018-03-16] MEDS: xanAX 0.25 MG PO SCH (20:30)
[2018-03-16] MEDS: Sodium Chloride 0.9% 10 ML FLUSH Syringe IV SCH (20:31)
[2018-03-17] MEDS: solu-MEDROL 40 MG IV SCH ×4 (06:03→23:07)
[2018-03-17] MEDS: CLOTRIMAZOLE MM SCH ×5 (06:04→21:52)
[2018-03-17] MEDS: Sodium Chloride 0.9% 10 ML FLUSH Syringe IV SCH ×3 (06:04→21:54)
[2018-03-17] MEDS: Xopenex 1.25 MG/0.5 ML UD NEBULE IH SCH ×2 (07:01→19:23)
[2018-03-17] MEDS: Sodium Chloride 3 ML UD NEBULES IH SCH ×2 (07:01→19:23)
--- NOTE | 2018-03-17 09:02 | PCM.NOTE ---
Date and Time: 03/17/18 0859 Subjective Assessment: Breathing is "labored" per pt and RN noted the lungs sound worse today. She continues to have diarrhea - 5x this morning. Did fransisco po this morning. - Review of Systems Constitutional: No Fever Respiratory: Short Of Breath Abdominal/Gastrointestinal: Diarrhea Objective Exam General Appearance: mild distress, alert, cachetic Neurologic Exam: oriented x 3, cooperative Skin Exam: normal color, warm, dry, No rash Respiratory Exam: diminished breath sounds, rhonchi (scattered), wheezing ( throughout), No crackles/rales Cardiovascular Exam: normal heart sounds, tachycardia, No murmur Gastrointestinal/Abdomen Exam: soft, normal bowel sounds, No tenderness, No distention, No mass, No guarding, No rebound Extremity Exam: swelling (1+ LE edema bilat) OBJECTIVE DATA Vital Signs: Vital Signs - 24 hr Temp Pulse Resp BP Pulse Ox 03/17/18 07:10 98 F 84 20 159/65 94 L 03/17/18 07:01 89 20 94 L 03/16/18 20:23 90 22 90 L 03/16/18 19:13 98.6 F 90 19 154/77 93 L 03/16/18 16:47 98.1 F 95 H 18 134/70 95 03/16/18 16:01 98 F 95 H 18 134/70 90 L Pain Assessment - Last Documented Pain Intensity 5 Pain Scale Used 0-10 Pain Scale Intake and Output: Intake & Output 03/14/18 03/15/18 03/16/18 03/17/18 11:59 11:59 11:59 11:59 Intake Total 720 Output Total 300 Balance 420 Weight 44.4 kg Assessment/Plan (1) COPD with acute exacerbation Current Visit: No Status: Acute Onset Date: ~03/07/18 Assessment & Plan: Has been very difficult to wean her from steroids. She is on theophylline; increased to 200mg po yesterday. More wheezy today. Will repeat CXR. Consulting Dr. Johansen, thank you. Code(s): J44.1 - CHRONIC OBSTRUCTIVE PULMONARY DISEASE W (ACUTE) EXACERBATION (2) Diarrhea Current Visit: No Status: Acute Qualifiers: Diarrhea type: unspecified type Assessment & Plan: OK to use immodium and the questran. Discussed that she may need GI input. Code(s): R19.7 - DIARRHEA, UNSPECIFIED (3) Atrial fibrillation Current Visit: No Status: Chronic Qualifiers: Code(s): I48.91 - UNSPECIFIED ATRIAL FIBRILLATION (4) Corticobasal degeneration Current Visit: No Status: Chronic Code(s): G31.85 - CORTICOBASAL DEGENERATION (5) Malnutrition Current Visit: No Status: Chronic Qualifiers: Malnutrition type: protein-calorie malnutrition Protein-calorie malnutrition severity: moderate Qualified Code(s): E44.0 - Moderate protein- calorie malnutrition Assessment & Plan: Has gained weight since her last admission. Code(s): E46 - UNSPECIFIED PROTEIN-CALORIE MALNUTRITION (6) Physical deconditioning Current Visit: No Status: Chronic Onset Date: ~02/16/18 Code(s): R53.81 - OTHER MALAISE
[2018-03-17] MEDS: Multaq 400 MG PO SCH ×2 (09:13→21:52)
[2018-03-17] MEDS: CLARITIN 10 MG PO SCH (09:14)
[2018-03-17] MEDS: Klor Con 10 MEQ PO SCH ×2 (09:14→21:52)
[2018-03-17] MEDS: ELIQUIS 2.5 MG TABLET PO SCH ×2 (09:14→21:52)
[2018-03-17] MEDS: THEOPHYLLINE ER 24HR PO SCH (09:14)
[2018-03-17] MEDS: SYNTHROID 50 MCG PO SCH (09:14)
[2018-03-17] MEDS: QUESTRAN Light 4 GM Packet PO SCH ×2 (09:17→21:53)
[2018-03-17] MEDS: Megace 40 MG/ML PO SCH (09:19)
[2018-03-17] MEDS ORDERED: Aplisol ID SCH (10:00)
[2018-03-17] MEDS: TYLENOL 325 MG PO PRN ×2 (11:03→21:56)
--- NOTE | 2018-03-17 11:21 | XRAY ---
Indication: Short of breath. Comparison: March 07, 2018. PA/lateral chest unchanged again hyperinflated with stable minimal left base fibrosis/scarring and CT proven posterior medial left lower lobe atelectasis. Heart and mediastinal structures within normal limits. No new cardiopulmonary abnormalities.
--- NOTE | 2018-03-17 15:20 | CONS ---
CONSULT DATE: 03/17/2018 REASON FOR CONSULT: Evaluation of shortness of breath. HISTORY: Angela Alvarado is a 72 year-old woman with history of chronic obstructive pulmonary disease/bronchiectasis, who is usually followed by Dr. Don. The patient was hospitalized at [facility] in August 2017 and I have reviewed Dr. Don consultation from that visit. The patient reports she has had recurrent episodes of bronchitis/pneumonia requiring hospitalization. She is in the hospital again this time since yesterday. The patient reports cough which has been minimally productive. She is extremely frail and apparently is unable to expectorate secretions. An option of percussion vest and flutter valve were also entertained by Dr. Don in the past which the patient had declined. She also remains a Full Code at this time. The patient is noted to have leg swelling. Her albumin level is still at 3.4. She has significantly reduced effort tolerance. Patient is on supplemental oxygen at night. She uses bronchodilators via nebulizer two times a day. Apparently she has had recurrent hospitalizations due to ongoing symptoms. In addition the patient also reports diarrhea which is somewhat improved since admission. PAST MEDICAL HISTORY: Positive for history of chronic obstructive pulmonary disease, chronic respiratory failure, history of weight loss of about ten pounds with poor appetite for which she has also been started on appetite stimulant. She has history of chronic atrial fibrillation for which she is on anticoagulation and is followed by Dr. Crum. There is history of hypothyroidism and allergic rhinitis. PAST SURGICAL HISTORY: No recent surgery. PERSONAL AND SOCIAL HISTORY: She is a nonsmoker. The patient lives with her who helps her with activities of daily living. MEDICATIONS: Medications are reviewed. ALLERGIES: SULFA. PHYSICAL EXAMINATION: This is an elderly frail woman who appears comfortable but chronically ill. She is not in any acute distress. Vital signs are noted. HEENT: Normocephalic. Oral exam is unremarkable. NECK: Supple. CVS: First and second heart sounds somewhat irregular. RESPIRATORY: Shows diminished breath sounds, bilateral rhonchi heard. ABDOMEN: Soft. EXTREMITIES: 1 to 2+ leg edema is noted. LABORATORY DATA AND TESTS: X-ray, CT chest were all reviewed. ASSESSMENT: This is a 72 year old woman with: 1) Long standing history of pulmonary problems, having evaluated normally at [facility] but also by Dr. Don over the years, who appears to have declining overall course requiring frequent hospitalizations. Her CT scan showed mucous retention with atelectasis of left lower lobe as well as right middle and upper lobe. The patient would benefit from bronchoscopy however apparently has declined this in the past per Dr. Don notes. 2) Recurrent bronchitis. 3) History of bronchiectasis. 4) Chronic atrial fibrillation on anticoagulation. 5) Failure to thrive. 6) Chronic hypoxemia. RECOMMENDATIONS: 1) I have discussed the case with RT. Would attempt again percussion vest and flutter valve to optimize pulmonary toilet. If the patient is able to expectorate sputum would benefit from sputum culture. 2) I would recommend checking international normalized ratio given the patient has been hospitalized. 3) Continue bronchodilators, steroids, cautious diuresis. Unfortunately the patient has reservations against invasive procedures and clearly has had declining overall health. Her overall prognosis remains guarded to poor. Should the patient change her mind regarding bronchoscopy, I will be more than happy to help her undergo that. I will also add low dose diuretic therapy with daily weights. I will follow the patient during her stay at this hospital. However she certainly will need to follow with Dr. Don upon discharge. Unfortunately it appears that the patient's overall health is declining and the option of palliative care also can be entertained if the patient and family are willing to look at comfort measures. I thank you, Dr. Adair, for allowing me to participate in the care of this patient.
[2018-03-17] MEDS: BUMEX 1 MG IV SCH (15:29)
[2018-03-17] MEDS: VITAMIN D PO SCH (21:52)
[2018-03-17] MEDS: xanAX 0.25 MG PO SCH (21:52)
[2018-03-18] MEDS: CLOTRIMAZOLE MM SCH ×2 (05:39→10:25)
[2018-03-18] MEDS: solu-MEDROL 40 MG IV SCH ×2 (05:39→12:15)
[2018-03-18] MEDS: Sodium Chloride 0.9% 10 ML FLUSH Syringe IV SCH ×2 (05:39→12:15)
[2018-03-18 06:12] LABS: INR 1.31 (0.8-3.0); PROTIME 15.3 SECONDS (9.95-12.35)
[2018-03-18 06:19] LABS: ALKALINE PHOSPHATASE 54 U/L (38-126); ANION GAP 15.1 MEQ/L (5-15); BLOOD UREA NITROGEN 22 mg/dL (7-17); CHLORIDE 95 mmol/L (98-107); Calcium 8.9 mg/dL (8.4-10.2); Carbon Dioxide 31 mmol/L (22-30); Creatinine 1 0.44 mg/dL (0.52-1.04); Glucose 104 mg/dL (74-106); Potassium 3.5 mmol/L (3.5-5.1); SGOT/AST 34 U/L (14-36); SGPT/ALT 46 U/L (0-35); SODIUM 137 mmol/L (137-145); Total Protein 6.6 g/dL (6.3-8.2)
[2018-03-18] MEDS: Sodium Chloride 3 ML UD NEBULES IH SCH (06:41)
[2018-03-18] MEDS: Xopenex 1.25 MG/0.5 ML UD NEBULE IH SCH (06:41)
[2018-03-18 06:45] VITALS: PULSE 85; O2SAT 94
[2018-03-18 08:02] VITALS: BP 138/70
[2018-03-18] MEDS ORDERED: NORCO 5/325 MG PO PRN (08:06)
[2018-03-18] MEDS ORDERED: K-LYTE 25 MEQ PO SCH (10:00)
[2018-03-18] MEDS ORDERED: VANCOMYCIN HCL CAPSULE PO SCH (10:00)
[2018-03-18] MEDS: BENTYL 20 MG PO SCH ×2 (10:02→12:15)
[2018-03-18] MEDS: QUESTRAN Light 4 GM Packet PO SCH (10:02)
[2018-03-18] MEDS: SYNTHROID 50 MCG PO SCH (10:03)
[2018-03-18] MEDS: BUMEX 1 MG IV SCH (10:03)
[2018-03-18] MEDS: ELIQUIS 2.5 MG TABLET PO SCH (10:03)
[2018-03-18] MEDS: Multaq 400 MG PO SCH (10:03)
[2018-03-18] MEDS: CLARITIN 10 MG PO SCH (10:03)
[2018-03-18] MEDS: THEOPHYLLINE ER 24HR PO SCH (10:03)
[2018-03-18] MEDS: Megace 40 MG/ML PO SCH (10:04)
[2018-03-28] MEDS ORDERED: Aplisol ID SCH (10:00)
== END 2018-03-18 13:43 | disposition short-term general hospital (02) | DRG 191 ==
LOC: MED SURG 15:00
PROVIDERS: ADMIT Family Medicine; ATTEND Family Medicine
DX: J44.1 Chronic obstructive pulmonary disease with (acute) exacerbation (principal); A04.72 Enterocolitis due to Clostridium difficile, not specified as recurrent; E46 Unspecified protein-calorie malnutrition; N39.0 Urinary tract infection, site not specified; R53.81 Other malaise; G31.85 Corticobasal degeneration; R53.1 Weakness; I48.91 Unspecified atrial fibrillation; Z99.81 Dependence on supplemental oxygen; Z79.01 Long term (current) use of anticoagulants; R62.7 Adult failure to thrive; R09.02 Hypoxemia; Z79.899 Other long term (current) drug therapy
CPT/HCPCS: 36415; 71046; 80053; 85610; 94150; 94640; 94667; 94668; 94760; J2920; A9270-GY

== ENCOUNTER 2018-05-21 14:07 | Inpatient (IN) | payer MEDICARE ==
[2018-05-21 14:54] LABS: Hematocrit 36.2 % (35-47); Hemoglobin 11.8 gm/dl (12.0-16.0); Mean Cell Volume 98.4 fl (78-100); Mean Corpuscular Hgb Concent. 32.6 g/dl (32-36); Mean Platelet Volume 9.4 fl (6-9.5); Platelet Count 298 K/mm3 (150-450); Red Blood Count 3.68 M/mm3 (4.1-5.4); Red Cell Distribution Width 14.7 % (11.5-14.0)
[2018-05-21 14:56] LABS: A-aADO2 82; ABG POTASSIUM 3.5 (3.5-5.1); ARTERIAL BLD GAS O2 SATURATION 98.8 % (95-100); ARTERIAL BLOOD GAS BASE EXCESS 2.9 (-2.0-2.0); ARTERIAL BLOOD GAS FIO2 28 %; ARTERIAL BLOOD GAS PCO2 30 mmHg (35-45); ARTERIAL BLOOD GAS PO2 80 mmHg (75-100); ARTERIAL BLOOD GAS pH 7.53 (7.35-7.45); CARBOXYHEMOGLOBIN 1.5 % THgb (0.0-6.9); HCO3- 25.1 (22-28); HGB O2 SAT 95.7 g/dF (94-100); Methhemoglobin 1.5 % (1.4-1.5); paO2 pAO1 0.49
[2018-05-21 14:57] LABS: ABG SITE LEFT RADIAL; ALLEN TEST OK? YES
--- NOTE | 2018-05-21 14:58 | XRAY ---
Indication: Weakness. Comparison: March 17, 2018. Portable chest unchanged again with CT proven posterior medial left lower lobe atelectasis. Remaining heart and lungs unremarkable. No new/acute findings.
[2018-05-21] MEDS ORDERED: Lactated Ringers 1,000 ML IV SCH ×2 (15:00→17:00)
[2018-05-21 15:02] LABS: ALBUMIN 4.1 g/dL (3.5-5.0); ALKALINE PHOSPHATASE 43 U/L (38-126); BLOOD UREA NITROGEN 21 mg/dL (7-17); CHLORIDE 103 mmol/L (98-107); Calcium 9.3 mg/dL (8.4-10.2); Carbon Dioxide 27 mmol/L (22-30); Creatinine 1 0.61 mg/dL (0.52-1.04); Glucose 106 mg/dL (74-106); Potassium 4.1 mmol/L (3.5-5.1); SGOT/AST 19 U/L (14-36); SGPT/ALT 25 U/L (0-35); SODIUM 141 mmol/L (137-145)
[2018-05-21] MEDS ORDERED: Xopenex 1.25 MG/0.5 ML UD NEBULE IH ONE (15:07)
[2018-05-21 15:25] LABS: Basophil 1 % (0.0-1.0); Eosinophil 1 % (0.00-3.0); Granulocyte Absolute (ANC) 8.17 (1.4-6.9); Lymphocytes 27 % (24-44); Monocyte 3 % (0.0-12.0); Neutrophils 68 % (36.0-66.0); Platelet Estimate NORMAL (NORMAL); Total Cells Counted 100
[2018-05-21] MEDS ORDERED: Lasix 40 MG/4 ML IV ONE (15:45)
[2018-05-21] MEDS ORDERED: xanAX 0.25 MG PO ONE (15:55)
[2018-05-21] MEDS: ROCEPHIN 1 Gm-D5w 50 ml Bag** 1 G/50 ML IVPB IV SCH (16:07)
[2018-05-21] MEDS: Xopenex 1.25 MG/0.5 ML UD NEBULE IH SCH ×2 (16:17→20:06)
[2018-05-21] MEDS: solu-MEDROL 40 MG IV SCH ×2 (16:26→21:29)
[2018-05-21] MEDS ORDERED: BENTYL 20 MG PO PRN (16:53)
[2018-05-21] MEDS ORDERED: Nystatin SUSPENSION 60 ML PO PRN (16:53)
[2018-05-21] MEDS ORDERED: Zithromax 500 MG/ 250 ML NaCl Premix 500 MG/250 ML IVPB IV SCH (17:00)
[2018-05-21] MEDS ORDERED: Norco 10/325 MG Tablet PO PRN (18:00)
[2018-05-21 18:05] LABS: Appearance CLEAR (CLEAR); Bilirubin NEGATIVE (NEGATIVE); Blood SMALL Ery/ul (0-5); Glucose NEGATIVE (NEGATIVE); Ketones NEGATIVE (NEGATIVE); Leukocyte Esterase NEGATIVE (NEGATIVE); Nitrite NEGATIVE (NEGATIVE); Protein,Urine Dip NEGATIVE (Negative); RBC 0-2 /HPF (0-2); Specific Gravity 1.004 (1.005-1.025); Urobilinogen NEGATIVE mg/dL (0-1)
[2018-05-21] MEDS: Multaq 400 MG PO SCH (18:21)
[2018-05-21] MEDS ORDERED: Sodium Chloride 3 ML UD NEBULES IH ONE (19:18)
[2018-05-21] MEDS: Acidophilus TABLET PO SCH (21:28)
[2018-05-21] MEDS: ELIQUIS 2.5 MG TABLET PO SCH (21:29)
[2018-05-21] MEDS: xanAX 0.25 MG PO SCH (21:29)
[2018-05-21] MEDS: NORCO 5/325 MG PO PRN (21:29)
--- NOTE | 2018-05-22 00:39 | PCM.HP ---
History of Present Illness - Chief Complaint Chief Complaint: WEAKNESS, CORTICOBASAL DEGENERATION Date: 05/21/18 (late entry for 05/21/18 15:45) History of Present Illness: is a 72 year old female pt of mine from [facility] with corticobasal degeneration, malnutrition, and COPD of unknown etiology who was admitted directly by me for UTI. She has been getting IV fluids at least weekly, and before she came in for today's fluids, her daughter contacted me and let me know that pt had had blood in the urine for several days. She is also c/o several days of increased difficulty breathing, cough, and difficulty expectorating sputum (which is a common complaint for her). Pt did not receive IV fluids last week because she was very puffy. Continues to have edema in her face and extremities. Pt c/o of being more shaky than usual yesterday and today. It does turning lathe tender that she had less xanax than usual yesterday. I had discussed with the family not to give xanax and norco together and since her increased pain called for more norco, she had only gotten 1/2 of a 0.25mg xanax in the morning, instead of 1/2 of 0.25mg xanax QID. Did have a minor fall this week; she was feeling good and trying to go down a few steps by herself and ended up lowering self slowly to the floor. - Review of Systems Constitutional: Weakness, Other (has gained weight recently) Respiratory: Cough, Short Of Breath Cardiac: Edema Abdominal/Gastrointestinal: No Diarrhea Genitourinary Symptoms: Hematuria Musculoskeletal: Neck Pain, Joint Pain Skin: Other (face gets flushed intermittently) Neurological: Dizziness All Other Systems: Reviewed and Negative Medications & Allergies Home Medications: Home Medication List Potassium Chloride [K-Dur] 10 meq PO DAILY 02/23/16 [History Confirmed 05/21/18] Levothyroxine Sodium 50 Mcg [Synthroid 50 Mcg] 50 mcg PO DAILY 01/30/17 [ History Confirmed 05/21/18] Cholecalciferol (Vitamin D3) [Vitamin D3] 1,000 unit PO HS 07/27/17 [History Confirmed 05/21/18] Loratadine 10 mg [Claritin 10 mg] 10 mg PO DAILY 07/27/17 [History Confirmed 05/21/18] Apixaban [Eliquis 2.5 mg Tablet] 2.5 mg PO BID #60 tablet 07/31/17 [Rx Confirmed 05/21/18] Dronedarone Hydrochloride 400* [Multaq 400 MG] 400 mg PO BID #60 tablet 07/31 [Rx Confirmed 05/21/18] Alprazolam 0.25 mg [xanAX 0.25 MG] 0.25 mg PO HS 12/10/17 [History Confirmed 05/21/18] Lactobacillus Acidophilus [Acidophilus TABLET] 1 tab PO BID #60 tablet 10/27 [Rx Confirmed 05/21/18] Levalbuterol HCl 1.25 MG/0.5M* [Xopenex 1.25 MG/0.5 ML UD NEBULE] 1 neb IH BID 02/16/18 [History Confirmed 05/21/18] Megestrol Acetate 40 mg/ml [Megace 40 MG/ML] 2 tsp PO DAILY 02/16/18 [ History Confirmed 05/21/18] Nystatin 5 ml PO QIDPRN PRN 02/16/18 [History Confirmed 05/21/18] Hydrocodone/APAP 5-325 Tab^^^ [[place] 5-325 Tablet^^^] 1 each PO Q4H PRN MDD 2 [History Confirmed 05/21/18] Dicyclomine HCl 20 mg [Bentyl 20 mg] 20 mg PO QID PRN 03/31/18 [History Confirmed 05/21/18] Theophylline Anhydrous 300 mg PO DAILY 03/31/18 [History Confirmed 05/21/18] Allergies/Adverse Reactions: Allergies Allergy/AdvReac Type Severity Reaction Status Date / Time Sulfa (Sulfonamide Allergy Intermediate Rash Verified 05/21/18 10:27 Antibiotics) - Past Medical History Past Medical History: Yes Neurological History: No Pertinent History ENT History: Cataracts Cardiac History: Arrhythmia Respiratory History: COPD Endocrine Medical History: Hypothyroidism Musculoskelatal History: Other GI Medical History: Diverticulitis History: No Pertinent History Pyscho-Social History: No Pertinent History Reproductive Disorders: No Pertinent History Comment: corticobasal degeneration--affects right side - Female History Are you now?: No - Past Surgical History Past Surgical History: Yes Neuro Surgical History: No Pertinent History Cardiac History: No Pertinent History Respiratory Surgery: No Pertinent History GI Surgical History: Appendectomy Genitourinary Surgical Hx: No Pertinent History Musculskeletal Surgical Hx: No Pertinent History Female Surgical History: Hysterectomy Other Surgical History: Bronchoscopy 03-19-2018 - Social History Smoking Status: Never smoker Exposure to second hand smoke: No Alcohol: None Drug Use: none - Physical Exam Vital Signs: Vital Signs - 24 hr Temp Pulse Resp BP Pulse Ox 05/22/18 00:00 98.3 F 94 H 18 107/58 94 L 05/21/18 20:07 91 H 16 92 L 05/21/18 20:00 98.0 F 90 18 157/70 98 05/21/18 16:18 84 16 98 05/21/18 16:00 98.6 F 96 H 16 139/62 96 05/21/18 14:16 99.1 F 95 H 22 136/65 98 Oxygen-Last 24 hours O2 Percentage 2 Liters = 28% General Appearance: mild distress (when trying to cough up phlegm), alert, thin Neurologic Exam: alert, oriented x 3, cooperative, other (very weak musculature throughout) Eye Exam: eyes nml inspection Ears, Nose, Throat Exam: moist mucous membranes Neck Exam: normal inspection Respiratory Exam: diminished breath sounds, prolonged expirations, crackles/ rales, rhonchi, wheezing (expiratory) Cardiovascular Exam: regular rate/rhythm, normal heart sounds, murmur Gastrointestinal/Abdomen Exam: soft, normal bowel sounds, No tenderness, No distention Back Exam: normal inspection, No rash Extremity Exam: swelling (2+ pitting edema in LE bilaterally, to proximal to the knee on R.) Skin Exam: warm, dry, other (her cheeks are erythematous. face with generalized edema.), No rash Results - Labs Lab/Micro Results: Lab Results-Last 24 Hours 05/21/18 05/21/18 05/21/18 Range/Units 14:30 14:45 14:45 WBC 12.0 H (4.0-10.5) K/mm3 RBC 3.68 L (4.1-5.4) M/mm3 Hgb 11.8 L (12.0-16.0) gm/dl Hct 36.2 (35-47) % MCV 98.4 (78-100) fl MCH 32.0 (26-32) pg MCHC 32.6 (32-36) g/dl RDW 14.7 H (11.5-14.0) % Plt Count 298 (150-450) K/mm3 MPV 9.4 (6-9.5) fl Absolute Granulocytes 8.17 H (1.4-6.9) Segmented Neutrophils 68 H (36.0-66.0) % Lymphocytes (Manual) 27 (24-44) % Monocytes (Manual) 3 (0.0-12.0) % Eosinophils (Manual) 1 (0.00-3.0) % Basophils (Manual) 1 (0.0-1.0) % Platelet Estimate NORMAL (NORMAL) RBC Morphology NORMAL Puncture Site pCO2 (35-45) mmHg pO2 (75-100) mmHg Base Excess (-2.0-2.0) O2 Saturation (94-100) g/dF ABG pH (7.35-7.45) ABG HCO3 (22-28) ABG O2 Sat (Measured) (95-100) % Daniel Test A-a Gradient a/A Ratio Hemoglobin Carboxyhemoglobin (0.0-6.9) % THgb Methemoglobin (1.4-1.5) % Temperature C POC O2 Flow Rate % Sodium 141 (137-145) mmol/L Potassium 4.1 (3.5-5.1) mmol/L Chloride 103 (98-107) mmol/L Carbon Dioxide 27 (22-30) mmol/L Anion Gap 15.0 (5-15) MEQ/L BUN 21 H (7-17) mg/dL Creatinine 0.61 (0.52-1.04) mg/dL Estimated GFR > 60.0 ML/MIN Glucose 106 (74-106) mg/dL Calcium 9.3 (8.4-10.2) mg/dL Total Bilirubin 0.30 (0.2-1.3) mg/dL AST 19 (14-36) U/L ALT 25 (0-35) U/L Alkaline Phosphatase 43 (38-126) U/L NT-Pro-B Natriuret Pep 176 (0-900) pg/mL Serum Total Protein 7.0 (6.3-8.2) g/dL Albumin 4.1 (3.5-5.0) g/dL Urine Color (YELLOW) Urine Appearance (CLEAR) Urine pH (5-6) Ur Specific [place] (1.005-1.025) Urine Protein (Negative) Urine Ketones (NEGATIVE) Urine Blood (0-5) Dimitri/ul Urine Nitrite (NEGATIVE) Urine Bilirubin (NEGATIVE) Urine Urobilinogen (0-1) mg/dL Ur Leukocyte Esterase (NEGATIVE) Urine WBC (Auto) (0-5) /HPF Urine RBC (Auto) (0-2) /HPF U Epithel Cells (Auto) (FEW) /HPF Urine Bacteria (Auto) (NEGATIVE) /HPF Urine Culture Reflexed (NO) Urine Glucose (NEGATIVE) mg/dL 05/21/18 05/21/18 Range/Units 14:56 17:20 WBC (4.0-10.5) K/mm3 RBC (4.1-5.4) M/mm3 Hgb (12.0-16.0) gm/dl Hct (35-47) % MCV (78-100) fl MCH (26-32) pg MCHC (32-36) g/dl RDW (11.5-14.0) % Plt Count (150-450) K/mm3 MPV (6-9.5) fl Absolute Granulocytes (1.4-6.9) Segmented Neutrophils (36.0-66.0) % Lymphocytes (Manual) (24-44) % Monocytes (Manual) (0.0-12.0) % Eosinophils (Manual) (0.00-3.0) % Basophils (Manual) (0.0-1.0) % Platelet Estimate (NORMAL) RBC Morphology Puncture Site LEFT RADIAL pCO2 30 L (35-45) mmHg pO2 80 (75-100) mmHg Base Excess 2.9 H (-2.0-2.0) O2 Saturation 95.7 (94-100) g/dF ABG pH 7.53 H (7.35-7.45) ABG HCO3 25.1 (22-28) ABG O2 Sat (Measured) 98.8 (95-100) % Daniel Test YES A-a Gradient 82 a/A Ratio 0.49 Hemoglobin 12.0 Carboxyhemoglobin 1.5 (0.0-6.9) % THgb Methemoglobin 1.5 (1.4-1.5) % Temperature 37.0 C POC O2 Flow Rate 28 % Sodium (137-145) mmol/L Potassium 3.5 (3.5-5.1) mmol/L Chloride (98-107) mmol/L Carbon Dioxide (22-30) mmol/L Anion Gap (5-15) MEQ/L BUN (7-17) mg/dL Creatinine (0.52-1.04) mg/dL Estimated GFR ML/MIN Glucose (74-106) mg/dL Calcium (8.4-10.2) mg/dL Total Bilirubin (0.2-1.3) mg/dL AST (14-36) U/L ALT (0-35) U/L Alkaline Phosphatase (38-126) U/L NT-Pro-B Natriuret Pep (0-900) pg/mL Serum Total Protein (6.3-8.2) g/dL Albumin (3.5-5.0) g/dL Urine Color COLORLESS (YELLOW) Urine Appearance CLEAR (CLEAR) Urine pH 7.0 (5-6) Ur Specific [place] 1.004 (1.005-1.025) Urine Protein NEGATIVE (Negative) Urine Ketones NEGATIVE (NEGATIVE) Urine Blood SMALL (0-5) Dimitri/ul Urine Nitrite NEGATIVE (NEGATIVE) Urine Bilirubin NEGATIVE (NEGATIVE) Urine Urobilinogen NEGATIVE (0-1) mg/dL Ur Leukocyte Esterase NEGATIVE (NEGATIVE) Urine WBC (Auto) NONE (0-5) /HPF Urine RBC (Auto) 0-2 (0-2) /HPF U Epithel Cells (Auto) NONE (FEW) /HPF Urine Bacteria (Auto) NONE (NEGATIVE) /HPF Urine Culture Reflexed NO (NO) Urine Glucose NEGATIVE (NEGATIVE) mg/dL - Radiology Impressions Radiology Exams & Impressions: Radiology Procedures Category Date Time Status CHEST 1 VIEW (PORTABLE) Routine Exams 05/21/18 14:35 Completed - Other Procedures and Tests Respiratory Therapy 05/21/18 14:54 Respiratory Therapy Assessment DAILY Assessment/Plan (1) UTI (urinary tract infection) Current Visit: No Status: Resolved Onset Date: ~03/07/18 Qualifiers: Urinary tract infection type: acute cystitis Hematuria presence: with hematuria Qualified Code(s): N30.01 - Acute cystitis with hematuria Assessment & Plan: Will start pt on IV rocephin; UA and UCx actually pending at this time. Code(s): N39.0 - URINARY TRACT INFECTION, SITE NOT SPECIFIED (2) Generalized edema Current Visit: Yes Status: Acute Assessment & Plan: Unsure etiology. Seems too mild to classify as anasarca necessarily. Her labs are good, including BNP. Will try 1 dose of lasix to see if there is improvement. If not, could check urine for protein in the morning, TSH, and recheck echocardiogram. Code(s): R60.1 - GENERALIZED EDEMA (3) COPD with acute exacerbation Current Visit: No Status: Acute Onset Date: ~03/07/18 Assessment & Plan: On IV rocephin; would add zithromax (or change regimen to Levaquin) except both those medicines interact with her multaq. Code(s): J44.1 - CHRONIC OBSTRUCTIVE PULMONARY DISEASE W (ACUTE) EXACERBATION (4) History of Clostridium difficile colitis Current Visit: No Status: Resolved Assessment & Plan: was treated with antibiotics. on a probiotic now. Chronic diarrhea has resolved with bentyl used TID regularly. Code(s): Z86.19 - PERSONAL HISTORY OF OTHER INFECTIOUS AND PARASITIC DISEASES (5) Atrial fibrillation Current Visit: No Status: Chronic Qualifiers: Atrial fibrillation type: chronic Assessment & Plan: On Multaq and Eliquis. Code(s): I48.91 - UNSPECIFIED ATRIAL FIBRILLATION (6) Chronic hypoxemic respiratory failure Current Visit: No Status: Chronic (7) Corticobasal degeneration Current Visit: No Status: Chronic Assessment & Plan: Has had quite a decline functionally inthe past 1 year. Has good days and bad. Was getting home health recently; daughter is a physical therapist and helps quite a bit at home. is quite attentive. I have mentioned hospice to the daughter but family is not ready to consider that yet. Code(s): G31.85 - CORTICOBASAL DEGENERATION (8) Neck pain Current Visit: No Status: Chronic Onset Date: ~12/11/17 Assessment & Plan: I increased her norco to 10/325 1 po QID prn during this stay as she stated the were not helping much yesterday. It was a struggle to get her to take the norco at all initially, even though she was in quite a bit of pain. Code(s): M54.2 - CERVICALGIA
[2018-05-22 06:02] LABS: BASOPHIL % 0.3 % (0.0-0.4); Basophil (Absolute #) 0.03 (0-0.4); Eosinophil (Absolute #) 0 (0-0.5); Granulocyte Absolute (ANC) 9.75 (1.4-6.9); Granulocytes % 85.3 % (36.0-66.0); Hematocrit 39.2 % (35-47); Hemoglobin 12.9 gm/dl (12.0-16.0); Lymphocyte (Absolute #) 1.34 (1.0-4.6); Lymphocytes % 11.7 % (24.0-44.0); Mean Cell Volume 96.8 fl (78-100); Mean Corpuscular Hgb Concent. 32.9 g/dl (32-36); Mean Platelet Volume 9.5 fl (6-9.5); Monocyte (Absolute #) 0.31 (0.0-1.3); Monocytes % 2.7 % (0.0-12.0); Platelet Count 320 K/mm3 (150-450); Red Blood Count 4.05 M/mm3 (4.1-5.4); Red Cell Distribution Width 14.5 % (11.5-14.0); White Blood Count 11.4 K/mm3 (4.0-10.5)
[2018-05-22 06:07] LABS: Mean Corpuscular Hemoglobin 31.8 pg (26-32)
[2018-05-22] MEDS: Multaq 400 MG PO SCH ×2 (07:53→17:00)
[2018-05-22] MEDS: Xopenex 1.25 MG/0.5 ML UD NEBULE IH SCH ×4 (08:37→19:08)
[2018-05-22] MEDS ORDERED: NON-FORMULARY ITEM (Theophylline Anhydrous [Theophylline Anhydrous] 300 MG) PO SCH (10:00)
[2018-05-22] MEDS ORDERED: NON-FORMULARY ITEM (Potassium Chloride [K-Dur] 10 MEQ) PO SCH (10:00)
[2018-05-22] MEDS: ELIQUIS 2.5 MG TABLET PO SCH ×2 (10:38→20:58)
[2018-05-22] MEDS: Acidophilus TABLET PO SCH ×2 (10:38→20:58)
[2018-05-22] MEDS: CLARITIN 10 MG PO SCH (10:39)
[2018-05-22] MEDS: SYNTHROID 50 MCG PO SCH (10:39)
[2018-05-22] MEDS: Klor Con 10 MEQ PO SCH (10:39)
[2018-05-22] MEDS: THEOPHYLLINE ER 24HR PO SCH (10:41)
[2018-05-22] MEDS: xanAX 0.25 MG PO SCH ×4 (10:42→20:58)
[2018-05-22] MEDS: solu-MEDROL 40 MG IV SCH ×3 (10:43→20:58)
[2018-05-22] MEDS: Megace 40 MG/ML PO SCH (10:44)
[2018-05-22] MEDS: ROCEPHIN 1 Gm-D5w 50 ml Bag** 1 G/50 ML IVPB IV SCH (10:45)
[2018-05-22] MEDS ORDERED: TYLENOL 325 MG PO PRN (11:32)
--- NOTE | 2018-05-22 15:42 | PCM.NOTE ---
Date and Time: 05/22/181536 Subjective Assessment: Her is at the bedside. They report that her swelling has gone down. She reports she is urinating well. She reports her appetite has been good and her says it has been better since she was started on a medication for her appetite in March. She has a nonproductive cough. - Review of Systems Constitutional: No Symptoms Eyes: No Symptoms Ears, Nose, & Throat: No Symptoms Respiratory: Cough Cardiac: No Symptoms Abdominal/Gastrointestinal: No Symptoms Genitourinary Symptoms: No Symptoms Musculoskeletal: No Symptoms Skin: Other (swelling of her legs bilat) Objective Exam General Appearance: no apparent distress, alert, thin, other ( at bedside ) Neurologic Exam: alert, cooperative, normal mood/affect Skin Exam: normal color, warm, dry Respiratory Exam: normal breath sounds, lungs clear, No crackles/rales, No rhonchi, No wheezing Cardiovascular Exam: regular rate/rhythm, normal heart sounds, No murmur, No friction rub, No gallop Gastrointestinal/Abdomen Exam: soft, normal bowel sounds, No tenderness, No distention, No mass Extremity Exam: other (no c/c/e) OBJECTIVE DATA Vital Signs: Vital Signs - 24 hr Temp Pulse Resp BP Pulse Ox 05/22/18 14:56 84 18 94 L 05/22/18 12:00 100.2 F 96 H 22 129/63 92 L 05/22/18 08:47 100 H 16 96 05/22/18 08:00 97.6 F 94 H 20 129/59 92 L 05/22/18 04:00 98.6 F 91 H 18 113/63 94 L 05/22/18 00:00 98.3 F 94 H 18 107/58 94 L 05/21/18 20:07 91 H 16 92 L 05/21/18 20:00 98.0 F 90 18 157/70 98 05/21/18 16:18 84 16 98 05/21/18 16:00 98.6 F 96 H 16 139/62 96 Oxygen-Last 24 hours O2 Percentage 2 Liters = 28% O2 Percentage 2 Liters = 28% Pain Assessment - Last Documented Pain Intensity 0 Pain Scale Used 0-10 Pain Scale Intake and Output: Intake & Output 05/20/18 05/21/18 05/22/18 05/23/18 06:59 06:59 06:59 06:59 Intake Total 180 360 Output Total 900 300 Balance -720 60 Weight 40.4 kg Lab Results: Lab Results-Last 24 Hours 05/21/18 05/22/18 05/22/18 Range/Units 17:20 05:40 05:40 WBC 11.4 H (4.0-10.5) K/mm3 RBC 4.05 L (4.1-5.4) M/mm3 Hgb 12.9 (12.0-16.0) gm/dl Hct 39.2 (35-47) % MCV 96.8 (78-100) fl MCH 31.8 (26-32) pg MCHC 32.9 (32-36) g/dl RDW 14.5 H (11.5-14.0) % Plt Count 320 (150-450) K/mm3 MPV 9.5 (6-9.5) fl Gran % 85.3 H (36.0-66.0) % Eos # (Auto) 0 (0-0.5) Absolute Lymphs (auto) 1.34 (1.0-4.6) Absolute Monos (auto) 0.31 (0.0-1.3) Lymphocytes % 11.7 L (24.0-44.0) % Monocytes % 2.7 (0.0-12.0) % Eosinophils % 0.0 (0.00-5.0) % Basophils % 0.3 (0.0-0.4) % Absolute Granulocytes 9.75 H (1.4-6.9) Basophils # 0.03 (0-0.4) NT-Pro-B Natriuret Pep 213 (0-900) pg/mL Urine Color COLORLESS (YELLOW) Urine Appearance CLEAR (CLEAR) Urine pH 7.0 (5-6) Ur Specific [place] 1.004 (1.005-1.025) Urine Protein NEGATIVE (Negative) Urine Ketones NEGATIVE (NEGATIVE) Urine Blood SMALL (0-5) Dimitri/ul Urine Nitrite NEGATIVE (NEGATIVE) Urine Bilirubin NEGATIVE (NEGATIVE) Urine Urobilinogen NEGATIVE (0-1) mg/dL Ur Leukocyte Esterase NEGATIVE (NEGATIVE) Urine WBC (Auto) NONE (0-5) /HPF Urine RBC (Auto) 0-2 (0-2) /HPF U Epithel Cells (Auto) NONE (FEW) /HPF Urine Bacteria (Auto) NONE (NEGATIVE) /HPF Urine Culture Reflexed NO (NO) Urine Glucose NEGATIVE (NEGATIVE) mg/dL Radiology Exams: Radiology Procedures Category Date Time Status CHEST 1 VIEW (PORTABLE) Routine Exams 05/21/18 14:35 Completed Multi-Disciplinary Progress Notes: Multi-Disciplinary Progress Notes 05/21/18 17:55 Physical Therapy Note by Jyoti Khan PT. JUST ADMITTED THIS PM DIRECT ADMIT W/ SOB AND "WET COUGH." NOTED INCREASED EDEMA WELL. PT. HAS DX OF CORTICOBASAL DEGENERATION. LIVES W/ SPOUSE WHO ASSISTS PRN AND HAS HHC. PMH: CATARACTS, HYPOTHYROIDISM, COPD, ARRYTHMIA, DIVERTICIULITIS. PT. WAS NOT FEELING WELL THIS PM. NSG IS TO ASSIST PT W/ TRANSFERS AND AMBULATION TOLERATED OVER THE WEEKEND AND HOPEFULLY PT. WILL BE MEDICALLY ABLE TO DO P.T. 05/24/18. JYOTI KHAN, PT Initialized on 05/21/18 17:55 - END OF NOTE Assessment/Plan (1) Generalized edema Current Visit: Yes Status: Acute Assessment & Plan: Improved with one dose of lasix. Her weight is down 3 kg from admission. If she continues to do well, may discharge tomorrow. Code(s): R60.1 - GENERALIZED EDEMA (2) COPD (chronic obstructive pulmonary disease) Current Visit: No Status: Chronic Qualifiers: COPD type: COPD with acute lower respiratory infection Qualified Code(s): J44.0 - Chronic obstructive pulmonary disease with acute lower respiratory infection Assessment & Plan: She is on IV steroids; breathing treatments; oxygen as needed. (3) UTI (urinary tract infection) Current Visit: No Status: Resolved Onset Date: ~03/07/18 Qualifiers: Urinary tract infection type: acute cystitis Hematuria presence: with hematuria Qualified Code(s): N30.01 - Acute cystitis with hematuria Assessment & Plan: UA looked good; urine culture in lab; continue rocephin. Code(s): N39.0 - URINARY TRACT INFECTION, SITE NOT SPECIFIED (4) Corticobasal degeneration Current Visit: No Status: Chronic Code(s): G31.85 - CORTICOBASAL DEGENERATION (5) Atrial fibrillation Current Visit: No Status: Chronic Qualifiers: Atrial fibrillation type: chronic Assessment & Plan: rate is controlled on home medication Code(s): I48.91 - UNSPECIFIED ATRIAL FIBRILLATION
[2018-05-22] MEDS ORDERED: Sodium Chloride 3 ML UD NEBULES IH ONE (18:28)
[2018-05-22] MEDS: NORCO 5/325 MG PO PRN (21:58)
[2018-05-23] MEDS: Xopenex 1.25 MG/0.5 ML UD NEBULE IH SCH ×4 (07:21→19:39)
[2018-05-23] MEDS: Acidophilus TABLET PO SCH ×2 (10:18→21:43)
[2018-05-23] MEDS: Klor Con 10 MEQ PO SCH (10:18)
[2018-05-23] MEDS: Multaq 400 MG PO SCH ×2 (10:18→16:32)
[2018-05-23] MEDS: CLARITIN 10 MG PO SCH (10:18)
[2018-05-23] MEDS: ELIQUIS 2.5 MG TABLET PO SCH ×2 (10:18→21:43)
[2018-05-23] MEDS: solu-MEDROL 40 MG IV SCH (10:19)
[2018-05-23] MEDS: SYNTHROID 50 MCG PO SCH (10:19)
[2018-05-23] MEDS: Megace 40 MG/ML PO SCH (10:19)
[2018-05-23] MEDS: ROCEPHIN 1 Gm-D5w 50 ml Bag** 1 G/50 ML IVPB IV SCH (10:19)
[2018-05-23] MEDS: THEOPHYLLINE ER 24HR PO SCH (10:21)
[2018-05-23] MEDS: xanAX 0.25 MG PO SCH ×4 (10:22→21:43)
--- NOTE | 2018-05-23 11:42 | PCM.NOTE ---
Date and Time: 05/23/18 113 Subjective Assessment: She reports that she has felt wheezy and shakey. She states walking usually helps with the shakiness. She also reports continued cough and feeling groggy and tired. She states she didn't sleep well. She denies nausea. - Review of Systems Constitutional: Fatigue Eyes: No Symptoms Ears, Nose, & Throat: No Symptoms Respiratory: Wheezing Cardiac: No Symptoms Abdominal/Gastrointestinal: No Symptoms Genitourinary Symptoms: No Symptoms Musculoskeletal: No Symptoms Neurological: Other (shakey) Objective Exam General Appearance: no apparent distress, alert, thin Neurologic Exam: alert, cooperative, normal mood/affect Skin Exam: normal color, warm, dry Respiratory Exam: normal breath sounds, airway intact, rhonchi, other (few scattered wheezes), No respiratory distress, No accessory muscle use, No stridor Cardiovascular Exam: regular rate/rhythm, normal heart sounds, No murmur, No friction rub, No gallop Gastrointestinal/Abdomen Exam: soft, normal bowel sounds, No tenderness, No distention, No mass Extremity Exam: other (no c/c/e) OBJECTIVE DATA Vital Signs: Vital Signs - 24 hr Temp Pulse Resp BP BP Pulse Ox 05/23/18 10:40 88 16 96 05/23/18 08:00 98.6 F 91 H 18 152/71 93 L 05/23/18 07:23 86 16 93 L 05/23/18 04:00 98.2 F 89 18 138/65 98 05/23/18 00:00 98.3 F 102 H 22 130/60 94 L 05/22/18 20:00 98.4 F 105 H 22 125/57 96 05/22/18 19:13 100 H 22 87 L 05/22/18 16:58 98.8 F 106 H 93 H 125/60 93 L 05/22/18 14:56 84 18 94 L 05/22/18 12:00 100.2 F 96 H 22 129/63 92 L Oxygen-Last 24 hours O2 Percentage 2 Liters = 28% Oxygen Flowrate (L/min)-RT 2 Oxygen Flowrate (L/min)-RT 2 Pain Assessment - Last Documented Pain Intensity 2 Pain Scale Used 0-10 Pain Scale Intake and Output: Intake & Output 05/21/18 05/22/18 05/23/18 05/24/18 06:59 06:59 06:59 06:59 Intake Total 180 580 340 Output Total 900 675 Balance -720 -95 340 Weight 40.4 kg 42 kg Radiology Exams: Radiology Procedures Category Date Time Status CHEST 1 VIEW (PORTABLE) Routine Exams 05/21/18 14:35 Completed Assessment/Plan (1) Generalized edema Current Visit: Yes Status: Acute Assessment & Plan: Improved after 1 dose of lasix on admit. Code(s): R60.1 - GENERALIZED EDEMA (2) COPD (chronic obstructive pulmonary disease) Current Visit: No Status: Chronic Qualifiers: COPD type: COPD with acute lower respiratory infection Qualified Code(s): J44.0 - Chronic obstructive pulmonary disease with acute lower respiratory infection Assessment & Plan: Decrease IV steroids from tid to q 12 hours. Continue with oxygen, breathing treatments, supportive care. (3) UTI (urinary tract infection) Current Visit: No Status: Resolved Onset Date: ~03/07/18 Qualifiers: Urinary tract infection type: acute cystitis Hematuria presence: with hematuria Qualified Code(s): N30.01 - Acute cystitis with hematuria Assessment & Plan: Continue ceftriaxone. Code(s): N39.0 - URINARY TRACT INFECTION, SITE NOT SPECIFIED (4) Corticobasal degeneration Current Visit: No Status: Chronic Assessment & Plan: Continue home medication. Code(s): G31.85 - CORTICOBASAL DEGENERATION (5) Atrial fibrillation Current Visit: No Status: Chronic Qualifiers: Atrial fibrillation type: chronic Assessment & Plan: Rate controlled. Continue home medication. Code(s): I48.91 - UNSPECIFIED ATRIAL FIBRILLATION
[2018-05-23] MEDS ORDERED: Sodium Chloride 3 ML UD NEBULES IH ONE (19:09)
[2018-05-23] MEDS: NORCO 5/325 MG PO PRN (19:57)
[2018-05-23] MEDS ORDERED: solu-MEDROL 40 MG IV SCH (22:00)
[2018-05-24] MEDS: Xopenex 1.25 MG/0.5 ML UD NEBULE IH SCH (07:15)
[2018-05-24] MEDS: Multaq 400 MG PO SCH (08:04)
[2018-05-24] MEDS ORDERED: Lasix 40 MG/4 ML IV ONE (08:36)
--- NOTE | 2018-05-24 08:46 | PCM.DS ---
Discharge Summary Date of Admission: 05/21/18 14:10 Admitting Physician: CYDNEY VELA Primary Care Provider: CYDNEY VELA Allergies Allergies Sulfa (Sulfonamide Antibiotics) Allergy (Intermediate, Verified 05/21/18 10:27) Rash Hospital Summary - Hospital Course Hospital Course: Pt is 72 yo female pt of mine from [facility] with corticobasal degeneration, malnutrition, and COPD of unknown etiology who came to infusion with overall edema and several days of hematuria. She was treated for UTI with IV rocephin. Also several days of increased cough (was not tx with levaquin or zithromax due to interactions with her Multaq). She was given 1 dose IV lasix 40mg with improvement of the edema, but she has continued to have some difficulty breathing off and on. She has been urinating well. Eating well. Today will give 1 more dose IV lasix. Recheck labs. If doing ok, can discharge to home this afternoon about 2 p.m. She has an important specialist appointment tomorrow. - Vitals & Intake/Output Vital Signs: Vital Signs Temperature 97.6 F 05/24/18 07:13 Pulse Rate 101 H 05/24/18 07:18 Respiratory Rate 16 05/24/18 07:18 Blood Pressure 126/68 05/24/18 07:13 O2 Sat by Pulse Oximetry 96 05/24/18 07:18 Oxygen-Last Documented O2 Percentage 2 Liters = 28% Intake & Output: Intake & Output 05/21/18 05/22/18 05/23/18 05/24/18 11:59 11:59 11:59 11:59 Intake Total 126 479 7415 Output Total 1100 475 Balance -157 018 2251 Weight 40.4 kg 42 kg 42.2 kg - Lab Result Diagrams: 05/22/18 05:40 05/21/18 14:45 Micro Results-Entire Visit: Microbiology 05/22/18 Unknown Urine Culture - Preliminary Urine, Void NO GROWTH TO DATE - Procedures and Test Procedures and Tests throughout Hospitalization: Therapy Orders & Screens 05/21/18 14:30 PT Eval & Treat ( Order) ROUTINE Reason for Eval:: WEAKNESS Diagnosis: WEAKNESS, CORTICOBASAL DEGENERATION 05/21/18 14:54 Respiratory Therapy Assessment DAILY Comment: Diagnosis: WEAKNESS, CORTICOBASAL DEGENERATION 05/22/18 08:54 Oxygen Nasal Cannula 2 lpm Comment: Diagnosis: WEAKNESS, CORTICOBASAL DEGENERATION Discharge Exam General Appearance: no apparent distress, alert Neurologic Exam: oriented x 3, cooperative Skin Exam: normal color, warm, dry, No rash Respiratory Exam: diminished breath sounds, prolonged expirations, No lungs clear, No crackles/rales, No rhonchi, No wheezing Cardiovascular Exam: normal heart sounds, tachycardia, No murmur Gastrointestinal/Abdomen Exam: soft, normal bowel sounds, No tenderness Extremity Exam: swelling (1+ LE edema bilat) Back Exam: normal inspection, No rash Final Diagnosis/Problem List - Final Discharge Diagnosis/Problem (1) UTI (urinary tract infection) Current Visit: No Status: Resolved Onset Date: ~03/07/18 Assessment & Plan: Rocephin day #4 today. LIkely home this afternoon. Code(s): N39.0 - URINARY TRACT INFECTION, SITE NOT SPECIFIED (2) Generalized edema Current Visit: Yes Status: Acute Assessment & Plan: improved; will give 1 more dose IV lasix today. Code(s): R60.1 - GENERALIZED EDEMA (3) COPD with acute exacerbation Current Visit: No Status: Acute Onset Date: ~03/07/18 Assessment & Plan: Home on po cefdinir. I have a call out to Dr. Johansen, wonder if pt could do therapeutic bronchoscopy as that helped her symptoms more than any of the medicines she's tried. Code(s): J44.1 - CHRONIC OBSTRUCTIVE PULMONARY DISEASE W (ACUTE) EXACERBATION (4) History of Clostridium difficile colitis Current Visit: No Status: Resolved Code(s): Z86.19 - PERSONAL HISTORY OF OTHER INFECTIOUS AND PARASITIC DISEASES (5) Atrial fibrillation Current Visit: No Status: Chronic Code(s): I48.91 - UNSPECIFIED ATRIAL FIBRILLATION (6) Chronic hypoxemic respiratory failure Current Visit: No Status: Chronic (7) Corticobasal degeneration Current Visit: No Status: Chronic Code(s): G31.85 - CORTICOBASAL DEGENERATION (8) Neck pain Current Visit: No Status: Chronic Onset Date: ~12/11/17 Code(s): M54.2 - CERVICALGIA - Discharge Disposition: Home, Self-Care Condition: Stable Prescriptions: New Cefdinir 300 mg PO BID #20 capsule Prednisone 20 mg [Deltasone 20 mg] 20 mg PO DAILY #17 tablet Continue Potassium Chloride [K-Dur] 10 meq PO DAILY Levothyroxine Sodium 50 Mcg [Synthroid 50 Mcg] 50 mcg PO DAILY Loratadine 10 mg [Claritin 10 mg] 10 mg PO DAILY Cholecalciferol (Vitamin D3) [Vitamin D3] 1,000 unit PO HS Apixaban [Eliquis 2.5 mg Tablet] 2.5 mg PO BID #60 tablet Dronedarone Hydrochloride 400* [Multaq 400 MG] 400 mg PO BID #60 tablet Alprazolam 0.25 mg [xanAX 0.25 MG] 0.25 mg PO HS Lactobacillus Acidophilus [Acidophilus TABLET] 1 tab PO BID #60 tablet Megestrol Acetate 40 mg/ml [Megace 40 MG/ML] 2 tsp PO DAILY Nystatin 5 ml PO QIDPRN PRN PRN Reason: MOUTH SORENESS Levalbuterol HCl 1.25 MG/0.5M* [Xopenex 1.25 MG/0.5 ML UD NEBULE] 1 neb IH BID Hydrocodone/APAP 5-325 Tab^^^ [[place] 5-325 Tablet^^^] 1 each PO Q4H PRN MDD 2 PRN Reason: Pain Theophylline Anhydrous 300 mg PO DAILY Dicyclomine HCl 20 mg [Bentyl 20 mg] 20 mg PO QID PRN PRN Reason: Loose Stools Follow up with: CYDNEY VELA [Primary Care Provider] - 1 Week
[2018-05-24] MEDS: Acidophilus TABLET PO SCH (09:18)
[2018-05-24] MEDS: Klor Con 10 MEQ PO SCH (09:18)
[2018-05-24] MEDS: ELIQUIS 2.5 MG TABLET PO SCH (09:18)
[2018-05-24] MEDS: SYNTHROID 50 MCG PO SCH (09:18)
[2018-05-24] MEDS: CLARITIN 10 MG PO SCH (09:18)
[2018-05-24] MEDS: xanAX 0.25 MG PO SCH (09:19)
[2018-05-24] MEDS: THEOPHYLLINE ER 24HR PO SCH (09:19)
[2018-05-24] MEDS: Megace 40 MG/ML PO SCH (09:19)
[2018-05-24] MEDS ORDERED: Sodium Chloride 3 ML UD NEBULES IH SCH (10:00)
[2018-05-24 10:11] LABS: Hematocrit 46.5 % (35-47); Mean Cell Volume 98.7 fl (78-100); Mean Corpuscular Hemoglobin 31.8 pg (26-32); Mean Corpuscular Hgb Concent. 32.3 g/dl (32-36); Mean Platelet Volume 9.7 fl (6-9.5); Platelet Count 367 K/mm3 (150-450); Red Blood Count 4.71 M/mm3 (4.1-5.4); Red Cell Distribution Width 14.5 % (11.5-14.0); White Blood Count 16.9 K/mm3 (4.0-10.5)
[2018-05-24 10:27] LABS: ANION GAP 16.1 MEQ/L (5-15); BLOOD UREA NITROGEN 25 mg/dL (7-17); CHLORIDE 103 mmol/L (98-107); Calcium 10.4 mg/dL (8.4-10.2); Carbon Dioxide 27 mmol/L (22-30); Creatinine 1 0.52 mg/dL (0.52-1.04); Glucose 123 mg/dL (74-106); Potassium 3.5 mmol/L (3.5-5.1); SODIUM 142 mmol/L (137-145)
[2018-05-24 11:09] VITALS: BP 134/65; PULSE 97; O2SAT 97
== END 2018-05-24 11:24 | disposition home or self-care (01) | DRG 690 ==
LOC: MED SURG 14:10 → OBSVTOIN 05-22 14:10
PROVIDERS: ADMIT Family Medicine; ATTEND Family Medicine
DX: N39.0 Urinary tract infection, site not specified (principal); J44.1 Chronic obstructive pulmonary disease with (acute) exacerbation; J96.11 Chronic respiratory failure with hypoxia; E46 Unspecified protein-calorie malnutrition; R60.1 Generalized edema; I48.91 Unspecified atrial fibrillation; G31.85 Corticobasal degeneration; Z86.19 Personal history of other infectious and parasitic diseases; R31.9 Hematuria, unspecified; R53.1 Weakness; E03.9 Hypothyroidism, unspecified; M54.2 Cervicalgia; Z79.899 Other long term (current) drug therapy; Z79.01 Long term (current) use of anticoagulants
CPT/HCPCS: 36415; 36600; 71045; 80048; 80053; 81001; 82375; 82803; 83880; 85025; 85027; 87086; 93005; 93268; 94640; 94760; G0378; J0456; J0696; J1940; J2920; A9270-GY

== ENCOUNTER 2018-06-22 08:38 | Inpatient (IN) | payer MEDICARE ==
[2018-06-22] MEDS ORDERED: Sodium Chloride 0.9% 10 ML FLUSH Syringe IV PRN (17:00)
[2018-06-22] MEDS ORDERED: Lasix 40 MG/4 ML IV ONE (17:00)
[2018-06-22 17:03] LABS: Hematocrit 39.2 % (35-47); Mean Cell Volume 96.3 fl (78-100); Mean Corpuscular Hemoglobin 31.9 pg (26-32); Mean Corpuscular Hgb Concent. 33.2 g/dl (32-36); Mean Platelet Volume 9.3 fl (6-9.5); Platelet Count 358 K/mm3 (150-450); Red Blood Count 4.07 M/mm3 (4.1-5.4); Red Cell Distribution Width 13.5 % (11.5-14.0); White Blood Count 11.3 K/mm3 (4.0-10.5)
[2018-06-22] MEDS: solu-MEDROL 40 MG IV SCH ×2 (17:10→23:10)
[2018-06-22] MEDS: ROCEPHIN 1 Gm-D5w 50 ml Bag** 1 G/50 ML IVPB IV SCH (17:12)
[2018-06-22 17:27] LABS: ANION GAP 15.4 MEQ/L (5-15); BLOOD UREA NITROGEN 24 mg/dL (7-17); CHLORIDE 99 mmol/L (98-107); Calcium 9.7 mg/dL (8.4-10.2); Carbon Dioxide 27 mmol/L (22-30); Creatinine 1 0.47 mg/dL (0.52-1.04); Glucose 95 mg/dL (74-106); NT PRO BNP 245 pg/mL (0-900); Potassium 3.2 mmol/L (3.5-5.1); SODIUM 138 mmol/L (137-145); TROPONIN < 0.012 ng/mL (0.000-0.034)
[2018-06-22] MEDS: NORCO 7.5/325 MG TAB PO PRN (18:44)
[2018-06-22] MEDS: Xopenex 1.25 MG/0.5 ML UD NEBULE IH PRN (19:06)
[2018-06-22] MEDS: Advair Hfa 230/21 Mcg COMMON CANISTER IH SCH (19:15)
[2018-06-22] MEDS: BENTYL 20 MG PO SCH (20:03)
[2018-06-22] MEDS: Sinemet 25/100 MG PO SCH ×2 (20:03→22:27)
[2018-06-22 21:43] LABS: Eosinophil 1 % (0.00-3.0); Lymphocytes 15 % (24-44); Metamyelocyte 1 %; Monocyte 9 % (0.0-12.0); Neutrophils 74 % (36.0-66.0); Platelet Estimate NORMAL (NORMAL); Total Cells Counted 100
[2018-06-22] MEDS: Acidophilus TABLET PO SCH (22:40)
[2018-06-22] MEDS: Mucinex 600MG ER Tabs PO SCH (22:40)
[2018-06-22] MEDS: Multaq 400 MG PO SCH (22:41)
[2018-06-22] MEDS: Sodium Chloride 0.9% 10 ML FLUSH Syringe IV SCH (22:41)
[2018-06-22] MEDS: ELIQUIS 2.5 MG TABLET PO SCH (22:41)
[2018-06-23] MEDS: xanAX 0.25 MG PO PRN ×2 (02:03→16:33)
[2018-06-23] MEDS: solu-MEDROL 40 MG IV SCH ×3 (05:19→19:43)
[2018-06-23] MEDS: Sodium Chloride 0.9% 10 ML FLUSH Syringe IV SCH ×3 (05:21→22:42)
[2018-06-23] MEDS: NORCO 7.5/325 MG TAB PO PRN (05:51)
[2018-06-23] MEDS: Xopenex 1.25 MG/0.5 ML UD NEBULE IH SCH ×5 (07:00→19:48)
[2018-06-23] MEDS: Advair Hfa 230/21 Mcg COMMON CANISTER IH SCH ×2 (07:00→19:49)
[2018-06-23] MEDS: Xopenex 1.25 MG/0.5 ML UD NEBULE IH PRN (08:22)
[2018-06-23] MEDS: BENTYL 20 MG PO SCH ×3 (08:24→16:33)
[2018-06-23] MEDS: Sinemet 25/100 MG PO SCH ×3 (08:25→19:43)
--- NOTE | 2018-06-23 08:36 | XRAY ---
Indication: COPD exacerbation. CHF. Possible pneumonia. Comparison: May 21, 2018. Portable chest again demonstrates COPD, left base subsegmental atelectasis/scarring, and a few tiny calcified granulomas. No focal infiltrate, consolidation, or large effusion. Heart and mediastinal structures within normal limits. Bony thorax intact again with mild osteopenia and degenerative changes. Impression: Nonacute chest with chronic features.
--- NOTE | 2018-06-23 08:43 | PCM.HP ---
History of Present Illness - Chief Complaint Chief Complaint: COPD EXAC,CHF History of Present Illness: is a 72 year old female pt of mine from [facility] with COPD of unknown etiology, corticobasal degeneration, Parkinson's features, atrial fibrillation, hypothyroidism, and chronic neck and back pain who was admitted yesterday for 1 d of increased cough and chest tightness. I was notified that she was feeling ill and did a home visit yesterday. She has been afebrile. Taking po. She was admitted on IV rocephin and steroids. Her labs are non acute; slightly low potassium. She is feeling better this morning, feels that her breathing is better. - Review of Systems Constitutional: Weakness (chronic), No Fever Respiratory: Cough, Short Of Breath Cardiac: Chest Pain, Edema (bilat LE) Abdominal/Gastrointestinal: Appetite Changes Musculoskeletal: Back Pain, Neck Pain Skin: Other (intermittent facial flushing; chronic) All Other Systems: Reviewed and Negative Medications & Allergies Home Medications: Home Medication List Levothyroxine Sodium 50 Mcg [Synthroid 50 Mcg] 50 mcg PO DAILY 01/30/17 [ History Confirmed 06/22/18] Loratadine 10 mg [Claritin 10 mg] 10 mg PO DAILY 07/27/17 [History Confirmed 06/22/18] Apixaban [Eliquis 2.5 mg Tablet] 2.5 mg PO BID #60 tablet 07/31/17 [Rx Confirmed 06/22/18] Dronedarone Hydrochloride 400* [Multaq 400 MG] 400 mg PO BID #60 tablet 07/31 [Rx Confirmed 06/22/18] Alprazolam 0.25 mg [xanAX 0.25 MG] 0.25 mg PO DAILY PRN PRN 12/10/17 [ History Confirmed 06/22/18] Lactobacillus Acidophilus [Acidophilus TABLET] 1 tab PO BID #60 tablet 10/27 [Rx Confirmed 06/22/18] Levalbuterol HCl 1.25 MG/0.5M* [Xopenex 1.25 MG/0.5 ML UD NEBULE] 1 neb IH BID 02/16/18 [History Confirmed 06/22/18] Megestrol Acetate 40 mg/ml [Megace 40 MG/ML] 2 tsp PO DAILY 02/16/18 [ History Confirmed 06/22/18] Nystatin 5 ml PO QIDPRN PRN 02/16/18 [History Confirmed 06/22/18] Hydrocodone/APAP 5-325 Tab^^^ [[place] 5-325 Tablet^^^] 1 each PO Q4H PRN MDD 2 [History Confirmed 06/22/18] Dicyclomine HCl 20 mg [Bentyl 20 mg] 20 mg PO TIDWMEALS 03/31/18 [History Confirmed 06/22/18] Calcium Carbonate/Vitamin D3 [Calcium 1,000 + D3 Caplet] 1 each PO DAILY [History Confirmed 06/22/18] Carbidopa/Levodopa [Sinemet 25-100 mg Tablet] 1 each PO 0700,1430,1930 06/22/18 [History Confirmed 06/22/18] Potassium Chl 40 Meq Oral Sakina* [Potassium Chl 40 Meq/30 ml Oral Solution] 10 meq PO DAILY 06/22/18 [History Confirmed 06/22/18] Allergies/Adverse Reactions: Allergies Allergy/AdvReac Type Severity Reaction Status Date / Time Sulfa (Sulfonamide Allergy Intermediate Rash Verified 06/22/18 16:56 Antibiotics) - Past Medical History Past Medical History: Yes Neurological History: No Pertinent History ENT History: Cataracts Cardiac History: Arrhythmia Respiratory History: COPD Endocrine Medical History: Hypothyroidism Musculoskelatal History: Other GI Medical History: Diverticulitis History: No Pertinent History Pyscho-Social History: No Pertinent History Reproductive Disorders: No Pertinent History Comment: corticobasal degeneration--affects right side - Female History Are you now?: No - Past Surgical History Past Surgical History: Yes Neuro Surgical History: No Pertinent History Cardiac History: No Pertinent History Respiratory Surgery: No Pertinent History GI Surgical History: Appendectomy Genitourinary Surgical Hx: No Pertinent History Musculskeletal Surgical Hx: No Pertinent History Female Surgical History: Hysterectomy Other Surgical History: Bronchoscopy 03-19-2018 - Social History Smoking Status: Never smoker Exposure to second hand smoke: No Alcohol: None Drug Use: none - Physical Exam Vital Signs: Vital Signs - 24 hr Temp Pulse Resp BP Pulse Ox 06/23/18 08:29 98 06/23/18 08:23 91 H 18 98 06/23/18 07:29 98.3 F 96 H 18 138/70 93 L 06/23/18 04:15 98.8 F 99 H 20 138/66 97 06/23/18 00:18 98.2 F 90 18 116/57 90 L 06/22/18 20:59 94 H 20 95 06/22/18 20:05 98.0 F 115 H 17 130/63 97 06/22/18 20:00 98.0 F 115 H 17 130/63 97 06/22/18 18:22 97 06/22/18 17:30 93 H 24 97 06/22/18 16:51 98.2 F 97 H 20 150/72 90 L 06/22/18 16:42 98.2 F Oxygen-Last 24 hours O2 Percentage 3 Liters = 32% O2 Percentage 3 Liters = 32% O2 Percentage 3 Liters = 32% O2 Percentage 2 Liters = 28% O2 Percentage 2 Liters = 28% Oxygen Flowrate (L/min)-RT 2 General Appearance: no apparent distress, alert, other (sitting up; is feeding her breakfast) Neurologic Exam: oriented x 3, cooperative Eye Exam: eyes nml inspection Ears, Nose, Throat Exam: moist mucous membranes Respiratory Exam: diminished breath sounds (fair to good air exchange), prolonged expirations, rhonchi (scattered), No wheezing Cardiovascular Exam: normal heart sounds, tachycardia, No murmur Back Exam: normal inspection, No rash Extremity Exam: normal inspection, No pedal edema, No swelling Skin Exam: normal color, warm, dry, No rash Results - Labs Lab/Micro Results: Lab Results-Last 24 Hours 06/22/18 06/22/18 Range/Units 17:00 17:00 WBC 11.3 H (4.0-10.5) K/mm3 RBC 4.07 L (4.1-5.4) M/mm3 Hgb 13.0 (12.0-16.0) gm/dl Hct 39.2 (35-47) % MCV 96.3 (78-100) fl MCH 31.9 (26-32) pg MCHC 33.2 (32-36) g/dl RDW 13.5 (11.5-14.0) % Plt Count 358 (150-450) K/mm3 MPV 9.3 (6-9.5) fl Segmented Neutrophils 74 H (36.0-66.0) % Lymphocytes (Manual) 15 L (24-44) % Monocytes (Manual) 9 (0.0-12.0) % Eosinophils (Manual) 1 (0.00-3.0) % Metamyelocytes 1 % Platelet Estimate NORMAL (NORMAL) RBC Morphology NORMAL Sodium 138 (137-145) mmol/L Potassium 3.2 L (3.5-5.1) mmol/L Chloride 99 (98-107) mmol/L Carbon Dioxide 27 (22-30) mmol/L Anion Gap 15.4 H (5-15) MEQ/L BUN 24 H (7-17) mg/dL Creatinine 0.47 L (0.52-1.04) mg/dL Estimated GFR > 60.0 ML/MIN Glucose 95 (74-106) mg/dL Calcium 9.7 (8.4-10.2) mg/dL Troponin I < 0.012 (0.000-0.034) ng/mL NT-Pro-B Natriuret Pep 245 (0-900) pg/mL - Radiology Impressions Radiology Exams & Impressions: Radiology Procedures Category Date Time Status CHEST 1 VIEW (PORTABLE) Routine Exams 06/22/18 17:00 Completed - Other Procedures and Tests Respiratory Therapy 06/22/18 18:15 Respiratory Therapy Assessment DAILY 06/23/18 08:23 Oxygen Nasal Cannula 3 lpm Assessment/Plan (1) COPD with acute exacerbation Current Visit: No Status: Acute Onset Date: ~03/07/18 Assessment & Plan: Sounds much better than on exam yesterday. On day #2 IV rocephin. Xopenex nebs. Plan is to keep several more days but will see how she does. Code(s): J44.1 - CHRONIC OBSTRUCTIVE PULMONARY DISEASE W (ACUTE) EXACERBATION (2) Non-cardiac chest pain Current Visit: No Status: Acute Onset Date: ~03/07/18 Assessment & Plan: improved Code(s): R07.89 - OTHER CHEST PAIN (3) Atrial fibrillation Current Visit: No Status: Chronic Qualifiers: Code(s): I48.91 - UNSPECIFIED ATRIAL FIBRILLATION (4) Chronic hypoxemic respiratory failure Current Visit: No Status: Chronic Assessment & Plan: O2 up to 3L today; on 2L at home. Will need to requalify before she discharges to home. (5) Corticobasal degeneration Current Visit: No Status: Chronic Assessment & Plan: saw neurology in [place], started on some Parkinson's meds which help her shaking but the weakness waxes and wanes. Code(s): G31.85 - CORTICOBASAL DEGENERATION (6) Hypothyroidism Current Visit: No Status: Chronic Qualifiers: Hypothyroidism type: acquired Qualified Code(s): E03.9 - Hypothyroidism, unspecified Code(s): E03.9 - HYPOTHYROIDISM, UNSPECIFIED (7) Neck pain Current Visit: No Status: Chronic Onset Date: ~12/11/17 Assessment & Plan: trying norco 7.5 here - may need it on d/c Code(s): M54.2 - CERVICALGIA (8) Weakness Current Visit: No Status: Chronic Onset Date: ~07/27/17 Assessment & Plan: will consult PT Code(s): R53.1 - WEAKNESS (9) History of Clostridium difficile colitis Current Visit: No Status: Resolved Assessment & Plan: Not actively having diarrhea, but will keep on her probiotics Code(s): Z86.19 - PERSONAL HISTORY OF OTHER INFECTIOUS AND PARASITIC DISEASES
[2018-06-23] MEDS: Klor Con 10 MEQ PO SCH (08:53)
[2018-06-23] MEDS: ELIQUIS 2.5 MG TABLET PO SCH ×2 (08:53→22:42)
[2018-06-23] MEDS: SYNTHROID 50 MCG PO SCH (08:53)
[2018-06-23] MEDS: Multaq 400 MG PO SCH ×2 (08:53→22:42)
[2018-06-23] MEDS: Acidophilus TABLET PO SCH ×2 (08:53→22:42)
[2018-06-23] MEDS: Megace 40 MG/ML PO SCH (08:53)
[2018-06-23] MEDS: Calcium 500MG W/Vit D Tablet PO SCH (08:53)
[2018-06-23] MEDS: Mucinex 600MG ER Tabs PO SCH ×2 (08:53→22:42)
[2018-06-23] MEDS: CLARITIN 10 MG PO SCH (08:53)
[2018-06-23] MEDS: Nystatin SUSPENSION 60 ML PO PRN ×2 (08:54→16:40)
[2018-06-23] MEDS: ROCEPHIN 1 Gm-D5w 50 ml Bag** 1 G/50 ML IVPB IV SCH (08:55)
[2018-06-23] MEDS ORDERED: POTASSIUM CHL 40 MEQ/30 ML ORAL SOLUTION PO SCH (10:00)
[2018-06-23] MEDS ORDERED: NON-FORMULARY ITEM (Calcium Carbonate/Vitamin D3 [Calcium 1,000 + D3 Caplet] 1 EACH) PO SCH (10:00)
[2018-06-23] MEDS ORDERED: Sodium Chloride 3 ML UD NEBULES IH ONE (18:50)
[2018-06-24] MEDS: solu-MEDROL 40 MG IV SCH ×5 (00:52→23:08)
[2018-06-24] MEDS: NORCO 7.5/325 MG TAB PO PRN ×2 (04:30→13:45)
[2018-06-24 04:59] LABS: Hematocrit 39.6 % (35-47); Hemoglobin 12.9 gm/dl (12.0-16.0); Mean Cell Volume 97.3 fl (78-100); Mean Corpuscular Hgb Concent. 32.6 g/dl (32-36); Mean Platelet Volume 9.6 fl (6-9.5); Platelet Count 371 K/mm3 (150-450); Red Blood Count 4.07 M/mm3 (4.1-5.4); Red Cell Distribution Width 13.4 % (11.5-14.0)
[2018-06-24 05:06] LABS: Mean Corpuscular Hemoglobin 31.6 pg (26-32)
[2018-06-24 05:19] LABS: ANION GAP 15.5 MEQ/L (5-15); BLOOD UREA NITROGEN 32 mg/dL (7-17); CHLORIDE 98 mmol/L (98-107); Calcium 10.2 mg/dL (8.4-10.2); Carbon Dioxide 29 mmol/L (22-30); Creatinine 1 0.46 mg/dL (0.52-1.04); Glucose 143 mg/dL (74-106); Potassium 3.3 mmol/L (3.5-5.1); SODIUM 139 mmol/L (137-145)
[2018-06-24] MEDS: Sinemet 25/100 MG PO SCH ×3 (06:31→19:42)
[2018-06-24] MEDS: Sodium Chloride 0.9% 10 ML FLUSH Syringe IV SCH ×3 (06:33→21:04)
[2018-06-24] MEDS ORDERED: Sodium Chloride 3 ML UD NEBULES IH ONE (06:48)
[2018-06-24] MEDS: Advair Hfa 230/21 Mcg COMMON CANISTER IH SCH ×2 (07:21→20:13)
[2018-06-24] MEDS: Xopenex 1.25 MG/0.5 ML UD NEBULE IH SCH ×4 (07:21→20:07)
[2018-06-24] MEDS: BENTYL 20 MG PO SCH ×3 (07:49→16:11)
--- NOTE | 2018-06-24 08:15 | PCM.NOTE ---
Date and Time: 06/24/18811 Subjective Assessment: Pt feels like her breathing is worse this morning, but hasn't been up and around yet. Has been [place] po. - Review of Systems Constitutional: No Fever Respiratory: Cough, Short Of Breath Objective Exam General Appearance: no apparent distress, alert Neurologic Exam: oriented x 3, cooperative Skin Exam: warm, dry, No normal color (facial flushing) Respiratory Exam: diminished breath sounds, prolonged expirations, rhonchi (On R , which largely cleared after coughing), No wheezing Cardiovascular Exam: normal heart sounds, tachycardia (with some irregularity), No murmur Gastrointestinal/Abdomen Exam: soft, normal bowel sounds, No tenderness Extremity Exam: normal inspection, No pedal edema, No swelling Back Exam: normal inspection, No rash OBJECTIVE DATA Vital Signs: Vital Signs - 24 hr Temp Pulse Resp BP Pulse Ox 06/24/18 07:26 85 20 97 06/24/18 04:00 98.3 F 96 H 17 135/60 97 06/24/18 00:05 97.6 F 91 H 15 121/63 95 06/23/18 20:00 98.1 F 93 H 16 125/59 91 L 06/23/18 19:52 93 H 16 91 L 06/23/18 16:38 98.2 F 99 H 18 130/66 96 06/23/18 16:00 18 06/23/18 14:31 100 H 20 96 06/23/18 12:14 97.9 F 90 18 124/76 96 06/23/18 12:04 89 16 99 06/23/18 12:00 18 06/23/18 08:29 98 06/23/18 08:23 91 H 18 98 Oxygen-Last 24 hours O2 Percentage 3 Liters = 32% O2 Percentage 3 Liters = 32% O2 Percentage 3 Liters = 32% O2 Percentage 2 Liters = 28% Pain Assessment - Last Documented Pain Intensity 0 Pain Scale Used 0-10 Pain Scale Intake and Output: Intake & Output 06/21/18 06/22/18 06/23/18 06/24/18 11:59 11:59 11:59 11:59 Intake Total 440 580 Output Total 1230 700 Balance -790 -120 Weight 40.8 kg Lab Results: Lab Results-Last 24 Hours 06/24/18 06/24/18 Range/Units 04:35 04:35 WBC 13.0 H (4.0-10.5) K/mm3 RBC 4.07 L (4.1-5.4) M/mm3 Hgb 12.9 (12.0-16.0) gm/dl Hct 39.6 (35-47) % MCV 97.3 (78-100) fl MCH 31.6 (26-32) pg MCHC 32.6 (32-36) g/dl RDW 13.4 (11.5-14.0) % Plt Count 371 (150-450) K/mm3 MPV 9.6 H (6-9.5) fl Sodium 139 (137-145) mmol/L Potassium 3.3 L (3.5-5.1) mmol/L Chloride 98 (98-107) mmol/L Carbon Dioxide 29 (22-30) mmol/L Anion Gap 15.5 H (5-15) MEQ/L BUN 32 H (7-17) mg/dL Creatinine 0.46 L (0.52-1.04) mg/dL Estimated GFR > 60.0 ML/MIN Glucose 143 H (74-106) mg/dL Calcium 10.2 (8.4-10.2) mg/dL Radiology Exams: Radiology Procedures Category Date Time Status CHEST 1 VIEW (PORTABLE) Routine Exams 06/22/18 17:00 Completed Assessment/Plan (1) COPD with acute exacerbation Current Visit: No Status: Acute Onset Date: ~03/07/18 Assessment & Plan: On rocephin day #3 with some improvement. Will continue steroids at 40mg IV q6h. If doing better, may be able to d/c to home tomorrow. Code(s): J44.1 - CHRONIC OBSTRUCTIVE PULMONARY DISEASE W (ACUTE) EXACERBATION (2) Non-cardiac chest pain Current Visit: No Status: Resolved Onset Date: ~03/07/18 Code(s): R07.89 - OTHER CHEST PAIN (3) Atrial fibrillation Current Visit: No Status: Chronic Qualifiers: Assessment & Plan: on Eliquis Code(s): I48.91 - UNSPECIFIED ATRIAL FIBRILLATION (4) Chronic hypoxemic respiratory failure Current Visit: No Status: Chronic (5) Corticobasal degeneration Current Visit: No Status: Chronic Assessment & Plan: worked with PT yesterday, thank you. Code(s): G31.85 - CORTICOBASAL DEGENERATION (6) Hypothyroidism Current Visit: No Status: Chronic Qualifiers: Hypothyroidism type: acquired Qualified Code(s): E03.9 - Hypothyroidism, unspecified Code(s): E03.9 - HYPOTHYROIDISM, UNSPECIFIED (7) Neck pain Current Visit: No Status: Chronic Onset Date: ~12/11/17 Code(s): M54.2 - CERVICALGIA (8) Weakness Current Visit: No Status: Chronic Onset Date: ~07/27/17 Code(s): R53.1 - WEAKNESS (9) History of Clostridium difficile colitis Current Visit: No Status: Resolved Code(s): Z86.19 - PERSONAL HISTORY OF OTHER INFECTIOUS AND PARASITIC DISEASES
[2018-06-24] MEDS: ROCEPHIN 1 Gm-D5w 50 ml Bag** 1 G/50 ML IVPB IV SCH (09:24)
[2018-06-24] MEDS: SYNTHROID 50 MCG PO SCH (09:25)
[2018-06-24] MEDS: Calcium 500MG W/Vit D Tablet PO SCH (09:25)
[2018-06-24] MEDS: CLARITIN 10 MG PO SCH (09:26)
[2018-06-24] MEDS: Mucinex 600MG ER Tabs PO SCH ×2 (09:26→21:04)
[2018-06-24] MEDS: Acidophilus TABLET PO SCH ×2 (09:26→21:04)
[2018-06-24] MEDS: Multaq 400 MG PO SCH ×2 (09:26→21:04)
[2018-06-24] MEDS: ELIQUIS 2.5 MG TABLET PO SCH ×2 (09:27→21:04)
[2018-06-24] MEDS: Klor Con 10 MEQ PO SCH (09:27)
[2018-06-24] MEDS: Megace 40 MG/ML PO SCH (09:34)
[2018-06-24] MEDS: Sodium Chloride 3 ML UD NEBULES IH SCH ×3 (11:35→20:07)
[2018-06-24] MEDS: Nystatin SUSPENSION 60 ML PO PRN ×2 (13:53→17:42)
[2018-06-24] MEDS: xanAX 0.25 MG PO PRN (21:04)
[2018-06-25] MEDS: Sodium Chloride 0.9% 10 ML FLUSH Syringe IV SCH ×3 (05:08→21:04)
[2018-06-25] MEDS: solu-MEDROL 40 MG IV SCH (05:08)
[2018-06-25] MEDS: Xopenex 1.25 MG/0.5 ML UD NEBULE IH SCH ×4 (05:59→18:56)
[2018-06-25] MEDS: Sodium Chloride 3 ML UD NEBULES IH SCH ×4 (06:02→18:58)
[2018-06-25] MEDS: Advair Hfa 230/21 Mcg COMMON CANISTER IH SCH ×2 (06:02→18:58)
[2018-06-25] MEDS: Sinemet 25/100 MG PO SCH ×3 (06:05→21:03)
[2018-06-25] MEDS: NORCO 7.5/325 MG TAB PO PRN ×2 (07:30→14:01)
[2018-06-25] MEDS: BENTYL 20 MG PO SCH ×3 (09:07→17:33)
--- NOTE | 2018-06-25 09:29 | PCM.NOTE ---
Date and Time: 06/25/18923 Subjective Assessment: She was feeling pretty good last night, but this morning is having more difficulty breathing. Feels "much worse than yesterday." No appetite - ate very little. - Review of Systems Constitutional: No Fever Respiratory: Cough, Short Of Breath Objective Exam General Appearance: no apparent distress, alert, cachetic Neurologic Exam: oriented x 3, cooperative Skin Exam: normal color, warm, dry, No rash Ears, Nose, Throat Exam: moist mucous membranes Neck Exam: normal inspection Respiratory Exam: diminished breath sounds (good air exchange), prolonged expirations, No crackles/rales, No rhonchi, No wheezing Cardiovascular Exam: normal heart sounds, irregular, No murmur Extremity Exam: normal inspection, No pedal edema, No swelling Back Exam: normal inspection, No rash OBJECTIVE DATA Vital Signs: Vital Signs - 24 hr Temp Pulse Resp BP Pulse Ox 06/25/18 07:49 99.6 F 100 H 16 138/63 91 L 06/25/18 06:03 89 18 96 06/25/18 04:00 97.6 F 90 16 130/60 90 L 06/25/18 00:00 98.0 F 87 15 121/60 92 L 06/24/18 20:08 87 18 91 L 06/24/18 20:00 98.1 F 89 16 121/58 92 L 06/24/18 16:00 20 06/24/18 15:44 98.4 F 95 H 20 143/66 94 L 06/24/18 14:14 92 H 20 98 06/24/18 12:00 99.4 F 95 H 20 126/59 94 L Oxygen-Last 24 hours O2 Percentage 3 Liters = 32% O2 Percentage 3 Liters = 32% O2 Percentage 3 Liters = 32% O2 Percentage 3 Liters = 32% O2 Percentage 2 Liters = 28% Oxygen Flowrate (L/min)-RT 3 Pain Assessment - Last Documented Pain Intensity 7 Pain Scale Used 0-10 Pain Scale Intake and Output: Intake & Output 06/22/18 06/23/18 06/24/18 06/25/18 11:59 11:59 11:59 11:59 Intake Total 440 820 840 Output Total 1230 700 Balance -790 120 840 Weight 40.8 kg 40 kg Multi-Disciplinary Progress Notes: Multi-Disciplinary Progress Notes 06/24/18 11:24 Case Management Note by Kathleen Rocha PT'S INFO FAXED TO STACIE AT [facility] (PH #: [phone], FAX #: [phone]) FOR HOME O2 REFERRAL PER PT REQUEST. WE WILL NEED TO NOTIFY THEM WHEN PT IS D/C' D SO THEY CAN BRING O2 TO HOSPITAL. PT IS CURRENTLY RECEIVING SERVICES FROM [facility] (PH #: [phone]). Initialized on 06/24/18 11:24 - END OF NOTE Assessment/Plan (1) COPD with acute exacerbation Current Visit: No Status: Acute Onset Date: ~03/07/18 Assessment & Plan: Was improving until yesterday on rocephin (finished 3d) and IV solumedrol 40mg q6h. This morning appears worse; will cover for Pseudomonas with IV zosyn, will d/c rocephin. Increase solumderol to 80mg IV q6h. Will add flutter valve. to bring her percussion vest from home. Code(s): J44.1 - CHRONIC OBSTRUCTIVE PULMONARY DISEASE W (ACUTE) EXACERBATION (2) Atrial fibrillation Current Visit: No Status: Chronic Qualifiers: Assessment & Plan: stable. On Eliquis. On Multaq. Code(s): I48.91 - UNSPECIFIED ATRIAL FIBRILLATION (3) Chronic hypoxemic respiratory failure Current Visit: No Status: Chronic (4) Corticobasal degeneration Current Visit: No Status: Chronic Assessment & Plan: with some Parkinson's symptoms. Recently starte carbidopa-levodopa. Code(s): G31.85 - CORTICOBASAL DEGENERATION (5) Hypothyroidism Current Visit: No Status: Chronic Qualifiers: Hypothyroidism type: acquired Qualified Code(s): E03.9 - Hypothyroidism, unspecified Code(s): E03.9 - HYPOTHYROIDISM, UNSPECIFIED (6) Neck pain Current Visit: No Status: Chronic Onset Date: ~12/11/17 Assessment & Plan: on norco prn. Have discussed at length the risk for respiratory depression - they are very careful to separate opiates and BZD by several hours. Code(s): M54.2 - CERVICALGIA (7) Weakness Current Visit: No Status: Chronic Onset Date: ~07/27/17 Code(s): R53.1 - WEAKNESS (8) History of Clostridium difficile colitis Current Visit: No Status: Resolved Assessment & Plan: She is on probiotics. Code(s): Z86.19 - PERSONAL HISTORY OF OTHER INFECTIOUS AND PARASITIC DISEASES (9) Malnutrition Current Visit: No Status: Chronic Qualifiers: Malnutrition type: protein-calorie malnutrition Protein-calorie malnutrition severity: moderate Qualified Code(s): E44.0 - Moderate protein- calorie malnutrition Assessment & Plan: she was doing very well on megace; still taking it, but has lost 3lb since admission. Code(s): E46 - UNSPECIFIED PROTEIN-CALORIE MALNUTRITION
[2018-06-25] MEDS: Calcium 500MG W/Vit D Tablet PO SCH (10:51)
[2018-06-25] MEDS: Multaq 400 MG PO SCH ×2 (10:52→21:03)
[2018-06-25] MEDS: Mucinex 600MG ER Tabs PO SCH ×2 (10:53→21:03)
[2018-06-25] MEDS: Acidophilus TABLET PO SCH ×2 (10:54→21:03)
[2018-06-25] MEDS: Klor Con 10 MEQ PO SCH (10:54)
[2018-06-25] MEDS: SYNTHROID 50 MCG PO SCH (10:55)
[2018-06-25] MEDS: CLARITIN 10 MG PO SCH (10:56)
[2018-06-25] MEDS: ELIQUIS 2.5 MG TABLET PO SCH ×2 (10:56→21:04)
[2018-06-25] MEDS: Megace 40 MG/ML PO SCH (10:59)
[2018-06-25] MEDS: Zosyn 3.375GM/100 Ml D5W 3.375 GM/100 ML IVPB IV SCH ×2 (11:06→17:33)
[2018-06-25] MEDS: solu-MEDROL 125 MG IV SCH ×2 (11:37→17:34)
[2018-06-25] MEDS: xanAX 0.25 MG PO PRN (21:03)
[2018-06-26] MEDS: Zosyn 3.375GM/100 Ml D5W 3.375 GM/100 ML IVPB IV SCH ×3 (04:19→17:35)
[2018-06-26] MEDS: solu-MEDROL 125 MG IV SCH ×3 (05:08→17:35)
[2018-06-26] MEDS: Sodium Chloride 0.9% 10 ML FLUSH Syringe IV SCH ×3 (05:50→21:11)
[2018-06-26] MEDS: NORCO 7.5/325 MG TAB PO PRN ×3 (06:13→18:40)
[2018-06-26] MEDS: Sodium Chloride 3 ML UD NEBULES IH SCH ×4 (06:46→17:41)
[2018-06-26] MEDS: Advair Hfa 230/21 Mcg COMMON CANISTER IH SCH ×2 (06:46→17:41)
[2018-06-26] MEDS: Xopenex 1.25 MG/0.5 ML UD NEBULE IH SCH ×4 (06:46→17:41)
[2018-06-26] MEDS: BENTYL 20 MG PO SCH ×3 (08:08→17:35)
[2018-06-26] MEDS: Nystatin SUSPENSION 60 ML PO PRN ×3 (08:10→17:36)
[2018-06-26] MEDS: SYNTHROID 50 MCG PO SCH (09:12)
[2018-06-26] MEDS: Acidophilus TABLET PO SCH ×2 (09:12→21:11)
[2018-06-26] MEDS: Mucinex 600MG ER Tabs PO SCH ×2 (09:12→21:11)
[2018-06-26] MEDS: Calcium 500MG W/Vit D Tablet PO SCH (09:12)
[2018-06-26] MEDS: Multaq 400 MG PO SCH ×2 (09:12→21:11)
[2018-06-26] MEDS: CLARITIN 10 MG PO SCH (09:12)
[2018-06-26] MEDS: ELIQUIS 2.5 MG TABLET PO SCH ×2 (09:12→21:10)
[2018-06-26] MEDS: Megace 40 MG/ML PO SCH (09:13)
[2018-06-26] MEDS: Klor Con 10 MEQ PO SCH (09:13)
[2018-06-26] MEDS: Sinemet 25/100 MG PO SCH ×3 (09:13→20:00)
[2018-06-26 11:55] LABS: Hematocrit 38.9 % (35-47); Hemoglobin 12.8 gm/dl (12.0-16.0); Mean Cell Volume 97.5 fl (78-100); Mean Corpuscular Hgb Concent. 32.9 g/dl (32-36); Mean Platelet Volume 9.8 fl (6-9.5); Platelet Count 325 K/mm3 (150-450); Red Blood Count 3.99 M/mm3 (4.1-5.4); Red Cell Distribution Width 13.2 % (11.5-14.0); White Blood Count 12.4 K/mm3 (4.0-10.5)
[2018-06-26] MEDS: THEOPHYLLINE ER 24HR PO SCH (11:58)
[2018-06-26 12:07] LABS: ALBUMIN 3.8 g/dL (3.5-5.0); ALKALINE PHOSPHATASE 49 U/L (38-126); ANION GAP 16.6 MEQ/L (5-15); BLOOD UREA NITROGEN 25 mg/dL (7-17); CHLORIDE 99 mmol/L (98-107); Calcium 9.7 mg/dL (8.4-10.2); Carbon Dioxide 28 mmol/L (22-30); Creatinine 1 0.43 mg/dL (0.52-1.04); Glucose 184 mg/dL (74-106); SGOT/AST 24 U/L (14-36); SODIUM 141 mmol/L (137-145); Total Protein 6.7 g/dL (6.3-8.2)
[2018-06-26 12:11] LABS: Potassium 2.6 mmol/L (3.5-5.1)
[2018-06-26 12:14] LABS: SGPT/ALT 17 U/L (0-35)
[2018-06-26] MEDS ORDERED: Klor Con 10 MEQ PO ONE ×2 (12:20→20:00)
--- NOTE | 2018-06-26 14:37 | PCM.NOTE ---
Date and Time: 06/26/18 1434 Subjective Assessment: Patient reports she continues to feel poorly with poor appetite. Low potassium noted on blood work from a couple of days ago. Her told nursing she is usually also on theophylline for her copd but this had not been on her home medication list. - Review of Systems Constitutional: Weakness Eyes: No Symptoms Ears, Nose, & Throat: No Symptoms Respiratory: Cough, Short Of Breath Cardiac: No Symptoms Abdominal/Gastrointestinal: No Symptoms, No Constipation Genitourinary Symptoms: No Symptoms Musculoskeletal: No Symptoms Objective Exam General Appearance: no apparent distress, thin Neurologic Exam: alert, cooperative, normal mood/affect Skin Exam: normal color, warm, dry, No rash Respiratory Exam: other (few scatted wheezes), No crackles/rales, No rhonchi Cardiovascular Exam: regular rate/rhythm, normal heart sounds, No murmur, No friction rub, No gallop Gastrointestinal/Abdomen Exam: soft, normal bowel sounds, No tenderness, No distention, No mass OBJECTIVE DATA Vital Signs: Vital Signs - 24 hr Temp Pulse Resp BP Pulse Ox 06/26/18 12:00 98.2 F 112 H 18 159/72 92 L 06/26/18 10:25 88 18 94 L 06/26/18 08:00 98.5 F 94 H 17 133/59 91 L 06/26/18 06:53 85 18 97 06/26/18 04:00 98.0 F 83 19 136/63 93 L 06/26/18 00:00 16 06/25/18 23:21 97.6 F 88 16 121/56 94 L 06/25/18 20:00 97.7 F 92 H 18 137/60 92 L 06/25/18 19:04 83 16 90 L 06/25/18 16:00 99.1 F 88 18 129/68 90 L Oxygen-Last 24 hours O2 Percentage 3 Liters = 32% O2 Percentage 3 Liters = 32% O2 Percentage 3 Liters = 32% O2 Percentage 3 Liters = 32% O2 Percentage 3 Liters = 32% O2 Percentage 3 Liters = 32% Pain Assessment - Last Documented Pain Intensity 0 Pain Scale Used FLACC Intake and Output: Intake & Output 06/24/18 06/25/18 06/26/18 06/27/18 06:59 06:59 06:59 06:59 Intake Total 700 1080 600 Output Total 900 Balance -200 1080 600 Weight 40 kg Lab Results: Lab Results-Last 24 Hours 06/26/18 06/26/18 06/26/18 Range/Units 11:49 11:49 11:49 WBC 12.4 H (4.0-10.5) K/mm3 RBC 3.99 L (4.1-5.4) M/mm3 Hgb 12.8 (12.0-16.0) gm/dl Hct 38.9 (35-47) % MCV 97.5 (78-100) fl MCH 32.0 (26-32) pg MCHC 32.9 (32-36) g/dl RDW 13.2 (11.5-14.0) % Plt Count 325 (150-450) K/mm3 MPV 9.8 H (6-9.5) fl Sodium 141 (137-145) mmol/L Potassium 2.6 L* (3.5-5.1) mmol/L Chloride 99 (98-107) mmol/L Carbon Dioxide 28 (22-30) mmol/L Anion Gap 16.6 H (5-15) MEQ/L BUN 25 H (7-17) mg/dL Creatinine 0.43 L (0.52-1.04) mg/dL Estimated GFR > 60.0 ML/MIN Glucose 184 H (74-106) mg/dL Calcium 9.7 (8.4-10.2) mg/dL Total Bilirubin 0.50 (0.2-1.3) mg/dL AST 24 (14-36) U/L ALT 17 (0-35) U/L Alkaline Phosphatase 49 (38-126) U/L Serum Total Protein 6.7 (6.3-8.2) g/dL Albumin 3.8 (3.5-5.0) g/dL Theophylline < 1.0 L (10-20) ug/mL Multi-Disciplinary Progress Notes: Multi-Disciplinary Progress Notes 06/25/18 19:38 Respiratory Note by Cari Telles PATIENT PERFORMED VEST THERAPY PER HOME EARLIER IN THE EVENING. PATIENT WAS TOO WEAK TO PERFORM FLUTTER VALVE. Initialized on 06/25/18 19:38 - END OF NOTE Assessment/Plan (1) COPD with acute exacerbation Current Visit: No Status: Acute Onset Date: ~03/07/18 Assessment & Plan: Continue IV steroids and IV antibiotics, oxygen and breathing treatments. 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 Code(s): I48.91 - UNSPECIFIED ATRIAL FIBRILLATION (5) Hypokalemia due to inadequate potassium intake Current Visit: Yes Status: Acute Assessment & Plan: Will give 40 Meq Kcl po now and another 40 meq 8 hours later. She also continues with 10 meq daily it the am. Most likely she will need more than 10 meq a day unless her oral intake improves. Code(s): E87.6 - HYPOKALEMIA
[2018-06-26 15:31] LABS: Lymphocytes 10 % (24-44); Metamyelocyte 1 %; Monocyte 5 % (0.0-12.0); Neutrophils 84 % (36.0-66.0); Total Cells Counted 100
[2018-06-26 15:32] LABS: Hypersegmented Polys 1+; Platelet Estimate NORMAL (NORMAL)
[2018-06-27] MEDS: solu-MEDROL 125 MG IV SCH ×4 (00:47→19:39)
[2018-06-27] MEDS: Zosyn 3.375GM/100 Ml D5W 3.375 GM/100 ML IVPB IV SCH ×3 (01:01→17:23)
[2018-06-27] MEDS: xanAX 0.25 MG PO PRN ×3 (01:30→14:20)
[2018-06-27] MEDS: Xopenex 1.25 MG/0.5 ML UD NEBULE IH SCH ×4 (04:17→19:17)
[2018-06-27] MEDS: Sodium Chloride 3 ML UD NEBULES IH SCH ×4 (04:18→19:17)
[2018-06-27] MEDS: Advair Hfa 230/21 Mcg COMMON CANISTER IH SCH ×2 (04:20→19:17)
[2018-06-27] MEDS: NORCO 7.5/325 MG TAB PO PRN ×4 (04:44→19:45)
[2018-06-27] MEDS: Sodium Chloride 0.9% 10 ML FLUSH Syringe IV SCH ×3 (06:08→20:45)
[2018-06-27 06:28] LABS: ANION GAP 14.4 MEQ/L (5-15); BLOOD UREA NITROGEN 24 mg/dL (7-17); CHLORIDE 106 mmol/L (98-107); Calcium 9.1 mg/dL (8.4-10.2); Carbon Dioxide 24 mmol/L (22-30); Glucose 145 mg/dL (74-106); SODIUM 140 mmol/L (137-145)
[2018-06-27] MEDS: Sinemet 25/100 MG PO SCH ×3 (06:54→19:40)
[2018-06-27] MEDS: BENTYL 20 MG PO SCH ×3 (08:25→17:23)
[2018-06-27] MEDS: CLARITIN 10 MG PO SCH (10:35)
[2018-06-27] MEDS: Acidophilus TABLET PO SCH ×2 (10:35→21:53)
[2018-06-27] MEDS: Klor Con 10 MEQ PO SCH (10:35)
[2018-06-27] MEDS: SYNTHROID 50 MCG PO SCH (10:35)
[2018-06-27] MEDS: ELIQUIS 2.5 MG TABLET PO SCH ×2 (10:35→21:54)
[2018-06-27] MEDS: Mucinex 600MG ER Tabs PO SCH ×2 (10:35→21:54)
[2018-06-27] MEDS: Calcium 500MG W/Vit D Tablet PO SCH (10:35)
[2018-06-27] MEDS: Multaq 400 MG PO SCH ×2 (10:35→21:53)
[2018-06-27] MEDS: THEOPHYLLINE ER 24HR PO SCH (10:36)
[2018-06-27] MEDS: Megace 40 MG/ML PO SCH (10:37)
--- NOTE | 2018-06-27 12:44 | PCM.NOTE ---
Date and Time: 06/27/18 1239 Subjective Assessment: is at beside. He and her nurse report she has felt more anxious. Discussed increasing dose of xanax or adding something like fluoxetine or paxil but at this time they want to wait. Her notes that her legs have been a little more swollen today. - Review of Systems Constitutional: Weakness Eyes: No Symptoms Ears, Nose, & Throat: No Symptoms Respiratory: Short Of Breath, Wheezing Cardiac: No Symptoms Abdominal/Gastrointestinal: Diarrhea Genitourinary Symptoms: No Symptoms Musculoskeletal: Other (patient reports pain all over) Neurological: Tremors Psychological: Depression Objective Exam General Appearance: no apparent distress Neurologic Exam: alert, cooperative, depressed mood/affect Skin Exam: normal color, warm, dry, No rash Respiratory Exam: other (few scattered wheezes, equal breath sounds), No respiratory distress, No accessory muscle use, No crackles/rales, No rhonchi, No stridor Cardiovascular Exam: regular rate/rhythm, normal heart sounds, No murmur, No friction rub, No gallop Gastrointestinal/Abdomen Exam: soft, normal bowel sounds, No tenderness, No distention, No mass Extremity Exam: other (trace edema around ankles bilat, no c/c) OBJECTIVE DATA Vital Signs: Vital Signs - 24 hr Temp Pulse Resp BP Pulse Ox 06/27/18 12:00 15 06/27/18 11:48 98.7 F 71 15 123/60 94 L 06/27/18 10:11 100 H 18 92 L 06/27/18 08:00 98.7 F 76 16 151/73 96 06/27/18 04:18 92 H 20 93 L 06/27/18 04:00 97.7 F 86 20 124/59 92 L 06/27/18 00:00 16 06/26/18 23:52 97.9 F 93 H 16 121/58 93 L 06/26/18 20:00 17 06/26/18 19:33 97.4 F 100 H 17 131/60 94 L 06/26/18 17:42 101 H 20 96 06/26/18 16:00 97.6 F 107 H 19 136/61 93 L 06/26/18 14:54 100 H 20 97 Oxygen-Last 24 hours O2 Percentage 4 Liters = 36% O2 Percentage 3 Liters = 32% O2 Percentage 3 Liters = 32% O2 Percentage 3 Liters = 32% Oxygen Flowrate (L/min)-RT 3 Pain Assessment - Last Documented Pain Intensity 6 Pain Scale Used 0-10 Pain Scale Intake and Output: Intake & Output 06/25/18 06/26/18 06/27/18 06/28/18 06:59 06:59 06:59 06:59 Intake Total 1080 600 757 Balance 1080 600 757 Weight 40 kg Lab Results: Lab Results-Last 24 Hours 06/26/18 06/26/18 06/27/18 Range/Units 11:49 11:49 05:47 Segmented Neutrophils 84 H (36.0-66.0) % Lymphocytes (Manual) 10 L (24-44) % Monocytes (Manual) 5 (0.0-12.0) % Metamyelocytes 1 % Hypersegmented Polys 1+ Platelet Estimate NORMAL (NORMAL) RBC Morphology NORMAL Sodium 140 (137-145) mmol/L Potassium 4.0 D (3.5-5.1) mmol/L Chloride 106 (98-107) mmol/L Carbon Dioxide 24 (22-30) mmol/L Anion Gap 14.4 (5-15) MEQ/L BUN 24 H (7-17) mg/dL Creatinine 0.40 L (0.52-1.04) mg/dL Estimated GFR > 60.0 ML/MIN Glucose 145 H (74-106) mg/dL Calcium 9.1 (8.4-10.2) mg/dL Theophylline < 1.0 L (10-20) ug/mL Multi-Disciplinary Progress Notes: Multi-Disciplinary Progress Notes 06/26/18 15:05 (created 06/26/18 15:41) Respiratory Note by Toshia Herndon pt requested to wear home vest at this time. vest worn for 30mins and pt was monitored t/o entire study. Initialized on 06/26/18 15:41 - END OF NOTE Assessment/Plan (1) COPD with acute exacerbation Current Visit: No Status: Acute Onset Date: ~03/07/18 Assessment & Plan: Continue IV steroids and IV antibiotics. Continue oxygen as needed. 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 Patient on opiate for generalized pain. Code(s): G31.85 - CORTICOBASAL DEGENERATION (3) Physical deconditioning Current Visit: No Status: Chronic Onset Date: ~02/16/18 Assessment & Plan: Patient was able to ambulate in [place] yesterday with assistance. Code(s): R53.81 - OTHER MALAISE (4) Atrial fibrillation Current Visit: No Status: Chronic Qualifiers: Atrial fibrillation type: chronic Assessment & Plan: On blood thinners; rate controlled. Code(s): I48.91 - UNSPECIFIED ATRIAL FIBRILLATION (5) Hypokalemia due to inadequate potassium intake Current Visit: Yes Status: Acute Assessment & Plan: Resolved. Potassium increased to 20 meq a day which thinks is what she takes at home. He also notes she usually takes a liquid but says that was not available here. Code(s): E87.6 - HYPOKALEMIA (6) Depression Current Visit: Yes Status: Acute Assessment & Plan: Patient encouraged to talk to Dr. Adair about treatment tomorrow. Offered to add medication today, but they wanted to wait. Code(s): F32.9 - MAJOR DEPRESSIVE DISORDER, SINGLE EPISODE, UNSPECIFIED
[2018-06-28] MEDS: solu-MEDROL 125 MG IV SCH ×3 (00:52→15:54)
[2018-06-28] MEDS: NORCO 7.5/325 MG TAB PO PRN ×2 (01:18→05:32)
[2018-06-28] MEDS: Zosyn 3.375GM/100 Ml D5W 3.375 GM/100 ML IVPB IV SCH ×2 (01:21→11:16)
[2018-06-28] MEDS: Sodium Chloride 0.9% 10 ML FLUSH Syringe IV SCH ×2 (05:57→15:52)
[2018-06-28] MEDS: Advair Hfa 230/21 Mcg COMMON CANISTER IH SCH (06:21)
[2018-06-28] MEDS: Xopenex 1.25 MG/0.5 ML UD NEBULE IH SCH ×3 (06:21→14:07)
[2018-06-28] MEDS: Sodium Chloride 3 ML UD NEBULES IH SCH ×3 (06:21→14:07)
[2018-06-28] MEDS: BENTYL 20 MG PO SCH ×2 (08:51→11:15)
[2018-06-28] MEDS ORDERED: THEOPHYLLINE ER 24HR PO SCH (08:58)
[2018-06-28] MEDS: Sinemet 25/100 MG PO SCH ×2 (09:00→15:53)
--- NOTE | 2018-06-28 09:09 | PCM.NOTE ---
Date and Time: 06/28/18903 Subjective Assessment: Pt had increased SOB over the weekend with increased anxiety. Had to have deep suction. Xanax helped somewhat with anxiety. concerned about her increasing downward course. Theophylline 300mg daily added over the weekend. - Review of Systems Constitutional: Weakness, No Fever Respiratory: Cough, Short Of Breath Objective Exam General Appearance: mild distress, anxiety Neurologic Exam: alert, cooperative Skin Exam: normal color, warm, dry, No rash Respiratory Exam: diminished breath sounds, prolonged expirations, rhonchi ( scattered), wheezing (throughout; expiratory), No crackles/rales Cardiovascular Exam: tachycardia, No murmur Gastrointestinal/Abdomen Exam: soft, No tenderness, No distention Extremity Exam: swelling (1+ pitting pretibial edema bilat) OBJECTIVE DATA Vital Signs: Vital Signs - 24 hr Temp Pulse Resp BP Pulse Ox 06/28/18 07:21 98.5 F 90 15 139/64 98 06/28/18 06:24 89 18 99 06/28/18 03:52 97.8 F 88 18 142/69 100 06/28/18 03:00 18 06/27/18 23:35 97.6 F 91 H 16 124/64 98 06/27/18 23:00 16 06/27/18 19:49 16 06/27/18 19:37 97.8 F 100 H 16 131/60 95 06/27/18 19:19 96 06/27/18 19:18 98 H 20 96 06/27/18 16:10 98.9 F 108 H 18 138/65 94 L 06/27/18 16:00 26 H 06/27/18 14:29 11 L 26 H 91 L 06/27/18 12:00 15 06/27/18 11:48 98.7 F 71 15 123/60 94 L 06/27/18 10:11 100 H 18 92 L Oxygen-Last 24 hours O2 Percentage 3 Liters = 32% O2 Percentage 5 Liters = 40% O2 Percentage 5 Liters = 40% O2 Percentage 5 Liters = 40% O2 Percentage 5 Liters = 40% O2 Percentage 4 Liters = 36% Oxygen Flowrate (L/min)-RT 5 Pain Assessment - Last Documented Pain Intensity 6 Pain Scale Used FLACC Intake and Output: Intake & Output 06/25/18 06/26/18 06/27/1819 11:59 11:59 11:59 11:59 Intake Total 840 600 757 580 Balance 840 600 757 580 Weight 40 kg Multi-Disciplinary Progress Notes: Multi-Disciplinary Progress Notes 06/27/18 15:34 Respiratory Note by Shante High 1500PT HAS BEEN COMPLAINING OF AND ON THIS AFTERNOON OF BEING SOB HAVE INCREASED O2 TO 5LPM AND GAVE BREATHING TX WITH NO MUCH RELIEF. HAS NOT BEEN ABLE TO COUGH EFFECTIVLY. EXPLAINED NT SX TO PT AND SHE SAID SHE WOULD TRY ANYTHING. PRE AND RE-OXYGENATED WITH 100% NRB. PT TOLERATED WELL AND REQUESTED TO GO FOR A SECOND TIME, MOD CLEAR AMT AND DID ALSO PROVOKE A MOER EFFECTIVE COUGH. Initialized on 06/27/18 15:34 - END OF NOTE Assessment/Plan (1) COPD with acute exacerbation Current Visit: No Status: Acute Onset Date: ~03/07/18 Assessment & Plan: Increased theophylline. On zosyn and IV steroid at 80mg q6h. Consult Dr. Johansen. I did discuss briefly with in the room that her prognosis is poor and she is likely to continue to decline. Code(s): J44.1 - CHRONIC OBSTRUCTIVE PULMONARY DISEASE W (ACUTE) EXACERBATION (2) Atrial fibrillation Current Visit: No Status: Chronic Qualifiers: Assessment & Plan: stable. on Eliquis. Code(s): I48.91 - UNSPECIFIED ATRIAL FIBRILLATION (3) Chronic hypoxemic respiratory failure Current Visit: No Status: Chronic (4) Corticobasal degeneration Current Visit: No Status: Chronic Assessment & Plan: With steady decline in function. I will discuss with family today the possibility of hospice. Code(s): G31.85 - CORTICOBASAL DEGENERATION (5) Hypothyroidism Current Visit: No Status: Chronic Qualifiers: Hypothyroidism type: acquired Qualified Code(s): E03.9 - Hypothyroidism, unspecified Code(s): E03.9 - HYPOTHYROIDISM, UNSPECIFIED (6) Neck pain Current Visit: No Status: Chronic Onset Date: ~12/11/17 Assessment & Plan: increasing pain meds to percocet; she is in general discomfort as well. Code(s): M54.2 - CERVICALGIA (7) Weakness Current Visit: No Status: Chronic Onset Date: ~07/27/17 Code(s): R53.1 - WEAKNESS (8) Malnutrition Current Visit: No Status: Chronic Qualifiers: Malnutrition type: protein-calorie malnutrition Protein-calorie malnutrition severity: moderate Qualified Code(s): E44.0 - Moderate protein- calorie malnutrition Assessment & Plan: on boost. Code(s): E46 - UNSPECIFIED PROTEIN-CALORIE MALNUTRITION
[2018-06-28] MEDS: Nystatin SUSPENSION 60 ML PO PRN (09:22)
[2018-06-28] MEDS ORDERED: Paxil 20 MG PO SCH (10:00)
[2018-06-28] MEDS: CLARITIN 10 MG PO SCH (11:07)
[2018-06-28] MEDS: Calcium 500MG W/Vit D Tablet PO SCH (11:07)
[2018-06-28] MEDS: PERCOCET TABLET 5/325MG PO PRN ×2 (11:07→15:50)
[2018-06-28] MEDS: ELIQUIS 2.5 MG TABLET PO SCH (11:07)
[2018-06-28] MEDS: Multaq 400 MG PO SCH (11:07)
[2018-06-28] MEDS: Klor Con 10 MEQ PO SCH (11:08)
[2018-06-28] MEDS: SYNTHROID 50 MCG PO SCH (11:08)
[2018-06-28] MEDS: Mucinex 600MG ER Tabs PO SCH (11:08)
[2018-06-28] MEDS: Megace 40 MG/ML PO SCH (11:09)
[2018-06-28] MEDS: Acidophilus TABLET PO SCH (11:09)
[2018-06-28 11:52] VITALS: BP 145/69
[2018-06-28 14:11] VITALS: PULSE 100; O2SAT 100
--- NOTE | 2018-06-28 14:51 | CONS ---
CONSULT DATE: 06/28/2018 HISTORY: Angela Alvarado is a 72 year-old woman with long standing history of pulmonary problems, presented to the emergency room at [facility] complaining of increasing shortness of breath. The patient is a poor historian and no family is available. She reportedly started having nonproductive cough and chest tightness. She has now been admitted with the diagnosis of chronic obstructive pulmonary disease exacerbation. At the time of my evaluation, the patient appears comfortable. She is chronically ill and appears depressed, slow to react. She denies any significant chest pain or shortness of breath. PAST MEDICAL HISTORY: Positive for chronic obstructive pulmonary disease, Parkinson's disease, chronic atrial fibrillation, hypothyroidism, chronic pain, anxiety, depression, failure to thrive. PAST SURGICAL HISTORY: Appendectomy, hysterectomy, bronchoscopy earlier part of this year. PERSONAL AND SOCIAL HISTORY: The patient lives with and is a former smoker. MEDICATIONS: Home and current medications are reviewed. ALLERGIES: SULFA. PHYSICAL EXAMINATION: An elderly frail woman who appears comfortable but not in any distress. Vital signs noted. HEENT: Normocephalic. Oral exam is limited. NECK: Supple. CVS: First and second heart sounds with some irregularity. RESPIRATORY: Shows diminished breath sounds, occasional rhonchi heard. ABDOMEN: Soft. EXTREMITIES: No edema noted. LABORATORY DATA AND TESTS: White count 11.3, hemoglobin 13, hematocrit 39, PLT 358,000. Sodium 138, potassium 3.2, chloride 99, bicarb 27, BUN 24, creatinine 0.47. BNP 245. Chest x-ray results are pending. ASSESSMENT: This is a 72 year old woman with chronic multiple medical problems admitted with: 1) Chronic obstructive pulmonary disease with acute exacerbation. 2) Acute bronchitis. 3) Hypoxemia, chronic. 4) Chronic atrial fibrillation. 5) History of corticobasilar degeneration/Parkinson's Disease. 6) History of hypothyroidism. 7) General debilitation. 8) Anxiety/depression. RECOMMENDATIONS: I agree with present treatment. Continue IV antibiotics, steroids, bronchodilators. Dietary evaluation may be beneficiary to improve patient's appetite. Would benefit from calorie count by dietary and if adequate intake is not noticed, need for feeding tube to improve nutritional support. Overall prognosis appears poor. The patient's frailty and general debilitation are of main concern at this point she appears definitely more depressed than before. Prognosis remains guarded. Will continue to follow her with you as needed. Thank you for allowing me to participate in the care of Angela Alvarado.
--- NOTE | 2018-06-28 15:13 | PCM.DS ---
Discharge Summary Date of Admission: 06/23/18 08:38 Admitting Physician: CYDNEY VELA Primary Care Provider: CYDNEY VELA Allergies Allergies Sulfa (Sulfonamide Antibiotics) Allergy (Intermediate, Verified 06/22/18 16:56) Rash Hospital Summary - Hospital Course Hospital Course: is a 72 year old female pt of mine from [facility] with COPD of unknown etiology, corticobasal degeneration, Parkinson's features, atrial fibrillation, hypothyroidism, and chronic neck and back pain who was admitted for 1 d of increased cough and chest tightness. I had been notified that she was feeling ill and did a home visit. CXR nonacute. CBC with WBC 11.3. She was admitted on IV rocephin and steroids ; did better over the first 1-2 d, then has had increasing weakness, increased pain, and fluctuating oxygen requirement. Antibiotic changed to zosyn. Theophylline added, at 300mg/d initially, now increased to 400mg/d. Dr. Johansen consulted. Has made comments like, "I'm going to in here." she has been tolerating small amounts of PO. Up walking in the [place] with assistance some days but is very weak, without assist she would have fallen several times. REnal function normal throughout her stay. Potassium borderline/slightly low on admission; third hospital day it decreased to 2.9 and her po potassium was increased; K+ improved to 4.0. [place] was increased to 7.5 on admission (from 5m); it was discontinued today and percocet 5mg started with good results. She was nearly off xanax at home, but with increasing tremors and anxiety here so has been getting 0.25mg, 1/2 to 1 po TID prn. Will change that to valium today. I discussed the overall course with her , and separately with her daughter. All agree that prognosis is poor. We discussed hospice; is discussing it with a hospice care worker that he knows. Discussed code status with and he is making her a DNR. - Vitals & Intake/Output Vital Signs: Vital Signs Temperature 98.4 F 06/28/18 11:00 Pulse Rate 100 H 06/28/18 14:09 Respiratory Rate 20 06/28/18 14:09 Blood Pressure 145/69 06/28/18 11:00 O2 Sat by Pulse Oximetry 100 05/20/19 14:09 Oxygen-Last Documented O2 Percentage 3 Liters = 32% Intake & Output: Intake & Output 06/26/18 06/27/18 06/28/18 06/29/18 11:59 11:59 11:59 11:59 Intake Total 600 757 580 Balance 600 757 580 - Lab Result Diagrams: 06/26/18 11:49 06/27/18 05:47 - Procedures and Test Procedures and Tests throughout Hospitalization: Therapy Orders & Screens 06/22/18 16:47 EKG Comment: Diagnosis: COPD EXAC,CHF 06/22/18 17:09 RT Screen per Nursing Assess Comment: Protocol Order Physician Instructions: Greater than 3 points order RT Admission Screen Reason For Exam: Triggered on Admission Diagnosis: COPD EXAC,CHF Diagnosis: COPD EXAC,CHF Pneumonia: No Home O2: Yes: HS Asthma: No CHF: Yes Home CPAP/BIPAP: No Home Nebs/MDI: Yes Total Points: 13 06/22/18 18:14 Respiratory MDI HS Comment: Diagnosis: COPD EXAC,CHF 06/22/18 18:15 Respiratory Therapy Assessment DAILY Comment: Diagnosis: COPD EXAC,CHF 06/23/18 08:23 Oxygen Nasal Cannula 3 lpm Comment: Diagnosis: COPD EXAC,CHF 06/23/18 08:46 PT Eval & Treat (MD Order) ROUTINE Reason for Eval:: deconditioning Diagnosis: COPD EXAC,CHF 06/25/18 10:14 Flutter Therapy UD Comment: Diagnosis: COPD EXAC,CHF Discharge Exam General Appearance: mild distress (Exam done his morning. "Isn't there anything you can do?" pt asks) Neurologic Exam: alert, cooperative, other (very quiet, mumbling speech) Ears, Nose, Throat Exam: moist mucous membranes Respiratory Exam: diminished breath sounds, prolonged expirations, rhonchi ( scattered), wheezing (throughout), No crackles/rales Cardiovascular Exam: tachycardia, No murmur Gastrointestinal/Abdomen Exam: soft, No tenderness Extremity Exam: swelling (1+ pretibial edema bilat) Skin Exam: normal color, warm, dry, No rash Final Diagnosis/Problem List - Final Discharge Diagnosis/Problem (1) COPD with acute exacerbation Current Visit: No Status: Acute Onset Date: ~03/07/18 Assessment & Plan: Dr. Johansen was consulted, thank you. No changes made. On IV zosyn, IV solumedrol 80mg q6h, theophylline 400mg/d. Required deep suction over the weekend. Nebs prn. 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 Assessment & Plan: very weak Code(s): G31.85 - CORTICOBASAL DEGENERATION (5) Hypothyroidism Current Visit: No Status: Chronic Code(s): E03.9 - HYPOTHYROIDISM, UNSPECIFIED (6) Neck pain Current Visit: No Status: Chronic Onset Date: ~12/11/17 Assessment & Plan: doing better this afternoon on percocet per RN report Code(s): M54.2 - CERVICALGIA (7) Weakness Current Visit: No Status: Chronic Onset Date: ~07/27/17 Code(s): R53.1 - WEAKNESS (8) Malnutrition Current Visit: No Status: Chronic Code(s): E46 - UNSPECIFIED PROTEIN- CALORIE MALNUTRITION - Discharge Disposition: Swing Bed @ [facility] Condition: Stable Prescriptions: No Action Levothyroxine Sodium 50 Mcg [Synthroid 50 Mcg] 50 mcg PO DAILY Loratadine 10 mg [Claritin 10 mg] 10 mg PO DAILY Apixaban [Eliquis 2.5 mg Tablet] 2.5 mg PO BID #60 tablet Dronedarone Hydrochloride 400* [Multaq 400 MG] 400 mg PO BID #60 tablet Alprazolam 0.25 mg [xanAX 0.25 MG] 0.25 mg PO DAILY PRN PRN PRN Reason: Anxiety Lactobacillus Acidophilus [Acidophilus TABLET] 1 tab PO BID #60 tablet Megestrol Acetate 40 mg/ml [Megace 40 MG/ML] 2 tsp PO DAILY Nystatin 5 ml PO QIDPRN PRN PRN Reason: MOUTH SORENESS Levalbuterol HCl 1.25 MG/0.5M* [Xopenex 1.25 MG/0.5 ML UD NEBULE] 1 neb IH BID Hydrocodone/APAP 5-325 Tab^^^ [[place] 5-325 Tablet^^^] 1 each PO Q4H PRN MDD 2 PRN Reason: Pain Dicyclomine HCl 20 mg [Bentyl 20 mg] 20 mg PO TIDWMEALS Potassium Chl 40 Meq Oral Sakina* [Potassium Chl 40 Meq/30 ml Oral Solution] 10 meq PO DAILY Calcium Carbonate/Vitamin D3 [Calcium 1,000 + D3 Caplet] 1 each PO DAILY Carbidopa/Levodopa [Sinemet 25-100 mg Tablet] 1 each PO 0700,1430,1930 Follow up with: CYDNEY VELA [Primary Care Provider] - 1 Week
[2018-06-28] MEDS ORDERED: MORPHINE SULFATE 4 MG INJ ONE (17:07)
[2018-06-28] MEDS ORDERED: Valium 5 MG ONE (20:33)
== END 2018-06-28 16:15 | disposition swing bed (61) | DRG 191 ==
LOC: MED SURG 08:38 → OBSVTOIN 06-23 08:38
PROVIDERS: ADMIT Family Medicine; ATTEND Family Medicine
DX: J44.1 Chronic obstructive pulmonary disease with (acute) exacerbation (principal); J96.11 Chronic respiratory failure with hypoxia; E46 Unspecified protein-calorie malnutrition; G20 Parkinson's disease; I48.91 Unspecified atrial fibrillation; E03.9 Hypothyroidism, unspecified; R07.89 Other chest pain; F41.8 Other specified anxiety disorders; G31.85 Corticobasal degeneration; M54.9 Dorsalgia, unspecified; M54.2 Cervicalgia; R53.1 Weakness; Z79.01 Long term (current) use of anticoagulants; Z79.899 Other long term (current) drug therapy; Z86.19 Personal history of other infectious and parasitic diseases; E87.6 Hypokalemia; F32.9 Major depressive disorder, single episode, unspecified; R19.7 Diarrhea, unspecified; F41.9 Anxiety disorder, unspecified
CPT/HCPCS: 36415; 71045; 80048; 80053; 80198; 83880; 84484; 85025; 85027; 93005; 93268; 94640; 94667; 94760; 94762; 97110; 97161; G0378; J0696; J1940; J2270; J2543; J2920; J2930; A9270-GY

== ENCOUNTER 2018-06-28 15:51 | Inpatient (IN) | payer MEDICARE ==
[2018-06-28] MEDS ORDERED: Sodium Chloride 0.9% 10 ML FLUSH Syringe IV PRN (16:39)
[2018-06-28] MEDS ORDERED: PERCOCET TABLET 5/325MG PO PRN (16:39)
[2018-06-28] MEDS: MORPHINE SULFATE 4 MG INJ IV PRN ×2 (17:27→21:15)
[2018-06-28] MEDS: BENTYL 20 MG PO SCH (18:15)
[2018-06-28] MEDS: solu-MEDROL 125 MG IV SCH (18:16)
[2018-06-28] MEDS: Zosyn 3.375GM/100 Ml D5W 3.375 GM/100 ML IVPB IV SCH (18:16)
[2018-06-28] MEDS: Sinemet 25/100 MG PO SCH (19:59)
[2018-06-28] MEDS: Xopenex 1.25 MG/0.5 ML UD NEBULE IH SCH (20:23)
[2018-06-28] MEDS: Advair Hfa 230/21 Mcg COMMON CANISTER IH SCH (20:24)
[2018-06-28] MEDS: Aplisol ID ONE (20:28)
[2018-06-28] MEDS: Acidophilus TABLET PO SCH (21:42)
[2018-06-28] MEDS: ELIQUIS 2.5 MG TABLET PO SCH (21:43)
[2018-06-28] MEDS: Mucinex 600MG ER Tabs PO SCH (21:44)
[2018-06-28] MEDS: Multaq 400 MG PO SCH (21:45)
[2018-06-28] MEDS: Sodium Chloride 0.9% 10 ML FLUSH Syringe IV SCH (21:46)
[2018-06-28] MEDS: Valium 5 MG PO SCH (21:46)
[2018-06-28] MEDS: Nystatin SUSPENSION 60 ML PO PRN (21:58)
[2018-06-29] MEDS: solu-MEDROL 125 MG IV SCH ×5 (00:54→23:43)
[2018-06-29] MEDS: Zosyn 3.375GM/100 Ml D5W 3.375 GM/100 ML IVPB IV SCH ×3 (01:01→17:22)
[2018-06-29] MEDS: MORPHINE SULFATE 4 MG INJ IV PRN ×2 (01:24→07:19)
[2018-06-29] MEDS: Valium 5 MG PO SCH ×4 (03:01→22:55)
[2018-06-29] MEDS: Xopenex 1.25 MG/0.5 ML UD NEBULE IH PRN (04:34)
[2018-06-29] MEDS: Sodium Chloride 3 ML UD NEBULES IH SCH ×6 (04:35→23:30)
[2018-06-29] MEDS: Sodium Chloride 0.9% 10 ML FLUSH Syringe IV SCH ×3 (06:39→22:00)
[2018-06-29] MEDS: Xopenex 1.25 MG/0.5 ML UD NEBULE IH SCH ×4 (07:15→23:31)
[2018-06-29] MEDS: Aplisol ID ONE (07:16)
[2018-06-29] MEDS: Advair Hfa 230/21 Mcg COMMON CANISTER IH SCH ×2 (07:20→23:42)
[2018-06-29] MEDS: BENTYL 20 MG PO SCH ×3 (08:18→16:40)
[2018-06-29] MEDS: Sinemet 25/100 MG PO SCH ×4 (08:18→20:00)
[2018-06-29] MEDS ORDERED: MORPHINE SULFATE 4 MG INJ IV PRN (08:35)
--- NOTE | 2018-06-29 08:41 | PCM.NOTE ---
Date and Time: 06/29/18 08 Subjective Assessment: Pt requiring morphine q4h but it does not help her pain. She was a little sleepy with the first dose but not after that. Would like to see about getting deep suction again. - Review of Systems Constitutional: No Fever Respiratory: Cough, Short Of Breath Musculoskeletal: Joint Pain Objective Exam General Appearance: moderate distress, No alert Neurologic Exam: alert, cooperative, other (slurred speech) Skin Exam: normal color, warm, dry, No rash Respiratory Exam: diminished breath sounds, prolonged expirations, rhonchi ( throughout), wheezing (throughout) Cardiovascular Exam: tachycardia, No murmur Extremity Exam: swelling (trace pretibial edema bilat) Back Exam: normal inspection, No rash OBJECTIVE DATA Vital Signs: Vital Signs - 24 hr Temp Pulse Resp BP Pulse Ox 06/29/18 07:15 104 H 20 96 06/29/18 07:06 97.8 F 107 H 20 160/81 107 H 06/29/18 04:35 111 H 24 97 06/28/18 20:24 81 20 96 06/28/18 20:00 99.1 F 105 H 20 142/69 95 06/28/18 19:41 100 H 20 94 L 06/28/18 16:58 112 H 18 94 L 06/28/18 16:51 98.9 F 112 H 16 159/78 94 L 06/28/18 16:39 112 H 18 94 L Oxygen-Last 24 hours O2 Percentage 3 Liters = 32% O2 Percentage 3 Liters = 32% O2 Percentage 3 Liters = 32% Pain Assessment - Last Documented Pain Intensity 10 Pain Scale Used 0-10 Pain Scale Intake and Output: Intake & Output 06/26/18 06/27/18 06/28/18 06/29/18 11:59 11:59 11:59 11:59 Intake Total 380 Balance 380 Weight 43.6 kg Assessment/Plan (1) COPD with acute exacerbation Current Visit: No Status: Acute Onset Date: ~03/07/18 Assessment & Plan: On IV zosyn. Her prognosis is poor. I have discussed with family and discussed with pt this morning. Will stay on IV antibiotics, steroids, theophylline, nebs for now. Her did decide to make her a no code yesterday morning, which her daughter also stated the patient would want. Increased her morphine for comfort and possibly air hunger. Stopping her vitamins; will discuss with whether he is ok with stopping megace and dicyclomine as she is not eating well. He also didn't want her on the Eliquis and I think it's reasonable to stop that if they want. Code(s): J44.1 - CHRONIC OBSTRUCTIVE PULMONARY DISEASE W (ACUTE) EXACERBATION (2) Thrush of mouth and esophagus Current Visit: Yes Status: Acute Assessment & Plan: IV diflucan Code(s): B37.81 - CANDIDAL ESOPHAGITIS; B37.0 - CANDIDAL STOMATITIS (3) Atrial fibrillation Current Visit: No Status: Chronic Qualifiers: Atrial fibrillation type: chronic Qualified Code(s): I48.2 - Chronic atrial fibrillation Code(s): I48.91 - UNSPECIFIED ATRIAL FIBRILLATION (4) Corticobasal degeneration Current Visit: No Status: Chronic Code(s): G31.85 - CORTICOBASAL DEGENERATION (5) Low back pain Current Visit: No Status: Chronic Onset Date: ~12/10/17 Qualifiers: Chronicity: chronic Back pain laterality: unspecified Code(s): M54.5 - LOW BACK PAIN (6) Malnutrition Current Visit: No Status: Chronic Qualifiers: Malnutrition type: protein-calorie malnutrition Protein-calorie malnutrition severity: severe Qualified Code(s): E43 - Unspecified severe protein-calorie malnutrition Code(s): E46 - UNSPECIFIED PROTEIN-CALORIE MALNUTRITION (7) History of Clostridium difficile colitis Current Visit: No Status: Resolved Assessment & Plan: on probiotic - will discuss whether to stop Code(s): Z86.19 - PERSONAL HISTORY OF OTHER INFECTIOUS AND PARASITIC DISEASES (8) Do not resuscitate Current Visit: Yes Status: Acute
[2018-06-29] MEDS: Diflucan/Saline 0.2G/100ML PREMIX*** 100 ML IV SCH (09:13)
[2018-06-29] MEDS: SYNTHROID 50 MCG PO SCH (09:19)
[2018-06-29] MEDS: MORPHINE SULFATE 10 MG/ML IV PRN ×4 (09:19→20:38)
[2018-06-29] MEDS: Acidophilus TABLET PO SCH ×2 (09:20→23:42)
[2018-06-29] MEDS: Klor Con 10 MEQ PO SCH (09:20)
[2018-06-29] MEDS: CLARITIN 10 MG PO SCH (09:20)
[2018-06-29] MEDS: Mucinex 600MG ER Tabs PO SCH ×2 (09:21→23:43)
[2018-06-29] MEDS: ELIQUIS 2.5 MG TABLET PO SCH (09:21)
[2018-06-29] MEDS: Multaq 400 MG PO SCH ×2 (09:21→23:43)
[2018-06-29] MEDS: Paxil 20 MG PO SCH (09:21)
[2018-06-29] MEDS: THEOPHYLLINE ER 24HR PO SCH (09:22)
[2018-06-29] MEDS: Nystatin SUSPENSION 60 ML PO PRN ×2 (09:25→23:44)
[2018-06-29] MEDS ORDERED: Megace 40 MG/ML PO SCH (10:00)
[2018-06-29] MEDS ORDERED: Calcium 500MG W/Vit D Tablet PO SCH (10:00)
[2018-06-29] MEDS: ATROPINE SULFATE EYE DROPS PO PRN (21:59)
[2018-06-30] MEDS: Zosyn 3.375GM/100 Ml D5W 3.375 GM/100 ML IVPB IV SCH (03:11)
[2018-06-30] MEDS: Nystatin SUSPENSION 60 ML PO PRN (03:12)
[2018-06-30] MEDS: MORPHINE SULFATE 10 MG/ML IV PRN ×6 (03:37→19:38)
[2018-06-30] MEDS: Sodium Chloride 0.9% 10 ML FLUSH Syringe IV SCH ×3 (04:20→22:00)
[2018-06-30] MEDS: Valium 5 MG PO SCH ×3 (05:55→21:34)
[2018-06-30] MEDS: Xopenex 1.25 MG/0.5 ML UD NEBULE IH SCH ×4 (06:54→21:30)
[2018-06-30] MEDS: Sodium Chloride 3 ML UD NEBULES IH SCH ×4 (06:54→21:30)
[2018-06-30] MEDS: Advair Hfa 230/21 Mcg COMMON CANISTER IH SCH ×2 (06:54→21:30)
[2018-06-30] MEDS: solu-MEDROL 125 MG IV SCH (06:59)
[2018-06-30] MEDS: BENTYL 20 MG PO SCH ×3 (07:48→17:45)
[2018-06-30] MEDS: Sinemet 25/100 MG PO SCH (07:48)
[2018-06-30] MEDS: Klor Con 10 MEQ PO SCH (09:25)
[2018-06-30] MEDS: Mucinex 600MG ER Tabs PO SCH ×2 (09:25→21:34)
[2018-06-30] MEDS: Paxil 20 MG PO SCH (09:25)
[2018-06-30] MEDS: SYNTHROID 50 MCG PO SCH (09:25)
[2018-06-30] MEDS: Multaq 400 MG PO SCH ×2 (09:25→21:34)
[2018-06-30] MEDS: Acidophilus TABLET PO SCH ×2 (09:26→21:34)
[2018-06-30] MEDS: THEOPHYLLINE ER 24HR PO SCH (09:26)
[2018-06-30] MEDS: CLARITIN 10 MG PO SCH (09:26)
[2018-06-30] MEDS: ATROPINE SULFATE EYE DROPS PO PRN (13:42)
[2018-06-30] MEDS ORDERED: Transderm Scop 1.5MG Patch TOP SCH (14:00)
[2018-06-30] MEDS: Dextrose 5% -0.45 NaCl 1000 ML 1,000 ML IV SCH (21:36)
[2018-07-01] MEDS: ATROPINE SULFATE EYE DROPS PO PRN ×2 (03:48→07:48)
[2018-07-01] MEDS: MORPHINE SULFATE 10 MG/ML IV PRN ×5 (05:55→23:30)
[2018-07-01] MEDS: Sodium Chloride 0.9% 10 ML FLUSH Syringe IV SCH ×3 (05:57→22:01)
[2018-07-01] MEDS: Sodium Chloride 3 ML UD NEBULES IH SCH ×4 (06:53→19:25)
[2018-07-01] MEDS: Xopenex 1.25 MG/0.5 ML UD NEBULE IH SCH ×4 (06:53→19:25)
[2018-07-01] MEDS: Advair Hfa 230/21 Mcg COMMON CANISTER IH SCH ×2 (06:53→19:29)
[2018-07-01] MEDS: Diflucan/Saline 0.2G/100ML PREMIX*** 100 ML IV SCH (09:29)
[2018-07-01] MEDS: Dextrose 5% -0.45 NaCl 1000 ML 1,000 ML IV SCH (22:02)
[2018-07-01] MEDS: BENTYL 20 MG PO SCH (22:02)
[2018-07-02] MEDS: MORPHINE SULFATE 10 MG/ML IV PRN ×4 (03:03→21:51)
[2018-07-02] MEDS: Ativan 2 MG/1 ML VIAL IV PRN ×3 (05:12→19:54)
[2018-07-02] MEDS: Sodium Chloride 0.9% 10 ML FLUSH Syringe IV SCH ×3 (05:26→22:11)
--- NOTE | 2018-07-02 09:02 | PCM.NOTE ---
Date and Time: 07/02/18 0857 Subjective Assessment: Over the past several days, have discontinued patient's oral meds and have made her supportive care only. Discontinued IV antibiotic and steroid as felt the steroid was making her shaky and the antibiotic was causing some loose stools. She did urinate overnight x 2 despite the fact that she has not been taking much po at all. She did have 1 bag of IV fluid yesterday. Has received IV morphine intermittently, as she gets restless. Pt no longer able to sit up on her own. - Review of Systems Constitutional: Weakness, No Fever Respiratory: Cough, Short Of Breath Objective Exam General Appearance: no apparent distress, other (lying in bed; opens her eyes briefly.) Skin Exam: normal color, warm, dry Respiratory Exam: prolonged expirations, other (audible excretions in the throat , louder with exhalation) Extremity Exam: swelling (trace edema LE bilat) OBJECTIVE DATA Vital Signs: Vital Signs - 24 hr Temp Pulse Resp BP Pulse Ox 07/01/18 19:43 95.0 F 103 H 13 127/69 96 07/01/18 19:31 105 H 13 96 07/01/18 16:13 104 H 16 144/72 93 L Oxygen-Last 24 hours O2 Percentage 3 Liters = 32% O2 Percentage 3 Liters = 32% Pain Assessment - Last Documented Pain Intensity 10 Pain Scale [facility] Intake and Output: Intake & Output 06/29/18 06/30/18 07/01/18 07/02/18 11:59 11:59 11:59 11:59 Intake Total 380 120 20 20 Output Total 150 500 Balance 380 120 -130 -480 Weight 43.6 kg 44.3 kg Assessment/Plan (1) supportive care only Current Visit: Yes Status: Acute Assessment & Plan: The goal at this point is to keep her comfortable. She is supportive care only. Prognosis is extremely poor; I anticipate she will not live beyond a day or two from now. (2) COPD with acute exacerbation Current Visit: No Status: Acute Onset Date: ~03/07/18 Code(s): J44.1 - CHRONIC OBSTRUCTIVE PULMONARY DISEASE W (ACUTE) EXACERBATION (3) Thrush of mouth and esophagus Current Visit: Yes Status: Acute Assessment & Plan: still receiving diflucan; the thrush is improved per , as he was able to view her tongue earlier. Code(s): B37.81 - CANDIDAL ESOPHAGITIS; B37.0 - CANDIDAL STOMATITIS (4) Atrial fibrillation Current Visit: No Status: Chronic Qualifiers: Atrial fibrillation type: chronic Code(s): I48.91 - UNSPECIFIED ATRIAL FIBRILLATION (5) Corticobasal degeneration Current Visit: No Status: Chronic Code(s): G31.85 - CORTICOBASAL DEGENERATION (6) Low back pain Current Visit: No Status: Chronic Onset Date: ~12/10/17 Qualifiers: Chronicity: chronic Back pain laterality: unspecified Code(s): M54.5 - LOW BACK PAIN (7) Malnutrition Current Visit: No Status: Chronic Qualifiers: Malnutrition type: protein-calorie malnutrition Protein-calorie malnutrition severity: severe Qualified Code(s): E43 - Unspecified severe protein-calorie malnutrition Code(s): E46 - UNSPECIFIED PROTEIN-CALORIE MALNUTRITION (8) Do not resuscitate Current Visit: Yes Status: Acute
[2018-07-02] MEDS: ATROPINE SULFATE EYE DROPS PO PRN ×3 (09:05→19:55)
[2018-07-02] MEDS: Xopenex 1.25 MG/0.5 ML UD NEBULE IH PRN (10:49)
[2018-07-02] MEDS: Sodium Chloride 3 ML UD NEBULES IH SCH ×2 (10:49→11:00)
[2018-07-02] MEDS: Xopenex 1.25 MG/0.5 ML UD NEBULE IH SCH ×3 (10:50→19:10)
[2018-07-02] MEDS ORDERED: Sodium Chloride 0.9% 500 ML 500 ML IV ONE (21:19)
[2018-07-02] MEDS ORDERED: Sodium Chloride 0.9% 250 ML 250 ML IV SCH (21:30)
[2018-07-03] MEDS: MORPHINE SULFATE 10 MG/ML IV PRN ×5 (02:28→20:20)
[2018-07-03] MEDS: ATROPINE SULFATE EYE DROPS PO PRN ×4 (02:33→15:57)
[2018-07-03] MEDS: Sodium Chloride 3 ML UD NEBULES IH SCH ×3 (07:16→16:46)
[2018-07-03] MEDS: Xopenex 1.25 MG/0.5 ML UD NEBULE IH SCH ×3 (07:17→16:45)
[2018-07-03] MEDS: Ativan 2 MG/1 ML VIAL IV PRN ×4 (09:25→22:08)
[2018-07-03] MEDS: Diflucan/Saline 0.2G/100ML PREMIX*** 100 ML IV SCH (09:31)
[2018-07-03] MEDS ORDERED: Lactated Ringers 250 ML IV PRN (14:36)
[2018-07-03] MEDS: Sodium Chloride 0.9% 10 ML FLUSH Syringe IV SCH ×3 (15:57→22:23)
[2018-07-03 19:54] VITALS: PULSE 102; O2SAT 97
[2018-07-03 20:45] VITALS: BP 118/64
[2018-07-04] MEDS: MORPHINE SULFATE 10 MG/ML IV PRN (00:05)
[2018-07-04] MEDS: Ativan 2 MG/1 ML VIAL IV PRN (02:15)
== END 2018-07-04 02:28 | disposition expired | DRG 190 ==
LOC: MED SURG 16:15
PROVIDERS: ADMIT Family Medicine; ATTEND Family Medicine
DX: J44.1 Chronic obstructive pulmonary disease with (acute) exacerbation (principal); E43 Unspecified severe protein-calorie malnutrition; B37.0 Candidal stomatitis; G31.85 Corticobasal degeneration; I48.91 Unspecified atrial fibrillation; M54.5 Low back pain; Z86.19 Personal history of other infectious and parasitic diseases; Z79.899 Other long term (current) drug therapy
CPT/HCPCS: 94640; 94760; J1450; J2060; J2270; J2543; J2930; 97110-GP; A9270-GY